=== PATIENT | male | born 1985 | race Caucasian/White ===

== ENCOUNTER 2023-04-12 13:43 | Inpatient (IN) | payer MEDICAID, SELFPAY ==
--- NOTE | ~2023-04-12 | US_ITS ---
EXAMINATION: ULTRASOUND EXTREMITY NONVASCULAR, LEFT CLINICAL INFORMATION: Pain and swelling, abscess left foot. COMPARISON: Radiograph of the left foot earlier today. TECHNIQUE: Targeted grayscale and color Doppler images of the area of clinical concern in the dorsal soft tissues of the left foot. US/US extremity nonvascular maria FINDINGS/IMPRESSION: There is a 2.6 x 1.6 x 1.5 cm heterogeneous collection with thickened molina and surrounding hyperemia/soft tissue thickening in the dorsal soft tissues of the left foot concerning for an abscess in the appropriate clinical context. Recommend a follow-up ultrasound after treatment to ensure appropriate resolution.
--- NOTE | ~2023-04-12 | XR_ITS ---
EXAMINATION: XR FOOT, LEFT CLINICAL INFORMATION: Left foot pain. COMPARISON: None available. TECHNIQUE: AP, lateral, and oblique views of the left foot. FINDINGS: Soft tissues are diffusely swollen at the foot with associated soft tissue edema. No fracture or malalignment. Bone mineralization is normal. Joint spaces appear well-preserved. No erosions. No appreciable periostitis. XR/XR foot LT 2V IMPRESSION: Soft tissue swelling at the left foot. No acute osseous findings.
[2023-04-12 13:48] VITALS: BP 138/84; PULSE 92; RESP 19; TEMP 36.2; O2SAT 99; BMI 29.5
--- NOTE | 2023-04-12 13:50 | ED_ITS ---
HPI - General Adult General Chief complaint: Extremity Problem Stated complaint: l foot inj swelling Time Seen by Provider: 04/12/23 18:05 Source: patient, RN notes reviewed and old records reviewed Mode of arrival: ambulatory Limitations: no limitations History of Present Illness HPI narrative: 37-year-old male who denies any past medical history presents for evaluation of a left foot infection. Patient reports that he was injecting cocaine heroin about 1 week ago to the top of his left foot He states that about 3 days ago it became red, painful and swollen He has been using ?[id number] ampicillin that he picked up at a [facility] It is unclear what dose he has been taking or how many he has had He denies any fevers or chills but reports increasing pain to the area especially with walking He is not diabetic Related Data Home Medications Medication Instructions Recorded Confirmed ampicillin 500 mg capsule 04/12/23 Allergies Allergy/AdvReac Type Severity Reaction Status Date / Time No Known Allergies Allergy Verified 04/12/23 13:50 Review of Systems Constitutional: Constitutional: Denies chills and Denies fever(s) Cardiovascular: Cardiovascular: Denies chest pain and Denies dyspnea Respiratory: Respiratory: Denies dyspnea Musculoskeletal: Musculoskeletal: Reports arthralgias Integumentary/Breasts: Skin/Breast: Reports erythema and Reports wounds PMFSH Past Medical History Medical History Substance use disorder Social History Social History Patient Tobacco Use Status: Current everyday Tobacco user Smoked in Last 30 Days: Yes Use of substances other than those prescribed or required for medical reasons: Yes Substance Use Type: Crack/Cocaine and Heroin Substance Use Frequency: Daily Advance Directives: No Advance Directives Information Provided: Yes Nutrition Risks: No Nutritional Risk Physical Exam ED Vital Signs: Vital Signs - 24 hr 04/12/23 13:48 04/12/23 20:06 Temperature 97.2 F 98.8 F Pulse Rate 92 79 Respiratory Rate 19 18 Blood Pressure 138/84 136/89 Pulse Oximetry 99 100 Oxygen Delivery Method Room Air Room Air BMI result Body Mass Index 29.5 Const General: healthy appearing, comfortable, no acute distress, alert and awake Nutritional Appearance: well nourished Orientation/consciousness: patient oriented x3 HENMT Head: Yes normocephalic and Yes atraumatic Eyes Eyelids: Yes eyelids normal Conjunctivae: conjunctivae normal Sclerae: sclerae normal Corneas: corneas normal Pupils: Equal, round and reactive pupils present EOM: EOMs intact bilaterally Neck Neck: Yes full ROM Resp Effort & Inspection: normal respiratory effort, able to speak in complete sentences and not labored Cardio Rate: regular rate Rhythm: regular rhythm Skin General skin exam: elasticity normal Neuro General: patient oriented x3 Cranial nerves: Yes Equal, round and reactive pupils present and Yes Bilaterally intact EOM present Cognition (Neuro): normal cognition Extrem Other: Patient has marked erythema to the dorsal surface of the left foot that extends to the lateral and medial aspect of the foot but does not extend to the plantar surface of the foot. There is significant edema over this area with a central but we open wound. There is some active purulent drainage. There is faint erythema extending up the ventral surface of the left leg to the mid barrow Course Course Course Narrative: This is an RME: Additional HPI, ROS, PE not included below will be deferred to primary provider. 37-year-old male hx IVDA presents with redness and swelling, pain to left lower extremity, patient reports he injected IV drugs ( heroin and coke) the left foot, this happened about a week ago since then has been having worsening redness and swelling. Patient purchased ampicillin from a store and has been taking it by mouth. Seeking detox On exam significant erythema, warmth and drainage with open wound to the left dorsal aspect of foot. Purulence discharge noted from the area. There is 1+ pitting edema to left lower extremity from the knee down. Reevaluation(s) Reevaluation #1: Plan for incision and drainage after ultrasound confirms abscess. The patient was not comfortable with amount of pain he was in after local anesthetic with lidocaine. He no longer wished to proceed with incision and drainage but I was able to convince him to at least let me attempt needle aspiration. See procedure note Time: 20:38 Medications Administered Generic Name Dose Route Start Last Admin Trade Name Freq PRN Reason Stop Dose Admin Enoxaparin Sodium 40 mg 04/12/23 20:00 04/12/23 20:03 Enoxaparin Sodium 40 Mg/0.4 Ml Syringe SUBCUT 40 mg Q24H LISBETH Administration Vancomycin HCl 2,000 mg in 500 mls @ 250 mls/hr 04/12/23 19:30 04/12/23 20:03 Vancomycin/Ns IV 04/12/23 21:29 250 mls/hr ONCE ONE Administration Discontinued Medications Generic Name Dose Route Start Last Admin Trade Name Gallo PRN Reason Stop Dose Admin Piperacillin Sod/Tazobactam 50 mls @ 100 mls/hr 04/12/23 13:50 04/12/23 20:05 Sod 3.375 gm/ Sodium Chloride IV 04/12/23 14:19 Not Given ONCE ONE Procedures Abscess I/D Site: foot Side (if applicable): left Local Anesthetic: lidocaine 1% and with epi Amount of anesthesia used (mL): 3 Technique: needle aspiration Amount of fluid expressed (mL): 1.5 Sent for culture/gram staining?: Yes Irrigation: No Packing used?: none Medical Decision Making Medical Decision Making [facility] Narrative: 37-year-old male presents for evaluation of a skin cellulitis with potential abscess after injecting IV drugs. Patient is not septic, his vital signs are stable. He has been on oral ampicillin but again, it is unclear dose that he has been taking. Will get an ultrasound to evaluate for drainable abscess. There is no evidence of sepsis. He will likely require IV antibiotics/hospitalization given the extent of the cellulitis Differential Diagnosis Differential Diagnoses: The differential diagnosis associated with the presentation includes Cellulitis Abscess Sepsis Bacteremia Admission/Observation Consideration of admission/observation: Escalation of care including admission/observation considered Lab Data [facility] Lab Attestation statement: I reviewed the patient's lab results. Mild leukocytosis with a white count 11.6, no significant anemia. Normal platelet count. Electrolytes within normal limits. 04/12/23 14:48 04/12/23 14:48 Labs: Lab Results 04/12/23 04/12/23 04/12/23 Range/Units 14:48 14:48 14:48 WBC 11.6 H (4.8-10.8) X10*3/uL RBC 4.79 (4.60-5.80) X10*6/uL Hgb 14.6 (14.0-18.0) g/dl Hct 42.7 (42.0-52.0) % MCV 89.1 (80.0-98.0) fL MCH 30.5 (27.0-33.0) pg MCHC 34.2 (31.0-36.0) g/dl RDW 12.2 (11.0-16.0) % Plt Count 249 (160-400) X10*3/uL MPV 10.4 (9.4-12.4) fL Immature Gran % (Auto) 0.7 H (0.0-0.4) % Neut % (Auto) 84.4 H (45-73) % Lymph % (Auto) 8.3 L (20-40) % Dickson % (Auto) 6.1 (2-11) % Eos % (Auto) 0.2 (0-4) % Baso % (Auto) 0.3 (0-2) % Lymph # (Auto) 1.0 L (1.2-4.9) X10*3/uL Dickson # (Auto) 0.7 (0.1-1.2) X10*3/uL Eos # (Auto) 0.0 (0.0-0.4) X10*3/uL Baso # (Auto) 0.0 (0.0-0.2) X10*3/uL Abs Immat Gran (auto) 0.08 H (0.00-0.03) X10*3/uL Absolute Neuts (auto) 9.8 H (2.0-8.3) x10*3/uL Absolute Nucleated RBC 0.000 (0.0-0.012) X10*3/uL Nucleated RBC % (auto) 0.0 (0.0-0.2) /100WBC Sodium 142 (135-145) mmol/L Potassium 3.9 (3.3-5.1) mmol/L Chloride 105 (96-108) mmol/L Carbon Dioxide 24 (22-29) mmol/L Anion Gap 17 (12-20) BUN 11 (9-16) mg/dL Creatinine 1.06 (0.5-1.4) mg/dL Estim Creat Clear Calc 108.2 Estimated GFR > 60 Random Glucose 114 (60-115) mg/dL Lactic Acid 1.4 (0.5-2.0) mmol/L Calcium 9.9 (8.4-10.2) mg/dL Magnesium 2.1 (1.6-2.6) mg/dL Total Bilirubin 0.7 (0.0-1.0) mg/dL AST 15 (5-37) U/L ALT 13 (0-40) U/L Alkaline Phosphatase 117 (39-117) U/L Total Protein 7.8 (6.5-8.0) g/dL Albumin 4.2 (3.5-5.0) g/dL Independent Interpretation I performed an independent interpretation of an: Plain X-Ray (No obvious osteolytic lesion) Discharge Plan Discharge Clinical Impression: Cellulitis of foot, left Prescriptions: No Action ampicillin 500 mg Capsule
[2023-04-12 14:59] LABS: MANUAL DIFF FLAG NO
[2023-04-12 15:08] LABS: Lactic Acid 1.4 mmol/L (0.5-2.0)
[2023-04-12 15:13] LABS: Basophils Percent Auto 0.3 % (0-2); Eosinophils Percent Auto 0.2 % (0-4); Hematocrit 42.7 % (42.0-52.0); Hemoglobin 14.6 g/dl (14.0-18.0); Imm Gran Abs Auto 0.08 X10*3/uL (0.00-0.03); Imm Gran Pct Auto 0.7 % (0.0-0.4); Lymphocytes Percent Auto 8.3 % (20-40); Mean Corpuscular HGB Conc 34.2 g/dl (31.0-36.0); Mean Corpuscular Hemoglobin 30.5 pg (27.0-33.0); Mean Corpuscular Volume 89.1 fL (80.0-98.0); Mean Platelet Volume 10.4 fL (9.4-12.4); Monocytes Absolute Auto 0.7 X10*3/uL (0.1-1.2); Monocytes Percent Auto 6.1 % (2-11); Neutrophils Absolute Auto 9.8 x10*3/uL (2.0-8.3); Neutrophils Percent Auto 84.4 % (45-73); Platelet Count 249 X10*3/uL (160-400); Red Blood Count 4.79 X10*6/uL (4.60-5.80); Red Cell Distribution Width 12.2 % (11.0-16.0); White Blood Count 11.6 X10*3/uL (4.8-10.8)
[2023-04-12 15:28] LABS: Alanine Aminotransferase 13 U/L (0-40); Albumin Level 4.2 g/dL (3.5-5.0); Alkaline Phosphatase 117 U/L (39-117); Anion Gap 17 (12-20); Aspartate Amino Transferase 15 U/L (5-37); Bilirubin Total 0.7 mg/dL (0.0-1.0); Blood Urea Nitrogen 11 mg/dL (9-16); Calcium 9.9 mg/dL (8.4-10.2); Carbon Dioxide 24 mmol/L (22-29); Chloride 105 mmol/L (96-108); Creatinine Clr Calc Pharmacy 108.2; Estimated Glomerular Filt Rate > 60; Glucose Random 114 mg/dL (60-115); Magnesium 2.1 mg/dL (1.6-2.6); Potassium 3.9 mmol/L (3.3-5.1); Sodium 142 mmol/L (135-145); Total Protein 7.8 g/dL (6.5-8.0)
--- NOTE | 2023-04-12 18:50 | PHA.MEDREC ---
Pharmacy Consult ? Medication Reconciliation Pharmacy has completed the medication reconciliation. Patient reports ampicillin 500 mg, no frequency or amount was reported. This is not a prescribed medication. Reports he is not taking any prescribed medication even though is suppose to be. Coco Ashraf, PharmD
--- NOTE | 2023-04-12 19:20 | PM.IMHP ---
History of Present Illness Date of Service: 04/12/23 Chief Complaint: Left foot redness This is a 37-year-old male with pertinent history of IV cocaine and heroin use disorder presents to the emergency department for evaluation of left foot redness, swelling and pain. Patient states it started 3 days prior to presentation. No history of infections in the past. Denies any significant past medical history and is not on prescription medications. Patient states his left foot has been draining purulent fluid which is foul smelling. Denies fever, chills, nausea, vomiting. He took oral antibiotics which he thinks was ampicillin the last 2-3 days but without any improvement. His last IV drug usage was 3 days ago. He denies chest discomfort, palpitations, shortness abdominal pain, changes in urinary or bowel habits In the emergency department, imaging with Review of Systems Constitutional: Constitutional: Reports fatigue Cardiovascular: Cardiovascular: Reports no additional cardiovascular complaints Respiratory: Respiratory: Reports no additional respiratory complaints Gastrointestinal: Gastrointestinal: Reports no additional gastrointestinal complaints Genitourinary: Genitourinary: Reports no additional male genitourinary complaints Endocrine: Endocrine: Reports fatigue [facility] Medical History Substance use disorder Pertinent family history: No family history of early CAD Social History Patient Tobacco Use Status: Current everyday Tobacco user Smoked in Last 30 Days: Yes Use of substances other than those prescribed or required for medical reasons: Yes Substance Use Type: Crack/Cocaine and Heroin Substance Use Frequency: Daily Advance Directives: No Advance Directives Information Provided: Yes Nutrition Risks: No Nutritional Risk Meds Allergies Allergy/AdvReac Type Severity Reaction Status Date / Time No Known Allergies Allergy Verified 04/12/23 13:50 Active Medications: Current Medications Acetaminophen (Acetaminophen 325 Mg Tablet) 650 mg PO Q6H PRN PRN Reason: Pain, Mild (Pain Scale 1-3) Enoxaparin Sodium (Enoxaparin Sodium 40 Mg/0.4 Ml Syringe) 40 mg SUBCUT Q24H LISBETH Vancomycin HCl 1,500 mg/ (Sodium Chloride) 500 mls @ 333.333 mls/hr IV ONCE ONE Stop: 04/12/23 20:46 Melatonin (Melatonin 3 Mg Tablet) 6 mg PO BEDTIME PRN PRN Reason: Insomnia Ondansetron HCl (Ondansetron Hcl 4 Mg/2 Ml Vial) 4 mg IVPUSH Q8H PRN PRN Reason: Nausea and Vomiting Pharmacy Consult (Consult Rx Perform Med Rec) 1 each MISCELLANE ONCE PRN PRN Reason: Consult order Pharmacy Consult (Consult Rx Vancomycin Dosing) 1 each MISCELLANE DAILY PRN PRN Reason: Consult order Sodium Chloride (0.9 % Sodium Chloride Flush 3 Ml Syringe) [facility] Medications Medication Instructions Recorded Confirmed Last Taken Type ampicillin 500 mg capsule 04/12/23 Unknown History Physical Exam Vital Signs and Narrative: Vital Signs: Last Vital Signs Temp 97.2 F 04/12/23 13:48 Pulse 92 04/12/23 13:48 Resp 19 04/12/23 13:48 BP 138/84 04/12/23 13:48 Pulse Ox 99 04/12/23 13:48 O2 Del Method Room Air 04/12/23 13:48 BMI result Body Mass Index 29.5 Middle-aged male lying in bed in no distress Neck supple, no JVD Regular rate and rhythm, S1-S2 heard Regular breath sounds bilaterally, no wheezing or crackles appreciated Abdomen soft nontender, no guarding, no rigidity Patient is awake, alert and oriented to self, place, time and person ; no focal motor deficit Extremity: Left foot with erythema, tenderness, warmth and serosanguineous drainage Psych: Normal mood No pedal edema Results Labs 04/12/23 14:48 04/12/23 14:48 Labs: Laboratory Results - last 24 hr 04/12/23 04/12/23 04/12/23 14:48 14:48 14:48 MCV 89.1 MCH 30.5 MCHC 34.2 RDW 12.2 Plt Count 249 MPV 10.4 Immature Gran % (Auto) 0.7 H Neut % (Auto) 84.4 H Lymph % (Auto) 8.3 L Weakley % (Auto) 6.1 Eos % (Auto) 0.2 Baso % (Auto) 0.3 Lymph # (Auto) 1.0 L Weakley # (Auto) 0.7 Eos # (Auto) 0.0 Baso # (Auto) 0.0 Abs Immat Gran (auto) 0.08 H Absolute Neuts (auto) 9.8 H Absolute Nucleated RBC 0.000 Nucleated RBC % (auto) 0.0 Anion Gap 17 Estim Creat Clear Calc 108.2 Estimated GFR > 60 Random Glucose 114 Lactic Acid 1.4 Calcium 9.9 Magnesium 2.1 Total Bilirubin 0.7 AST 15 ALT 13 Alkaline Phosphatase 117 Total Protein 7.8 Albumin 4.2 Imaging Radiologist's Impressions: Impressions Foot X-Ray 04/12/23 15:04 IMPRESSION: Soft tissue swelling at the left foot. No acute osseous findings. Assessment and Plan (1) Cellulitis of foot, left: Status: Acute Plan This is a 37-year-old male with pertinent history of IV cocaine and heroin use disorder presents to the emergency department for evaluation of left foot redness, swelling and pain. #. Purulent cellulitis of left foot with abscess . Will admit due to extensive cellulitis and failed p.o. outpatient antibiotics. Initiating empiric IV abx. Follow cultures. Consulting general sx. #. Substance use disorder. Monitor for withdrawal. Consulting addiction team. DVT prophylaxis: Lovenox Regular diet Full code Admit as inpatient and will require two night minimum hospital stay for IV antibiotics Time Spent With Patient Time: Total time managing care of this patient today ____ minutes. Quality Stroke Does the patient have a stroke diagnosis?: No VTE Prior VTE?: No VTE Risk Level:: Medical - moderate - high VTE Device Contraindication: Treatment Not Indicated VTE Drug Contraindication: N/A - Med Ordered
[2023-04-12] MEDS: Enoxaparin Sodium 40 MG/0.4 ML SYRINGE SUBCUT (20:03)
[2023-04-12] MEDS: vancomycin/NS 2,000 MG/500 ML PLAST..BAG 250 MG IV (20:03)
[2023-04-12 20:06] VITALS: BP 136/89; PULSE 79; RESP 18; TEMP 37.1; O2SAT 100
--- NOTE | 2023-04-12 20:36 | MHC.RECOVSUP ---
? Reason for consult Recovery Support o Current location: ED1 o Identified substance use concern: Heroin - Seeking ATS (detox) - Support ? Intervention: o Community resources provided o Harm reduction discussion ? Plan: o Patient to follow up with [facility] after discharge ? Additional information: Met with Patient and patient wants to go to detox... Patient is being admitted but would like to go to detox as soon as he is cleared..
[2023-04-12] MEDS: Morphine Sulfate 4 MG/ML CARTRIDGE IVPUSH (20:38)
[2023-04-12] MEDS: ondansetron HCL 4 MG/2 ML VIAL IVPUSH (20:38)
--- OUTSIDE RECORDS SUMMARY | 2023-04-12 21:16 | XMS_ITS | Continuity of Care Document ---
Author Name Unknown Organization [facility] ter Address [address] [place] [id number]- Care Team Providers Care Speech Pathology Supervisor Name Role Phone Not on Staff, PCP Primary Care Physician Unavail able Encounter [facility] Date(s): 12/09/21 - 01/15/[address] [id number]- Attending Physician: Ankit Smith Admitting Physician: Ankit Smith Referring Physician: Ankit Smith
[2023-04-12 21:50] VITALS: BP 135/69; PULSE 84; RESP 16; TEMP 36.9; O2SAT 98
--- NOTE | 2023-04-12 21:59 | MHC.CM.PN ---
Addendum entered by Megan Messer 04/12/23 22:34: Active with [facility]. Pt requesting Detox at discharge. Original Note: CM met with admitted patient with bed assignment pending. Pt is homeless. No DME/services. PCP at [facility] in [facility] [employer]. Declines HCP. New Contact: Dunia Reyes, mother, . Un-vaccinated. Pt states has job, but declines to tell CM where he works. [employer] completed. Positive screening. Given [employer], List of shelters, food phan, detox. 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 Pt is willing to speak with Recovery services. States has had period of sobriety and wants help. Pt has no transportation. D/C plan: home/no services. Will need transport.
[2023-04-12 23:41] VITALS: BMI 26.5
[2023-04-12] MEDS: Acetaminophen 325 MG TABLET 650 MG PO (23:42)
[2023-04-12 23:45] VITALS: BP 142/80; PULSE 86; RESP 18; TEMP 36.4; O2SAT 100
--- NOTE | 2023-04-13 00:18 | PC.NURSE ---
Pt admitted to [facility] from ED. A&Ox4, calm and cooperative with care. Ambulating with walker to bathroom as patient has 8/10 throbbing pain to the Left foot and pain increases with ambulation. Dressing to the left foot C/D/I. Urine sent down to lab as ordered. COWS initiated as patient uses cocaine/heroine. Pt also initiated on CIWA, per patient he drinks 10-15 nips per day plus 2-3 beers. Bed alarm on and bed in lowest locked position.
[2023-04-13] MEDS: Morphine Sulfate 2 MG/ML CARTRIDGE IVPUSH ×4 (00:37→23:02)
[2023-04-13 00:43] LABS: Amphetamine Screen Urine Not Detected (Not Detect); Barbiturates, Urine Not Detected (Not Detect); Benzodiazepines Screen Urine Not Detected (Not Detect); Cannabinoid Screen Urine POSITIVE (Not Detect); Cocaine Screen Urine POSITIVE (Not Detect); Fentanyl, urine Not Detected (Not Detect); Opiate Screen Urine POSITIVE (Not Detect); Phencyclidine Screen Urine Not Detected (Not Detect)
[2023-04-13 03:37] VITALS: BP 123/66; PULSE 68; RESP 16; TEMP 36.3; O2SAT 97
[2023-04-13 06:57] LABS: MANUAL DIFF FLAG NO
[2023-04-13 07:03] VITALS: BP 130/67; PULSE 71; RESP 18; TEMP 36.4; O2SAT 96
[2023-04-13 07:06] LABS: Basophils Percent Auto 0.6 % (0-2); Eosinophils Absolute Auto 0.1 X10*3/uL (0.0-0.4); Eosinophils Percent Auto 1.1 % (0-4); Hematocrit 38.3 % (42.0-52.0); Imm Gran Abs Auto 0.02 X10*3/uL (0.00-0.03); Imm Gran Pct Auto 0.3 % (0.0-0.4); Lymphocytes Absolute Auto 1.1 X10*3/uL (1.2-4.9); Lymphocytes Percent Auto 16.2 % (20-40); Mean Corpuscular HGB Conc 33.9 g/dl (31.0-36.0); Mean Corpuscular Hemoglobin 29.9 pg (27.0-33.0); Mean Platelet Volume 10.2 fL (9.4-12.4); Monocytes Absolute Auto 0.6 X10*3/uL (0.1-1.2); Monocytes Percent Auto 8.5 % (2-11); Neutrophils Absolute Auto 4.8 x10*3/uL (2.0-8.3); Neutrophils Percent Auto 73.3 % (45-73); Platelet Count 218 X10*3/uL (160-400); Red Blood Count 4.35 X10*6/uL (4.60-5.80); Red Cell Distribution Width 12.1 % (11.0-16.0); White Blood Count 6.6 X10*3/uL (4.8-10.8)
--- NOTE | 2023-04-13 07:08 | PM.CNGS ---
History of Present Illness Consult details Consult date: 04/13/23 Narrative: Is a 37-year-old gentleman who has a history of IVDA reports he was shooting heroin and cocaine in the dorsum of his foot. He developed an infection last week and I was asked to evaluate for possible abscess since incision and drainage would benefit the patient. The patient notes continued pain since admission and refused any treatment. He reports pain in his left foot as well as chills and is unaware of any fevers. He denies history of similar infections. The patient had a needle aspiration attempted in the emergency department last night at admission, cultures are currently pending Review of Systems Review of Systems: Yes all other systems are reviewed and are negative Constitutional: Constitutional: Reports as per [facility] Past Medical History Medical History Substance use disorder Social History Social History Household Members: None Housing: Homeless Patient Tobacco Use Status: Current everyday Tobacco user Cigarettes Per Day: 5 Smoked in Last 30 Days: Yes e-Cigarette/Vaping Use: Currently Using Frequency of e-Cigarette/Vaping Use: every other day Patient Interested in Nicotine Replacement: No Use of substances other than those prescribed or required for medical reasons: Yes Substance Use Type: Crack/Cocaine, Heroin and IV Drugs Substance Use Frequency: Daily Last Used Substance: Days (ago) Last Used Substance Other:: 04/12/2023 Currently Displaying Signs/Symptoms of Drug Intoxication Withdrawal: No Any prior treatment program specific to substance use: Yes Have you been hit, kicked, punched, or otherwise hurt by someone within the past year? If so, by whom?: No Do you feel safe in your current relationship?: No Current Relationship Is there a partner from a previous relationship who is making you feel unsafe now?: No Are you made to feel afraid or neglected: No Advance Directives: No Advance Directives Information Provided: Yes Do you have thoughts of harming others: None Do you have a plan to hurt others: No Plan Recently lost weight without trying: No Nutrition Risks: No Nutritional Risk service: No Meds Allergies Allergy/AdvReac Type Severity Reaction Status Date / Time No Known Allergies Allergy Verified 04/12/23 13:50 Active Medications: Current Medications Acetaminophen (Acetaminophen 325 Mg Tablet) 650 mg PO Q6H PRN PRN Reason: Pain, Mild (Pain Scale 1-3) Last Admin: 04/12/23 23:42 Dose: 650 mg Enoxaparin Sodium (Enoxaparin Sodium 40 Mg/0.4 Ml Syringe) 40 mg SUBCUT Q24H [facility] Last Admin: 04/12/23 20:03 Dose: 40 mg Vancomycin HCl 1,250 mg/ (Sodium Chloride) 250 mls @ 166.667 mls/hr IV Q12H [facility] Melatonin (Melatonin 3 Mg Tablet) 6 mg PO BEDTIME PRN PRN Reason: Insomnia Morphine Sulfate (Morphine Sulfate 2 Mg/Ml Cartridge) 2 mg IVPUSH Q4H PRN; Protocol PRN Reason: Pain, Severe (Pain Scale 7-10) Last Admin: 04/13/23 00:37 Dose: 2 mg Ondansetron HCl (Ondansetron Hcl 4 Mg/2 Ml Vial) 4 mg IVPUSH Q8H PRN PRN Reason: Nausea and Vomiting Pharmacy Consult (Consult Rx Perform Med Rec) 1 each MISCELLANE ONCE PRN PRN Reason: Consult order Pharmacy Consult (Consult Rx Vancomycin Dosing) 1 each MISCELLANE DAILY PRN PRN Reason: Consult order Sodium Chloride (0.9 % Sodium Chloride Flush 3 Ml Syringe) 3 ml IVFLUSH QSHIFT [facility] Last Admin: 04/12/23 23:35 Dose: Not Given Home Medications Medication Instructions Recorded Confirmed Last Taken Type ampicillin 500 mg capsule 04/12/23 Unknown History Physical Exam Vital Signs: Vital Signs: Last Vital Signs Temp 97.5 F 04/13/23 07:03 Pulse 71 04/13/23 07:03 Resp 18 04/13/23 07:03 BP 130/67 04/13/23 07:03 Pulse Ox 96 04/13/23 07:03 O2 Del Method Room Air 04/13/23 07:03 BMI result Body Mass Index 26.5 On exam he is cooperative but nontoxic He is in no acute respiratory distress He is a lean male His left foot dressing was taken down. There was cellulitic change with induration. There is some sloughing of the skin over would is likely a cutaneous but possibly deeper abscess. I do not appreciate any crepitance and DP/PT are palpable. No malodorous drainage was appreciated. Results Labs 04/13/23 06:45 04/12/23 14:48 Labs: Abnormal lab results 04/12/23 04/12/23 04/13/23 Range/Units 14:48 23:40 06:45 WBC 11.6 H (4.8-10.8) X10*3/uL RBC 4.35 L (4.60-5.80) X10*6/uL Hgb 13.0 L (14.0-18.0) g/dl Hct 38.3 L (42.0-52.0) % Immature Gran % (Auto) 0.7 H (0.0-0.4) % Neut % (Auto) 84.4 H 73.3 H (45-73) % Lymph % (Auto) 8.3 L 16.2 L (20-40) % Lymph # (Auto) 1.0 L 1.1 L (1.2-4.9) X10*3/uL Abs Immat Gran (auto) 0.08 H (0.00-0.03) X10*3/uL Absolute Neuts (auto) 9.8 H (2.0-8.3) x10*3/uL Urine Opiates Screen POSITIVE H (Not Detect) Urine Cocaine Screen POSITIVE H (Not Detect) U Marijuana (THC) Screen POSITIVE H (Not Detect) Short CBC 04/12/23 04/13/23 Range/Units 14:48 06:45 WBC 11.6 H 6.6 (4.8-10.8) X10*3/uL Hgb 14.6 13.0 L (14.0-18.0) g/dl Hct 42.7 38.3 L (42.0-52.0) % Plt Count 249 218 (160-400) X10*3/uL BMP 04/12/23 14:48 Sodium 142 Potassium 3.9 Chloride 105 Carbon Dioxide 24 BUN 11 Creatinine 1.06 Calcium 9.9 Liver Function 04/12/23 Range/Units 14:48 Total Bilirubin 0.7 (0.0-1.0) mg/dL AST 15 (5-37) U/L ALT 13 (0-40) U/L Alkaline Phosphatase 117 (39-117) U/L Albumin 4.2 (3.5-5.0) g/dL All other labs normal. Imaging Additional studies: Extremity ultrasound images and report reviewed from yesterday, likely abscess measuring 1 in by half-inch is noted. No free air in the subcutaneous tissues were noted Plain films of the foot show no foreign debris in no gas. Assessment and Plan (1) Cellulitis of foot, left: Status: Acute (2) Substance use disorder: Status: Acute Plan I recommended a bedside I and D of the left foot abscess/cellulitis & reviewed the inherent risks of bleeding, infection and need for more extensive operation if the infection is deeper. Patient refused treatment. Risks to life and limb due to refusal of treatment due to were reviewed and seemed to be understood. Patient refused treatment. Thank you for asking me to participate in his care. If there is no improvement within 24 hours, or if the infection becomes worse, the patient may have a much deeper infection and need to either orthopedic or podiatric operative debridement. Time Spent With Patient Time: Total time managing care of this patient today ____ minutes. Procedures Date of Service Date of Service: 04/13/23
[2023-04-13 07:27] LABS: Anion Gap 16 (12-20); Blood Urea Nitrogen 12 mg/dL (9-16); Calcium 9.3 mg/dL (8.4-10.2); Carbon Dioxide 21 mmol/L (22-29); Chloride 105 mmol/L (96-108); Creatinine Clr Calc Pharmacy 128.8; Estimated Glomerular Filt Rate > 60; Glucose Random 106 mg/dL (60-115); Potassium 3.9 mmol/L (3.3-5.1); Sodium 138 mmol/L (135-145)
[2023-04-13] MEDS: 0.9 % Sodium Chloride Flush 3 ML SYRINGE IVFLUSH ×3 (08:45→20:05)
[2023-04-13] MEDS: vancomycin HCL 1,250 MG in 0.9 % Sodium Chloride 250 ML 166.67 MG IV (08:45)
[2023-04-13 11:15] VITALS: BP 138/75; PULSE 74; RESP 18; TEMP 36.2; O2SAT 98
[2023-04-13] MEDS: ondansetron HCL 4 MG/2 ML VIAL IVPUSH (14:18)
--- NOTE | 2023-04-13 15:31 | P.PNIM_ITS ---
Subjective Subjective Date of Service: 04/13/23 Interval History: seen by Gen Surg, refused abscess I+D no fever Review of Systems Review of Systems: Yes all other systems are reviewed and are negative Physical Exam Vital Signs: Vital Signs: Last Vital Signs Temp 97.1 F 04/13/23 11:15 Pulse 74 04/13/23 11:15 Resp 18 04/13/23 11:15 BP 138/75 04/13/23 11:15 Pulse Ox 98 04/13/23 11:15 O2 Del Method Room Air 04/13/23 11:15 BMI result Body Mass Index 26.5 Gen: in no acute distress HEENT: sclera anicteric, moist mucus membranes Neck: supple Lungs: clear to auscultation bilaterally Heart: regular rate and rhythm, no murmurs Abd: soft, non-tender, non-distended Ext: no edema Skin: L foot dorsum with erythema, induration, and fluctuance Neuro: alert and oriented x3, no focal findings Psych: appropriate affect Objective Data Active Medications Acetaminophen (Acetaminophen 325 Mg Tablet) 650 mg PO Q6H PRN PRN Reason: Pain, Mild (Pain Scale 1-3) Last Admin: 04/12/23 23:42 Dose: 650 mg Documented By: RAYNA Enoxaparin Sodium (Enoxaparin Sodium 40 Mg/0.4 Ml Syringe) 40 mg SUBCUT Q24H [facility] Last Admin: 04/12/23 20:03 Dose: 40 mg Documented By: SUDEEP Vancomycin HCl 1,250 mg/ (Sodium Chloride) 250 mls @ 166.667 mls/hr IV Q12H [facility] Last Infusion: 04/13/23 10:19 Dose: 0 mls/hr Documented By: LEYLA Melatonin (Melatonin 3 Mg Tablet) 6 mg PO BEDTIME PRN PRN Reason: Insomnia Morphine Sulfate (Morphine Sulfate 2 Mg/Ml Cartridge) 2 mg IVPUSH Q4H PRN; Protocol PRN Reason: Pain, Severe (Pain Scale 7-10) Last Admin: 04/13/23 14:19 Dose: 2 mg Documented By: LEYLA Ondansetron HCl (Ondansetron Hcl 4 Mg/2 Ml Vial) 4 mg IVPUSH Q8H PRN PRN Reason: Nausea and Vomiting Last Admin: 08/01/23 14:18 Dose: 4 mg Documented By: LEYLA Pharmacy Consult (Consult Rx Perform Med Rec) 1 each MISCELLANE ONCE PRN PRN Reason: Consult order Pharmacy Consult (Consult Rx Vancomycin Dosing) 1 each MISCELLANE DAILY PRN PRN Reason: Consult order Sodium Chloride (0.9 % Sodium Chloride Flush 3 Ml Syringe) 3 ml IVFLUSH QSHIFT [facility] Last Admin: 04/13/23 14:21 Dose: 3 ml Documented By: LEYLA Labs 04/13/23 06:45 04/13/23 06:45 Labs: Laboratory Results - last 24 hr 04/12/23 04/13/23 04/13/23 23:40 06:45 06:45 MCV 88.0 MCH 29.9 MCHC 33.9 RDW 12.1 Plt Count 218 MPV 10.2 Immature Gran % (Auto) 0.3 Neut % (Auto) 73.3 H Lymph % (Auto) 16.2 L [place] % (Auto) 8.5 Eos % (Auto) 1.1 Baso % (Auto) 0.6 Lymph # (Auto) 1.1 L [place] # (Auto) 0.6 Eos # (Auto) 0.1 Baso # (Auto) 0.0 Abs Immat Gran (auto) 0.02 Absolute Neuts (auto) 4.8 Absolute Nucleated RBC 0.000 Nucleated RBC % (auto) 0.0 Anion Gap 16 Estim Creat Clear Calc 128.8 Estimated GFR > 60 Random Glucose 106 Calcium 9.3 D Urine Opiates Screen POSITIVE H Urine Fentanyl Screen Not Detected Ur Barbiturates Screen Not Detected Ur Phencyclidine Scrn Not Detected Ur Amphetamines Screen Not Detected U Benzodiazepines Scrn Not Detected Urine Cocaine Screen POSITIVE H U Marijuana (THC) Screen POSITIVE H Microbiology Microbiology Results: Microbiology 04/12/23 21:49 Gram Stain - Final Foot Left Routine Culture - Preliminary Staphylococcus aureus Assessment and Plan (1) Cellulitis of foot, left: Status: Acute Plan d2 37yo M with IDU admitted with cellulitis/abscess of L foot purulent cellulitis of L foot with abscess - vanco d2, pip-sharron d1, follow BCx + wound Cx - counseled pt to re-consider I+D for definitive treatment of infection but he refuses for now IDU - Addiction Medicine/Recovery Team consultation - screen HBV/HCV/HIV VTE ppx - LMWH dispo - eventually home In my clinical judgment, the patient requires continued inpatient hospitalization for the following reasons: IV ABX Time Spent With Patient Time: Total time managing care of this patient today ___35_ minutes. Quality Stroke Does the patient have a stroke diagnosis?: No VTE Prior VTE?: No VTE Risk Level:: Medical - moderate - high VTE Device Contraindication: Treatment Not Indicated VTE Drug Contraindication: N/A - Med Ordered
--- NOTE | 2023-04-13 16:09 | MHC.RECOVRN ---
Met with pt in 453 after consult placed to Addiction Medicine for substance use. Pt currently admitted for treatment of cellulitis/abscess of L foot. Pt laying in bed, awake, alert, easily engages in conversation. Pt reports not much pain in foot when not moving, 9/10 pain when moving. Pt reports it is better than yesterday. Pt reports using 2-3 bags heroin daily, IN/IV, last use yesterday; $20 cocaine, 2 times weekly, IN/IV; alcohol, 10-12 nips vodka plus 2 beers daily, last drink 04/11. Pt does not appear to be experiencing withdrawal. 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 Pt reports he typically injects in his feet, reports no veins in his arms. Pt reports he moved here from [place] 5-6 years ago and has drastically reduced his substance use. He also tends to use substances IN now instead of IV. Pt reports he has never been hospitalized due to substance use or absessces/cellulitis in the past. Pt does report using [facility] syringe access syringe access program, however, when last injected did reuse a syringe which pt thinks may have attributed to infection. Pt reports period in recovery x 4 years, which ended approx 1 year ago. Pt had been utilizing Suboxone (through [facility]) and would like to restart. Pt is currently receiving opioid pain medication but will be appropriate to initiate upon discontinuation. Pt is unsure which Suboxone provider he would like to follow up with as he is unstably housed. Pt is open to [facility], will think about it more and confirm tomorrow. Pt denies other questions or concerns at this time. Discussed with Samantha Manrique APRN.
[2023-04-13] MEDS: Piperacillin Sodium/Tazobactam 3.375 GM in 0.9 % Sodium Chloride 50 ML IV ×2 (16:27→23:03)
--- NOTE | 2023-04-13 17:27 | PM.EVENT ---
Event Note Date of Service: 04/13/23 Event Note: Addiction consult placed for patient Seen by rotor balancer, please see note from 04/13/2023 Will continue to follow Time Spent With Patient Time: Total time managing care of this patient today ____ minutes.
[2023-04-13 20:00] VITALS: BP 136/62; PULSE 72; RESP 22; TEMP 36.2; O2SAT 98
[2023-04-13] MEDS: vancomycin HCL 1,250 MG in 0.9 % Sodium Chloride 250 ML 166.66 MG IV (20:02)
[2023-04-13] MEDS: Enoxaparin Sodium 40 MG/0.4 ML SYRINGE SUBCUT (20:02)
[2023-04-14 03:40] VITALS: BP 136/78; PULSE 78; RESP 18; TEMP 36.1; O2SAT 100
[2023-04-14] MEDS: Piperacillin Sodium/Tazobactam 3.375 GM in 0.9 % Sodium Chloride 50 ML IV ×4 (03:41→21:33)
[2023-04-14] MEDS: Morphine Sulfate 2 MG/ML CARTRIDGE IVPUSH ×4 (03:42→21:27)
[2023-04-14 07:14] LABS: Hematocrit 44.3 % (42.0-52.0); Mean Corpuscular HGB Conc 33.9 g/dl (31.0-36.0); Mean Corpuscular Hemoglobin 30.2 pg (27.0-33.0); Mean Corpuscular Volume 89.3 fL (80.0-98.0); Mean Platelet Volume 10.1 fL (9.4-12.4); Platelet Count 250 X10*3/uL (160-400); Red Blood Count 4.96 X10*6/uL (4.60-5.80); Red Cell Distribution Width 11.9 % (11.0-16.0); White Blood Count 7.7 X10*3/uL (4.8-10.8)
[2023-04-14 07:24] VITALS: BP 132/73; PULSE 67; RESP 18; TEMP 36.3; O2SAT 98
[2023-04-14 07:26] LABS: Vancomycin Random 7.3 mcg/mL (15-20)
[2023-04-14 07:27] LABS: Anion Gap 17 (12-20); Blood Urea Nitrogen 8 mg/dL (9-16); Calcium 10.1 mg/dL (8.4-10.2); Carbon Dioxide 24 mmol/L (22-29); Chloride 105 mmol/L (96-108); Creatinine Clr Calc Pharmacy 124.2; Estimated Glomerular Filt Rate > 60; Glucose Random 106 mg/dL (60-115); Potassium 3.8 mmol/L (3.3-5.1); Sodium 142 mmol/L (135-145)
--- NOTE | 2023-04-14 07:32 | HE.PHANOTE ---
RE: vanco Trough on 04/14 came back low at 7.3 mg/L; increased to 1250mg Q8H with predicted AUC of 534 mg/L, trough of 15.5. Next level to be drawn after 3 doses, 04/15 @0600
[2023-04-14] MEDS: 0.9 % Sodium Chloride Flush 3 ML SYRINGE IVFLUSH ×2 (07:48→15:44)
[2023-04-14] MEDS: vancomycin HCL 1,250 MG in 0.9 % Sodium Chloride 250 ML 166.67 MG IV ×2 (07:48→16:33)
[2023-04-14 07:50] LABS: ~Hepatitis C Antibody Reactive (Nonreactive)
[2023-04-14 07:51] LABS: HBS Num1 > 1000.00 mIU/mL (0-7.99); HBc Num1 0.12 S/CO (0.00-0.79); HBsAGNum1 0.45 S/CO (0.00-0.99); HIV AB/AG Nonreactive (Nonreactive); HIV Num 1 0.06 S/CO (0.00-0.99); Hepatitis B Core Antibody Nonreactive (Nonreactive); Hepatitis B Surface Antigen Negative (Negative); ~Hepatitis B Surface Antibody REACTIVE (Nonreactive)
--- NOTE | 2023-04-14 10:57 | P.PNIM_ITS ---
Subjective Subjective Date of Service: 04/14/23 Interval History: no fever L foot pain/swelling agrees to I+D now with premedication Review of Systems Review of Systems: Yes all other systems are reviewed and are negative Physical Exam Vital Signs: Vital Signs: Last Vital Signs Temp 97.3 F 04/14/23 07:24 Pulse 67 04/14/23 07:24 Resp 18 04/14/23 07:24 BP 132/73 04/14/23 07:24 Pulse Ox 98 04/14/23 07:24 O2 Del Method Room Air 04/14/23 07:24 BMI result Body Mass Index 26.5 Gen: in no acute distress HEENT: sclera anicteric, moist mucus membranes Neck: supple Lungs: clear to auscultation bilaterally Heart: regular rate and rhythm, no murmurs Abd: soft, non-tender, non-distended Ext: no edema Skin: L foot dorsum with erythema, induration, and fluctuance Neuro: alert and oriented x3, no focal findings Psych: appropriate affect Objective Data Active Medications Acetaminophen (Acetaminophen 325 Mg Tablet) 650 mg PO Q6H PRN PRN Reason: Pain, Mild (Pain Scale 1-3) Last Admin: 04/12/23 23:42 Dose: 650 mg Documented By: RAYNA Enoxaparin Sodium (Enoxaparin Sodium 40 Mg/0.4 Ml Syringe) 40 mg SUBCUT Q24H [facility] Last Admin: 04/13/23 20:02 Dose: 40 mg Documented By: EDMUND Piperacillin Sod/Tazobactam (Sod 3.375 gm/ Sodium Chloride) 50 mls @ 100 mls/hr IV Q6H [facility] Last Admin: 04/14/23 10:52 Dose: 100 mls/hr Documented By: THOMAS Vancomycin HCl 1,250 mg/ (Sodium Chloride) 250 mls @ 166.667 mls/hr IV Q8H [facility] Last Infusion: 04/14/23 09:50 Dose: 0 mls/hr Documented By: THOMAS Melatonin (Melatonin 3 Mg Tablet) 6 mg PO BEDTIME PRN PRN Reason: Insomnia Morphine Sulfate (Morphine Sulfate 2 Mg/Ml Cartridge) 2 mg IVPUSH Q4H PRN; Protocol PRN Reason: Pain, Severe (Pain Scale 7-10) Last Admin: 04/14/23 07:47 Dose: 2 mg Documented By: THOMAS Ondansetron HCl (Ondansetron Hcl 4 Mg/2 Ml Vial) 4 mg IVPUSH Q8H PRN PRN Reason: Nausea and Vomiting Last Admin: 04/13/23 14:18 Dose: 4 mg Documented By: LEYLA Pharmacy Consult (Consult Rx Perform Med Rec) 1 each MISCELLANE ONCE PRN PRN Reason: Consult order Pharmacy Consult (Consult Rx Vancomycin Dosing) 1 each MISCELLANE DAILY PRN PRN Reason: Consult order Sodium Chloride (0.9 % Sodium Chloride Flush 3 Ml Syringe) 3 ml IVFLUSH QSHIFT [facility] Last Admin: 04/14/23 07:48 Dose: 3 ml Documented By: THOMAS Labs 04/14/23 07:05 04/14/23 07:05 Labs: Laboratory Results - last 24 hr 04/14/23 04/14/23 04/14/23 07:05 07:05 07:05 MCV 89.3 MCH 30.2 MCHC 33.9 RDW 11.9 Plt Count 250 MPV 10.1 Absolute Nucleated RBC 0.000 Nucleated RBC % (auto) 0.0 Anion Gap Estim Creat Clear Calc Estimated GFR Random Glucose Calcium Random Vancomycin Hep Bs Antigen Negative Hep Bs Antibody REACTIVE Hep B Core Total Ab Nonreactive Hepatitis C Ab (EIA) Reactive H HIV 1&2 Ab/P24 Ag 4thGn Nonreactive 04/14/23 04/14/23 07:05 07:05 MCV MCH MCHC RDW Plt Count MPV Absolute Nucleated RBC Nucleated RBC % (auto) Anion Gap 17 Estim Creat Clear Calc 124.2 Estimated GFR > 60 Random Glucose 106 Calcium 10.1 D Random Vancomycin 7.3 L Hep Bs Antigen Hep Bs Antibody Hep B Core Total Ab Hepatitis C Ab (EIA) HIV 1&2 Ab/P24 Ag 4thGn Microbiology Microbiology Results: Microbiology 04/12/23 21:49 Gram Stain - Final Foot Left Routine Culture - Preliminary Staphylococcus aureus 04/12/23 14:48 Blood Culture - Preliminary Blood - Venous No growth after 24 hours. 04/12/23 14:48 Blood Culture - Preliminary Blood - Venous No growth after 24 hours. Assessment and Plan (1) Cellulitis of foot, left: Status: Acute Plan d3 37yo M with IDU admitted with cellulitis/abscess of L foot purulent cellulitis of L foot with abscess - vanco d3, pip-sharron d2, follow BCx + wound Cx- latter growing Staphylococcus aureus with susceptibilities pending - agrees to I+D after initially refusing; will notify surgeon IDU - Add Med/Recov Team consulted, considering Suboxone - HBV-immune, HCV+ viral load pending, HIV negative VTE ppx - LMWH dispo - eventually home In my clinical judgment, the patient requires continued inpatient hospitalization for the following reasons: IV ABX, I+D Time Spent With Patient Time: Total time managing care of this patient today ___35 minutes. Quality Stroke Does the patient have a stroke diagnosis?: No VTE Prior VTE?: No VTE Risk Level:: Medical - moderate - high VTE Device Contraindication: Treatment Not Indicated VTE Drug Contraindication: N/A - Med Ordered
[2023-04-14] MEDS: Morphine Sulfate 4 MG/ML CARTRIDGE IVPUSH (11:17)
--- NOTE | 2023-04-14 12:01 | P.PNGS_ITS ---
Subjective Subjective Date of Service: 04/14/23 Patient reports: still having pain Interval history: I was contacted by the hospitalist service noting that the patient was willing to have bedside incision and drainage performed. See notes; the patient was premedicated with morphine. I explained to the patient the need to perform a bedside I and D with the inh erent risks of bleeding, infection, need for more extensive procedure if the infection has spread deeper which may require orthopedic evaluation or operative debridement. The patient was initially reluctant to commit but then agreed to the procedure after disclosure of the risks, benefits and other options. Signed consent was obtained with the patient and given to the nurse for inclusion in the EMR. Physical Exam Vital Signs: Vital Signs: Last Vital Signs Temp 97.3 F 04/14/23 07:24 Pulse 67 04/14/23 07:24 Resp 18 04/14/23 07:24 BP 132/73 04/14/23 07:24 Pulse Ox 98 04/14/23 07:24 O2 Del Method Room Air 04/14/23 07:24 BMI result Body Mass Index 26.5 On exam, the patient is nontoxic His left foot has increased dorsal edema and erythema. There is no vinicio necrosis of the overlying skin abscess approximately 6 x 6 mm Objective Data Active Medications Acetaminophen (Acetaminophen 325 Mg Tablet) 650 mg PO Q6H PRN PRN Reason: Pain, Mild (Pain Scale 1-3) Last Admin: 04/12/23 23:42 Dose: 650 mg Documented By: RAYNA Enoxaparin Sodium (Enoxaparin Sodium 40 Mg/0.4 Ml Syringe) 40 mg SUBCUT Q24H [facility] Last Admin: 04/13/23 20:02 Dose: 40 mg Documented By: EDMUND Piperacillin Sod/Tazobactam (Sod 3.375 gm/ Sodium Chloride) 50 mls @ 100 mls/hr IV Q6H [facility] Last Infusion: 04/14/23 11:59 Dose: 0 mls/hr Documented By: THOMAS Vancomycin HCl 1,250 mg/ (Sodium Chloride) 250 mls @ 166.667 mls/hr IV Q8H [facility] Last Infusion: 04/14/23 09:50 Dose: 0 mls/hr Documented By: THOMAS Melatonin (Melatonin 3 Mg Tablet) 6 mg PO BEDTIME PRN PRN Reason: Insomnia Morphine Sulfate (Morphine Sulfate 2 Mg/Ml Cartridge) 2 mg IVPUSH Q4H PRN; Protocol PRN Reason: Pain, Severe (Pain Scale 7-10) Last Admin: 04/14/23 07:47 Dose: 2 mg Documented By: THOMAS Ondansetron HCl (Ondansetron Hcl 4 Mg/2 Ml Vial) 4 mg IVPUSH Q8H PRN PRN Reason: Nausea and Vomiting Last Admin: 04/13/23 14:18 Dose: 4 mg Documented By: LEYLA Pharmacy Consult (Consult Rx Perform Med Rec) 1 each MISCELLANE ONCE PRN PRN Reason: Consult order Pharmacy Consult (Consult Rx Vancomycin Dosing) 1 each MISCELLANE DAILY PRN PRN Reason: Consult order Sodium Chloride (0.9 % Sodium Chloride Flush 3 Ml Syringe) 3 ml IVFLUSH QSHIFT [facility] Last Admin: 04/14/23 07:48 Dose: 3 ml Documented By: THOMAS Labs 04/14/23 07:05 04/14/23 07:05 Labs: Laboratory Results - last 24 hr 04/14/23 04/14/23 04/14/23 07:05 07:05 07:05 MCV 89.3 MCH 30.2 MCHC 33.9 RDW 11.9 Plt Count 250 MPV 10.1 Absolute Nucleated RBC 0.000 Nucleated RBC % (auto) 0.0 Anion Gap Estim Creat Clear Calc Estimated GFR Random Glucose Calcium Random Vancomycin Hep Bs Antigen Negative Hep Bs Antibody REACTIVE Hep B Core Total Ab Nonreactive Hepatitis C Ab (EIA) Reactive H HIV 1&2 Ab/P24 Ag 4thGn Nonreactive 04/14/23 04/14/23 07:05 07:05 MCV MCH MCHC RDW Plt Count MPV Absolute Nucleated RBC Nucleated RBC % (auto) Anion Gap 17 Estim Creat Clear Calc 124.2 Estimated GFR > 60 Random Glucose 106 Calcium 10.1 D Random Vancomycin 7.3 L Hep Bs Antigen Hep Bs Antibody Hep B Core Total Ab Hepatitis C Ab (EIA) HIV 1&2 Ab/P24 Ag 4thGn Microbiology Microbiology Results: Microbiology 04/12/23 21:49 Gram Stain - Final Foot Left Routine Culture - Preliminary Staphylococcus aureus 04/12/23 14:48 Blood Culture - Preliminary Blood - Venous No growth after 24 hours. 04/12/23 14:48 Blood Culture - Preliminary Blood - Venous No growth after 24 hours. Procedures Date of Service Date of Service: 04/14/23 Abscess I/D Consent for Procedure: Elective - informed consent obtained Site: foot Side (if applicable): left Anesthetic used: lidocaine 1% Technique: incised with #11 blade Amount of fluid (mL): 5 Irrigation: Yes Packing used?: plain Complications: pain Additional comments: Tolerated well; check cultures. Plan to remove packing 04/15/2023 Progress Note: A&P Assessment and plan (1) Abscess of left foot: Status: Acute (2) Substance use disorder: Status: Acute Plan Following informed consent, the patient's left dorsal foot was prepped with Betadine that was allowed to dry. Local was infiltrated, 1% xylocaine plain with adequate affect. An 11 blade was used to open the necrotic skin and grossly purulent material was expressed. Culture for Gram stain obtained. Forceps were used to remove the necrotic skin and the pocket was copiously irrigated with the remaining local until it ran clear. 1 in plain gauze was inserted into the cavity and 4x4s were used to dress the foot. Patient tolerated the procedure well. Time Spent With Patient Time: Total time managing care of this patient today ____ minutes. Quality Stroke Does the patient have a stroke diagnosis?: No VTE Prior VTE?: No VTE Risk Level:: Medical - moderate - high VTE Device Contraindication: Treatment Not Indicated VTE Drug Contraindication: N/A - Med Ordered
[2023-04-14 15:18] VITALS: BP 139/67; PULSE 81; RESP 22; TEMP 36.2; O2SAT 96
[2023-04-14] MEDS: oxyCODONE HCl Immed Release 5 MG TABLET PO (17:04)
[2023-04-14 20:00] VITALS: BP 157/89; PULSE 101; RESP 18; TEMP 37; O2SAT 96
[2023-04-14] MEDS: Enoxaparin Sodium 40 MG/0.4 ML SYRINGE SUBCUT (20:34)
[2023-04-14] MEDS: ondansetron HCL 4 MG/2 ML VIAL IVPUSH (22:13)
[2023-04-15] MEDS: vancomycin HCL 1,250 MG in 0.9 % Sodium Chloride 250 ML 166.67 MG IV (00:30)
[2023-04-15] MEDS: 0.9 % Sodium Chloride Flush 3 ML SYRINGE IVFLUSH (00:35)
[2023-04-15] MEDS: oxyCODONE HCl Immed Release 5 MG TABLET PO (00:37)
[2023-04-15 03:47] VITALS: BP 140/80; PULSE 88; RESP 18; TEMP 37.1; O2SAT 99
[2023-04-15] MEDS: Piperacillin Sodium/Tazobactam 3.375 GM in 0.9 % Sodium Chloride 50 ML IV (05:02)
[2023-04-15] MEDS: Morphine Sulfate 2 MG/ML CARTRIDGE IVPUSH (05:03)
[2023-04-15 06:09] LABS: Vancomycin Trough 7.7 mcg/mL (10.0-20.0)
[2023-04-15 06:12] LABS: Creatinine Clr Calc Pharmacy 124.2; Estimated Glomerular Filt Rate > 60
--- NOTE | 2023-04-15 06:22 | HE.PHANOTE ---
RE LENNY INCREASING DOSE TO 1500 Q8H, NEXT LEVEL DUE 04/16@ 0600. PREDICTING AUC OF 494 TROUGH OF 12.5 DAMIEN
--- NOTE | 2023-04-15 06:49 | PM.PNGS ---
Subjective Subjective Date of Service: 04/15/23 Patient reports: feels better Interval history: The patient reports less foot pain in that he is doing better. He has no other complaints Physical Exam Vital Signs: Vital Signs: Last Vital Signs Temp 98.7 F 04/15/23 03:47 Pulse 88 04/15/23 03:47 Resp 18 04/15/23 03:47 BP 140/80 H 04/15/23 03:47 Pulse Ox 99 04/15/23 03:47 O2 Del Method Room Air 04/15/23 03:47 BMI result Body Mass Index 26.5 His foot has less redness and swelling. I removed his dressing and packing and redressed with a sterile gauze. Objective Data Active Medications Acetaminophen (Acetaminophen 325 Mg Tablet) 650 mg PO Q6H PRN PRN Reason: Pain, Mild (Pain Scale 1-3) Last Admin: 04/12/23 23:42 Dose: 650 mg Documented By: RAYNA Enoxaparin Sodium (Enoxaparin Sodium 40 Mg/0.4 Ml Syringe) 40 mg SUBCUT Q24H [facility] Last Admin: 04/14/23 20:34 Dose: 40 mg Documented By: SUBHA Vancomycin HCl 1,500 mg/ (Sodium Chloride) 500 mls @ 333.333 mls/hr IV Q8H [facility] Piperacillin Sod/Tazobactam (Sod 3.375 gm/ Sodium Chloride) 50 mls @ 100 mls/hr IV Q6H [facility] Melatonin (Melatonin 3 Mg Tablet) 6 mg PO BEDTIME PRN PRN Reason: Insomnia Morphine Sulfate (Morphine Sulfate 2 Mg/Ml Cartridge) 2 mg IVPUSH Q4H PRN; Protocol PRN Reason: Pain, Severe (Pain Scale 7-10) Last Admin: 04/15/23 05:03 Dose: 2 mg Documented By: TWYLA Ondansetron HCl (Ondansetron Hcl 4 Mg/2 Ml Vial) 4 mg IVPUSH Q8H PRN PRN Reason: Nausea and Vomiting Last Admin: 04/14/23 22:13 Dose: 4 mg Documented By: SUBHA Oxycodone HCl (Oxycodone Hcl Immed Release 5 Mg Tablet) 5 mg PO Q4H [facility] Last Admin: 04/15/23 05:03 Dose: Not Given Documented By: TWYLA Non-Admin Reason: Patient Refused Pharmacy Consult (Consult Rx Perform Med Rec) 1 each MISCELLANE ONCE PRN PRN Reason: Consult order Pharmacy Consult (Consult Rx Vancomycin Dosing) 1 each MISCELLANE DAILY PRN PRN Reason: Consult order Sodium Chloride (0.9 % Sodium Chloride Flush 3 Ml Syringe) 3 ml IVFLUSH QSHIFT [facility] Last Admin: 04/15/23 00:35 Dose: 3 ml Documented By: TWYLA Labs 04/14/23 07:05 04/15/23 05:37 Labs: Laboratory Results - last 24 hr 04/14/23 04/14/23 04/14/23 07:05 07:05 07:05 MCV 89.3 MCH 30.2 MCHC 33.9 RDW 11.9 Plt Count 250 MPV 10.1 Absolute Nucleated RBC 0.000 Nucleated RBC % (auto) 0.0 Anion Gap Estim Creat Clear Calc Estimated GFR Random Glucose Calcium Vancomycin Trough Random Vancomycin Hep Bs Antigen Negative Hep Bs Antibody REACTIVE Hep B Core Total Ab Nonreactive Hepatitis C Ab (EIA) Reactive H HIV 1&2 Ab/P24 Ag 4thGn Nonreactive 04/14/23 04/14/23 04/15/23 07:05 07:05 05:37 MCV MCH MCHC RDW Plt Count MPV Absolute Nucleated RBC Nucleated RBC % (auto) Anion Gap 17 Estim Creat Clear Calc 124.2 Estimated GFR > 60 Random Glucose 106 Calcium 10.1 D Vancomycin Trough 7.7 L Random Vancomycin 7.3 L Hep Bs Antigen Hep Bs Antibody Hep B Core Total Ab Hepatitis C Ab (EIA) HIV 1&2 Ab/P24 Ag 4thGn 04/15/23 05:37 MCV MCH MCHC RDW Plt Count MPV Absolute Nucleated RBC Nucleated RBC % (auto) Anion Gap Estim Creat Clear Calc 124.2 Estimated GFR > 60 Random Glucose Calcium Vancomycin Trough Random Vancomycin Hep Bs Antigen Hep Bs Antibody Hep B Core Total Ab Hepatitis C Ab (EIA) HIV 1&2 Ab/P24 Ag 4thGn Microbiology Microbiology Results: Microbiology 04/12/23 21:49 Gram Stain - Final Foot Left Routine Culture - Final Staphylococcus aureus 04/12/23 14:48 Blood Culture - Preliminary Blood - Venous No growth after 48 hours. 04/12/23 14:48 Blood Culture - Preliminary Blood - Venous No growth after 48 hours. 04/14/23 11:45 Gram Stain - Final Foot Left Gram-positive cocci were noted in the bedside I and D; this would be consistent with Staph aureus. Speciation and sensitivities are pending Procedures Date of Service Date of Service: 04/15/23 Progress Note: A&P Assessment and plan (1) Abscess of left foot: Status: Acute (2) Substance use disorder: Status: Acute (3) Cellulitis of foot, left: Status: Acute Plan The patient is clinically improved since incision and drainage yesterday. Would consider wound care consultation for evaluation for possible VAC or irrigation/cleaning of abscess pocket. Please call if surgical questions arise. Time Spent With Patient Time: Total time managing care of this patient today ____ minutes. Quality Stroke Does the patient have a stroke diagnosis?: No VTE Prior VTE?: No VTE Risk Level:: Medical - moderate - high VTE Device Contraindication: Treatment Not Indicated VTE Drug Contraindication: N/A - Med Ordered
[2023-04-15 07:25] VITALS: BP 158/89; PULSE 86; RESP 18; TEMP 37.2; O2SAT 97
--- NOTE | 2023-04-15 09:22 | P.PNADD_ITS ---
Subjective Subjective Date of Service: 04/14/23 Reason For Visit: Left foot redness Interim History: Late entry: Patient seen 04/14 late afternoon, after I&D at bedside. Patient laying bed, on his side, blankets pulled up to his chin. Soft spoken, minimally engaged, but answering questions appropriately. Reporting loose stools and back pain--opioid withdrawal. Denies restlessness, chills. Has been receiving PRN morphine. Would still like to transition to Suboxone prior to discharge. Review of Systems Constitutional: Reports as per HPI Mental Status Exam Mental Status Exam Patient Appearance: Appropriate Level of Consciousness: Awake, Appropriate and Alert Patient Behavior: Appropriate and Guarded Diagnostics Vital Signs (24Hr): Vital Signs - 24 hr 04/14/23 15:18 04/14/23 20:00 04/15/23 03:47 Temperature 97.2 F 98.6 F 98.7 F Pulse Rate 81 101 H 88 Respiratory Rate 22 H 18 18 Blood Pressure 139/67 157/89 H 140/80 H Pulse Oximetry 96 96 99 Oxygen Delivery Method Room Air Room Air Room Air 04/15/23 07:25 Temperature 98.9 F Pulse Rate 86 Respiratory Rate 18 Blood Pressure 158/89 H Pulse Oximetry 97 Oxygen Delivery Method Room Air BMI result Body Mass Index 26.5 Labs 04/14/23 07:05 04/15/23 05:37 Labs: Laboratory Results - last 48 hr 04/14/23 04/14/23 04/14/23 07:05 07:05 07:05 WBC 7.7 RBC 4.96 Hgb 15.0 Hct 44.3 MCV 89.3 MCH 30.2 MCHC 33.9 RDW 11.9 Plt Count 250 MPV 10.1 Absolute Nucleated RBC 0.000 Nucleated RBC % (auto) 0.0 Sodium Potassium Chloride Carbon Dioxide Anion Gap BUN Creatinine Estim Creat Clear Calc Estimated GFR Random Glucose Calcium Vancomycin Trough Random Vancomycin Hep Bs Antigen Negative Hep Bs Antibody REACTIVE Hep B Core Total Ab Nonreactive Hepatitis C Ab (EIA) Reactive H HIV 1&2 Ab/P24 Ag 4thGn Nonreactive 04/14/23 04/14/23 04/15/23 07:05 07:05 05:37 WBC RBC Hgb Hct MCV MCH MCHC RDW Plt Count MPV Absolute Nucleated RBC Nucleated RBC % (auto) Sodium 142 Potassium 3.8 Chloride 105 Carbon Dioxide 24 Anion Gap 17 BUN 8 L Creatinine 0.83 Estim Creat Clear Calc 124.2 Estimated GFR > 60 Random Glucose 106 Calcium 10.1 D Vancomycin Trough 7.7 L Random Vancomycin 7.3 L Hep Bs Antigen Hep Bs Antibody Hep B Core Total Ab Hepatitis C Ab (EIA) HIV 1&2 Ab/P24 Ag 4thGn 04/15/23 05:37 WBC RBC Hgb Hct MCV MCH MCHC RDW Plt Count MPV Absolute Nucleated RBC Nucleated RBC % (auto) Sodium Potassium Chloride Carbon Dioxide Anion Gap BUN Creatinine 0.83 Estim Creat Clear Calc 124.2 Estimated GFR > 60 Random Glucose Calcium Vancomycin Trough Random Vancomycin Hep Bs Antigen Hep Bs Antibody Hep B Core Total Ab Hepatitis C Ab (EIA) HIV 1&2 Ab/P24 Ag 4thGn Imaging Radiology Impressions: ITS Impressions Foot X-Ray 04/12/23 15:04 IMPRESSION: Soft tissue swelling at the left foot. No acute osseous findings. Extremity Ultrasound 04/12/23 18:56 FINDINGS/IMPRESSION: There is a 2.6 x 1.6 x 1.5 cm heterogeneous collection with thickened molina and surrounding hyperemia/soft tissue thickening in the dorsal soft tissues of the left foot concerning for an abscess in the appropriate clinical context. Recommend a follow-up ultrasound after treatment to ensure appropriate resolution. Medications Medications Current Medications Acetaminophen (Acetaminophen 325 Mg Tablet) 650 mg PO Q6H PRN PRN Reason: Pain, Mild (Pain Scale 1-3) Last Admin: 04/12/23 23:42 Dose: 650 mg Amoxicillin/Clavulanate Potassium (Amoxicillin/Potassium Clav 875 Mg Tablet) 875 mg PO Q12H [facility] Enoxaparin Sodium (Enoxaparin Sodium 40 Mg/0.4 Ml Syringe) 40 mg SUBCUT Q24H [facility] Last Admin: 04/14/23 20:34 Dose: 40 mg Melatonin (Melatonin 3 Mg Tablet) 6 mg PO BEDTIME PRN PRN Reason: Insomnia Morphine Sulfate (Morphine Sulfate 2 Mg/Ml Cartridge) 2 mg IVPUSH Q4H PRN; Protocol PRN Reason: Pain, Severe (Pain Scale 7-10) Last Admin: 04/15/23 05:03 Dose: 2 mg Ondansetron HCl (Ondansetron Hcl 4 Mg/2 Ml Vial) 4 mg IVPUSH Q8H PRN PRN Reason: Nausea and Vomiting Last Admin: 04/14/23 22:13 Dose: 4 mg Oxycodone HCl (Oxycodone Hcl Immed Release 5 Mg Tablet) 5 mg PO Q4H [facility] Last Admin: 04/15/23 05:03 Dose: Not Given Pharmacy Consult (Consult Rx Perform Med Rec) 1 each MISCELLANE ONCE PRN PRN Reason: Consult order Sodium Chloride (0.9 % Sodium Chloride Flush 3 Ml Syringe) 3 ml IVFLUSH QSHIFT [facility] Last Admin: 04/15/23 00:35 Dose: 3 ml Allergies Allergies Allergy/AdvReac Type Severity Reaction Status Date / Time No Known Allergies Allergy Verified 04/12/23 13:50 Assessment & Plan Assessment & Plan (1) Opioid use disorder: Status: Acute Code(s): F11.90 - Opioid use, unspecified, uncomplicated Assessment and Plan: * Will continue to follow * No medication changes at this time Total time managing care of this patient today _15___ minutes.
--- NOTE | 2023-04-15 09:44 | P.DS_ITS ---
DS: Providers Provider Date of Service: 04/15/23 Date of admission: 04/12/23 19:17 Primary care physician: Unknown Physician Consults: 04/12/23 19:21 Addiction Medicine Routine Consulting Provider: Addiction Covering Reason for consultation: cocaine use disorder 04/12/23 20:21 Consult to General Surgery Routine Consulting Provider: [facility] General Surgeons Reason for consultation: foot abscess 04/15/23 07:03 Consult to Wound Care Routine Consulting Provider: Mauricio Bear Reason for consultation: Candidate for wound vac or I&D to left foot per physician report/eval DS: Diagnosis Discharge Diagnosis (1) Abscess of left foot: Status: Acute (2) Substance use disorder: Status: Acute (3) Cellulitis of foot, left: Status: Acute (4) Cocaine abuse: Status: Acute (5) Hepatitis C: Status: Acute (6) Left against medical advice: Status: Acute DS: Summary Hospital Course Hospital Course: from admission H+P by hospitalist Bakari Richter MD, 04/12/23: This is a 37-year-old male with pertinent history of IV cocaine and heroin use disorder presents to the emergency department for evaluation of left foot redness, swelling and pain.? Patient states it started 3 days prior to presen tation.? No history of infections in the past.? Denies any significant past medical history and is not on prescription medications.? Patient states his left foot has been draining purulent fluid which is foul smelling.? Denies fever, chills, nausea, vomiting.? He took oral antibiotics which he thinks was ampicillin the last 2-3 days but without any improvement.? His last IV drug usage was 3 days ago.? He denies chest discomfort, palpitations, shortness abdominal pain, changes in urinary or bowel habits . US confirmed an abscess. I+D was attempted in the ED but pt did not tolerate it. Needle aspiration was done and pus sent for wound culture. He was admitted to the hospitalist service and treated with IV vancomycin and piperacillin-tazobactam. Wound culture grew MSSA. He finally agreed to definitive I+D, which was done by the general surgeon on 04/14/23. He met with the Addiction Medicine/Recovery Team to discuss initiation of Suboxone. He tested positive for HCV Ab with viral load pending. However, quite suddenly on 04/15/23, he decided to sign out against medical advice before we could arrange definitive home wound care and start Suboxone. He was counseled on the risks of disability and but decided to leave the hospital. A prescription for 7 days of amoxicillin-clavulanate was sent to the pharmacy. Time Spent with Patient Time attestation: Total time managing care of this patient today _35___ minutes. Discharge coordination time: Greater than 30 minutes Quality: Safe Use of Opioids Does Pt have an Active Cancer Diagnosis on the Problem List?: No Quality: Stroke Does the patient have a stroke diagnosis?: No Physical Exam Vital Signs: Vital Signs: Last Vital Signs Temp 98.9 F 04/15/23 07:25 Pulse 86 04/15/23 07:25 Resp 18 04/15/23 07:25 BP 158/89 H 04/15/23 07:25 Pulse Ox 97 04/15/23 07:25 O2 Del Method Room Air 04/15/23 07:25 BMI result Body Mass Index 26.5 Gen: in no acute distress HEENT: sclera anicteric, moist mucus membranes Neck: supple Lungs: clear to auscultation bilaterally Heart: regular rate and rhythm, no murmurs Abd: soft, non-tender, non-distended Ext: no edema Skin: L foot dorsum with I+D site, no residual fluctuance, improved erythema Neuro: alert and oriented x3, no focal findings Psych: appropriate affect DS: Data Data Completed and Pending Completed studies during hospitalization [Text1]: Laboratory Results WBC 7.7 X10*3/uL (4.8-10.8) 04/14/23 07:05 RBC 4.96 X10*6/uL (4.60-5.80) 04/14/23 07:05 Hgb 15.0 g/dl (14.0-18.0) 04/14/23 07:05 Hct 44.3 % (42.0-52.0) 04/14/23 07:05 MCV 89.3 fL (80.0-98.0) 04/14/23 07:05 MCH 30.2 pg (27.0-33.0) 04/14/23 07:05 MCHC 33.9 g/dl (31.0-36.0) 04/14/23 07:05 RDW 11.9 % (11.0-16.0) 04/14/23 07:05 Plt Count 250 X10*3/uL (160-400) 04/14/23 07:05 MPV 10.1 fL (9.4-12.4) 04/14/23 07:05 Immature Gran % (Auto) 0.3 % (0.0-0.4) 04/13/23 06:45 Neut % (Auto) 73.3 % (45-73) H 04/13/23 06:45 Lymph % (Auto) 16.2 % (20-40) L 04/13/23 06:45 [place] % (Auto) 8.5 % (2-11) 04/13/23 06:45 Eos % (Auto) 1.1 % (0-4) 04/13/23 06:45 Baso % (Auto) 0.6 % (0-2) 04/13/23 06:45 Lymph # (Auto) 1.1 X10*3/uL (1.2-4.9) L 04/13/23 06:45 [place] # (Auto) 0.6 X10*3/uL (0.1-1.2) 04/13/23 06:45 Eos # (Auto) 0.1 X10*3/uL (0.0-0.4) 04/13/23 06:45 Baso # (Auto) 0.0 X10*3/uL (0.0-0.2) 04/13/23 06:45 Abs Immat Gran (auto) 0.02 X10*3/uL (0.00-0.03) 04/13/23 06:45 Absolute Neuts (auto) 4.8 x10*3/uL (2.0-8.3) 04/13/23 06:45 Absolute Nucleated RBC 0.000 X10*3/uL (0.0-0.012) 04/14/23 07:05 Nucleated RBC % (auto) 0.0 /100WBC (0.0-0.2) 04/14/23 07:05 Sodium 142 mmol/L (135-145) 04/14/23 07:05 Potassium 3.8 mmol/L (3.3-5.1) 04/14/23 07:05 Chloride 105 mmol/L (96-108) 04/14/23 07:05 Carbon Dioxide 24 mmol/L (22-29) 04/14/23 07:05 Anion Gap 17 (12-20) 04/14/23 07:05 BUN 8 mg/dL (9-16) L 04/14/23 07:05 Creatinine 0.83 mg/dL (0.5-1.4) 04/15/23 05:37 Estim Creat Clear Calc 124.2 04/15/23 05:37 Estimated GFR > 60 04/15/23 05:37 Random Glucose 106 mg/dL (60-115) 04/14/23 07:05 Lactic Acid 1.4 mmol/L (0.5-2.0) 04/12/23 14:48 Calcium 10.1 mg/dL (8.4-10.2) D 04/14/23 07:05 Magnesium 2.1 mg/dL (1.6-2.6) 04/12/23 14:48 Total Bilirubin 0.7 mg/dL (0.0-1.0) 04/12/23 14:48 AST 15 U/L (5-37) 04/12/23 14:48 ALT 13 U/L (0-40) 04/12/23 14:48 Alkaline Phosphatase 117 U/L (39-117) 04/12/23 14:48 Total Protein 7.8 g/dL (6.5-8.0) 04/12/23 14:48 Albumin 4.2 g/dL (3.5-5.0) 04/12/23 14:48 Vancomycin Trough 7.7 mcg/mL (10.0-20.0) L 04/15/23 05:37 Random Vancomycin 7.3 mcg/mL (15-20) L 04/14/23 07:05 Urine Opiates Screen POSITIVE (Not Detect) H 04/12/23 23:40 Urine Fentanyl Screen Not Detected (Not Detect) 04/12/23 23:40 Ur Barbiturates Screen Not Detected (Not Detect) 04/12/23 23:40 Ur Phencyclidine Scrn Not Detected (Not Detect) 04/12/23 23:40 Ur Amphetamines Screen Not Detected (Not Detect) 04/12/23 23:40 U Benzodiazepines Scrn Not Detected (Not Detect) 04/12/23 23:40 Urine Cocaine Screen POSITIVE (Not Detect) H 04/12/23 23:40 U Marijuana (THC) Screen POSITIVE (Not Detect) H 04/12/23 23:40 Hep Bs Antigen Negative (Negative) 04/14/23 07:05 Hep Bs Antibody REACTIVE (Nonreactive) 04/14/23 07:05 Hep B Core Total Ab Nonreactive (Nonreactive) 04/14/23 07:05 Hepatitis C Ab (EIA) Reactive (Nonreactive) H 04/14/23 07:05 HIV 1&2 Ab/P24 Ag 4thGn Nonreactive (Nonreactive) 04/14/23 07:05 Impressions Foot X-Ray 04/12/23 15:04 IMPRESSION: Soft tissue swelling at the left foot. No acute osseous findings. Extremity Ultrasound 04/12/23 18:56 FINDINGS/IMPRESSION: There is a 2.6 x 1.6 x 1.5 cm heterogeneous collection with thickened molina and surrounding hyperemia/soft tissue thickening in the dorsal soft tissues of the left foot concerning for an abscess in the appropriate clinical context. Recommend a follow-up ultrasound after treatment to ensure appropriate resolution. Discharge Plan Discharge Patient Disposition: Left Against Medical Advice Discharge Diagnosis: left foot abscess and cellulitis opioid use disorder cocaine use disorder hepatitis C infection LEFT AGAINST MEDICAL ADVICE Referrals: Physician,Unknown J [Primary Care Provider] - 1 Week Discharge Medications: New amoxicillin-pot clavulanate 875-125 mg Tablet 875 mg PO Q12H Qty: 14 0RF Discontinued ampicillin 500 mg Capsule Discharge Orders: Discharge Order (Routine); Ordered 04/15/23 Ordered By: Patricia Dunlap Diet: Advance to usual diet Activity on Discharge: As tolerated Care Plan Goals: cure infection avoid drug abuse Health Concerns: left foot abscess and cellulitis opioid use disorder cocaine use disorder hepatitis C infection LEFT AGAINST MEDICAL ADVICE Plan of Treatment: amoxicillin-clavulanate 875-125 mg twice daily for 7 days RETURN TO THE [facility] FOR DEFINITIVE TREATMENT Assessment: See Discharge Summary.
--- NOTE | 2023-04-15 09:50 | MHC.CM.PN ---
Patient has left AMA.
[2023-04-17 17:49] LABS: HCV Log PCR <1.18 NOT DETECTED Log IU/mL (NOT DETECTED); HepC Viral Load <15 NOT DETECTED IU/mL (NOT DETECTED)
== END 2023-04-15 08:50 | disposition left against medical advice (07) | DRG 383 ==
LOC: HO.ED 18:47 → HO.EDOVER 21:14 → HO.IMC 23:06
PROVIDERS: Physician Assistant; Admitting Provider Student in an Organized Health Care Education/Training Program; Emergency Provider Internal Medicine; PCP Nurse Practitioner Family; Visit Provider Family Medicine
DX: L02.612 Cutaneous abscess of left foot (principal); I96 Gangrene, not elsewhere classified; B19.20 Unspecified viral hepatitis C without hepatic coma; B95.61 Methicillin susceptible Staphylococcus aureus infection as the cause of diseases classified elsewhere; L03.116 Cellulitis of left lower limb; F17.210 Nicotine dependence, cigarettes, uncomplicated; F14.10 Cocaine abuse, uncomplicated; F11.10 Opioid abuse, uncomplicated; Z71.6 Tobacco abuse counseling
CPT/HCPCS: 36415; 73620; 76882; 80048; 80053; 80202; 80307; 82565; 83605; 83735; 85025; 85027; 86704; 86706; 86803; 87040; 87070; 87077; 87186; 87205; 87340; 87389; 87522; 99285; J1650; J2270; J2405; J2543; J3370; J3371

== ENCOUNTER → 2023-04-12 18:03 | Outpatient (BNV) | payer MEDICAID, SELFPAY | PROVIDERS: Emergency Provider Internal Medicine; Visit Provider Student in an Organized Health Care Education/Training Program | DX: L02.612 Cutaneous abscess of left foot (principal); L03.116 Cellulitis of left lower limb; F14.10 Cocaine abuse, uncomplicated; F19.90 Other psychoactive substance use, unspecified, uncomplicated; B19.20 Unspecified viral hepatitis C without hepatic coma; Z53.29 Procedure and treatment not carried out because of patient's decision for other reasons | CPT/HCPCS: 99222; 99232; 99239 ==

== ENCOUNTER → 2023-04-12 19:17 | Outpatient (BNV) | payer OTHER, SELFPAY | PROVIDERS: Admitting Provider Student in an Organized Health Care Education/Training Program; Emergency Provider Internal Medicine; Visit Provider Nurse Practitioner Psychiatric/Mental Health | DX: F11.20 Opioid dependence, uncomplicated (principal) | CPT/HCPCS: 99231; 99499 ==

== ENCOUNTER → 2023-04-12 19:17 | Outpatient (BNV) | payer MEDICAID, SELFPAY | PROVIDERS: Admitting Provider Student in an Organized Health Care Education/Training Program; Emergency Provider Internal Medicine; Visit Provider Surgery | DX: L02.612 Cutaneous abscess of left foot (principal); F19.90 Other psychoactive substance use, unspecified, uncomplicated; L03.116 Cellulitis of left lower limb | CPT/HCPCS: 10060; 99222; 99231; 99232 ==

== ENCOUNTER 2023-04-19 12:33 | Emergency (ER) | payer MEDICAID, SELFPAY ==
[2023-04-19 14:22] VITALS: BP 127/73; PULSE 82; RESP 16; TEMP 36.1; O2SAT 100; BMI 26.6
--- NOTE | 2023-04-19 14:22 | ED_ITS ---
HPI - General Adult General Chief complaint: Wound/Laceration Stated complaint: l foot problem Time Seen by Provider: 04/19/23 19:42 Source: patient Mode of arrival: ambulatory Limitations: no limitations History of Present Illness HPI narrative: Patient is a 37 year old assigned male at with a history of IVDU and recent admission for left foot cellulitis presenting to the emergency department today with bilateral foot pain. Patient states that both of his feet are bothering him. Patient states that he just left this hospital against medical advice, 4 days ago, and did not fill his oral antibiotic prescription. Patient denies any dizziness, lightheadedness, abdominal pain, nausea, vomiting, fever, chills, blurry vision, double vision, loss of vision, chest pain, difficulty breathing, shortness of breath, back pain, night sweats, pain with urination, increased urinary frequency, increased urinary urgency, blood in his urine or stool, syncope or a near syncopal episode, recent trauma or falls, bowel incontinence, bladder incontinence, bowel retention, bladder retention, or any other complaints at this time. Location: left, right and lower extremity Radiation: non-radiation Severity: mild Severity scale (1-10): 3 Quality: aching and dull Relieving factors: none Exacerbating factors: none Associated symptoms: denies other symptoms Treatments prior to arrival: none Related Data Home Medications Medication Instructions Recorded Confirmed ampicillin 500 mg capsule 04/12/23 Allergies Allergy/AdvReac Type Severity Reaction Status Date / Time No Known Allergies Allergy Verified 04/19/23 14:25 Review of Systems Constitutional: Constitutional: Reports no additional constitutional complaints, Denies chills, Denies fever(s) and Denies night sweats Eyes: Eyes: Reports no additional eye complaints, Denies blurry vision, Denies change in vision, Denies diplopia, Denies eye discharge, Denies loss of vision and Denies eye pain ENT: Denies dizziness Cardiovascular: Cardiovascular: Reports no additional cardiovascular complaints, Denies chest pain, Denies lightheadedness, Denies Loss of Consciousness and Denies dyspnea Respiratory: Respiratory: Reports no additional respiratory complaints and Denies dyspnea Gastrointestinal: Gastrointestinal: Reports no additional gastrointestinal complaints, Denies abdominal pain, Denies melena, Denies hematochezia, Denies change in bowel habits and Denies change in stool character Genitourinary: Genitourinary: Reports no additional male genitourinary complaints, Denies hematuria, Denies oliguria, Denies difficulty urinating, Denies dysuria, Denies urinary frequency, Denies urinary hesitancy, Denies urinary incontinence and Denies urinary urgency Musculoskeletal: Musculoskeletal: Reports no additional musculoskeletal complaints, Denies numbness and Denies tingling Comments: bilateral foot pain Neurologic: Denies dizziness, Denies loss of vision, Denies numbness and Denies tingling Psychiatric: Psychiatric: Reports no additional psychiatric complaints Endocrine: Endocrine: Reports no additional endocrine complaints Hematologic/Lymphatic: Hematologic/Lymphatic: Reports no additional hematologic/lymphatic complaints Allergic/Immunologic: Allergic/Immunologic: Reports no additional allergic/immunologic complaints PMFSH Past Medical History Attestation statement: The following information was validated with the patient. Source: old records reviewed and nursing notes reviewed Medical History Left against medical advice Substance use disorder Social History Social History Household Members: None Housing: Homeless Patient Tobacco Use Status: Current everyday Tobacco user Cigarettes Per Day: 5 e-Cigarette/Vaping Use: Currently Using Substance Use Type: Crack/Cocaine, Heroin and IV Drugs Advance Directives: No Advance Directives Information Provided: No service: No Physical Exam ED Vital Signs: Vital Signs - 24 hr 04/19/23 14:22 Temperature 96.9 F Pulse Rate 82 Respiratory Rate 16 Blood Pressure 127/73 Pulse Oximetry 100 Oxygen Delivery Method Room Air BMI result Body Mass Index 26.6 Const General: cooperative, no acute distress, alert and awake Nutritional Appearance: well nourished Orientation/consciousness: patient oriented x3 Limitations: no limitations [facility] Head: Yes normal to inspection and Yes atraumatic Ears: hearing grossly normal bilaterally and external ears normal General nose exam: Normal external nose present, no nasal discharge noted and no epistaxis Face and sinus: Yes normal facial exam, No abrasion and No laceration Mouth: Normal oral and palatal mucosa present, no drooling and no muffled voice Eyes General: appearance normal, both eyes and all related structures Periorbital: periorbital findings normal Eyelids: Yes eyelids normal Conjunctivae: conjunctivae normal Pupils: Equal, round and reactive pupils present EOM: EOMs intact bilaterally Neck Neck: Yes normal visual inspection, Yes full ROM and Yes no lymphadenopathy Chest Chest palpation & inspection: normal inspection of the chest Resp Effort & Inspection: normal respiratory effort and able to speak in complete sentences GI Inspection: Yes normal to inspection Neuro General: patient oriented x3 and moves all extremities Cranial nerves: Yes Equal, round and reactive pupils present Cognition (Neuro): normal cognition Motor exam (neuro): 5/5 motor strength present throughout Sensory Exam: Normal double simultaneous stimulation for sensation Coordination: [id number] test normal Extrem General: Yes full ROM Psych Appearance: grossly normal Mental Status: mental status grossly normal Affect: normal affect Attitude: cooperative Thought process: Normal thought process present Thought content: Normal thought content present Insight: Good insight present (Psych) Course Course Course Narrative: RME performed by Genia Cabrera PA-C. Patient is a 37 year old assigned male at presenting to the emergency department with bilateral foot pain. Patient states that he was just admitted here for an infection in his foot but he left against medical advice and never picked up his out patient antibitotic. Labs ordered. Patient placed back in the waiting room pending room availability and results. Medical Decision Making Medical Decision Making [facility] Narrative: Patient is a 37 year old assigned male at with a history of IVDU presenting to the emergency department today with bilateral foot pain. Patient's limited physical exam in triage was unremarkable. Patient's blood work was unremarkable. Patient eloped from the department before myself or any of the other emergency department providers could explain his physical exam findings, test results, treatment options, or the treatment plan. Differential Diagnosis Differential Diagnoses: The differential diagnosis associated with the presentation includes Cellulitis IVDU Admission/Observation Consideration of admission/observation: Escalation of care including admission/observation considered Patient would have been admitted to the hospital had his work up had any findings where hospital admission was appropriate, his clinical presentation warranted hospital admission, and he had not eloped from the department. Lab Data [facility] Lab Attestation statement: I reviewed the patient's lab results. My interpretation of these studies and their corresponding values is that they are grossly normal. 04/19/23 14:50 04/19/23 14:50 Labs: Lab Results 04/19/23 04/19/23 04/19/23 Range/Units 14:50 14:50 14:50 WBC 6.9 (4.8-10.8) X10*3/uL RBC 5.18 (4.60-5.80) X10*6/uL Hgb 15.6 (14.0-18.0) g/dl Hct 46.2 (42.0-52.0) % MCV 89.2 (80.0-98.0) fL MCH 30.1 (27.0-33.0) pg MCHC 33.8 (31.0-36.0) g/dl RDW 12.3 (11.0-16.0) % Plt Count 332 D (160-400) X10*3/uL MPV 9.7 (9.4-12.4) fL Immature Gran % (Auto) 0.6 H (0.0-0.4) % Neut % (Auto) 61.1 (45-73) % Lymph % (Auto) 27.9 (20-40) % [place] % (Auto) 7.0 (2-11) % Eos % (Auto) 2.8 (0-4) % Baso % (Auto) 0.6 (0-2) % Lymph # (Auto) 1.9 (1.2-4.9) X10*3/uL [place] # (Auto) 0.5 (0.1-1.2) X10*3/uL Eos # (Auto) 0.2 (0.0-0.4) X10*3/uL Baso # (Auto) 0.0 (0.0-0.2) X10*3/uL Abs Immat Gran (auto) 0.04 H (0.00-0.03) X10*3/uL Absolute Neuts (auto) 4.2 (2.0-8.3) x10*3/uL Absolute Nucleated RBC 0.000 (0.0-0.012) X10*3/uL Nucleated RBC % (auto) 0.0 (0.0-0.2) /100WBC Sodium 141 (135-145) mmol/L Potassium 4.3 (3.3-5.1) mmol/L Chloride 104 (96-108) mmol/L Carbon Dioxide 29 (22-29) mmol/L Anion Gap 12 (12-20) BUN 14 (9-16) mg/dL Creatinine 1.00 (0.5-1.4) mg/dL Estim Creat Clear Calc 103.1 Estimated GFR > 60 Random Glucose 65 (60-115) mg/dL Lactic Acid 1.3 (0.5-2.0) mmol/L Calcium 9.4 D (8.4-10.2) mg/dL Magnesium 2.2 (1.6-2.6) mg/dL Total Bilirubin 0.4 (0.0-1.0) mg/dL AST 20 (5-37) U/L ALT 26 (0-40) U/L Alkaline Phosphatase 143 H (39-117) U/L C-Reactive Protein 0.30 (< or = 0.50) mg/dL Total Protein 8.0 (6.5-8.0) g/dL Albumin 4.2 (3.5-5.0) g/dL COVID-19 (PADMA) (Negative) COVID-19 Clin Com 04/19/23 Range/Units 14:51 WBC (4.8-10.8) X10*3/uL RBC (4.60-5.80) X10*6/uL Hgb (14.0-18.0) g/dl Hct (42.0-52.0) % MCV (80.0-98.0) fL MCH (27.0-33.0) pg MCHC (31.0-36.0) g/dl RDW (11.0-16.0) % Plt Count (160-400) X10*3/uL MPV (9.4-12.4) fL Immature Gran % (Auto) (0.0-0.4) % Neut % (Auto) (45-73) % Lymph % (Auto) (20-40) % [place] % (Auto) (2-11) % Eos % (Auto) (0-4) % Baso % (Auto) (0-2) % Lymph # (Auto) (1.2-4.9) X10*3/uL [place] # (Auto) (0.1-1.2) X10*3/uL Eos # (Auto) (0.0-0.4) X10*3/uL Baso # (Auto) (0.0-0.2) X10*3/uL Abs Immat Gran (auto) (0.00-0.03) X10*3/uL Absolute Neuts (auto) (2.0-8.3) x10*3/uL Absolute Nucleated RBC (0.0-0.012) X10*3/uL Nucleated RBC % (auto) (0.0-0.2) /100WBC Sodium (135-145) mmol/L Potassium (3.3-5.1) mmol/L Chloride (96-108) mmol/L Carbon Dioxide (22-29) mmol/L Anion Gap (12-20) BUN (9-16) mg/dL Creatinine (0.5-1.4) mg/dL Estim Creat Clear Calc Estimated GFR Random Glucose (60-115) mg/dL Lactic Acid (0.5-2.0) mmol/L Calcium (8.4-10.2) mg/dL Magnesium (1.6-2.6) mg/dL Total Bilirubin (0.0-1.0) mg/dL AST (5-37) U/L ALT (0-40) U/L Alkaline Phosphatase (39-117) U/L C-Reactive Protein (< or = 0.50) mg/dL Total Protein (6.5-8.0) g/dL Albumin (3.5-5.0) g/dL COVID-19 (PADMA) Negative (Negative) COVID-19 Clin Com See Note External Record Review External record reviewed: Inpatient record and Other (reviewed previous ED visit) Discharge Plan Discharge Clinical Impression: Foot pain Patient Disposition: Elopement Prescriptions: No Action ampicillin 500 mg Capsule Discharge Date/Time: 04/19/23 19:47
[2023-04-19 14:57] LABS: MANUAL DIFF FLAG NO
[2023-04-19 14:59] LABS: Basophils Percent Auto 0.6 % (0-2); Eosinophils Absolute Auto 0.2 X10*3/uL (0.0-0.4); Eosinophils Percent Auto 2.8 % (0-4); Hematocrit 46.2 % (42.0-52.0); Hemoglobin 15.6 g/dl (14.0-18.0); Imm Gran Abs Auto 0.04 X10*3/uL (0.00-0.03); Imm Gran Pct Auto 0.6 % (0.0-0.4); Lymphocytes Absolute Auto 1.9 X10*3/uL (1.2-4.9); Lymphocytes Percent Auto 27.9 % (20-40); Mean Corpuscular HGB Conc 33.8 g/dl (31.0-36.0); Mean Corpuscular Hemoglobin 30.1 pg (27.0-33.0); Mean Corpuscular Volume 89.2 fL (80.0-98.0); Mean Platelet Volume 9.7 fL (9.4-12.4); Monocytes Absolute Auto 0.5 X10*3/uL (0.1-1.2); Neutrophils Absolute Auto 4.2 x10*3/uL (2.0-8.3); Neutrophils Percent Auto 61.1 % (45-73); Platelet Count 332 X10*3/uL (160-400); Red Blood Count 5.18 X10*6/uL (4.60-5.80); Red Cell Distribution Width 12.3 % (11.0-16.0); White Blood Count 6.9 X10*3/uL (4.8-10.8)
[2023-04-19 15:14] LABS: Lactic Acid 1.3 mmol/L (0.5-2.0)
[2023-04-19 15:17] LABS: Alanine Aminotransferase 26 U/L (0-40); Albumin Level 4.2 g/dL (3.5-5.0); Alkaline Phosphatase 143 U/L (39-117); Anion Gap 12 (12-20); Aspartate Amino Transferase 20 U/L (5-37); Bilirubin Total 0.4 mg/dL (0.0-1.0); Blood Urea Nitrogen 14 mg/dL (9-16); Calcium 9.4 mg/dL (8.4-10.2); Carbon Dioxide 29 mmol/L (22-29); Chloride 104 mmol/L (96-108); Creatinine Clr Calc Pharmacy 103.1; Estimated Glomerular Filt Rate > 60; Glucose Random 65 mg/dL (60-115); Magnesium 2.2 mg/dL (1.6-2.6); Potassium 4.3 mmol/L (3.3-5.1); Sodium 141 mmol/L (135-145)
[2023-04-19 15:33] LABS: COVID-19 Test Negative (Negative); IDNOW Serial# 55D5AD1C
[2023-04-19 21:40] LABS: Erythrocyte Sedimentation Rate 22 MM/HR (0-15)
== END 2023-04-19 19:47 | disposition left against medical advice (07) ==
PROVIDERS: Physician Assistant Medical; Emergency Provider Emergency Medicine
DX: M79.672 Pain in left foot (principal); M79.671 Pain in right foot; Z20.822 Contact with and (suspected) exposure to COVID-19; F14.10 Cocaine abuse, uncomplicated; B19.20 Unspecified viral hepatitis C without hepatic coma; Z79.899 Other long term (current) drug therapy
CPT/HCPCS: 80053; 83605; 83735; 85025; 85652; 86140; 87040; 87635; 99281; 99283

== ENCOUNTER 2023-05-03 14:38 | Outpatient (AMB) | payer MEDICAID, SELFPAY ==
--- NOTE | 2023-05-03 14:42 | A.OFFVIS_ITS ---
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 Pt reports is interested in microdose induction to get back on Suboxone. Pt reports 4 year period of recovery when stable on Suboxone. Pt reports hx INJ in feet, harm reduction, safe injection reviewed, IN use reviewed, pt verbalized understanding. 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 How much?: Heroin 3 bags IN daily, ETOH 5 nips daily, last ETOH use Wednesday 05/02, CRACK/HEIDI IV daily saul bag What is your source of income?: Works for [employer] Current PCP: Dr Cantu, [facility] Date of last visit: Pt could not recall Referral Source: [employer] [place] Substance Abuse History Substance Abuse History (includes route, frequency and quantity): Heroin (Heroin IN/IV 3 bags daily, on/off since age 16 years old, has decreased use since 04/13/23), Cocaine (Pt reports IV Crack/HEIDI use, $20 daily, speedballing) and Alcohol (Typically daily use ETOH 5 nips daily) Age of first use: 16 years old Opiates, 14 years old ETOH, 12-13 years old Crack/HEIDI Social History Do you have a support system?: None Current mode of transportation?: None Where are you currently residing?: Pt unstably housed LMP: N/A IV Drug Use Have you ever shared needles?: Yes Have you ever belonged to a needle exchange program?: Yes Do you buy needles at a pharmacy?: No Have you ever overdosed?: Yes Number of lifetime overdoses: 3 Have you ever been hospitalized for an overdose?: No Was Naloxone administered?: No (Pt reports hx 3 overdoses, last OD, 8 years ago in [place], reports ambulance was called.) Recovery History Have you had any periods of recovery?: Yes What is your longest time in recovery?: 4 years When was the last time you were in recovery?: [id number] when stable on BUP Have you ever had inpatient treatment for your substance abuse disorder?: Yes Have you been in an inpatient detoxification program?: Yes Have you been in an inpatient Rehab/[place] house?: Yes Have you been in an outpatient Methadone Maintenance program?: No Have you been in an outpatient Suboxone Maintenance program?: Yes (Reports was a pt at [facility] [id number]) Have you been in an AA/NA support program?: Yes 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 Pt reports goal is to get back on BUP then, as time allows access recovery supports. Pt reports is homeless, focusing on work to get more permanent housing. Behavioral Health History Do you have a current provider? If so, who?: None diagnosis: Schizophrenia, Depression, Bipolar History of other addictive behavior: None History of inpatient psychiatric hospitalization? If so, how many? Most Recent? Where?: 3-4 times, most recently in [place] several years ago History of self harming thoughts?: Yes (Pt reports since adolescence, cutting (self injurious behavior) none recently) History of homicidal or suicidal intentions?: Yes (Hx of SI, no current thoughts of SI) Medical Conditions Endocarditis?: No Skin Infection: Yes (Hx skin abscesses.) Seizure related to withdrawal or overdose: No Head or brain injury: No Hepatitis A (if yes, have you been treated?): No Hepatitis B (if yes, have you been treated?): No Hepatitis C (if yes, have you been treated?): Yes (HCV was treated) HIV (if yes, have you been treated?): No TB (if yes, have you been treated?): No Other: Yes (Jaw sx last year) Do you have any chronic pain conditions?: Chronic jaw pain. Details: Current Medications: Seroquel 100mg in a.m., 300mg in the p.m HPI MAT Intake HPI Details Patient presents as walk in for intake and evaluation Recently medically admitted Currently using 3-4 bags of heroin IN daily Also taking Kratom pills to help to address withdrawal Reports he is taking it during the day Discussed induction methdos [facility] Medical History Mood disorder Left against medical advice Substance use disorder Social History Household Members: None Housing: Homeless Housing Other:: homeless Do you presently have visiting nurse or other home services: No Unable to assess alcohol history related to: Refusing to respond Alcohol intake: current Alcohol intake frequency: a few times a month Alcohol type: beer and hard liquor Patient Tobacco Use Status: Current everyday Tobacco user Tobacco use type: Cigarette Cigarettes Per Day: 2 e-Cigarette/Vaping Use: Currently Using Substance Use Type: Opiates service: No Review of Systems Const Reports as per HPI and Reports no additional complaints Physical Exam Vital Signs: Last Vital Signs Pulse 90 05/03/23 14:51 BP 140/70 H 05/03/23 14:51 Pulse Ox 98 05/03/23 14:51 Oxygen Delivery Method Room Air 05/03/23 14:51 Const General: cooperative, no acute distress, anxious and well groomed Results AMB 14 Panel Urine Drug Screen Urine Marijuana (THC) Negative Last Edit by Jie Liao CMA on 05/03/23 15:37 Urine Cocaine Positive Last Edit by Jie Liao CMA on 05/03/23 15:37 Urine Morphine Negative Last Edit by Jie Liao CMA on 05/03/23 15:37 Urine Methamphetamine Negative Last Edit by Jie Liao CMA on 05/03/23 15:37 Urine Amphetamine Negative Last Edit by Jie Liao CMA on 05/03/23 15:3 7 Urine Benzodiazepine Negative Last Edit by Jie Liao CMA on 05/03/23 15:37 Urine Barbiturates Negative Last Edit by Jie Liao CMA on 05/03/23 15: 37 Urine Methadone Negative Last Edit by Jie Liao CMA on 05/03/23 15:37 Urine Buprenorphine Negative Last Edit by Jie Liao CMA on 05/03/23 15 :37 Urine Tricyclic Antidepressant Negative Last Edit by Jie Liao CMA on 05/03/23 15:37 Urine MDMA Negative Last Edit by Jie Liao CMA on 05/03/23 15:37 Urine Oxycodone Negative Last Edit by Jie Liao CMA on 05/03/23 15:37 Urine Phencyclidine Negative Last Edit by Jie Liao CMA on 05/03/23 15 :37 Urine Propoxyphene Negative Last Edit by Jie Liao CMA on 05/03/23 15: 37 Results Reviewed Results Reviewed: Laboratory Last Values POC Urine Buprenorphine Negative 05/03/23 15:34 POC Urine Morphine Negative 05/03/23 15:34 POC Urine Oxycodone Negative 05/03/23 15:34 POC Urine Methadone Negative 05/03/23 15:34 POC Urine Propoxyphene Negative 05/03/23 15:34 POC Urine Barbiturates Negative 05/03/23 15:34 POC U Tricyclic Antidpr Negative 05/03/23 15:34 POC Urine PCP Negative 05/03/23 15:34 POC Ur Amphetamines Negative 05/03/23 15:34 POC Ur Methamphetamine Negative 05/03/23 15:34 POC Urine MDMA Negative 05/03/23 15:34 POC Ur Benzodiazepine Negative 05/03/23 15:34 POC Urine Cocaine Positive 05/03/23 15:34 POC Ur Marijuana (THC) Negative 05/03/23 15:34 Assessment & Plan Assessment & Plan (1) Opioid use disorder: Code(s): F11.90 - Opioid use, unspecified, uncomplicated Plan: * Patient siding to move forward with low-dose induction. * Comfort meds ordered * Follow up as scheduled Orders: Orders AMB 14 Panel Urine Drug Screen 05/03/23 Z51.81 - Encounter for therapeutic drug level monitoring, F19.90 - Other psychoactive substance use, unspecified, uncomplicated Medications: New loperamide 2 mg PO Q6H PRN 30 caps 0RF loose stool naloxone 4 mg/actuation (Narcan) spray 1 dose into ONE nostril; alternate nostrils w each dose until help arrives 4 mg intranasal Q2M PRN 2 ea 0RF opioid overdose clonidine HCl 0.1 mg PO BID 14 tabs 0RF gabapentin 100 mg PO TID 21 caps 0RF buprenorphine-naloxone 2-0.5 mg (Suboxone) 1 film sublingual BID 8 ea 0RF buprenorphine-naloxone 8-2 mg (Suboxone) to be started following 2mg dose induction 1 film sublingual BID 24 ea 0RF Coding Level of Care Code Est Pt Level 4 (88270) Diagnoses Opioid use disorder F11.90
[2023-05-03 14:51] VITALS: BP 140/70; PULSE 90; O2SAT 98
== END 2023-05-03 16:00 | disposition home or self-care (01) ==
LOC: HO.HCC 14:38
PROVIDERS: Visit Provider Nurse Practitioner Psychiatric/Mental Health
DX: F11.90 Opioid use, unspecified, uncomplicated (principal)
CPT/HCPCS: 99214

== ENCOUNTER → 2023-05-03 14:38 | Outpatient (BNVA) | payer MEDICAID, SELFPAY | PROVIDERS: Visit Provider Nurse Practitioner Psychiatric/Mental Health | DX: F19.20 Other psychoactive substance dependence, uncomplicated (principal); F11.20 Opioid dependence, uncomplicated; Z51.81 Encounter for therapeutic drug level monitoring; Z79.899 Other long term (current) drug therapy; Z59.02 Unsheltered homelessness | CPT/HCPCS: 80305; 99212 ==

== ENCOUNTER 2023-05-16 19:43 | Inpatient (IN) | payer OTHER, MEDICAID, SELFPAY ==
--- NOTE | ~2023-05-16 | XR_ITS ---
EXAMINATION: XR TIBIA AND FIBULA, LEFT CLINICAL INFORMATION: Pain and swelling. COMPARISON: None available. TECHNIQUE: AP and lateral views of the left tibia and fibula were obtained. FINDINGS: The bones and soft tissues are normal. No fracture. No osseous lesions. XR/XR tibia fibula LT 2V IMPRESSION: No significant abnormality identified.
--- NOTE | ~2023-05-16 | US_ITS ---
EXAMINATION: US VENOUS ULTRASOUND WITH DOPPLER LOWER EXTREMITY, LEFT CLINICAL INFORMATION: Erythema, swelling, history hep C/IVDA COMPARISON: None available. TECHNIQUE: Ultrasound of the deep veins is performed from the hip to the calf with compression sonography and color and pulse Doppler assessment. Spectral analysis with color-flow imaging is performed. FINDINGS: There is normal venous compression and respiratory variation and augmented flow. The visualized common femoral vein, superficial femoral vein, profunda femoral vein, popliteal vein, and the trifurcation region shows no evidence of deep venous thrombosis. There is no significant popliteal fossa cyst. There is a mildly enlarged lymph node in the groin measuring 2.4 x 1.3 x 2.6 cm. If the patient's symptoms persist, followup ultrasound in 5 days 7 days might be of value to exclude proximal propagation from a non-visualized calf vein. US/US venous duplex LE IMPRESSION: No DVT demonstrated in the left lower extremity.
[2023-05-16 19:55] VITALS: BP 117/56; PULSE 110; RESP 18; TEMP 36.2; O2SAT 97; BMI 29.5
--- NOTE | 2023-05-16 20:03 | PC.NURSE ---
Further assessment preformed: on left knee. Red inflammed skin noted. Pt stated he actually has been injecting cocaine and heroin in leg and didn't actually fall.
--- NOTE | 2023-05-16 20:05 | PC.NURSE ---
All belongings to [facility] at this time.
--- NOTE | 2023-05-16 20:08 | PC.NURSE ---
Preliminary med rec completed with patient and based on last claim history
--- NOTE | 2023-05-16 20:15 | PC.NURSE ---
president & ceo notified of concerns about Cellulitic process from injecting in leg. Pt to be moved to Main ER.
[2023-05-16 20:19] LABS: Appearance Urine Clear; Color Urine Dark Yellow; Glucose Urine UA Negative (Negative); Leukocyte Esterase Urine Negative (Negative); Nitrite Urine Negative (Negative); Specific Gravity - Urine 1.025 (1.005-1.025); Urine Blood Negative (Negative); Urine Ketones Trace mg/dL (Negative); Urine Protein Trace mg/dL (Neg-Trace)
[2023-05-16 20:28] LABS: Amphetamine Screen Urine Not Detected (Not Detect); Barbiturates, Urine Not Detected (Not Detect); Benzodiazepines Screen Urine POSITIVE (Not Detect); Cannabinoid Screen Urine Not Detected (Not Detect); Cocaine Screen Urine POSITIVE (Not Detect); Fentanyl, urine POSITIVE (Not Detect); Opiate Screen Urine POSITIVE (Not Detect); Phencyclidine Screen Urine Not Detected (Not Detect)
[2023-05-16 20:31] LABS: COVID-19 Test Negative (Negative); IDNOW Serial# 08D9AD1C
--- NOTE | 2023-05-16 20:58 | PC.NURSE ---
Pt moved to main ER at this time.
[2023-05-16 21:05] VITALS: BP 146/66; PULSE 96; RESP 18; TEMP 37.1; O2SAT 98
--- NOTE | 2023-05-16 21:26 | ED_ITS ---
[facility] - General Adult General Chief complaint: Psychiatric Symptoms Stated complaint: wants to kill himself Time Seen by Provider: 05/16/23 20:01 Source: patient Mode of arrival: ambulatory History of Present Illness HPI narrative: 37-year-old male with hepatitis-C, cocaine abuse, IVDA daily and history of hypertension presents with vague complaints of suicidal ideation and states he has been suicidal in the past. He does report left lower leg swelling and redness after he fell the other day but denies any fever, chills, abdominal pa in, nausea/vomiting, shortness of breath, chest pain. Related Data Home Medications Medication Instructions Recorded Confirmed quetiapine 100 mg tablet (Seroquel) 100 mg PO DAILY 05/03/23 05/16/23 quetiapine 300 mg tablet (Seroquel) 300 mg PO BEDTIME 05/03/23 05/16/23 Previous Rx's Medication Instructions Recorded clonidine HCl 0.1 mg tablet 0.1 mg PO BID #14 tabs 05/03/23 gabapentin 100 mg capsule 100 mg PO TID #21 caps 05/03/23 Allergies Allergy/AdvReac Type Severity Reaction Status Date / Time No Known Allergies Allergy Verified 05/03/23 14:43 Review of Systems Review of Systems: Pertinent positives and negatives as stated in HPI [facility] Past Medical History Source: nursing notes reviewed Medical History Left against medical advice Mood disorder Substance use disorder Social History Social History Household Members: None Housing: Homeless Alcohol intake: current Alcohol intake frequency: 3 or more drinks per day Alcohol type: beer and hard liquor Patient Tobacco Use Status: Current everyday Tobacco user Cigarettes Per Day: 5 Smoked in Last 30 Days: Yes e-Cigarette/Vaping Use: Currently Using Use of substances other than those prescribed or required for medical reasons: Yes Substance Use Type: Opiates Substance Use Frequency: Chronic Longstanding Last Used Substance: Just Prior to Admission Any prior treatment program specific to substance use: Yes Advance Directives: No Advance Directives Information Provided: No service: No Physical Exam ED Vital Signs: Vital Signs - 24 hr 05/16/23 19:55 05/16/23 21:05 05/16/23 22:00 Temperature 97.2 F 98.7 F 99.6 F Pulse Rate 110 H 96 91 Respiratory Rate 18 18 15 Blood Pressure 117/56 L 146/66 H 122/66 Pulse Oximetry 97 98 97 Oxygen Delivery Method Room Air Room Air Room Air 05/16/23 23:36 Temperature 98.8 F Pulse Rate 84 Respiratory Rate 20 Blood Pressure 116/54 L Pulse Oximetry 97 Oxygen Delivery Method Room Air BMI result Body Mass Index 29.5 VITAL SIGNS: Reviewed. GENERAL: Well developed, well nourished, in no acute distress. HEAD: Normocephalic/atraumatic EYES: PERRLA, EOMI EARS: Ext canals without abnormality NOSE: Nares patent bilateral OROPHARYNX: no oral lesions noted, posterior pharynx clear NECK: Supple, no adenopathy LUNGS: Normal breath sounds. No adventitious sounds or accessory muscle use. SpO2<97> CARDIOVASCULAR: Regular rate and rhythm without noted murmurs ABDOMEN: Soft, non-tender, non-distended with bowel sounds. MUSCULOSKELETAL: No tenderness, deformities, or effusions noted on gross inspection. EXTREMITIES: No cyanosis, clubbing or edema. LLE: Erythematous, significant swelling and induration with areas of likely abscesses, swelling is from foot up to knee SKIN: Inspection of the skin reveals no rashes NEUROLOGIC: Alert and oriented x 4. Strength and sensation to light touch were grossly intact x 4. PSYCH: Medications Administered Discontinued Medications Generic Name Dose Route Start Last Admin Trade Name Freq PRN Reason Stop Dose Admin Sodium Chloride 1,000 mls @ 999 mls/hr 05/16/23 21:45 05/16/23 22:53 Ns IV 05/16/23 22:45 999 mls/hr .Q1H1M LISBETH Administration Piperacillin Sod/Tazobactam 50 mls @ 100 mls/hr 05/16/23 22:02 05/16/23 23:25 Sod 3.375 gm/ Sodium Chloride IV 05/16/23 22:31 Infused ONCE ONE Infusion Medical Decision Making Medical Decision Making [facility] Narrative: 2109: 37-year-old male who has a history and clinical presentation of suicidal ideation and also appears to have a pre significant left lower extremity cellulitis; DDX: Osteo, cellulitis, suicidal ideation, less likely DVT I reviewed all investigations, hematologic indices significant for leukocytosis/left shift with noted cellulitic left lower extremity, there is a normocytic anemia without evidence of bleeding, there is no thrombocytopenia. Chemistry indices are grossly within normal limits, there is no evidence of electrolyte or liver enzyme abnormalities, no AMELIA. Urinalysis is negative for UTI or hematuria and the UDS is significant or polysubstance use. COVID-19 is negative. X-ray of left lower extremity negative for evidence to suggest osteomyelitis, ultrasound negative for DVT. Otherwise, my interpretation is in agreement with radiology's impression. Patient is medically cleared for further evaluation by the care team. Patient has received antibiotics, IV fluids, lactic acid and blood cultures. 2334: I discussed the case with inpatient hospitalist who accepts admission. 2349: Patient was placed on Section 12. Differential Diagnosis Differential Diagnoses: The differential diagnosis associated with the presentation includes Please see the discussion above Admission/Observation Consideration of admission/observation: Escalation of care including a dmission/observation considered Please see the discussion above Consult Healthcare Provider Management of the patient was discussed with: Hospitalist Please see the discussion above Lab Data MDM Lab Attestation statement: I reviewed the patient's lab results. Please see the discussion above 05/16/23 21:32 05/16/23 21:32 Labs: Lab Results 05/16/23 05/16/23 05/16/23 Range/Units 20:09 20:09 20:09 WBC (4.8-10.8) X10*3/uL RBC (4.60-5.80) X10*6/uL Hgb (14.0-18.0) g/dl Hct (42.0-52.0) % MCV (80.0-98.0) fL MCH (27.0-33.0) pg MCHC (31.0-36.0) g/dl RDW (11.0-16.0) % Plt Count (160-400) X10*3/uL MPV (9.4-12.4) fL Immature Gran % (Auto) (0.0-0.4) % Neut % (Auto) (45-73) % Lymph % (Auto) (20-40) % Carver % (Auto) (2-11) % Eos % (Auto) (0-4) % Baso % (Auto) (0-2) % Lymph # (Auto) (1.2-4.9) X10*3/uL Carver # (Auto) (0.1-1.2) X10*3/uL Eos # (Auto) (0.0-0.4) X10*3/uL Baso # (Auto) (0.0-0.2) X10*3/uL Abs Immat Gran (auto) (0.00-0.03) X10*3/uL Absolute Neuts (auto) (2.0-8.3) x10*3/uL Absolute Nucleated RBC (0.0-0.012) X10*3/uL Nucleated RBC % (auto) (0.0-0.2) /100WBC Sodium (135-145) mmol/L Potassium (3.3-5.1) mmol/L Chloride (96-108) mmol/L Carbon Dioxide (22-29) mmol/L Anion Gap (12-20) BUN (9-16) mg/dL Creatinine (0.5-1.4) mg/dL Estim Creat Clear Calc Estimated GFR Random Glucose (60-115) mg/dL Lactic Acid (0.5-2.0) mmol/L Calcium (8.4-10.2) mg/dL Total Bilirubin (0.0-1.0) mg/dL Direct Bilirubin (0.0-0.5) mg/dL AST (5-37) U/L ALT (0-40) U/L Alkaline Phosphatase (39-117) U/L Total Protein (6.5-8.0) g/dL Albumin (3.5-5.0) g/dL Urine Color Dark Yellow Urine Appearance Clear Urine pH 6.0 (5.0-9.0) Ur Specific [place] 1.025 (1.005-1.025) Urine Protein Trace (Neg-Trace) mg/dL Urine Glucose (UA) Negative (Negative) mg/dL Urine Ketones Trace (Negative) mg/dL Urine Blood Negative (Negative) Urine Nitrite Negative (Negative) Ur Leukocyte Esterase Negative (Negative) Urine Opiates Screen POSITIVE H (Not Detect) Urine Fentanyl Screen POSITIVE H (Not Detect) Ur Barbiturates Screen Not Detected (Not Detect) Ur Phencyclidine Scrn Not Detected (Not Detect) Ur Amphetamines Screen Not Detected (Not Detect) U Benzodiazepines Scrn POSITIVE H (Not Detect) Urine Cocaine Screen POSITIVE H (Not Detect) U Marijuana (THC) Screen Not Detected (Not Detect) Ethyl Alcohol mg/dL COVID-19 (PADMA) Negative (Negative) COVID-19 Clin Com See Note 05/16/23 05/16/23 05/16/23 Range/Units 21:32 21:32 21:32 WBC 12.3 H (4.8-10.8) X10*3/uL RBC 4.15 L (4.60-5.80) X10*6/uL Hgb 12.9 L (14.0-18.0) g/dl Hct 36.8 L D (42.0-52.0) % MCV 88.7 (80.0-98.0) fL MCH 31.1 (27.0-33.0) pg MCHC 35.1 (31.0-36.0) g/dl RDW 11.8 (11.0-16.0) % Plt Count 274 (160-400) X10*3/uL MPV 9.8 (9.4-12.4) fL Immature Gran % (Auto) 0.4 (0.0-0.4) % Neut % (Auto) 85.8 H (45-73) % Lymph % (Auto) 6.9 L (20-40) % Carver % (Auto) 6.6 (2-11) % Eos % (Auto) 0.1 (0-4) % Baso % (Auto) 0.2 (0-2) % Lymph # (Auto) 0.9 L (1.2-4.9) X10*3/uL Carver # (Auto) 0.8 (0.1-1.2) X10*3/uL Eos # (Auto) 0.0 (0.0-0.4) X10*3/uL Baso # (Auto) 0.0 (0.0-0.2) X10*3/uL Abs Immat Gran (auto) 0.05 H (0.00-0.03) X10*3/uL Absolute Neuts (auto) 10.6 H (2.0-8.3) x10*3/uL Absolute Nucleated RBC 0.000 (0.0-0.012) X10*3/uL Nucleated RBC % (auto) 0.0 (0.0-0.2) /100WBC Sodium 137 (135-145) mmol/L Potassium 3.9 (3.3-5.1) mmol/L Chloride 102 (96-108) mmol/L Carbon Dioxide 27 (22-29) mmol/L Anion Gap 12 (12-20) BUN 13 (9-16) mg/dL Creatinine 0.95 (0.5-1.4) mg/dL Estim Creat Clear Calc 120.8 Estimated GFR > 60 Random Glucose 100 (60-115) mg/dL Lactic Acid (0.5-2.0) mmol/L Calcium 9.4 (8.4-10.2) mg/dL Total Bilirubin 0.8 (0.0-1.0) mg/dL Direct Bilirubin 0.3 (0.0-0.5) mg/dL AST 16 (5-37) U/L ALT 14 (0-40) U/L Alkaline Phosphatase 94 (39-117) U/L Total Protein 7.5 (6.5-8.0) g/dL Albumin 3.9 (3.5-5.0) g/dL Urine Color Urine Appearance Urine pH (5.0-9.0) Ur Specific [place] (1.005-1.025) Urine Protein (Neg-Trace) mg/dL Urine Glucose (UA) (Negative) mg/dL Urine Ketones (Negative) mg/dL Urine Blood (Negative) Urine Nitrite (Negative) Ur Leukocyte Esterase (Negative) Urine Opiates Screen (Not Detect) Urine Fentanyl Screen (Not Detect) Ur Barbiturates Screen (Not Detect) Ur Phencyclidine Scrn (Not Detect) Ur Amphetamines Screen (Not Detect) U Benzodiazepines Scrn (Not Detect) Urine Cocaine Screen (Not Detect) U Marijuana (THC) Screen (Not Detect) Ethyl Alcohol < 10 mg/dL COVID-19 (PADMA) (Negative) COVID-19 Clin Com 05/16/23 Range/Units 21:32 WBC (4.8-10.8) X10*3/uL RBC (4.60-5.80) X10*6/uL Hgb (14.0-18.0) g/dl Hct (42.0-52.0) % MCV (80.0-98.0) fL MCH (27.0-33.0) pg MCHC (31.0-36.0) g/dl RDW (11.0-16.0) % Plt Count (160-400) X10*3/uL MPV (9.4-12.4) fL Immature Gran % (Auto) (0.0-0.4) % Neut % (Auto) (45-73) % Lymph % (Auto) (20-40) % Carver % (Auto) (2-11) % Eos % (Auto) (0-4) % Baso % (Auto) (0-2) % Lymph # (Auto) (1.2-4.9) X10*3/uL Carver # (Auto) (0.1-1.2) X10*3/uL Eos # (Auto) (0.0-0.4) X10*3/uL Baso # (Auto) (0.0-0.2) X10*3/uL Abs Immat Gran (auto) (0.00-0.03) X10*3/uL Absolute Neuts (auto) (2.0-8.3) x10*3/uL Absolute Nucleated RBC (0.0-0.012) X10*3/uL Nucleated RBC % (auto) (0.0-0.2) /100WBC Sodium (135-145) mmol/L Potassium (3.3-5.1) mmol/L Chloride (96-108) mmol/L Carbon Dioxide (22-29) mmol/L Anion Gap (12-20) BUN (9-16) mg/dL Creatinine (0.5-1.4) mg/dL Estim Creat Clear Calc Estimated GFR Random Glucose (60-115) mg/dL Lactic Acid 0.8 (0.5-2.0) mmol/L Calcium (8.4-10.2) mg/dL Total Bilirubin (0.0-1.0) mg/dL Direct Bilirubin (0.0-0.5) mg/dL AST (5-37) U/L ALT (0-40) U/L Alkaline Phosphatase (39-117) U/L Total Protein (6.5-8.0) g/dL Albumin (3.5-5.0) g/dL Urine Color Urine Appearance Urine pH (5.0-9.0) Ur Specific [place] (1.005-1.025) Urine Protein (Neg-Trace) mg/dL Urine Glucose (UA) (Negative) mg/dL Urine Ketones (Negative) mg/dL Urine Blood (Negative) Urine Nitrite (Negative) Ur Leukocyte Esterase (Negative) Urine Opiates Screen (Not Detect) Urine Fentanyl Screen (Not Detect) Ur Barbiturates Screen (Not Detect) Ur Phencyclidine Scrn (Not Detect) Ur Amphetamines Screen (Not Detect) U Benzodiazepines Scrn (Not Detect) Urine Cocaine Screen (Not Detect) U Marijuana (THC) Screen (Not Detect) Ethyl Alcohol mg/dL COVID-19 (PADMA) (Negative) COVID-19 Clin Com Independent Interpretation I performed an independent interpretation of an: EKG Interpretation: Normal sinus rhythm, HR-88, no STEMI, IN/QRS/QTC is within normal limits. Radiology Impression Discussion of test interpretation with radiology: I have reviewed the radiologist's reading. Radiologist Impression: Please see the discussion above External Record Review External record reviewed: Outpatient record, Prior outpatient labs and Prior outpatient radiology Chronic Conditions Patient?s care impacted by: Hypertension Critical Care Time Critical Care Time Critical Care Time: Yes Total Critical Care Time: 30 Attestation: I personally attest to this time spent taking care of the patient. Discharge Plan Discharge Patient Disposition: Admitted As Inpatient Prescriptions: No Action quetiapine [Seroquel] 100 mg tablet 100 mg PO DAILY quetiapine [Seroquel] 300 mg tablet 300 mg PO BEDTIME clonidine HCl 0.1 mg tablet 0.1 mg PO BID Qty: 14 0RF gabapentin 100 mg capsule 100 mg PO TID Qty: 21 0RF
[2023-05-16 21:38] LABS: MANUAL DIFF FLAG NO
[2023-05-16 21:39] LABS: Basophils Percent Auto 0.2 % (0-2); Eosinophils Percent Auto 0.1 % (0-4); Hematocrit 36.8 % (42.0-52.0); Hemoglobin 12.9 g/dl (14.0-18.0); Imm Gran Abs Auto 0.05 X10*3/uL (0.00-0.03); Imm Gran Pct Auto 0.4 % (0.0-0.4); Lymphocytes Absolute Auto 0.9 X10*3/uL (1.2-4.9); Lymphocytes Percent Auto 6.9 % (20-40); Mean Corpuscular HGB Conc 35.1 g/dl (31.0-36.0); Mean Corpuscular Hemoglobin 31.1 pg (27.0-33.0); Mean Corpuscular Volume 88.7 fL (80.0-98.0); Mean Platelet Volume 9.8 fL (9.4-12.4); Monocytes Absolute Auto 0.8 X10*3/uL (0.1-1.2); Monocytes Percent Auto 6.6 % (2-11); Neutrophils Absolute Auto 10.6 x10*3/uL (2.0-8.3); Neutrophils Percent Auto 85.8 % (45-73); Platelet Count 274 X10*3/uL (160-400); Red Blood Count 4.15 X10*6/uL (4.60-5.80); Red Cell Distribution Width 11.8 % (11.0-16.0); White Blood Count 12.3 X10*3/uL (4.8-10.8)
[2023-05-16 21:52] LABS: Ethanol < 10 mg/dL; Lactic Acid 0.8 mmol/L (0.5-2.0)
[2023-05-16 21:55] LABS: Alanine Aminotransferase 14 U/L (0-40); Albumin Level 3.9 g/dL (3.5-5.0); Alkaline Phosphatase 94 U/L (39-117); Anion Gap 12 (12-20); Aspartate Amino Transferase 16 U/L (5-37); Bilirubin Direct 0.3 mg/dL (0.0-0.5); Bilirubin Total 0.8 mg/dL (0.0-1.0); Blood Urea Nitrogen 13 mg/dL (9-16); Calcium 9.4 mg/dL (8.4-10.2); Carbon Dioxide 27 mmol/L (22-29); Chloride 102 mmol/L (96-108); Creatinine Clr Calc Pharmacy 120.8; Estimated Glomerular Filt Rate > 60; Glucose Random 100 mg/dL (60-115); Potassium 3.9 mmol/L (3.3-5.1); Sodium 137 mmol/L (135-145); Total Protein 7.5 g/dL (6.5-8.0)
[2023-05-16 22:00] VITALS: BP 122/66; PULSE 91; RESP 15; TEMP 37.6; O2SAT 97
--- NOTE | 2023-05-16 22:08 | MHC.EDTECH ---
PATIENT WAS HOOKED UP TO [employer] AND [employer]ITALS SIGN TAKEN .
--- NOTE | 2023-05-16 22:30 | MHC.EDTECH ---
Late Entry @ 2100 patient came from pod, this tech obtained labs and blood cultures per orders. Patient has a 1-1 sitter at bedside for safety
[2023-05-16] MEDS: Piperacillin Sodium/Tazobactam 3.375 GM in 0.9 % Sodium Chloride 50 ML IV (22:53)
[2023-05-16] MEDS: 0.9 % Sodium Chloride 1,000 ML 999 ML IV (22:53)
--- NOTE | 2023-05-16 22:57 | PC.NURSE ---
Patient is a difficult stick, 20G US guided line inserted in R AC by Dr. Dillon, bolus of 1 L NS and Zosyn infusing w/o issues. Patient remains afebrile, VSS.
[2023-05-16 23:36] VITALS: BP 116/54; PULSE 84; RESP 20; TEMP 37.1; O2SAT 97
--- NOTE | 2023-05-16 23:38 | PM.IMHP ---
History of Present Illness Date of Service: 05/16/23 Chief Complaint: Leg infection This is a 37-year-old male with pertinent history of mood disorder, polysubstance use disorder who presents to the emergency department for evaluation of leg infection. Patient states that he has noticed left leg swelling, redness and warmth that has been ongoing for the last few days. It has been progressive. Denies associated fevers or chills. Patient states it has started because he fell a few days ago. No drainage. Denies chest discomfort, palpitations, shortness of breath, abdominal pain, changes in urinary or bowel habits. Also noted to have vague complaints of suicidal ideation in the ER. In the emergency department, patient was found to be septic Review of Systems Constitutional: Constitutional: Reports fatigue Cardiovascular: Cardiovascular: Reports no additional cardiovascular complaints Respiratory: Respiratory: Reports no additional respiratory complaints Gastrointestinal: Gastrointestinal: Reports no additional gastrointestinal complaints Genitourinary: Genitourinary: Reports no additional male genitourinary complaints Endocrine: Endocrine: Reports fatigue REPLACED BY [facility] Medical History Left against medical advice Mood disorder Substance use disorder Pertinent family history: No family history of early CAD Social History Household Members: None Housing: Homeless Do you presently have visiting nurse or other home services: No Unable to assess alcohol history related to: Refusing to respond Alcohol intake: current Alcohol intake frequency: 3 or more drinks per day Alcohol type: beer and hard liquor Patient Tobacco Use Status: Current everyday Tobacco user Tobacco use type: Cigarette Cigarettes Per Day: 4 Smoked in Last 30 Days: Yes e-Cigarette/Vaping Use: Currently Using Use of substances other than those prescribed or required for medical reasons: Refusing to respond Substance Use Type: Opiates Substance Use Frequency: Chronic Longstanding Last Used Substance: Just Prior to Admission Currently Displaying Signs/Symptoms of Drug Intoxication Withdrawal: No Any prior treatment program specific to substance use: Yes Advance Directives: No Advance Directives Information Provided: No Recently lost weight without trying: Unsure Nutrition Risks: No Nutritional Risk service: No Meds Allergies Allergy/AdvReac Type Severity Reaction Status Date / Time No Known Allergies Allergy Verified 05/03/23 14:43 Home Medications Medication Instructions Recorded Confirmed Last Taken Type quetiapine 100 mg tablet (Seroquel) 100 mg PO DAILY 05/03/23 05/16/23 1 Day Ago History ~05/15/23 quetiapine 300 mg tablet (Seroquel) 300 mg PO BEDTIME 05/03/23 05/16/23 1 Day Ago History ~05/15/23 Physical Exam Vital Signs and Narrative: Vital Signs: Last Vital Signs Temp 98.8 F 05/16/23 23:36 Pulse 84 05/16/23 23:36 Resp 20 05/16/23 23:36 BP 116/54 L 05/16/23 23:36 Pulse Ox 97 05/16/23 23:36 O2 Del Method Room Air 05/16/23 23:36 BMI result Body Mass Index 29.5 Middle-aged male lying in bed in no distress Neck supple, no JVD Regular rate and rhythm, S1-S2 heard Regular breath sounds bilaterally, no wheezing or crackles appreciated Abdomen soft nontender, no guarding, no rigidity Patient is awake, alert and oriented to self, place, time and person ; no focal motor deficit Extremity: Left lower extremity with swelling, erythema and warmth Psych: Normal mood No pedal edema Results Labs 05/16/23 21:32 05/16/23 21:32 Labs: Laboratory Results - last 24 hr 05/16/23 05/16/23 05/16/23 20:09 20:09 20:09 MCV MCH MCHC RDW Plt Count MPV Immature Gran % (Auto) Neut % (Auto) Lymph % (Auto) [place] % (Auto) Eos % (Auto) Baso % (Auto) Lymph # (Auto) [place] # (Auto) Eos # (Auto) Baso # (Auto) Abs Immat Gran (auto) Absolute Neuts (auto) Absolute Nucleated RBC Nucleated RBC % (auto) Anion Gap Estim Creat Clear Calc Estimated GFR Random Glucose Lactic Acid Calcium Total Bilirubin Direct Bilirubin AST ALT Alkaline Phosphatase Total Protein Albumin Urine Color Dark Yellow Urine Appearance Clear Urine pH 6.0 Ur Specific [place] 1.025 Urine Protein Trace Urine Glucose (UA) Negative Urine Ketones Trace Urine Blood Negative Urine Nitrite Negative Ur Leukocyte Esterase Negative Urine Opiates Screen POSITIVE H Urine Fentanyl Screen POSITIVE H Ur Barbiturates Screen Not Detected Ur Phencyclidine Scrn Not Detected Ur Amphetamines Screen Not Detected U Benzodiazepines Scrn POSITIVE H Urine Cocaine Screen POSITIVE H U Marijuana (THC) Screen Not Detected Ethyl Alcohol COVID-19 (PADMA) Negative COVID-19 Clin Com See Note 05/16/23 05/16/23 05/16/23 21:32 21:32 21:32 MCV 88.7 MCH 31.1 MCHC 35.1 RDW 11.8 Plt Count 274 MPV 9.8 Immature Gran % (Auto) 0.4 Neut % (Auto) 85.8 H Lymph % (Auto) 6.9 L [place] % (Auto) 6.6 Eos % (Auto) 0.1 Baso % (Auto) 0.2 Lymph # (Auto) 0.9 L [place] # (Auto) 0.8 Eos # (Auto) 0.0 Baso # (Auto) 0.0 Abs Immat Gran (auto) 0.05 H Absolute Neuts (auto) 10.6 H Absolute Nucleated RBC 0.000 Nucleated RBC % (auto) 0.0 Anion Gap 12 Estim Creat Clear Calc 120.8 Estimated GFR > 60 Random Glucose 100 Lactic Acid Calcium 9.4 Total Bilirubin 0.8 Direct Bilirubin 0.3 AST 16 ALT 14 Alkaline Phosphatase 94 Total Protein 7.5 Albumin 3.9 Urine Color Urine Appearance Urine pH Ur Specific [place] Urine Protein Urine Glucose (UA) Urine Ketones Urine Blood Urine Nitrite Ur Leukocyte Esterase Urine Opiates Screen Urine Fentanyl Screen Ur Barbiturates Screen Ur Phencyclidine Scrn Ur Amphetamines Screen U Benzodiazepines Scrn Urine Cocaine Screen U Marijuana (THC) Screen Ethyl Alcohol < 10 COVID-19 (PADMA) COVID-19 Clin Com 05/16/23 21:32 MCV MCH MCHC RDW Plt Count MPV Immature Gran % (Auto) Neut % (Auto) Lymph % (Auto) [place] % (Auto) Eos % (Auto) Baso % (Auto) Lymph # (Auto) [place] # (Auto) Eos # (Auto) Baso # (Auto) Abs Immat Gran (auto) Absolute Neuts (auto) Absolute Nucleated RBC Nucleated RBC % (auto) Anion Gap Estim Creat Clear Calc Estimated GFR Random Glucose Lactic Acid 0.8 Calcium Total Bilirubin Direct Bilirubin AST ALT Alkaline Phosphatase Total Protein Albumin Urine Color Urine Appearance Urine pH Ur Specific [place] Urine Protein Urine Glucose (UA) Urine Ketones Urine Blood Urine Nitrite Ur Leukocyte Esterase Urine Opiates Screen Urine Fentanyl Screen Ur Barbiturates Screen Ur Phencyclidine Scrn Ur Amphetamines Screen U Benzodiazepines Scrn Urine Cocaine Screen U Marijuana (THC) Screen Ethyl Alcohol COVID-19 (PADMA) COVID-19 Clin Com Imaging Radiologist's Impressions: Impressions Tibia/Fibula X-Ray 05/16/23 22:04 IMPRESSION: No significant abnormality identified. Venous Duplex 05/16/23 22:15 IMPRESSION: No DVT demonstrated in the left lower extremity. Assessment and Plan (1) Cellulitis of foot, left: Status: Acute Plan This is a 37-year-old male with pertinent history of mood disorder, polysubstance use disorder who presents to the emergency department for evaluation of leg infection. #. Sepsis due to left lower extremity cellulitis. Will admit patient and initiate empiric IV antibiotics. Resuscitated with IV crystalloids. Lactic acid and blood culture obtained #. Mood disorder. Continue home mood stabilizers. Does have suicidal ideation on admission. Consulting care team and psych #. Polysubstance use disorder. Monitor for withdrawal. Consulting Addiction Team. UDS positive for opiates, fentanyl, benzos and cocaine DVT prophylaxis: Lovenox Full code Admit as inpatient and will require two night minimum hospital stay for IV antibiotics Time Spent With Patient Time: Total time managing care of this patient today ____ minutes. Quality Stroke Does the patient have a stroke diagnosis?: No VTE Prior VTE?: No VTE Risk Level:: Medical - moderate - high VTE Device Contraindication: Treatment Not Indicated VTE Drug Contraindication: N/A - Med Ordered
--- NOTE | 2023-05-16 23:43 | ECG_ITS ---
Test Reason : MEDICATION Blood Pressure : / mmHG Vent. Rate : 088 BPM Atrial Rate : 088 BPM P-R Int : 130 ms QRS Dur : 082 ms QT Int : 358 ms P-R-T Axes : 065 036 019 degrees QTc Int : 433 ms Normal sinus rhythm Normal ECG No previous ECGs available Referred By: Nata Motta Electronically Signed By:LYNNETTE GARIBAY
--- NOTE | 2023-05-16 23:45 | MHC.EDTECH ---
Belongings list was completed by previous tech and all belongings are locked in [facility]OM.
[2023-05-16] MEDS: 0.9 % Sodium Chloride Flush 3 ML SYRINGE IVFLUSH (23:56)
[2023-05-16] MEDS: Gabapentin 100 MG CAPSULE PO (23:57)
[2023-05-16] MEDS: cloNIDine HCL 0.1 MG TABLET PO (23:57)
[2023-05-16] MEDS: vancomycin/NS 2,000 MG/500 ML PLAST..BAG 250 MG IV (23:57)
--- NOTE | 2023-05-17 00:30 | PC.NURSE ---
Patient s fully awake, patient denies SI at present. Patient requested turkey sandwich with cheese stick and apple juice-provided and tolerated well. 2 G IV Vanco is running, no adverse reactions noted. Patient urinated into urinal independently. Report called to med surg, nurse to nurse report given to SONYA Mena. Patient to be transported to [id number] by floor tech and security.
[2023-05-17 00:56] VITALS: BMI 28.8
[2023-05-17 01:14] VITALS: BP 104/53; PULSE 95; RESP 14; TEMP 37.1; O2SAT 98
[2023-05-17] MEDS: Acetaminophen 325 MG TABLET 650 MG PO (04:15)
[2023-05-17 06:22] LABS: MANUAL DIFF FLAG NO
[2023-05-17 06:55] VITALS: BP 102/52; PULSE 81; RESP 16; TEMP 36.6; O2SAT 96
[2023-05-17 07:05] LABS: Anion Gap 11 (12-20); Basophils Percent Auto 0.3 % (0-2); Blood Urea Nitrogen 11 mg/dL (9-16); Calcium 8.4 mg/dL (8.4-10.2); Carbon Dioxide 24 mmol/L (22-29); Chloride 107 mmol/L (96-108); Creatinine Clr Calc Pharmacy 121.9; Eosinophils Absolute Auto 0.1 X10*3/uL (0.0-0.4); Eosinophils Percent Auto 0.8 % (0-4); Estimated Glomerular Filt Rate > 60; Glucose Random 132 mg/dL (60-115); Hematocrit 35.2 % (42.0-52.0); Imm Gran Abs Auto 0.08 X10*3/uL (0.00-0.03); Imm Gran Pct Auto 0.7 % (0.0-0.4); Lymphocytes Absolute Auto 0.8 X10*3/uL (1.2-4.9); Lymphocytes Percent Auto 7.2 % (20-40); Mean Corpuscular HGB Conc 34.1 g/dl (31.0-36.0); Mean Corpuscular Hemoglobin 30.9 pg (27.0-33.0); Mean Corpuscular Volume 90.7 fL (80.0-98.0); Mean Platelet Volume 10.9 fL (9.4-12.4); Monocytes Absolute Auto 0.9 X10*3/uL (0.1-1.2); Monocytes Percent Auto 7.8 % (2-11); Neutrophils Absolute Auto 9.2 x10*3/uL (2.0-8.3); Neutrophils Percent Auto 83.2 % (45-73); Platelet Count 249 X10*3/uL (160-400); Potassium 3.8 mmol/L (3.3-5.1); Red Blood Count 3.88 X10*6/uL (4.60-5.80); Sodium 138 mmol/L (135-145)
--- NOTE | 2023-05-17 07:31 | PHA.PROG ---
Admission Date/Time: May 16, 2023 23:35 Indication: Skin Weight in k.4 kg Adjusted body weight in Kg: [place] body weight in Kg: Obesity Dosing Indication % IBW: Serum Creatinine - Last 168 Hours 05/16/23 05/17/23 21:32 06:13 Creatinine 0.95 0.93 Estimated CrCl and GFR - Last 168 Hours 05/16/23 05/17/23 21:32 06:13 Estim Creat Clear Calc 120.8 121.9 Estimated GFR > 60 > 60 Vancomycin Loading Dose: 2000mg x 1 Current Vancomycin Dosing Regimen: 1250mg Q12H Vancomycin Monitoring using AUC goal of 400 - 600 range with trough as surrogate marker: 443 mg/L Date and Time for next Vancomycin Level to be drawn: 05/18/23 @0900 Pharmacist Comments on Vancomycin Plan: Predicted trough of 11.2 mg/L, will continue to monitor renal function and adjust accordingly Vancomycin dosing will take advantage of [employer] as a clinical decision support tool that uses Bayesian modeling to calculate individual patient's pharmacokinetic parameters and forecast the patient's drug concentration time course with the target goal AUC 24 range of 400 - 600 mg/L/hr.
[2023-05-17] MEDS: cloNIDine HCL 0.1 MG TABLET PO ×2 (07:38→20:54)
[2023-05-17] MEDS: Gabapentin 100 MG CAPSULE PO ×3 (07:38→20:54)
[2023-05-17] MEDS: QUEtiapine Fumarate 100 MG TABLET PO (07:38)
[2023-05-17] MEDS: 0.9 % Sodium Chloride Flush 3 ML SYRINGE IVFLUSH (07:39)
[2023-05-17] MEDS: Enoxaparin Sodium 40 MG/0.4 ML SYRINGE SUBCUT (07:39)
--- NOTE | 2023-05-17 07:49 | PHA.MEDREC ---
Pharmacy Consult ? Medication Reconciliation Med Rec reviewed . Spoke with patient . He is no longer on suboxone . Pharmacy has completed the medication reconciliation.
--- NOTE | 2023-05-17 11:16 | HO.ADDICTPRO ---
Subjective Subjective Date of Service: 05/17/23 Reason For Visit: Leg Infection Interim History: Patient is a 37 year old male known to this medical underwriter via previous addiction consult and outpatient treatment of OUD. Today he is medically admitted with cellulitis of the leg. He reports hat he has been using heroin/fentanyl IV daily for the last few days after he was told that he would have to leave his apt. which he reports he recently moved into. He expressed hopelessness and thoughts of not being alive. In regards to substance use, he denies any withdrawal sx at this time, and reports that he wishes to restart Suboxone when possible. Last use prior to admission. During interview his eyelids appeared heavy and he acknowledged feeling this as well--likely secondary to Seroquel 100mg dose administered as he was not taking this medication with regularity in the community. Review of Systems Acute medical concerns: Yes Review of Systems Constitutional: Reports as per HPI Mental Status Exam Mental Status Exam Patient Orientation: Person, Place, Time and Situation Level of Consciousness: Appropriate and Drowsy Mood Description: Sad Affect Description: Sad Depressive Symptoms: Increased Anxiety, Feelings of Worthlessness and Thoughts of /Suicide Diagnostics Vital Signs (24Hr): Vital Signs - 24 hr 05/16/23 19:55 05/16/23 21:05 05/16/23 22:00 Temperature 97.2 F 98.7 F 99.6 F Pulse Rate 110 H 96 91 Respiratory Rate 18 18 15 Blood Pressure 117/56 L 146/66 H 122/66 Pulse Oximetry 97 98 97 Oxygen Delivery Method Room Air Room Air Room Air 05/16/23 23:36 05/17/23 01:14 05/17/23 06:55 Temperature 98.8 F 98.8 F 98 F Pulse Rate 84 95 81 Respiratory Rate 20 14 16 Blood Pressure 116/54 L 104/53 L 102/52 L Pulse Oximetry 97 98 96 Oxygen Delivery Method Room Air Room Air Room Air BMI result Body Mass Index 28.8 Labs 05/17/23 06:13 05/17/23 06:13 Labs: Laboratory Results - last 48 hr 05/16/23 05/16/23 05/16/23 20:09 20:09 20:09 WBC RBC Hgb Hct MCV MCH MCHC RDW Plt Count MPV Immature Gran % (Auto) Neut % (Auto) Lymph % (Auto) [place] % (Auto) Eos % (Auto) Baso % (Auto) Lymph # (Auto) [place] # (Auto) Eos # (Auto) Baso # (Auto) Abs Immat Gran (auto) Absolute Neuts (auto) Absolute Nucleated RBC Nucleated RBC % (auto) Sodium Potassium Chloride Carbon Dioxide Anion Gap BUN Creatinine Estim Creat Clear Calc Estimated GFR Random Glucose Lactic Acid Calcium Total Bilirubin Direct Bilirubin AST ALT Alkaline Phosphatase Total Protein Albumin Urine Color Dark Yellow Urine Appearance Clear Urine pH 6.0 Ur Specific [place] 1.025 Urine Protein Trace Urine Glucose (UA) Negative Urine Ketones Trace Urine Blood Negative Urine Nitrite Negative Ur Leukocyte Esterase Negative Urine Opiates Screen POSITIVE H Urine Fentanyl Screen POSITIVE H Ur Barbiturates Screen Not Detected Ur Phencyclidine Scrn Not Detected Ur Amphetamines Screen Not Detected U Benzodiazepines Scrn POSITIVE H Urine Cocaine Screen POSITIVE H U Marijuana (THC) Screen Not Detected Ethyl Alcohol COVID-19 (PADMA) Negative COVID-19 Clin Com See Note 05/16/23 05/16/23 05/16/23 21:32 21:32 21:32 WBC 12.3 H RBC 4.15 L Hgb 12.9 L Hct 36.8 L D MCV 88.7 MCH 31.1 MCHC 35.1 RDW 11.8 Plt Count 274 MPV 9.8 Immature Gran % (Auto) 0.4 Neut % (Auto) 85.8 H Lymph % (Auto) 6.9 L [place] % (Auto) 6.6 Eos % (Auto) 0.1 Baso % (Auto) 0.2 Lymph # (Auto) 0.9 L [place] # (Auto) 0.8 Eos # (Auto) 0.0 Baso # (Auto) 0.0 Abs Immat Gran (auto) 0.05 H Absolute Neuts (auto) 10.6 H Absolute Nucleated RBC 0.000 Nucleated RBC % (auto) 0.0 Sodium 137 Potassium 3.9 Chloride 102 Carbon Dioxide 27 Anion Gap 12 BUN 13 Creatinine 0.95 Estim Creat Clear Calc 120.8 Estimated GFR > 60 Random Glucose 100 Lactic Acid Calcium 9.4 Total Bilirubin 0.8 Direct Bilirubin 0.3 AST 16 ALT 14 Alkaline Phosphatase 94 Total Protein 7.5 Albumin 3.9 Urine Color Urine Appearance Urine pH Ur Specific [place] Urine Protein Urine Glucose (UA) Urine Ketones Urine Blood Urine Nitrite Ur Leukocyte Esterase Urine Opiates Screen Urine Fentanyl Screen Ur Barbiturates Screen Ur Phencyclidine Scrn Ur Amphetamines Screen U Benzodiazepines Scrn Urine Cocaine Screen U Marijuana (THC) Screen Ethyl Alcohol < 10 COVID-19 (PADMA) COVID-19 [employer] Com 05/16/23 05/17/23 05/17/23 21:32 06:13 06:13 WBC 11.0 H RBC 3.88 L Hgb 12.0 L Hct 35.2 L MCV 90.7 MCH 30.9 MCHC 34.1 RDW 12.0 Plt Count 249 MPV 10.9 Immature Gran % (Auto) 0.7 H Neut % (Auto) 83.2 H Lymph % (Auto) 7.2 L [place] % (Auto) 7.8 Eos % (Auto) 0.8 Baso % (Auto) 0.3 Lymph # (Auto) 0.8 L [place] # (Auto) 0.9 Eos # (Auto) 0.1 Baso # (Auto) 0.0 Abs Immat Gran (auto) 0.08 H Absolute Neuts (auto) 9.2 H Absolute Nucleated RBC 0.000 Nucleated RBC % (auto) 0.0 Sodium 138 Potassium 3.8 Chloride 107 Carbon Dioxide 24 Anion Gap 11 L BUN 11 Creatinine 0.93 Estim Creat Clear Calc 121.9 Estimated GFR > 60 Random Glucose 132 H Lactic Acid 0.8 Calcium 8.4 D Total Bilirubin Direct Bilirubin AST ALT Alkaline Phosphatase Total Protein Albumin Urine Color Urine Appearance Urine pH Ur Specific [place] Urine Protein Urine Glucose (UA) Urine Ketones Urine Blood Urine Nitrite Ur Leukocyte Esterase Urine Opiates Screen Urine Fentanyl Screen Ur Barbiturates Screen Ur Phencyclidine Scrn Ur Amphetamines Screen U Benzodiazepines Scrn Urine Cocaine Screen U Marijuana (THC) Screen Ethyl Alcohol COVID-19 (PADMA) COVID-19 Clin Com Imaging Radiology Impressions: ITS Impressions Tibia/Fibula X-Ray 05/16/23 22:04 IMPRESSION: No significant abnormality identified. Venous Duplex 05/16/23 22:15 IMPRESSION: No DVT demonstrated in the left lower extremity. Medications Medications Current Medications Acetaminophen (Acetaminophen 325 Mg Tablet) 650 mg PO Q6H PRN PRN Reason: Pain, Mild (Pain Scale 1-3) Last Admin: 05/17/23 04:15 Dose: 650 mg Clonidine HCl (Clonidine Hcl 0.1 Mg Tablet) 0.1 mg PO BID LISBETH; Protocol Last Admin: 05/17/23 07:38 Dose: 0.1 mg Enoxaparin Sodium (Enoxaparin Sodium 40 Mg/0.4 Ml Syringe) 40 mg SUBCUT Q24H [facility] Last Admin: 05/17/23 07:39 Dose: 40 mg Gabapentin (Gabapentin 100 Mg Capsule) 100 mg PO TID [facility] Last Admin: 05/17/23 07:38 Dose: 100 mg Vancomycin HCl 1,250 mg/ (Sodium Chloride) 250 mls @ 166.667 mls/hr IV Q12H [facility] Melatonin (Melatonin 3 Mg Tablet) 6 mg PO BEDTIME PRN PRN Reason: Insomnia Ondansetron HCl (Ondansetron Hcl 4 Mg/2 Ml Vial) 4 mg IVPUSH Q8H PRN PRN Reason: Nausea and Vomiting Pharmacy Consult (Consult Rx Vancomycin Dosing) 1 each MISCELLANE DAILY PRN PRN Reason: Consult order Quetiapine Fumarate (Quetiapine Fumarate 100 Mg Tablet) 100 mg PO DAILY [facility] Last Admin: 05/17/23 07:38 Dose: 100 mg Quetiapine Fumarate (Quetiapine Fumarate 300 Mg Tablet) 300 mg PO BEDTIME [facility] Last Admin: 05/16/23 23:57 Dose: Not Given Sodium Chloride (0.9 % Sodium Chloride Flush 3 Ml Syringe) 3 ml IVFLUSH QSHIFT [facility] Last Admin: 05/17/23 07:39 Dose: 3 ml Allergies Allergies Allergy/AdvReac Type Severity Reaction Status Date / Time No Known Allergies Allergy Verified 05/03/23 14:43 Assessment & Plan Assessment & Plan (1) Opioid use disorder: Status: Acute Code(s): F11.90 - Opioid use, unspecified, uncomplicated Assessment and Plan: not appropriate to start suboxone yet will followup in AM, comfort medications for withdrawal sx as necessary consider decreasing seroquel dose to 50mg to reduce side effects Total time managing care of this patient today _30___ minutes.
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
[2023-05-17] MEDS: vancomycin HCL 1,250 MG in 0.9 % Sodium Chloride 250 ML 166.67 MG IV (12:01)
[2023-05-17] MEDS: oxyCODONE HCl Immed Release 15 MG TABLET PO ×2 (12:08→20:55)
--- NOTE | 2023-05-17 12:49 | MHC.CM.PN ---
CM MET WITH PT AT BEDSIDE. HAS 1:1 SITTER. PT IS LETHARGIC BUT RESPONDS TO QUESTIONS.PT IS HOMELESS. CURRENTLY REFUSING A [facility] [place]. PCP AT [facility] AND PT STATES HE ALSO HAS ONE IN [place]? UNSURE OF THE NAME. +THRIVE ASSESSMENT RESOURCE GUIDE PROVIDED. DECLINED COMPLETION OF A HCP. DP: CM WILL CONTINUE TO FOLLOW FOR PLAN/DC NEEDS. PT IS CURRENTLY REFUSING A [facility].
[2023-05-17 15:06] VITALS: BP 116/55; PULSE 80; RESP 20; TEMP 36.6; O2SAT 97
[2023-05-17 19:25] VITALS: BP 126/58; PULSE 84; RESP 20; TEMP 36.6; O2SAT 96
[2023-05-17] MEDS: QUEtiapine Fumarate 300 MG TABLET PO (20:54)
[2023-05-17] MEDS: cephALEXin 500 MG CAPSULE PO (21:54)
[2023-05-18 02:55] VITALS: BP 124/58; PULSE 80; RESP 18; TEMP 36.6; O2SAT 99
[2023-05-18 06:54] VITALS: BP 120/58; PULSE 84; RESP 18; TEMP 37.3; O2SAT 96
[2023-05-18] MEDS: Acetaminophen 325 MG TABLET 650 MG PO (08:53)
[2023-05-18] MEDS: oxyCODONE HCl Immed Release 15 MG TABLET PO ×2 (08:53→17:47)
[2023-05-18] MEDS: QUEtiapine Fumarate 100 MG TABLET PO (08:54)
[2023-05-18] MEDS: Gabapentin 100 MG CAPSULE PO ×3 (08:54→19:47)
[2023-05-18] MEDS: cloNIDine HCL 0.1 MG TABLET PO ×3 (08:54→19:47)
[2023-05-18] MEDS: 0.9 % Sodium Chloride Flush 3 ML SYRINGE IVFLUSH ×3 (08:55→19:48)
[2023-05-18] MEDS: Enoxaparin Sodium 40 MG/0.4 ML SYRINGE SUBCUT (08:55)
--- NOTE | 2023-05-18 09:11 | HO.PM.IMPN ---
Subjective Subjective Date of Service: 05/18/23 Review of Systems Follow up leg swelling, cellulitis still with some pain and swelling but mildly better than on admission Physical Exam Vital Signs: Vital Signs: Last Vital Signs Temp 99.1 F 05/18/23 06:54 Pulse 84 05/18/23 06:54 Resp 18 05/18/23 06:54 BP 120/58 L 05/18/23 06:54 Pulse Ox 96 05/18/23 06:54 O2 Del Method Room Air 05/18/23 06:54 BMI result Body Mass Index 28.8 Appearing in no acute distress lung sounds are clear to auscultation heart regular rate rhythm, clear S1, S2 positive bowel sounds, abdomen is soft, nontender neuro patient is alert x3, no focal deficits Left knee with erythema and edema, improving Objective Data Active Medications Acetaminophen (Acetaminophen 325 Mg Tablet) 650 mg PO Q6H PRN PRN Reason: Pain, Mild (Pain Scale 1-3) Last Admin: 05/18/23 08:53 Dose: 650 mg Documented By: BENOIT Clonidine HCl (Clonidine Hcl 0.1 Mg Tablet) 0.1 mg PO BID [facility]; Protocol Last Admin: 05/18/23 08:54 Dose: 0.1 mg Documented By: BENOIT Clonidine HCl (Clonidine Hcl 0.1 Mg Tablet) 0.1 mg PO BID [facility]; Protocol Last Admin: 05/18/23 08:54 Dose: Not Given Documented By: BENOIT Non-Admin Reason: Duplicate Order Enoxaparin Sodium (Enoxaparin Sodium 40 Mg/0.4 Ml Syringe) 40 mg SUBCUT Q24H [facility] Last Admin: 05/18/23 08:55 Dose: 40 mg Documented By: BENOIT Gabapentin (Gabapentin 100 Mg Capsule) 100 mg PO TID [facility] Last Admin: 05/18/23 08:54 Dose: 100 mg Documented By: BENOIT Vancomycin HCl 1,250 mg/ (Sodium Chloride) 250 mls @ 166.667 mls/hr IV Q12H [facility] Last Admin: 05/17/23 23:40 Dose: Not Given Documented By: GUY Non-Admin Reason: NO IV access, aware, see note from AM RN Melatonin (Melatonin 3 Mg Tablet) 6 mg PO BEDTIME PRN PRN Reason: Insomnia Morphine Sulfate (Morphine Sulfate 2 Mg/Ml Cartridge) 2 mg IVPUSH Q4H PRN; Protocol PRN Reason: Pain, Mild (Pain Scale 1-3) Ondansetron HCl (Ondansetron Hcl 4 Mg/2 Ml Vial) 4 mg IVPUSH Q8H PRN PRN Reason: Nausea and Vomiting Oxycodone HCl (Oxycodone Hcl Immed Release 15 Mg Tablet) 15 mg PO Q4H PRN PRN Reason: withdrawal Last Admin: 05/17/23 20:55 Dose: 15 mg Documented By: GUY Pharmacy Consult (Consult Rx Vancomycin Dosing) 1 each MISCELLANE DAILY PRN PRN Reason: Consult order Quetiapine Fumarate (Quetiapine Fumarate 100 Mg Tablet) 100 mg PO DAILY [facility] Last Admin: 05/18/23 08:54 Dose: 100 mg Documented By: BENOIT Quetiapine Fumarate (Quetiapine Fumarate 300 Mg Tablet) 300 mg PO BEDTIME [facility] Last Admin: 05/17/23 20:54 Dose: 300 mg Documented By: GUY Sodium Chloride (0.9 % Sodium Chloride Flush 3 Ml Syringe) 3 ml IVFLUSH QSHIFT [facility] Last Admin: 05/18/23 08:55 Dose: 3 ml Documented By: BENOIT Labs 05/17/23 06:13 05/17/23 06:13 Microbiology Microbiology Results: Microbiology 05/16/23 21:31 Blood Culture - Preliminary Blood - Venous No growth after 24 hours. 05/16/23 21:32 Blood Culture - Preliminary Blood - Venous No growth after 24 hours. Assessment and Plan (1) Opioid use disorder: Status: Acute Plan This is a 37-year-old male with pertinent history of mood disorder, polysubstance use disorder who presents to the emergency department for evaluation of leg infection. Sepsis due to left lower extremity cellulitis.? sepsis resolved secondary to needle stick continue vancomycin blood cultureneg after 24 hours ID consult pending Mood disorder.? Continue home mood stabilizers.? Does have suicidal ideation on admission and persists at this time Seen and evaluated by psychiatrist> recommended re-evaluation once medically cleared sitter at bedside Polysubstance use disorder.? Consulting Addiction Team, patient interested in Suboxone UDS positive for opiates, fentanyl, benzos and cocaine On oxycodone, morphine and clonidine at this time DVT prophylaxis: Lovenox Attending Dr. Recinos Full code continue hospital stay for tx of cellulitis Time Spent With Patient Time: Total time managing care of this patient today ____ minutes. Quality Stroke Does the patient have a stroke diagnosis?: No VTE Prior VTE?: No VTE Risk Level:: Medical - moderate - high VTE Device Contraindication: Treatment Not Indicated VTE Drug Contraindication: N/A - Med Ordered
[2023-05-18] MEDS: methADONE HCl 20 MG/2 ML ORAL.CONC 30 MG PO (12:38)
[2023-05-18 15:25] VITALS: BP 135/71; PULSE 75; RESP 18; TEMP 36.3; O2SAT 96
[2023-05-18] MEDS: Morphine Sulfate 2 MG/ML CARTRIDGE IVPUSH ×2 (15:32→19:48)
[2023-05-18] MEDS: vancomycin HCL 1,250 MG in 0.9 % Sodium Chloride 250 ML 166.67 MG IV (15:33)
--- NOTE | 2023-05-18 18:43 | MHC.RECOVRN ---
This hand sign writer met with patient, patient admitted for leg infection. Pt was resting, awake to verbal command. Pt reports felt better after MTD dose, denies withdrawal s/s. Pt reminded that Provider has ordered 10mg PRN MTD dose for the nighttime. Pt verbalized understanding.
[2023-05-18 19:43] VITALS: BP 140/63; PULSE 78; RESP 18; TEMP 36.6; O2SAT 96
[2023-05-18] MEDS: QUEtiapine Fumarate 300 MG TABLET PO (19:46)
[2023-05-18] MEDS: methADONE HCl 20 MG/2 ML ORAL.CONC 10 MG PO (19:59)
--- NOTE | 2023-05-18 23:20 | PC.NURSE ---
Pt seen on bed alert and oriented, c/o left leg pain, noted with redness, swelling and blister, prn Morphine given, pt also c/o increasing anxiety, prn Methadone 10 mg po given, pt also is verbalizing having SI, safety measure placed, 1:1 care/sitter at bedside, slept after.
[2023-05-19] MEDS: Morphine Sulfate 2 MG/ML CARTRIDGE IVPUSH ×4 (02:14→19:31)
[2023-05-19 02:16] VITALS: BP 131/78; PULSE 72; RESP 18; TEMP 36.4; O2SAT 97
[2023-05-19] MEDS: vancomycin HCL 1,250 MG in 0.9 % Sodium Chloride 250 ML 166.67 MG IV (03:20)
[2023-05-19 06:43] LABS: Creatinine Clr Calc Pharmacy 138.3; Estimated Glomerular Filt Rate > 60
[2023-05-19 07:20] VITALS: BP 125/70; PULSE 70; RESP 18; TEMP 36.2; O2SAT 97
[2023-05-19] MEDS: Gabapentin 100 MG CAPSULE PO ×3 (08:16→19:31)
[2023-05-19] MEDS: cloNIDine HCL 0.1 MG TABLET PO ×2 (08:16→19:31)
[2023-05-19] MEDS: Enoxaparin Sodium 40 MG/0.4 ML SYRINGE SUBCUT (08:16)
[2023-05-19] MEDS: 0.9 % Sodium Chloride Flush 3 ML SYRINGE IVFLUSH ×2 (08:16→14:37)
[2023-05-19] MEDS: methADONE HCl 20 MG/2 ML ORAL.CONC 45 MG PO (08:16)
--- NOTE | 2023-05-19 10:36 | PC.NURSE ---
Pt seen at bedside, complains of Left leg pain, upon assessment left leg appears red and swollen, non pitting edema, Pt given PRN morphine, Pt states has some feelings of anxiety, denies suicidal ideation. 1:1 sitter at bedside.
--- NOTE | 2023-05-19 11:05 | HO.PM.IMPN ---
Subjective Subjective Date of Service: 05/19/23 Review of Systems Follow up leg swelling, cellulitis still with some pain and swelling but mildly better than on admission Physical Exam Vital Signs: Vital Signs: Last Vital Signs Temp 97.2 F 05/19/23 07:20 Pulse 70 05/19/23 07:20 Resp 18 05/19/23 07:20 BP 125/70 05/19/23 07:20 Pulse Ox 97 05/19/23 07:20 O2 Del Method Room Air 05/19/23 07:20 BMI result Body Mass Index 28.8 Appearing in no acute distress lung sounds are clear to auscultation heart regular rate rhythm, clear S1, S2 positive bowel sounds, abdomen is soft, nontender neuro patient is alert x3, no focal deficits Erythema and blistering to left knee, more movement joint Objective Data Active Medications Acetaminophen (Acetaminophen 325 Mg Tablet) 650 mg PO Q6H PRN PRN Reason: Pain, Mild (Pain Scale 1-3) Last Admin: 05/18/23 08:53 Dose: 650 mg Documented By: BENOIT Clonidine HCl (Clonidine Hcl 0.1 Mg Tablet) 0.1 mg PO BID [facility]; Protocol Last Admin: 05/19/23 08:16 Dose: 0.1 mg Documented By: KYLE Clonidine HCl (Clonidine Hcl 0.1 Mg Tablet) 0.1 mg PO BID [facility]; Protocol Last Admin: 05/19/23 07:28 Dose: Not Given Documented By: KYLE Non-Admin Reason: Duplicate Order Enoxaparin Sodium (Enoxaparin Sodium 40 Mg/0.4 Ml Syringe) 40 mg SUBCUT Q24H [facility] Last Admin: 05/19/23 08:16 Dose: 40 mg Documented By: KYLE Gabapentin (Gabapentin 100 Mg Capsule) 100 mg PO TID [facility] Last Admin: 05/19/23 08:16 Dose: 100 mg Documented By: KYLE Vancomycin HCl 1,250 mg/ (Sodium Chloride) 250 mls @ 166.667 mls/hr IV Q12H [facility] Last Infusion: 05/19/23 05:04 Dose: 0 mls/hr Documented By: MAXILPillo Melatonin (Melatonin 3 Mg Tablet) 6 mg PO BEDTIME PRN PRN Reason: Insomnia Methadone HCl (Methadone Hcl 20 Mg/2 Ml Oral.Conc) 45 mg PO DAILY [facility] Last Admin: 05/19/23 08:16 Dose: 45 mg Documented By: KYLE Methadone HCl (Methadone Hcl 20 Mg/2 Ml Oral.Conc) 10 mg PO DAILY PRN PRN Reason: Opiate Withdrawal Last Admin: 05/18/23 19:59 Dose: 10 mg Documented By: CLARECNE Morphine Sulfate (Morphine Sulfate 2 Mg/Ml Cartridge) 2 mg IVPUSH Q4H PRN; Protocol PRN Reason: Pain, Mild (Pain Scale 1-3) Last Admin: 05/19/23 07:40 Dose: 2 mg Documented By: KYLE Ondansetron HCl (Ondansetron Hcl 4 Mg/2 Ml Vial) 4 mg IVPUSH Q8H PRN PRN Reason: Nausea and Vomiting Oxycodone HCl (Oxycodone Hcl Immed Release 15 Mg Tablet) 15 mg PO Q4H PRN PRN Reason: withdrawal Last Admin: 05/18/23 17:47 Dose: 15 mg Documented By: STEVAN Pharmacy Consult (Consult Rx Vancomycin Dosing) 1 each MISCELLANE DAILY PRN PRN Reason: Consult order Quetiapine Fumarate (Quetiapine Fumarate 300 Mg Tablet) 300 mg PO BEDTIME [facility] Last Admin: 05/18/23 19:46 Dose: 300 mg Documented By: CLARENCE Sodium Chloride (0.9 % Sodium Chloride Flush 3 Ml Syringe) 3 ml IVFLUSH QSHIFT [facility] Last Admin: 05/19/23 08:16 Dose: 3 ml Documented By: KYLE Labs 05/17/23 06:13 05/19/23 06:07 Labs: Laboratory Results - last 24 hr 05/19/23 06:07 Estim Creat Clear Calc 138.3 Estimated GFR > 60 Microbiology Microbiology Results: Microbiology 05/16/23 21:31 Blood Culture - Preliminary Blood - Venous No growth after 48 hours. 05/16/23 21:32 Blood Culture - Preliminary Blood - Venous No growth after 48 hours. Assessment and Plan (1) Opioid use disorder: Status: Acute Plan This is a 37-year-old male with pertinent history of mood disorder, polysubstance use disorder who presents to the emergency department for evaluation of leg infection. Sepsis due to left lower extremity cellulitis with blistering ? sepsis resolved secondary to needle stick continue vancomycin blood culture neg after 24 hours ID consult pending use warm packs for blisters Mood disorder.? Continue home mood stabilizers.? Does have suicidal ideation on admission and persists at this time Seen and evaluated by psychiatrist> recommended re-evaluation once medically cleared sitter at bedside Polysubstance use disorder.? Consulting Addiction Team, started on methadone UDS positive for opiates, fentanyl, benzos and cocaine On oxycodone, morphine and clonidine at this time DVT prophylaxis: [place] Attending Dr. Recinos Full code continue hospital stay for tx of cellulitis Time Spent With Patient Time: Total time managing care of this patient today ____ minutes. Quality Stroke Does the patient have a stroke diagnosis?: No VTE Prior VTE?: No VTE Risk Level:: Medical - moderate - high VTE Device Contraindication: Treatment Not Indicated VTE Drug Contraindication: N/A - Med Ordered
[2023-05-19] MEDS: oxyCODONE HCl Immed Release 15 MG TABLET PO (11:17)
[2023-05-19 14:14] LABS: Vancomycin Random 8.7 mcg/mL (15-20)
--- NOTE | 2023-05-19 14:34 | MHC.RECOVRN ---
T/w met with pt for f/u. Pt denying cravings at this time, reporting pain 05/23. Pt's RN made aware. Plan to follow up with pt later in the day.
[2023-05-19] MEDS: vancomycin HCL 1,000 MG in 0.9 % Sodium Chloride 250 ML 270 MG IV ×2 (14:36→23:47)
[2023-05-19 15:22] VITALS: BP 136/85; PULSE 73; RESP 18; TEMP 36.7; O2SAT 96
[2023-05-19] MEDS: LORazepam 0.5 MG TABLET PO (16:26)
--- NOTE | 2023-05-19 16:54 | W.PM.IDCN ---
History of Present Illness Data of Consult Service Date: 05/19/23 Requesting physician: Hawa Webber Primary Care Provider: [facility] Reason for consult: wound left leg He presents with left leg erythema after injecting drugs into area. He also has suicidal ideation. He denies endocarditis or OM LS spine in past. Review of Systems Review of Systems: Yes all other systems are reviewed and are negative PMFSH Past Medical History Medical History Left against medical advice Mood disorder Substance use disorder Family History Family history: reviewed and not pertinent Social History Social History Household Members: None Housing: Homeless Do you presently have visiting nurse or other home services: No Unable to assess alcohol history related to: Refusing to respond Alcohol intake: current Alcohol intake frequency: 3 or more drinks per day Alcohol type: beer and hard liquor Patient Tobacco Use Status: Current everyday Tobacco user Tobacco use type: Cigarette Cigarettes Per Day: 4 Smoked in Last 30 Days: Yes e-Cigarette/Vaping Use: Currently Using Use of substances other than those prescribed or required for medical reasons: Refusing to respond Substance Use Type: Opiates Substance Use Frequency: Chronic Longstanding Last Used Substance: Just Prior to Admission Currently Displaying Signs/Symptoms of Drug Intoxication Withdrawal: No Any prior treatment program specific to substance use: Yes Advance Directives: No Advance Directives Information Provided: No Recently lost weight without trying: Unsure Nutrition Risks: No Nutritional Risk service: No Meds Allergies Allergy/AdvReac Type Severity Reaction Status Date / Time No Known Allergies Allergy Verified 05/03/23 14:43 Active Medications: Current Medications Acetaminophen (Acetaminophen 325 Mg Tablet) 650 mg PO Q6H PRN PRN Reason: Pain, Mild (Pain Scale 1-3) Last Admin: 05/18/23 08:53 Dose: 650 mg Clonidine HCl (Clonidine Hcl 0.1 Mg Tablet) 0.1 mg PO BID [facility]; Protocol Last Admin: 05/19/23 08:16 Dose: 0.1 mg Clonidine HCl (Clonidine Hcl 0.1 Mg Tablet) 0.1 mg PO BID [facility]; Protocol Last Admin: 05/19/23 07:28 Dose: Not Given Enoxaparin Sodium (Enoxaparin Sodium 40 Mg/0.4 Ml Syringe) 40 mg SUBCUT Q24H [facility] Last Admin: 05/19/23 08:16 Dose: 40 mg Gabapentin (Gabapentin 100 Mg Capsule) 100 mg PO TID [facility] Last Admin: 05/19/23 14:36 Dose: 100 mg Vancomycin HCl 1,000 mg/ (Sodium Chloride) 270 mls @ 270 mls/hr IV Q8H [facility] Last Infusion: 05/19/23 16:07 Dose: Infused Lorazepam (Lorazepam 0.5 Mg Tablet) 0.5 mg PO Q8H PRN PRN Reason: anxiety Last Admin: 05/19/23 16:26 Dose: 0.5 mg Melatonin (Melatonin 3 Mg Tablet) 6 mg PO BEDTIME PRN PRN Reason: Insomnia Methadone HCl (Methadone Hcl 20 Mg/2 Ml Oral.Conc) 45 mg PO DAILY [facility] Last Admin: 05/19/23 08:16 Dose: 45 mg Methadone HCl (Methadone Hcl 20 Mg/2 Ml Oral.Conc) 10 mg PO DAILY PRN PRN Reason: Opiate Withdrawal Last Admin: 05/18/23 19:59 Dose: 10 mg Morphine Sulfate (Morphine Sulfate 2 Mg/Ml Cartridge) 2 mg IVPUSH Q4H PRN; Protocol PRN Reason: Pain, Mild (Pain Scale 1-3) Last Admin: 05/19/23 13:44 Dose: 2 mg Ondansetron HCl (Ondansetron Hcl 4 Mg/2 Ml Vial) 4 mg IVPUSH Q8H PRN PRN Reason: Nausea and Vomiting Oxycodone HCl (Oxycodone Hcl Immed Release 15 Mg Tablet) 15 mg PO Q4H PRN PRN Reason: withdrawal Last Admin: 05/19/23 11:17 Dose: 15 mg Pharmacy Consult (Consult Rx Vancomycin Dosing) 1 each MISCELLANE DAILY PRN PRN Reason: Consult order Quetiapine Fumarate (Quetiapine Fumarate 300 Mg Tablet) 300 mg PO BEDTIME [facility] Last Admin: 05/18/23 19:46 Dose: 300 mg Sodium Chloride (0.9 % Sodium Chloride Flush 3 Ml Syringe) 3 ml IVFLUSH QSHIFT [facility] Last Admin: 05/19/23 14:37 Dose: 3 ml Home Medications Medication Instructions Recorded Confirmed Last Taken Type quetiapine 100 mg tablet (Seroquel) 100 mg PO DAILY 05/03/23 05/16/23 1 Day Ago History ~05/15/23 quetiapine 300 mg tablet (Seroquel) 300 mg PO BEDTIME 05/03/23 05/16/23 1 Day Ago History ~05/15/23 Physical Exam Vital Signs: Vital Signs: Last Vital Signs Temp 98.0 F 05/19/23 15:22 Pulse 73 05/19/23 15:22 Resp 18 05/19/23 15:22 BP 136/85 05/19/23 15:22 Pulse Ox 96 05/19/23 15:22 O2 Del Method Room Air 05/19/23 15:22 BMI result Body Mass Index 28.8 Const: General: cooperative HEENT: Head: Yes normal to inspection Face and sinus: Yes normal facial exam Mouth: Normal oral and palatal mucosa present Teeth and gingiva: dentition normal Eyes: General: appearance normal, both eyes and all related structures Pupils: Equal, round and reactive pupils present Resp: Effort & Inspection: normal respiratory effort Cardio: Rate: regular rate Rhythm: regular rhythm GI: Palpation (GI): Soft to palpation and nontender : General: Yes no CVA tenderness Back/Spine/Pelvis: Back: no CVA tenderness Skin: General skin exam: no rashes or lesions noted Neuro: General: moves all extremities Cranial nerves: Yes Equal, round and reactive pupils present Extrem: Other: redness left interior knee area General: Yes normal to inspection Psych: Appearance: grossly normal Results Labs 05/17/23 06:13 05/19/23 06:07 Labs: BMP 05/19/23 06:07 Creatinine 0.82 Microbiology Microbiology Results: Microbiology 05/16/23 21:31 Blood - Venous Blood Culture - Preliminary No growth after 48 hours. 05/16/23 21:32 Blood - Venous Blood Culture - Preliminary No growth after 48 hours. Assessment and Plan (1) Cellulitis: Status: Acute Resolving ,possible blister due to drug use (2) Sepsis: Status: Acute (3) Opioid use disorder: Status: Acute Plan Po Doxycycline cover MRSA if negative blood culture tomorrow for one week. Check HIV and Hepatitis C viral load. Time Spent With Patient Time: Total time managing care of this patient today ____ minutes.
[2023-05-19] MEDS: QUEtiapine Fumarate 300 MG TABLET PO (19:31)
[2023-05-19 19:36] VITALS: BP 131/61; PULSE 87; RESP 17; TEMP 37; O2SAT 97
[2023-05-20 03:29] VITALS: BP 131/71; PULSE 67; RESP 14; TEMP 36; O2SAT 99
[2023-05-20] MEDS: oxyCODONE HCl Immed Release 15 MG TABLET PO ×2 (03:37→07:42)
[2023-05-20] MEDS: Morphine Sulfate 2 MG/ML CARTRIDGE IVPUSH (06:25)
[2023-05-20] MEDS: vancomycin HCL 1,000 MG in 0.9 % Sodium Chloride 250 ML 270 MG IV (06:44)
[2023-05-20 07:43] LABS: Creatinine Clr Calc Pharmacy 143.5; Estimated Glomerular Filt Rate > 60
[2023-05-20] MEDS: methADONE HCl 20 MG/2 ML ORAL.CONC 45 MG PO (09:31)
[2023-05-20] MEDS: Gabapentin 100 MG CAPSULE PO (09:32)
[2023-05-20] MEDS: cloNIDine HCL 0.1 MG TABLET PO (09:34)
--- NOTE | 2023-05-20 11:25 | MHC.CM.PN ---
PER HOSPITALIST PT WANTS D/C AMA.
--- NOTE | 2023-05-20 11:36 | MHC.CARE ---
CARE Team met with Pt and does not require a psychiatric admission. Pt no longer wants to leave AMA and will complete medical treatment. 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 CARE Team reviewed recommendations with CARLTON Deras and attending RN
--- NOTE | 2023-05-20 11:42 | PC.NURSE ---
1140 spoke with Lainey from CARE team. Patient cleared by care team and sitter no longer needed. Provider aware.
[2023-05-20] MEDS: Doxycycline Monohydrate 100 MG CAPSULE PO (13:32)
[2023-05-20 13:39] LABS: Vancomycin Random 8.4 mcg/mL (15-20)
--- NOTE | 2023-05-20 14:43 | P.DS_ITS ---
DS: Providers Provider Date of Service: 05/20/23 Date of admission: 05/16/23 23:35 Date of discharge: 05/20/23 Primary care physician: Unknown Physician Consults: 05/16/23 23:35 Addiction Medicine Routine Consulting Provider: Addiction Covering Reason for consultation: Polysubstance use disorder Consult to Care Team Routine Comment: Reason for consultation: SI ; susbtance use disorder Consult to Psychiatry Routine Consulting Provider: Psych Covering Reason for consultation: Suicidal ideation 05/17/23 02:05 Consult for Sitter Routine Reason for consultation: Suicidal ideation 05/18/23 10:27 Consult to Care Team Stat Comment: Reason for consultation: SI, wants to leave ama 05/19/23 10:57 Consult to Infectious Diseases Routine Consulting Provider: [facility] Infectious Disease Reason for consultation: cellulitis 05/20/23 10:17 Consult to Care Team Stat Comment: Reason for consultation: SI, wants to leave AMA Has provider been notified: No Attending physician on discharge: Kp Recinos Discharging clinician: Sisi Saeed DS: Diagnosis Discharge Diagnosis (1) Cellulitis: Status: Acute (2) Sepsis: Status: Acute (3) Opioid use disorder: Status: Acute DS: Summary Hospital Course Hospital Course: From H&P on day of admission This is a 37-year-old male with pertinent history of mood disorder, polysubstance use disorder who presents to the emergency department for evaluation of leg infection. Patient states that he has noticed left leg swelling, redness and warmth that has been ongoing for the last few days. It has been progressive. Denies associated fevers or chills. Patient states it has started because he fell a few days ago. No drainage. Denies chest discomfort, palpitations, shortness of breath, abdominal pain, changes in urinary or bowel habits. Also noted to have vague complaints of suicidal ideation in the ER. In the emergency department, patient was found to be septic Sepsis due to left lower extremity cellulitis with blistering ? sepsis resolved Initially treated with IV vancomycin. blood culture have remained negative. He was seen in consultation by Infectious Diseases who recommended to transition to p.o. doxycycline for 7 days. Mood disorder.? Continue home mood stabilizers.? Initially reported suicidal ideation. He was seen and evaluated by care team did not feel that he needed inpatient level of care. Polysubstance use disorder.? Consulting Addiction Team, started on methadone . UDS positive for opiates, fentanyl, benzos and cocaine. He will continue outpatient follow-up for methadone per addiction medicine team. Time Spent with Patient Time attestation: Total time managing care of this patient today ____ minutes. Discharge coordination time: Greater than 30 minutes Quality: Safe Use of Opioids Does Pt have an Active Cancer Diagnosis on the Problem List?: No Quality: Stroke Does the patient have a stroke diagnosis?: No Physical Exam Vital Signs: Vital Signs: Last Vital Signs Temp 96.8 F 05/20/23 03:29 Pulse 67 05/20/23 03:29 Resp 14 05/20/23 03:29 BP 131/71 05/20/23 03:29 Pulse Ox 99 05/20/23 03:29 O2 Del Method Room Air 05/20/23 03:29 BMI result Body Mass Index 28.8 Const: General: cooperative, comfortable, no acute distress, alert and awake Nutritional Appearance: average body habitus Orientation/consciousness: patient oriented x3 Resp: Effort & Inspection: normal respiratory effort and able to speak in complete sentences GI: Inspection: No distended Palpation (GI): Soft to palpation and nontender Skin: Other: left knee with minimal erythema and superfical blister, began draining during shower today Neuro: General: patient oriented x3, moves all extremities and CN's II-XI intact bilaterally DS: Data Data Completed and Pending Completed studies during hospitalization [Text1]: Procedures Drainage of Left Foot Skin, External Approach (04/12/23) Drainage of Left Foot Skin, External Approach, Diagnostic (04/12/23) Labs on day of discharge: Laboratory Results - last 24 hr 05/20/23 05/20/23 07:00 13:17 Creatinine 0.79 Estim Creat Clear Calc 143.5 Estimated GFR > 60 Random Vancomycin 8.4 L Preliminary micro results at discharge 05/16/23 21:31 Blood Culture - Preliminary Blood - Venous No growth after 48 hours. 05/16/23 21:32 Blood Culture - Preliminary Blood - Venous No growth after 48 hours. Discharge Plan Discharge Anticipated Discharge Date/Time: 05/20/23 14:36 Patient Disposition: Home, Self-Care Discharge Diagnosis: cellulitis left knee Referrals: [place] [Physician] - 1 Week Discharge Medications: New doxycycline monohydrate 100 mg Capsule 100 mg PO Q12H 7 Days Qty: 14 0RF Continued quetiapine [Seroquel] 100 mg tablet 100 mg PO DAILY quetiapine [Seroquel] 300 mg tablet 300 mg PO BEDTIME clonidine HCl 0.1 mg tablet 0.1 mg PO BID Qty: 14 0RF gabapentin 100 mg capsule 100 mg PO TID Qty: 21 0RF Discharge Orders: Discharge Order (Routine); Ordered 05/20/23 Ordered By: iSsi Saeed Activity on Discharge: As tolerated Stand Alone Forms: Patient Portal Discharge page Care Plan Goals: see below Health Concerns: left leg cellulitis opiate use disorder Plan of Treatment: take antibiotics as prescribed outpatient follow up to continue methadone Assessment: see discharge summary
--- NOTE | 2023-05-20 15:05 | MHC.RECOVRN ---
This technical writer and editor met with patient x's 3. Pt admitted for leg infection. Pt sitting up in bed, resting. Pt reports MTD is helping, pt states feels sweaty, irritable at night and in the a.m. prior to morning dose. Pt requesting referral to [facility] to continue MTD. Pt reports anxious, does not have phone, would like to contact his Mother. This technical writer and editor retrieved pts phone from Security and gave to patient. Patient had discussed with this technical writer and editor, anxious to leave but willing to stay to complete treatment for leg infection. Pt verbalized a strong understanding of basic wound care, s/s of infection and reports accesses [facility] for wound care check and supplies. Pt up for discharge, last dose letter given to pt, reminded to follow up at [facility] in the morning, t/w to send MTD referral to [facility]. Harm reduction reviewed, patient given [employer] [facility] site calendar. Pt verbalized understanding.
--- NOTE | 2023-05-20 15:27 | MHC.CM.PN ---
PT MEDICALLY CLEARED FOR D/C HOME SELF-CARE, PT HOMELESS AND HAS DECIEND LONG TERM PLACEMENT, PT PROVIDED W/BUS PASSES FOR TRANSPORT.
--- NOTE | 2023-05-21 09:35 | MHC.CARE ---
RAD team completed and emailed a referral for this individual to [facility]. Will follow up to confirm receipt on 05/24 or 05/25 as it is the weekend and [facility] may be closed for business hours until then.
== END 2023-05-20 16:07 | disposition home or self-care (01) | DRG 720 ==
LOC: HO.ED 21:03 → HO.EDOVER 23:46 → HO.S3 05-17 00:10
PROVIDERS: Admitting Provider Student in an Organized Health Care Education/Training Program; Emergency Provider Student in an Organized Health Care Education/Training Program; Visit Provider Physician Assistant Medical
DX: A41.9 Sepsis, unspecified organism (principal); R45.851 Suicidal ideations; F11.20 Opioid dependence, uncomplicated; L03.116 Cellulitis of left lower limb; F39 Unspecified mood [affective] disorder; Z59.02 Unsheltered homelessness; F19.10 Other psychoactive substance abuse, uncomplicated; F17.210 Nicotine dependence, cigarettes, uncomplicated; Z71.6 Tobacco abuse counseling; Z20.822 Contact with and (suspected) exposure to COVID-19; Z79.899 Other long term (current) drug therapy
CPT/HCPCS: 36415; 73590; 80048; 80053; 80202; 80307; 81003; 82248; 82565; 83605; 85025; 87040; 87635; 93005; 93971; 97161; 99285; J1650; J2270; J2543; J3370; J3371; S9485

== ENCOUNTER → 2023-05-16 23:35 | Outpatient (BNV) | payer MEDICAID, SELFPAY | PROVIDERS: Admitting Provider Student in an Organized Health Care Education/Training Program; Emergency Provider Student in an Organized Health Care Education/Training Program; Visit Provider Internal Medicine | DX: L03.90 Cellulitis, unspecified (principal); A41.9 Sepsis, unspecified organism; F11.90 Opioid use, unspecified, uncomplicated | CPT/HCPCS: 99222 ==

== ENCOUNTER → 2023-05-16 23:35 | Outpatient (BNV) | payer OTHER, SELFPAY | PROVIDERS: Admitting Provider Student in an Organized Health Care Education/Training Program; Emergency Provider Student in an Organized Health Care Education/Training Program; Visit Provider Nurse Practitioner Psychiatric/Mental Health | DX: F11.90 Opioid use, unspecified, uncomplicated (principal); R45.851 Suicidal ideations | CPT/HCPCS: 99232; 99499 ==

== ENCOUNTER → 2023-05-16 23:35 | Outpatient (BNV) | payer MEDICAID, SELFPAY | PROVIDERS: Admitting Provider Student in an Organized Health Care Education/Training Program; Emergency Provider Student in an Organized Health Care Education/Training Program; Visit Provider Student in an Organized Health Care Education/Training Program | DX: F11.90 Opioid use, unspecified, uncomplicated (principal); L03.116 Cellulitis of left lower limb | CPT/HCPCS: 99222; 99232; 99239 ==

== ENCOUNTER 2023-05-21 18:12 | Inpatient (IN) | payer MEDICAID, SELFPAY ==
--- NOTE | ~2023-05-21 | CT_ITS ---
EXAMINATION: CT lower leg the left with IV contrast CLINICAL INFORMATION: Pain and swelling COMPARISON: None TECHNIQUE: Multidetector volumetric imaging was performed through the left lower extremity following the administration of oral and 85 mL of Omnipaque 350 intravenous contrast. Sagittal and coronal reformatted images were obtained on the technologist's workstation. This CT examination was performed using dose optimization techniques as appropriate, variously including the following: *Automated exposure control *Adjustment of mA and/or kV according to patient size (this includes techniques or standardized protocols for targeted exams where dose is matched to indication/reason for exam; i.e. extremities or head) *Use of iterative reconstruction technique DLP: 325 mGy-cm. FINDINGS: The bony structures are unremarkable. There is soft tissue swelling about the tib-fib with subcutaneous infiltration. There is a 5.7 x 2.4 x 2.8 cm collection along the anterior medial tibial plateau. The vascular structures are unremarkable. The joint spaces are maintained. There is no significant joint effusion. CT/CT lower leg LT w IV con IMPRESSION: Soft tissue swelling throughout the tib-fib possibly cellulitis. There is a subcutaneous collection along the anterior medial tib-fib measuring 5.7 x 2.4 x 2.8 cm. Correlation needed the possibility of abscess collection.
--- NOTE | ~2023-05-21 | US_ITS ---
EXAMINATION: US VENOUS ULTRASOUND WITH DOPPLER LOWER EXTREMITY, LEFT CLINICAL INFORMATION: swelling, pain COMPARISON: None available. TECHNIQUE: Ultrasound of the deep veins is performed from the hip to the calf with compression sonography and color and pulse Doppler assessment. Spectral analysis with color-flow imaging is performed. FINDINGS: There is normal venous compression and respiratory variation and augmented flow. The visualized common femoral vein, superficial femoral vein, profunda femoral vein, popliteal vein, and the trifurcation region shows no evidence of deep venous thrombosis. There is no significant popliteal fossa cyst. Prominent inguinal lymph nodes the left groin demonstrate echogenic fatty alyssa. The largest of these measures 1.4 cm in short axis, at the upper limits of normal in size. If the patient's symptoms persist, followup ultrasound in 5 days 7 days might be of value to exclude proximal propagation from a non-visualized calf vein. US/US venous duplex LE LT IMPRESSION: No DVT demonstrated in the left lower extremity.
[2023-05-21 18:28] VITALS: BP 137/81; PULSE 94; RESP 17; TEMP 35.9; O2SAT 98; BMI 28.7
--- NOTE | 2023-05-21 18:37 | ED_ITS ---
HPI - General Adult General Chief complaint: Extremity Problem Stated complaint: L leg pain, no injury Time Seen by Provider: 05/21/23 23:18 Source: patient and old records reviewed Mode of arrival: ambulatory Limitations: no limitations History of Present Illness HPI narrative: 37 yo male who has hx of IVDA, just seen and treated for cellulitis of L foot and knee with IV antibiotics and PO doxy on DC he was here 05/15 to 05/20. 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 He reports he has more pain in the leg. No more swelling but more pain and the redness that he had went away and now it is back. He states he is sure he took the antibiotics and filled the doxycycline. MD complaint: leg pain Onset (ago): day(s) (1) Location: left and lower extremity Radiation: non-radiation Severity: mild Quality: aching Pain Consistency: constant Relieving factors: immobilization Exacerbating factors: movement Associated symptoms: rash Treatments prior to arrival: other (states he takes the antibiotic) Related Data Home Medications Medication Instructions Recorded Confirmed quetiapine 100 mg tablet (Seroquel) 100 mg PO DAILY 05/03/23 05/16/23 quetiapine 300 mg tablet (Seroquel) 300 mg PO BEDTIME 05/03/23 05/16/23 Previous Rx's Medication Instructions Recorded clonidine HCl 0.1 mg tablet 0.1 mg PO BID #14 tabs 05/03/23 gabapentin 100 mg capsule 100 mg PO TID #21 caps 05/03/23 doxycycline monohydrate 100 mg 100 mg PO Q12H 7 days #14 caps 05/20/23 capsule Allergies Allergy/AdvReac Type Severity Reaction Status Date / Time No Known Allergies Allergy Verified 05/03/23 14:43 Review of Systems 2 Review of Systems: Constitutional : No Fever, No Chills ENT/Mouth : No sore throat, No Rhinorrhea Eyes: No Eye Pain, No Swelling, No Redness Cardiovascular : No Chest Pain, No SOB Respiratory : No Cough, No Sputum Gastrointestinal : No Nausea, No Vomiting, No Diarrhea, No abdominal Pain Genitourinary : No Dysuria, No Hematuria Musculoskeletal : No joint pain, No Myalgias, No Joint Swelling Skin : No Skin Lesions, positive skin rash Neuro : No Weakness, No Numbness, No Headache Psych : No Anxiety, No Depression Heme/Lymph: No Bruising, No Bleeding,No Lymphadenopathy Endocrine : No Polyuria, No Polydipsia All other systems reviewed and are negative [facility] Past Medical History Attestation statement: The following information was validated with the patient. Source: old records reviewed Medical History Mood disorder Left against medical advice Substance use disorder Social History Social History Household Members: None Housing: Homeless Do you presently have visiting nurse or other home services: No Unable to assess alcohol history related to: Refusing to respond Alcohol intake: current Alcohol intake frequency: 3 or more drinks per day Alcohol type: beer and hard liquor Patient Tobacco Use Status: Current everyday Tobacco user Tobacco use type: Cigarette Cigarettes Per Day: 4 e-Cigarette/Vaping Use: Currently Using Substance Use Type: Opiates Advance Directives: No Advance Directives Information Provided: No service: No Physical Exam ED Vital Signs: Vital Signs - 24 hr 05/21/23 18:28 05/21/23 22:10 05/22/23 00:25 Temperature 96.7 F L 99.2 F 98.3 F Pulse Rate 94 87 79 Respiratory Rate 17 18 18 Blood Pressure 137/81 123/69 119/68 Pulse Oximetry 98 98 98 Oxygen Delivery Method Room Air Room Air Room Air 05/22/23 02:30 Temperature 98.0 F Pulse Rate 74 Respiratory Rate 14 Blood Pressure 124/60 Pulse Oximetry 100 Oxygen Delivery Method Room Air BMI result Body Mass Index 28.7 Appearance: Alert. Oriented X3. No acute distress. Eyes: Pupils equal, round and reactive to light. ENT: Pharynx normal. Neck: Normal inspection. Neck supple. CVS: Normal heart rate and rhythm. Pulses normal. Respiratory: No respiratory distress. Breath sounds normal. Abdomen: Soft and nontender. Skin: Skin warm and dry. Normal skin color. Normal skin turgor. Extremities: L leg swelling and edema medial aspect of prox tib and knee but can move the knee most of pain and swelling near medial tibia has redness proximal and distal but no lymphangitis there is flat abraded area over medial tibia Neuro: Oriented X 3. No motor deficit. No sensory deficit. Course Course Course Narrative: RME- 37 year old male presents for evaluation of left leg infection. He was discharged yesterday after and admission for cellulitis. He reports since going home he has seen incresing redness, pain and swelling to his entire left leg. He is afebrile on exam. His left leg is significantly erythematous. Plan for labs, repeat blood cultures. He had a negative DVT scan 5 days ago, so this will not be repeated Reevaluation(s) Reevaluation #1: signed out to Dr. Blancas. Medications Administered Discontinued Medications Generic Name Dose Route Start Last Admin Trade Name Freq PRN Reason Stop Dose Admin Piperacillin Sod/Tazobactam 50 mls @ 100 mls/hr 05/21/23 23:49 05/22/23 01:39 Sod 3.375 gm/ Sodium Chloride IV 05/22/23 00:18 100 mls/hr ONCE ONE Administration Vancomycin HCl 1,250 mg/ 250 mls @ 166.667 mls/hr 05/22/23 03:45 05/22/23 05:42 Sodium Chloride IV Not Given Q8H LISBETH Vancomycin HCl 2,000 mg in 500 mls @ 250 mls/hr 05/22/23 04:00 05/22/23 05:52 Vancomycin/Ns IV 05/22/23 05:59 250 mls/hr ONCE ONE Administration Iohexol 85 ml 05/22/23 02:04 05/22/23 02:04 Iohexol 350 Mg/Ml 100 Ml Infus..Btl IV 05/22/23 02:05 85 ml ONCE ONE Administration Medical Decision Making Medical Decision Making MDM Narrative: 37 yo male with IVDA just here for left leg cellulitis now with more pronounced area on L medial tibia and pain no signs of effusion or septic joint but pain right on the medial tibia and bone DVT study, basic labs, IVF IV zosyn ordered. I am obtaining CT scan to evaluate the structures bone and muscle and deeper space abscess. no signs of compartment syndrome - sensation pulses and plantar and dorsiflexion within normal limits 04:00 Patient with abscess anterior medial tibial fibular area 5.7 x 2.4 x 2.8 along with cellulitis with IVDA user patient refused I and D in the ER sees would like to go to OR for the proper INT meanwhile patient received Zosyn will add vancomycin and admit Differential Diagnosis Differential Diagnoses: The differential diagnosis associated with the presentation includes abscess, cellulitis Admission/Observation Consideration of admission/observation: Escalation of care including admission/observation considered Lab Data MDM Lab Attestation statement: I reviewed the patient's lab results. 05/22/23 00:22 05/21/23 19:31 Labs: Lab Results 05/21/23 05/22/23 Range/Units 19:31 00:22 WBC 9.3 (4.8-10.8) X10*3/uL RBC 4.19 L (4.60-5.80) X10*6/uL Hgb 12.6 L (14.0-18.0) g/dl Hct 36.4 L (42.0-52.0) % MCV 86.9 (80.0-98.0) fL MCH 30.1 (27.0-33.0) pg MCHC 34.6 (31.0-36.0) g/dl RDW 12.1 (11.0-16.0) % Plt Count 327 D (160-400) X10*3/uL MPV 9.2 L (9.4-12.4) fL Immature Gran % (Auto) 2.3 H (0.0-0.4) % Neut % (Auto) 64.3 (45-73) % Lymph % (Auto) 23.2 (20-40) % Johnston % (Auto) 7.3 (2-11) % Eos % (Auto) 2.5 (0-4) % Baso % (Auto) 0.4 (0-2) % Lymph # (Auto) 2.2 (1.2-4.9) X10*3/uL Johnston # (Auto) 0.7 (0.1-1.2) X10*3/uL Eos # (Auto) 0.2 (0.0-0.4) X10*3/uL Baso # (Auto) 0.0 (0.0-0.2) X10*3/uL Abs Immat Gran (auto) 0.21 H (0.00-0.03) X10*3/uL Absolute Neuts (auto) 6.0 (2.0-8.3) x10*3/uL Absolute Nucleated RBC 0.000 (0.0-0.012) X10*3/uL Nucleated RBC % (auto) 0.0 (0.0-0.2) /100WBC ESR 77 H (0-15) MM/HR Sodium 139 (135-145) mmol/L Potassium 3.7 (3.3-5.1) mmol/L Chloride 107 (96-108) mmol/L Carbon Dioxide 23 (22-29) mmol/L Anion Gap 13 (12-20) BUN 19 H (9-16) mg/dL Creatinine 1.21 (0.5-1.4) mg/dL Estim Creat Clear Calc 93.6 Estimated GFR > 60 Random Glucose 86 (60-115) mg/dL Lactic Acid 1.0 (0.5-2.0) mmol/L Calcium 9.6 D (8.4-10.2) mg/dL Total Bilirubin 0.2 (0.0-1.0) mg/dL AST 25 (5-37) U/L ALT 21 (0-40) U/L Alkaline Phosphatase 105 (39-117) U/L C-Reactive Protein 2.45 H (< or = 0.50) mg/dL Total Protein 8.0 (6.5-8.0) g/dL Albumin 3.9 (3.5-5.0) g/dL Independent Interpretation I performed an independent interpretation of an: Ultrasound (no DVT) Radiology Impression Discussion of test interpretation with radiology: I have reviewed the radiologist's reading. Radiologist Impression: FINDINGS: The bony structures are unremarkable. There is soft tissue swelling about the tib-fib with subcutaneous infiltration. There is a 5.7 x 2.4 x 2.8 cm collection along the anterior medial tibial plateau. The vascular structures are unremarkable. The joint spaces are maintained. There is no significant joint effusion. CT/CT lower leg LT w IV con IMPRESSION: Soft tissue swelling throughout the tib-fib possibly cellulitis. There is a subcutaneous collection along the anterior medial tib-fib measuring 5.7 x 2.4 x 2.8 cm. Correlation needed the possibility of abscess collection. External Record Review External record reviewed: Inpatient record Social Determinants Patient?s care significantly limited by Social Determinants of Health including: Inadequate housing and Low income Discharge Plan Discharge Clinical Impression: Cellulitis of left leg, Abscess of left thigh Patient Disposition: Admitted As Inpatient
[2023-05-21 19:58] LABS: Alanine Aminotransferase 21 U/L (0-40); Albumin Level 3.9 g/dL (3.5-5.0); Alkaline Phosphatase 105 U/L (39-117); Anion Gap 13 (12-20); Aspartate Amino Transferase 25 U/L (5-37); Bilirubin Total 0.2 mg/dL (0.0-1.0); Blood Urea Nitrogen 19 mg/dL (9-16); C Reactive Protein 2.45 mg/dL (< or = 0.50); Calcium 9.6 mg/dL (8.4-10.2); Carbon Dioxide 23 mmol/L (22-29); Chloride 107 mmol/L (96-108); Creatinine Clr Calc Pharmacy 93.6; Estimated Glomerular Filt Rate > 60; Glucose Random 86 mg/dL (60-115); Potassium 3.7 mmol/L (3.3-5.1); Sodium 139 mmol/L (135-145)
[2023-05-21 22:10] VITALS: BP 123/69; PULSE 87; RESP 18; TEMP 37.3; O2SAT 98
[2023-05-22] VITALS (8 sets, daily range): BP systolic 115–128; BP diastolic 58–74; PULSE 65–79; RESP 14–20; TEMP 36.3–36.8; O2SAT 97–100
--- NOTE | 2023-05-22 00:28 | MHC.EDTECH ---
Labs,blood cultures obtained and sent to lab. Hourly rounds and vitals were taken. call pizarro within reach
[2023-05-22 00:31] LABS: Basophils Percent Auto 0.4 % (0-2); Eosinophils Absolute Auto 0.2 X10*3/uL (0.0-0.4); Eosinophils Percent Auto 2.5 % (0-4); Hematocrit 36.4 % (42.0-52.0); Hemoglobin 12.6 g/dl (14.0-18.0); Imm Gran Abs Auto 0.21 X10*3/uL (0.00-0.03); Imm Gran Pct Auto 2.3 % (0.0-0.4); Lymphocytes Absolute Auto 2.2 X10*3/uL (1.2-4.9); Lymphocytes Percent Auto 23.2 % (20-40); Mean Corpuscular HGB Conc 34.6 g/dl (31.0-36.0); Mean Corpuscular Hemoglobin 30.1 pg (27.0-33.0); Mean Corpuscular Volume 86.9 fL (80.0-98.0); Mean Platelet Volume 9.2 fL (9.4-12.4); Monocytes Absolute Auto 0.7 X10*3/uL (0.1-1.2); Monocytes Percent Auto 7.3 % (2-11); Neutrophils Percent Auto 64.3 % (45-73); Platelet Count 327 X10*3/uL (160-400); Red Blood Count 4.19 X10*6/uL (4.60-5.80); Red Cell Distribution Width 12.1 % (11.0-16.0); White Blood Count 9.3 X10*3/uL (4.8-10.8)
--- NOTE | 2023-05-22 00:32 | PC.NURSE ---
unable to obtain iv access.
[2023-05-22 01:11] LABS: Erythrocyte Sedimentation Rate 77 MM/HR (0-15)
[2023-05-22 01:35] LABS: MANUAL DIFF FLAG NO
[2023-05-22] MEDS: Piperacillin Sodium/Tazobactam 3.375 GM in 0.9 % Sodium Chloride 50 ML IV ×4 (01:39→21:04)
[2023-05-22] MEDS: iohexoL 350 MG/ML 100 ML INFUS..BTL 85 ML IV (02:04)
[2023-05-22] MEDS: vancomycin/NS 2,000 MG/500 ML PLAST..BAG 250 MG IV (05:52)
--- NOTE | 2023-05-22 06:45 | PM.IMHP ---
History of Present Illness Date of Service: 05/22/23 Chief Complaint: Pain in left leg This is a 37-year-old male with past medical history of polysubstance use disorder, presents to the emergency department with complaints of worsening pain at site of recent cellulitis. Patient was seen and discharged from the hospital on 05/20 after being managed for sepsis due to left lower leg cellulitis, patient was started on IV IV vancomycin during the previous admission, and was discharged on doxycycline for 7 days. Patient reports that the swelling improved the redness also improved but then yesterday started developing significant pain in the thigh and lower leg. He reports some fever and chills, otherwise all other review of systems negative. CT scan of the lower extremity showed a 5.7 x 2.4 x 2.8 cm abscess, venous Dopplers of lower extremity showed no DVT Patient started on IV antibiotics and be admitted for further management Review of Systems Review of Systems: Yes all other systems are reviewed and are negative [facility] Medical History Mood disorder Left against medical advice Substance use disorder Social History Household Members: None Housing: Homeless Do you presently have visiting nurse or other home services: No Unable to assess alcohol history related to: Refusing to respond Alcohol intake: current Alcohol intake frequency: 3 or more drinks per day Alcohol type: beer and hard liquor Patient Tobacco Use Status: Current everyday Tobacco user Tobacco use type: Cigarette Cigarettes Per Day: 4 e-Cigarette/Vaping Use: Currently Using Substance Use Type: Opiates Advance Directives: No Advance Directives Information Provided: No service: No Meds Allergies Allergy/AdvReac Type Severity Reaction Status Date / Time No Known Allergies Allergy Verified 05/03/23 14:43 Active Medications: Current Medications Acetaminophen (Acetaminophen 325 Mg Tablet) 650 mg PO Q6H PRN PRN Reason: Pain, Mild (Pain Scale 1-3) Docusate Sodium (Docusate Sodium 100 Mg Capsule) 100 mg PO DAILY PRN PRN Reason: Constipation Piperacillin Sod/Tazobactam (Sod 3.375 gm/ Sodium Chloride) 50 mls @ 100 mls/hr IV Q6H LISBETH Ondansetron HCl (Ondansetron Hcl 4 Mg/2 Ml Vial) 4 mg IVPUSH Q8H PRN PRN Reason: Nausea and Vomiting Pharmacy Consult (Consult Rx Vancomycin Dosing) 1 each MISCELLANE DAILY PRN PRN Reason: Consult order Sodium Chloride (0.9 % Sodium Chloride Flush 3 Ml Syringe) 3 ml IVFLUSH QSHIFT [facility] Medications Medication Instructions Recorded Confirmed Last Taken Type quetiapine 100 mg tablet (Seroquel) 100 mg PO DAILY 05/03/23 05/16/23 1 Day Ago History ~05/15/23 quetiapine 300 mg tablet (Seroquel) 300 mg PO BEDTIME 05/03/23 05/16/23 1 Day Ago History ~05/15/23 Physical Exam Vital Signs and Narrative: Vital Signs: Last Vital Signs Temp 98.2 F 05/22/23 06:04 Pulse 67 05/22/23 06:04 Resp 16 05/22/23 06:04 BP 115/67 05/22/23 06:04 Pulse Ox 99 05/22/23 06:04 O2 Del Method Room Air 05/22/23 06:04 BMI result Body Mass Index 28.7 Const: General: cooperative and no acute distress Orientation/consciousness: patient oriented x3 Eyes: General: appearance normal, both eyes and all related structures Resp: Effort & Inspection: normal respiratory effort Auscultation: clear to auscultation bilaterally Cardio: Rate: regular rate Rhythm: regular rhythm GI: Palpation (GI): Soft to palpation Auscultation: normal bowel sounds Skin: Other: See lower extremity Neuro: General: patient oriented x3 Cognition (Neuro): normal cognition Extrem: Other: Left lower extremity medial aspect of the knee shows erythema, warmth, tenderness, edema, with a site of ulceration Results Labs 05/22/23 00:22 05/21/23 19:31 Labs: Laboratory Results - last 24 hr 05/21/23 05/22/23 19:31 00:22 MCV 86.9 MCH 30.1 MCHC 34.6 RDW 12.1 Plt Count 327 D MPV 9.2 L Immature Gran % (Auto) 2.3 H Neut % (Auto) 64.3 Lymph % (Auto) 23.2 Rankin % (Auto) 7.3 Eos % (Auto) 2.5 Baso % (Auto) 0.4 Lymph # (Auto) 2.2 Rankin # (Auto) 0.7 Eos # (Auto) 0.2 Baso # (Auto) 0.0 Abs Immat Gran (auto) 0.21 H Absolute Neuts (auto) 6.0 Absolute Nucleated RBC 0.000 Nucleated RBC % (auto) 0.0 ESR 77 H Anion Gap 13 Estim Creat Clear Calc 93.6 Estimated GFR > 60 Random Glucose 86 Lactic Acid 1.0 Calcium 9.6 D Total Bilirubin 0.2 AST 25 ALT 21 Alkaline Phosphatase 105 C-Reactive Protein 2.45 H Total Protein 8.0 Albumin 3.9 Imaging Radiologist's Impressions: Impressions Venous Duplex 05/21/23 23:54 IMPRESSION: No DVT demonstrated in the left lower extremity. Lower Extremity CT 05/22/23 02:18 IMPRESSION: Soft tissue swelling throughout the tib-fib possibly cellulitis. There is a subcutaneous collection along the anterior medial tib-fib measuring 5.7 x 2.4 x 2.8 cm. Correlation needed the possibility of abscess collection. Assessment and Plan (1) Abscess of left thigh: Status: Acute (2) Cellulitis of left leg: Status: Acute Plan 37-year-old male who was recently discharged from the hospital on 05/20 after being treated for cellulitis of the left lower leg returns with worsening symptoms found to have abscess # abscess of left lower extremity - CT scan of the left lower extremity shows abscess as above - will treat with IV antibiotics - general surgery consulted # cellulitis of the left leg - continue IV antibiotics - follow cultures # mood disorder - continue mood stabilizers DVT prophylaxis: SCDs in anticipation of surgical intervention Given patient's need for evaluation by General surgery for abscess, as well as need for IV antibiotics patient require minimum 2 night inpatient hospital stay for further management and monitoring Time Spent With Patient Time: Total time managing care of this patient today ____ minutes. Quality Stroke Does the patient have a stroke diagnosis?: No VTE Prior VTE?: No VTE Risk Level:: Medical - moderate - high VTE Device Contraindication: N/A - Device Ordered VTE Drug Contraindication: Treatment Not Indicated
--- NOTE | 2023-05-22 07:40 | PHA.MEDREC ---
Addendum entered by Nydia Medina aris 05/22/23 08:50: Patient was started on methadone at last admission, unclear where he was recieving doses after discharge. Most recent dose was methadone 50 mg Original Note: Patient was just recently discharged on 05/20, confirmed with patient and discharge notes medications remain the same Pharmacy Consult ? Medication Reconciliation Pharmacy has completed the medication reconciliation.
--- NOTE | 2023-05-22 08:36 | PC.NURSE ---
pt's zosyn hang late due to vancomycin going up late pt reports that he takes methadone and is dosed here through the hospital and last dose was yesterday 55mg
--- NOTE | 2023-05-22 08:44 | PC.NURSE ---
spoke to pharmacy in regards to the pt's methadone and the pharmacist will work on the dose verification
--- NOTE | 2023-05-22 10:31 | PC.NURSE ---
this RN spoke with Sisi VINCENT in regards to patients methadone, from what this RN could see on the medication list the pt was receiving methadone ordered by Samantha Manrique. unable to verify methadone dose with n at this time which was supposed to be pt follow up clinic.
[2023-05-22] MEDS: methADONE HCl 20 MG/2 ML ORAL.CONC 60 MG PO (11:23)
--- NOTE | 2023-05-22 12:08 | P.EN_ITS ---
Event Note Date of Service: 05/22/23 Event Note: Addiction consult placed Patient known to this conventional underwriter via a previous admission earlier this week Methadone restarted at 60 mg daily. Last dose administered here was on 05/20 for 55 mg. This conventional underwriter will follow up with patient on Wednesday-. Time Spent With Patient Time: Total time managing care of this patient today ____ minutes.
--- NOTE | 2023-05-22 14:18 | PM.EVENT ---
Event Note Date of Service: 05/22/23 Event Note: seen and examined this morning patient awake, alert, NAD for full PE see admission H&P from earlier this morning 37-year-old male who was recently discharged from the hospital on 05/20 after being treated for cellulitis of the left lower leg returns with worsening symptoms found to have abscess cellulitis/abscess of left lower extremity recent admission for cellulitis, d/c with doxy IVDU, injects into leg around area of infection CT scan of the left lower extremity shows abscess as above - no joint effusion, joint space maintained continue IV vanco and zosyn for now general surgery consult pending mood disorder continue home meds opiate dependence started on methadone last admission seen by addiction medicine, resumed on methadone DVT prophylaxis: SCDs in anticipation of possible surgical intervention attending - dr. samaniego patient needs ongoing inpatient stay due to IV abx Time Spent With Patient Time: Total time managing care of this patient today ____ minutes.
--- NOTE | 2023-05-22 14:25 | PC.NURSE ---
report given to S3 nurse.
--- NOTE | 2023-05-22 14:50 | MHC.CM.PN ---
Pt is homeless/lives on the street. He does not want to live in a long term. He walks where he wants to go. No services or equipment for use. D/C plan to return to the street. CM to follow.
[2023-05-22] MEDS: 0.9 % Sodium Chloride Flush 3 ML SYRINGE IVFLUSH (14:52)
[2023-05-22] MEDS: Gabapentin 100 MG CAPSULE PO ×2 (14:52→21:05)
[2023-05-22 16:28] LABS: MANUAL DIFF FLAG NO
[2023-05-22 16:29] LABS: Basophils Percent Auto 0.4 % (0-2); Eosinophils Absolute Auto 0.1 X10*3/uL (0.0-0.4); Eosinophils Percent Auto 1.3 % (0-4); Hematocrit 41.4 % (42.0-52.0); Imm Gran Abs Auto 0.13 X10*3/uL (0.00-0.03); Imm Gran Pct Auto 1.7 % (0.0-0.4); Lymphocytes Percent Auto 13.2 % (20-40); Mean Corpuscular HGB Conc 33.8 g/dl (31.0-36.0); Mean Corpuscular Hemoglobin 30.4 pg (27.0-33.0); Mean Corpuscular Volume 89.8 fL (80.0-98.0); Mean Platelet Volume 9.3 fL (9.4-12.4); Monocytes Absolute Auto 0.3 X10*3/uL (0.1-1.2); Monocytes Percent Auto 4.5 % (2-11); Neutrophils Percent Auto 78.9 % (45-73); Platelet Count 353 X10*3/uL (160-400); Red Blood Count 4.61 X10*6/uL (4.60-5.80); Red Cell Distribution Width 12.1 % (11.0-16.0); White Blood Count 7.6 X10*3/uL (4.8-10.8)
[2023-05-22 16:46] LABS: Anion Gap 13 (12-20); Blood Urea Nitrogen 12 mg/dL (9-16); Calcium 9.7 mg/dL (8.4-10.2); Carbon Dioxide 23 mmol/L (22-29); Chloride 108 mmol/L (96-108); Creatinine Clr Calc Pharmacy 136.5; Estimated Glomerular Filt Rate > 60; Glucose Random 90 mg/dL (60-115); Potassium 3.9 mmol/L (3.3-5.1); Sodium 140 mmol/L (135-145)
[2023-05-22] MEDS: vancomycin HCL 750 MG in 0.9 % Sodium Chloride 250 ML 265 MG IV (17:15)
--- NOTE | 2023-05-22 18:07 | MHC.RECOVSUP ---
Met with pt in 383 for a check in. Pt informs he is doing well and is happy to be on Methadone at 60mg, but that he will need to go up a bit but doesn't want to go too high and be on it too long. Pt plans to continue his Methadone with N and is feeling good about it.
--- NOTE | 2023-05-22 20:24 | PM.CNGS ---
History of Present Illness Consult details Consult date: 05/22/23 Requesting physician: Sisi Saeed Narrative: The pt is a 37 year old male with hep c, ivda, who had been here from 05/15- with left leg cellulitis and treated with antibx and dc with doxycycline- he comes back in last night due to pain and swelling of left knee and bubble present. CT scan done showed subcutaneous fluid collection but not quite abscess. Joint area is fine. Pt was admitted and started on iv antibitoics and cleaned the area in the shower and says it is less swollen, less red and able to move with minimal pain. Review of Systems Review of Systems: Yes all other systems are reviewed and are negative PMFSH Past Medical History Medical History Mood disorder Left against medical advice Substance use disorder Social History Social History Household Members: None Housing: Homeless Housing Other:: homeless Do you presently have visiting nurse or other home services: No Unable to assess alcohol history related to: Refusing to respond Alcohol intake: current Alcohol intake frequency: a few times a month Alcohol type: beer and hard liquor Patient Tobacco Use Status: Current everyday Tobacco user Tobacco use type: Cigarette Cigarettes Per Day: 2 e-Cigarette/Vaping Use: Currently Using Substance Use Type: Opiates service: No Meds Allergies Allergy/AdvReac Type Severity Reaction Status Date / Time No Known Allergies Allergy Verified 05/03/23 14:43 Active Medications: Current Medications Acetaminophen (Acetaminophen 325 Mg Tablet) 650 mg PO Q6H PRN PRN Reason: Pain, Mild (Pain Scale 1-3) Clonidine HCl (Clonidine Hcl 0.1 Mg Tablet) 0.1 mg PO BID [facility]; Protocol Docusate Sodium (Docusate Sodium 100 Mg Capsule) 100 mg PO DAILY PRN PRN Reason: Constipation Gabapentin (Gabapentin 100 Mg Capsule) 100 mg PO TID [facility] Last Admin: 05/22/23 14:52 Dose: 100 mg Vancomycin HCl 750 mg/ Sodium (Chloride) 265 mls @ 265 mls/hr IV Q12H [facility] Last Infusion: 05/22/23 18:31 Dose: Infused Piperacillin Sod/Tazobactam (Sod 3.375 gm/ Sodium Chloride) 50 mls @ 100 mls/hr IV Q6H [facility] Last Infusion: 05/22/23 15:27 Dose: Infused Methadone HCl (Methadone Hcl 20 Mg/2 Ml Oral.Conc) 60 mg PO DAILY [facility] Last Admin: 05/22/23 11:23 Dose: 60 mg Ondansetron HCl (Ondansetron Hcl 4 Mg/2 Ml Vial) 4 mg IVPUSH Q8H PRN PRN Reason: Nausea and Vomiting Pharmacy Consult (Consult Rx Vancomycin Dosing) 1 each MISCELLANE DAILY PRN PRN Reason: Consult order Quetiapine Fumarate (Quetiapine Fumarate 300 Mg Tablet) 300 mg PO BEDTIME [facility] Quetiapine Fumarate (Quetiapine Fumarate 50 Mg Tablet) 50 mg PO DAILY [facility] Sodium Chloride (0.9 % Sodium Chloride Flush 3 Ml Syringe) 3 ml IVFLUSH QSHIFT [facility] Last Admin: 05/22/23 14:52 Dose: 3 ml Home Medications Medication Instructions Recorded Confirmed Last Taken Type quetiapine 100 mg tablet (Seroquel) 100 mg PO DAILY 05/03/23 05/22/23 1 Day Ago History ~05/15/23 quetiapine 300 mg tablet (Seroquel) 300 mg PO BEDTIME 05/03/23 05/22/23 1 Day Ago History ~05/15/23 methadone 10 mg/mL oral 50 mg PO DAILY 05/22/23 Unknown History concentrate (Methadone Intensol) Physical Exam Vital Signs: Vital Signs: Last Vital Signs Temp 97.4 F 05/22/23 19:44 Pulse 74 05/22/23 19:44 Resp 18 05/22/23 19:44 BP 117/59 L 05/22/23 19:44 Pulse Ox 100 05/22/23 19:44 O2 Del Method Room Air 05/22/23 19:44 BMI result Body Mass Index 28.7 Skin: Other: left knee and lower leg more swollen compared to right side the left knee area has an area about 4x4 cm with some dry scaly mildly erythematous tissue that is intact and not tender, no draining fluid there seems to be a little area of fluctunace under but not tender and not red overlying Results Labs 05/22/23 16:22 05/22/23 16:22 Labs: Abnormal lab results 05/22/23 05/22/23 Range/Units 00:22 16:22 RBC 4.19 L (4.60-5.80) X10*6/uL Hgb 12.6 L (14.0-18.0) g/dl Hct 36.4 L 41.4 L (42.0-52.0) % MPV 9.2 L 9.3 L (9.4-12.4) fL Immature Gran % (Auto) 2.3 H 1.7 H (0.0-0.4) % Neut % (Auto) 78.9 H (45-73) % Lymph % (Auto) 13.2 L (20-40) % Lymph # (Auto) 1.0 L (1.2-4.9) X10*3/uL Abs Immat Gran (auto) 0.21 H 0.13 H (0.00-0.03) X10*3/uL ESR 77 H (0-15) MM/HR Short CBC 05/22/23 05/22/23 Range/Units 00:22 16:22 WBC 9.3 7.6 (4.8-10.8) X10*3/uL Hgb 12.6 L 14.0 (14.0-18.0) g/dl Hct 36.4 L 41.4 L (42.0-52.0) % Plt Count 327 D 353 (160-400) X10*3/uL BMP 05/22/23 16:22 Sodium 140 Potassium 3.9 Chloride 108 Carbon Dioxide 23 BUN 12 Creatinine 0.83 Calcium 9.7 All other labs normal. Imaging Additional studies: ct of leg reviewed Assessment and Plan (1) Abscess of left thigh: Status: Acute Plan pt with left knee cellulitis improved -? abscess - not convinced 0 - i think her rubbed the area and removed the superficial necrotic sloughing skin and fluid under drained.- will reeval tomorrow and cont with iv antibx - if still concerning can put needle in at bedside to drain. pt not wanting that now and i think its fine for today. reeval tomorrow but looks pretty good now compared to pics from earlier. pt will always be at risk if continues to inject ivd especially in extremities. Time Spent With Patient Time: Total time managing care of this patient today ____ minutes. Procedures Date of Service Date of Service: 05/22/23
[2023-05-22] MEDS: Ketorolac Tromethamine 30 MG/ML VIAL IVPUSH (21:04)
[2023-05-22] MEDS: Acetaminophen 325 MG TABLET 650 MG PO (21:05)
[2023-05-22] MEDS: QUEtiapine Fumarate 300 MG TABLET PO (21:05)
[2023-05-22] MEDS: cloNIDine HCL 0.1 MG TABLET PO (21:05)
--- NOTE | 2023-05-22 21:28 | MHC.PIE ---
p; pt c/o pain 04/22 to lt leg. note; no prn pain med ? i; dr singer notified. new order toradol now e; will cont to monitor
[2023-05-23] MEDS: Piperacillin Sodium/Tazobactam 3.375 GM in 0.9 % Sodium Chloride 50 ML IV ×3 (02:02→14:28)
[2023-05-23] MEDS: 0.9 % Sodium Chloride Flush 3 ML SYRINGE IVFLUSH ×3 (02:03→14:28)
[2023-05-23 04:00] VITALS: BP 118/58; PULSE 57; RESP 17; TEMP 36.2; O2SAT 98
--- NOTE | 2023-05-23 06:41 | PC.NURSE ---
waiting for carlos manuel trough, will notify next rn
[2023-05-23 06:46] LABS: Vancomycin Random 6.4 mcg/mL (15-20)
[2023-05-23] MEDS: vancomycin HCL 1,250 MG in 0.9 % Sodium Chloride 250 ML 166.67 MG IV ×2 (07:20→18:23)
[2023-05-23 07:24] VITALS: BP 116/64; PULSE 58; RESP 16; TEMP 36.6; O2SAT 98
[2023-05-23] MEDS: Gabapentin 100 MG CAPSULE PO ×3 (09:03→20:46)
[2023-05-23] MEDS: cloNIDine HCL 0.1 MG TABLET PO ×2 (09:03→20:46)
[2023-05-23] MEDS: methADONE HCl 20 MG/2 ML ORAL.CONC 60 MG PO (09:03)
[2023-05-23] MEDS: QUEtiapine Fumarate 50 MG TABLET PO (09:03)
--- NOTE | 2023-05-23 14:02 | P.PNIM_ITS ---
Subjective Subjective Date of Service: 05/23/23 Interval History: seen and examined this morning follow up for left leg cellulitis, abscess feels a little better today no fever, chills Review of Systems Review of Systems: Yes all other systems are reviewed and are negative Constitutional Constitutional: Denies chills and Denies fever(s) Cardiovascular Cardiovascular: Denies chest pain, Denies palpitations and Denies dyspnea Respiratory Respiratory: Denies cough and Denies dyspnea Endocrine Endocrine: Denies palpitations Physical Exam 2 Vital Signs: Vital Signs: Last Vital Signs Temp 97.8 F 05/23/23 07:24 Pulse 58 05/23/23 07:24 Resp 16 05/23/23 07:24 BP 116/64 05/23/23 07:24 Pulse Ox 98 05/23/23 07:24 O2 Del Method Room Air 05/23/23 07:24 BMI result Body Mass Index 28.7 Const: General: cooperative, comfortable, no acute distress, alert and awake Nutritional Appearance: average body habitus Orientation/consciousness: p atient oriented x3 Resp: Effort & Inspection: normal respiratory effort, able to speak in complete sentences, no respiratory distress and no use of accessory muscles Cardio: Rate: regular rate GI: Inspection: No distended Palpation (GI): Soft to palpation and nontender Skin: Other: left leg appears to have a little more fluctuance today but pain improving Neuro: General: patient oriented x3 Objective Data Active Medications Acetaminophen (Acetaminophen 325 Mg Tablet) 650 mg PO Q6H PRN PRN Reason: Pain, Mild (Pain Scale 1-3) Last Admin: 05/22/23 21:05 Dose: 650 mg Documented By: NAN Clonidine HCl (Clonidine Hcl 0.1 Mg Tablet) 0.1 mg PO BID [facility]; Protocol Last Admin: 05/23/23 09:03 Dose: 0.1 mg Documented By: KYLE Docusate Sodium (Docusate Sodium 100 Mg Capsule) 100 mg PO DAILY PRN PRN Reason: Constipation Gabapentin (Gabapentin 100 Mg Capsule) 100 mg PO TID [facility] Last Admin: 05/23/23 09:03 Dose: 100 mg Documented By: KYLE Piperacillin Sod/Tazobactam (Sod 3.375 gm/ Sodium Chloride) 50 mls @ 100 mls/hr IV Q6H [facility] Last Infusion: 05/23/23 09:41 Dose: Infused Documented By: KYLE Vancomycin HCl 1,250 mg/ (Sodium Chloride) 250 mls @ 166.667 mls/hr IV Q12H [facility] Last Infusion: 05/23/23 09:00 Dose: Infused Documented By: KYLE Methadone HCl (Methadone Hcl 20 Mg/2 Ml Oral.Conc) 60 mg PO DAILY [facility] Last Admin: 05/23/23 09:03 Dose: 60 mg Documented By: KYLE Ondansetron HCl (Ondansetron Hcl 4 Mg/2 Ml Vial) 4 mg IVPUSH Q8H PRN PRN Reason: Nausea and Vomiting Pharmacy Consult (Consult Rx Vancomycin Dosing) 1 each MISCELLANE DAILY PRN PRN Reason: Consult order Quetiapine Fumarate (Quetiapine Fumarate 300 Mg Tablet) 300 mg PO BEDTIME [facility] Last Admin: 05/22/23 21:05 Dose: 300 mg Documented By: NAN Quetiapine Fumarate (Quetiapine Fumarate 50 Mg Tablet) 50 mg PO DAILY [facility] Last Admin: 05/23/23 09:03 Dose: 50 mg Documented By: KYLE Sodium Chloride (0.9 % Sodium Chloride Flush 3 Ml Syringe) 3 ml IVFLUSH QSHIFT [facility] Last Admin: 05/23/23 07:20 Dose: 3 ml Documented By: KYLE Labs 05/22/23 16:22 05/22/23 16:22 Labs: Laboratory Results - last 24 hr 05/22/23 05/23/23 16:22 06:24 MCV 89.8 MCH 30.4 MCHC 33.8 RDW 12.1 Plt Count 353 MPV 9.3 L Immature Gran % (Auto) 1.7 H Neut % (Auto) 78.9 H Lymph % (Auto) 13.2 L [place] % (Auto) 4.5 Eos % (Auto) 1.3 Baso % (Auto) 0.4 Lymph # (Auto) 1.0 L [place] # (Auto) 0.3 Eos # (Auto) 0.1 Baso # (Auto) 0.0 Abs Immat Gran (auto) 0.13 H Absolute Neuts (auto) 6.0 Absolute Nucleated RBC 0.000 Nucleated RBC % (auto) 0.0 Anion Gap 13 Estim Creat Clear Calc 136.5 Estimated GFR > 60 Random Glucose 90 Calcium 9.7 Random Vancomycin 6.4 L Microbiology Microbiology Results: Microbiology 05/22/23 00:22 Blood Culture - Preliminary Blood - Venous No growth after 24 hours. 05/21/23 19:31 Blood Culture - Preliminary Blood - Venous No growth after 24 hours. Assessment and Plan (1) Cellulitis: Status: Acute (2) Opioid use disorder: Status: Acute Plan This is a 37-year-old male who was recently discharged from the hospital on 05/20 after being treated for cellulitis of the left lower leg returns with worsening symptoms found to have abscess cellulitis and possible abscess of left lower extremity was previously discharged on po doxy CT scan of the left lower extremity shows abscess seen by surgery - no surgical intervention at this time, plans to do follow up exam today continue IV vancomycin and zosyn, started 05/21 blood cultures negative mood disorder am dose of seroquel d/c to due sedation opiate abuse started on methadone on last admission-pt reports good affect, did not use drugs after last discharge continue methadone addiction medicine following DVT prophylaxis: SCDs in anticipation of surgical intervention Needs ongoing inpatient stay for IV antibiotics and possible surgical intervention Time Spent With Patient Time: Total time managing care of this patient today ____ minutes. Quality Stroke Does the patient have a stroke diagnosis?: No VTE Prior VTE?: No VTE Risk Level:: Medical - moderate - high VTE Device Contraindication: N/A - Device Ordered VTE Drug Contraindication: Treatment Not Indicated
[2023-05-23 15:25] VITALS: BP 140/91; PULSE 58; RESP 18; TEMP 37.1; O2SAT 98
[2023-05-23 20:00] VITALS: BP 127/72; PULSE 82; RESP 20; TEMP 36.3; O2SAT 98
[2023-05-23] MEDS: QUEtiapine Fumarate 300 MG TABLET PO (20:46)
[2023-05-23] MEDS: Acetaminophen 325 MG TABLET 650 MG PO (21:05)
[2023-05-24] MEDS: Piperacillin Sodium/Tazobactam 3.375 GM in 0.9 % Sodium Chloride 50 ML IV ×2 (02:57→09:30)
[2023-05-24 03:52] VITALS: BP 125/72; PULSE 59; RESP 18; TEMP 36.1; O2SAT 99
[2023-05-24 06:17] LABS: Creatinine Clr Calc Pharmacy 130.3; Estimated Glomerular Filt Rate > 60
--- NOTE | 2023-05-24 06:45 | HE.PHANOTE ---
RE: VANCO DOSING TROUGH 11.0 THIS MORNING. RENAL FUNCTION STILL GOOD BUT ONLY EXPECTING AUC 437 WITH TROUGH 12.3 AT [facility]. WILL INCREASE TO 1500 Q12 AND RECHECK TROUGH IN 24 HOURS TO CONFIRM SAFETY AND EFFICACY. EXPECTED AUC 523 AND TROUGH 14.7 WITH THIS DOSING.
[2023-05-24] MEDS: vancomycin HCL 1,500 MG in 0.9 % Sodium Chloride 500 ML 333.33 MG IV (07:26)
[2023-05-24 08:00] VITALS: BP 134/75; PULSE 60; RESP 20; TEMP 36.4; O2SAT 99
[2023-05-24] MEDS: methADONE HCl 20 MG/2 ML ORAL.CONC 60 MG PO (09:06)
[2023-05-24] MEDS: cloNIDine HCL 0.1 MG TABLET PO (09:07)
[2023-05-24] MEDS: Gabapentin 100 MG CAPSULE PO (09:07)
[2023-05-24] MEDS: 0.9 % Sodium Chloride Flush 3 ML SYRINGE IVFLUSH (09:07)
[2023-05-24] MEDS: QUEtiapine Fumarate 50 MG TABLET PO (09:07)
--- NOTE | 2023-05-24 12:56 | P.DS_ITS ---
DS: Providers Provider Date of Service: 05/24/23 Date of admission: 05/22/23 03:34 Primary care physician: Unknown Physician Consults: 05/22/23 03:34 Consult to General Surgery Routine Consulting Provider: [facility] Reason for consultation: abscess Has provider been notified: No 05/22/23 10:18 Addiction Medicine Routine Consulting Provider: Addiction Covering Reason for consultation: substance abuse, started on methadone last admit Has provider been notified: No DS: Diagnosis Discharge Diagnosis (1) Cellulitis: Status: Acute (2) Opioid use disorder: Status: Acute DS: Summary Hospital Course Hospital Course: This is a 37-year-old male with past medical history of polysubstance use disorder, presents to the emergency department with complaints of worsening pain at site of recent cellulitis. Patient was seen and discharged from the hospital on 05/20 after being managed for sepsis due to left lower leg cellulitis, patient was started on IV IV vancomycin during the previous admission, and was discharged on doxycycline for 7 days. Patient reports that the swelling improved the redness also improved but then yesterday started developing significant pain in the thigh and lower leg. He reports some fever and chills, otherwise all other review of systems negative. CT scan of the lower extremity showed a 5.7 x 2.4 x 2.8 cm abscess, venous Dopplers of lower extremity showed no DVT. Patient started on IV antibiotics and be admitted for further management 37-year-old man treated for cellulitis am possible abscess to left lower extremity. He had been recently discharged from [facility] on 05/20 after being treated for cellulitis to the left lower extremity. He presented back with reports of fever and pain to left lower extremity, specifically the knee area. You sent home on doxycycline and had been taking it. Imaging showed possible abscess but he was seen and evaluated by General surgery who thought that the area was not abscess rather superficial necrotic sloughing of the skin and fluid. He had blistered areas there that he had removed. The site looks much better and patient feels better. Plan is to discharge him to finish off the doxycycline he had been taking at home. Patient agrees. Mental health. Continue medications Opiate abuse. Discussed importance of drug cessation. Continue using methadone as this seems to be helping Time Spent with Patient Time attestation: Total time managing care of this patient today ____ minutes. Discharge coordination time: Greater than 30 minutes Quality: Safe Use of Opioids Does Pt have an Active Cancer Diagnosis on the Problem List?: No Quality: Stroke Does the patient have a stroke diagnosis?: No Physical Exam Vital Signs: Vital Signs: Last Vital Signs Temp 97.5 F 05/24/23 08:00 Pulse 60 05/24/23 08:00 Resp 20 05/24/23 08:00 BP 134/75 05/24/23 08:00 Pulse Ox 99 05/24/23 08:00 O2 Del Method Room Air 05/24/23 08:00 BMI result Body Mass Index 28.7 Appearing in no acute distress head is normocephalic atraumatic eyes pupils are PERRLA sclera is anicteric mouth throat mucous membranes are intact and moist neck is supple no lymphadenopathy, no JVD noted lung sounds are clear to auscultation heart regular rate rhythm, clear S1, S2 positive bowel sounds, abdomen is soft, nontender neuro patient is alert x3, no focal deficits DS: Data Data Completed and Pending Completed studies during hospitalization [Text1]: Procedures Drainage of Left Foot Skin, External Approach (04/12/23) Drainage of Left Foot Skin, External Approach, Diagnostic (04/12/23) Labs on day of discharge: Laboratory Results - last 24 hr 05/24/23 05:53 Creatinine 0.87 Estim Creat Clear Calc 130.3 Estimated GFR > 60 Random Vancomycin 11.0 L Preliminary micro results at discharge 05/22/23 00:22 Blood Culture - Preliminary Blood - Venous No growth after 48 hours. 05/21/23 19:31 Blood Culture - Preliminary Blood - Venous No growth after 48 hours. Discharge Plan Discharge Anticipated Discharge Date/Time: 05/24/23 12:53 Patient Disposition: Home, Self-Care Discharge Diagnosis: Cellulitis Discharge Medications: Continued doxycycline monohydrate 100 mg Capsule 100 mg PO Q12H 7 Days Qty: 14 0RF methadone [Methadone Intensol] 10 mg/mL Concentrate 50 mg PO DAILY quetiapine [Seroquel] 100 mg tablet 100 mg PO DAILY quetiapine [Seroquel] 300 mg tablet 300 mg PO BEDTIME clonidine HCl 0.1 mg tablet 0.1 mg PO BID Qty: 14 0RF gabapentin 100 mg capsule 100 mg PO TID Qty: 21 0RF Discharge Orders: Discharge Order (Routine); Ordered 05/24/23 Ordered By: Hawa Webber Diet: Advance to usual diet Activity on Discharge: As tolerated Stand Alone Forms: Patient Portal Discharge page Care Plan Goals: Complete resolution of symptoms Health Concerns: Cellulitis Plan of Treatment: Complete course of antibiotics for left lower extremity cellulitis Cleanse area to left lower extremity with soap and water, pat dry Assessment: See discharge summary Discharge Date/Time: 05/24/23 14:17
--- NOTE | 2023-05-24 13:23 | MHC.RECOVRN ---
This business writer met with patient, patient admitted for left leg infection. Pt reports doing well on MTD, some sweats at night. Pt would like to continue on MTD at [facility], had been getting dosed prior to arrival at [facility]. Reviewed d/c plan, pt will get MTD last dose letter. Pt verbalized understanding.
--- NOTE | 2023-05-24 13:25 | P.PNADD_ITS ---
Subjective Subjective Date of Service: 05/24/23 Reason For Visit: Abscess Interim History: Patient seen in follow up Awake, alert, pleasant and engaged in interview. Methadone dose 60mg QD--he reports this dose if effective in managing withdrawal and cravings. He reports feeling clearer and feels positive that he has had more than 1 week without any substance use. He looks forward to return to work and has plans to continue working on sustained recovery. 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 He is already set up at [facility] and is able to dose there at discharge. Will be discharging today Review of Systems Medical Review of Systems: unchanged Mental Status Exam Mental Status Exam Patient Appearance: Well Grooomed and Appropriate Patient Orientation: Person, Place, Time and Situation Level of Consciousness: Awake and Appropriate Patient Behavior: Appropriate and Talkative Mood Description: Calm Affect Description: Calm Patient Cognition Impaired: No Judgement: Good Diagnostics Vital Signs (24Hr): Vital Signs - 24 hr 05/23/23 15:25 05/23/23 20:00 05/24/23 03:52 Temperature 98.7 F 97.4 F 97.0 F Pulse Rate 58 82 59 Respiratory Rate 18 20 18 Blood Pressure 140/91 H 127/72 125/72 Pulse Oximetry 98 98 99 Oxygen Delivery Method Room Air Room Air Room Air 05/24/23 08:00 Temperature 97.5 F Pulse Rate 60 Respiratory Rate 20 Blood Pressure 134/75 Pulse Oximetry 99 Oxygen Delivery Method Room Air BMI result Body Mass Index 28.7 Labs 05/22/23 16:22 05/24/23 05:53 Labs: Laboratory Results - last 48 hr 05/22/23 05/23/23 05/24/23 16:22 06:24 05:53 WBC 7.6 RBC 4.61 Hgb 14.0 Hct 41.4 L MCV 89.8 MCH 30.4 MCHC 33.8 RDW 12.1 Plt Count 353 MPV 9.3 L Immature Gran % (Auto) 1.7 H Neut % (Auto) 78.9 H Lymph % (Auto) 13.2 L [place] % (Auto) 4.5 Eos % (Auto) 1.3 Baso % (Auto) 0.4 Lymph # (Auto) 1.0 L [place] # (Auto) 0.3 Eos # (Auto) 0.1 Baso # (Auto) 0.0 Abs Immat Gran (auto) 0.13 H Absolute Neuts (auto) 6.0 Absolute Nucleated RBC 0.000 Nucleated RBC % (auto) 0.0 Sodium 140 Potassium 3.9 Chloride 108 Carbon Dioxide 23 Anion Gap 13 BUN 12 Creatinine 0.83 0.87 Estim Creat Clear Calc 136.5 130.3 Estimated GFR > 60 > 60 Random Glucose 90 Calcium 9.7 Random Vancomycin 6.4 L 11.0 L Imaging Radiology Impressions: ITS Impressions Venous Duplex 05/21/23 23:54 IMPRESSION: No DVT demonstrated in the left lower extremity. Lower Extremity CT 05/22/23 02:18 IMPRESSION: Soft tissue swelling throughout the tib-fib possibly cellulitis. There is a subcutaneous collection along the anterior medial tib-fib measuring 5.7 x 2.4 x 2.8 cm. Correlation needed the possibility of abscess collection. Medications Medications Current Medications Acetaminophen (Acetaminophen 325 Mg Tablet) 650 mg PO Q6H PRN PRN Reason: Pain, Mild (Pain Scale 1-3) Last Admin: 05/23/23 21:05 Dose: 650 mg Clonidine HCl (Clonidine Hcl 0.1 Mg Tablet) 0.1 mg PO BID [facility]; Protocol Last Admin: 05/24/23 09:07 Dose: 0.1 mg Docusate Sodium (Docusate Sodium 100 Mg Capsule) 100 mg PO DAILY PRN PRN Reason: Constipation Gabapentin (Gabapentin 100 Mg Capsule) 100 mg PO TID [facility] Last Admin: 05/24/23 09:07 Dose: 100 mg Piperacillin Sod/Tazobactam (Sod 3.375 gm/ Sodium Chloride) 50 mls @ 100 mls/hr IV Q6H [facility] Last Infusion: 05/24/23 10:15 Dose: Infused Vancomycin HCl 1,500 mg/ (Sodium Chloride) 500 mls @ 333.333 mls/hr IV Q12H [facility] Last Infusion: 05/24/23 09:01 Dose: Infused Methadone HCl (Methadone Hcl 20 Mg/2 Ml Oral.Conc) 60 mg PO DAILY [facility] Last Admin: 05/24/23 09:06 Dose: 60 mg Ondansetron HCl (Ondansetron Hcl 4 Mg/2 Ml Vial) 4 mg IVPUSH Q8H PRN PRN Reason: Nausea and Vomiting Pharmacy Consult (Consult Rx Vancomycin Dosing) 1 each MISCELLANE DAILY PRN PRN Reason: Consult order Quetiapine Fumarate (Quetiapine Fumarate 300 Mg Tablet) 300 mg PO BEDTIME [facility] Last Admin: 05/23/23 20:46 Dose: 300 mg Quetiapine Fumarate (Quetiapine Fumarate 50 Mg Tablet) 50 mg PO DAILY [facility] Last Admin: 05/24/23 09:07 Dose: 50 mg Sodium Chloride (0.9 % Sodium Chloride Flush 3 Ml Syringe) 3 ml IVFLUSH QSHIFT [facility] Last Admin: 05/24/23 09:07 Dose: 3 ml Allergies Allergies Allergy/AdvReac Type Severity Reaction Status Date / Time No Known Allergies Allergy Verified 05/03/23 14:43 Assessment & Plan Assessment & Plan (1) Opioid use disorder: Status: Acute Code(s): F11.90 - Opioid use, unspecified, uncomplicated Assessment and Plan: * Plan to discharge today * business english instructor to provide last dose letter and additional resources * Encouraged patient to call our office should he have any questions or following discharge Total time managing care of this patient today _15___ minutes.
--- NOTE | 2023-05-24 13:26 | MHC.CM.PN ---
DP: PT HAS BEEN MEDICALLY CLEARED FOR DC. PT CONTINUES TO DECLINE A MCC. BUS PASS PROVIDED.
== END 2023-05-24 14:17 | disposition home or self-care (01) | DRG 383 ==
LOC: HO.ED 05-22 01:07 → HO.EDOVER 05-22 03:39 → HO.S3 05-22 13:28
PROVIDERS: Physician Assistant; Admitting Provider Internal Medicine; Emergency Provider Internal Medicine; Visit Provider Nurse Practitioner Acute Care
DX: L03.116 Cellulitis of left lower limb (principal); I96 Gangrene, not elsewhere classified; F11.20 Opioid dependence, uncomplicated; F17.210 Nicotine dependence, cigarettes, uncomplicated; Z71.6 Tobacco abuse counseling; Z79.899 Other long term (current) drug therapy
CPT/HCPCS: 36415; 73701; 80048; 80053; 80202; 82565; 83605; 85025; 85652; 86140; 87040; 93971; 99221; 99285; J1885; J2543; J3370; J3371; Q9967

== ENCOUNTER → 2023-05-22 03:34 | Outpatient (BNV) | payer MEDICAID, SELFPAY | PROVIDERS: Admitting Provider Internal Medicine; Emergency Provider Internal Medicine; Visit Provider Internal Medicine | DX: L02.416 Cutaneous abscess of left lower limb (principal); L03.116 Cellulitis of left lower limb | CPT/HCPCS: 99223; 99232; 99239; 99499 ==

== ENCOUNTER → 2023-05-22 03:34 | Outpatient (BNV) | payer MEDICAID, SELFPAY | PROVIDERS: Admitting Provider Internal Medicine; Emergency Provider Internal Medicine; Visit Provider Surgery | DX: L02.416 Cutaneous abscess of left lower limb (principal) | CPT/HCPCS: 99221 ==

== ENCOUNTER → 2023-05-22 03:34 | Outpatient (BNV) | payer MEDICAID, SELFPAY | PROVIDERS: Admitting Provider Internal Medicine; Emergency Provider Internal Medicine; Visit Provider Nurse Practitioner Psychiatric/Mental Health | DX: F11.90 Opioid use, unspecified, uncomplicated (principal) | CPT/HCPCS: 99231; 99499 ==

== ENCOUNTER 2023-10-17 17:46 | Inpatient (IN) | payer MEDICAID, OTHER, SELFPAY ==
[2023-10-17 17:49] VITALS: BP 149/99; PULSE 113; RESP 19; TEMP 37; O2SAT 94; BMI 32.4
--- NOTE | 2023-10-17 17:56 | ECG_ITS ---
Test Reason : medical clearence Blood Pressure : / mmHG Vent. Rate : 103 BPM Atrial Rate : 103 BPM P-R Int : 124 ms QRS Dur : 082 ms QT Int : 356 ms P-R-T Axes : 043 007 016 degrees QTc Int : 466 ms Sinus tachycardia Minimal voltage criteria for LVH, may be normal variant ( R in aVL ) Borderline ECG When compared with ECG of 16-MAY-2023 23:47, No significant change was found Referred By: Conor Morris Electronically Signed By:MARCELA AMEZQUITA
--- NOTE | 2023-10-17 17:58 | ED.GENADULT ---
HPI - General Adult General Chief complaint: Psychiatric Symptoms Stated complaint: crisis Time Seen by Provider: 10/17/23 18:44 Source: patient Mode of arrival: ambulatory Limitations: no limitations History of Present Illness HPI narrative: This is a 38-year-old male, with a history of polysubstance abuse, anxiety and depression, presenting to the emergency department with complaints of suicidal ideation. Patient states that on or Wednesday he attempted to overdose on heroin and cocaine into end his life. He states that he still is having thoughts of killing himself due to increased depression and stressors. He is currently living on the streets and does not have family or friends nearby. He states that he has a history of visual hallucinations however denies any recent visual hallucinations, denies any auditory hallucinations. No homicidal ideations. He states history of alcohol abuse, however has not drank in several months. He also endorses IV drug abuse, uses crack and heroin daily. He states that he has body aches, as well as a headache, otherwise feeling well. Denies any fevers, chills, chest pain, shortness breast, abdominal pain, nausea, vomiting or diarrhea. No other complaints or concerns at this time. complaint: Suicidal ideations Onset (ago): day(s) Relieving factors: none Exacerbating factors: none Associated symptoms: denies other symptoms Treatments prior to arrival: none Related Data Home Medications Medication Instructions Recorded Confirmed quetiapine 100 mg tablet (Seroquel) 100 mg PO DAILY 05/03/23 10/18/23 quetiapine 300 mg tablet (Seroquel) 300 mg PO BEDTIME 05/03/23 10/18/23 clonidine HCl 0.1 mg tablet 0.1 mg PO TID 10/18/23 10/18/23 Previous Rx's Medication Instructions Recorded gabapentin 100 mg capsule 100 mg PO TID #21 caps 05/03/23 Allergies Allergy/AdvReac Type Severity Reaction Status Date / Time No Known Allergies Allergy Verified 05/03/23 14:43 Review of Systems Review of Systems: Yes all other systems are reviewed and are negative Constitutional: Constitutional: Reports as per [facility] Past Medical History Medical History Mood disorder Left against medical advice Substance use disorder Social History Social History Household Members: None Housing: Homeless Housing Other:: homeless Do you presently have visiting nurse or other home services: No Unable to assess alcohol history related to: Refusing to respond Alcohol intake: former Comment: 1:1 Patient Tobacco Use Status: Current everyday Tobacco user Tobacco use type: Cigarette Cigarettes Per Day: 2 Smoked in Last 30 Days: Yes e-Cigarette/Vaping Use: Currently Using Use of substances other than those prescribed or required for medical reasons: Yes Substance Use Type: Crack/Cocaine, Heroin, IV Drugs and Marijuana Substance Use Frequency: Daily Advance Directives: No Advance Directives Information Provided: No Healthcare Proxy: No Guardian: No Suicidal Behavior: Pre-occupation with Current/Past Psychiatric Disorders: Substance abuse Gallo Symptoms: Hopelessness and Worthlessness Access to Firearms: No service: No Physical Exam ED Vital Signs: Vital Signs - 24 hr 10/18/23 16:20 10/18/23 22:18 10/19/23 06:08 Pulse Rate 60 61 Respiratory Rate 16 17 16 Blood Pressure 120/61 100/50 L Pulse Oximetry 98 Oxygen Delivery Method Room Air Room Air 10/19/23 08:14 Pulse Rate 55 Respiratory Rate 16 Blood Pressure 100/50 L Pulse Oximetry 96 Oxygen Delivery Method Room Air BMI result Body Mass Index 32.4 Const General: cooperative, comfortable and no acute distress Orientation/consciousness: patient oriented x3 Limitations: no limitations HENMT Head: Yes normal to inspection, Yes normocephalic and Yes atraumatic Ears: hearing grossly normal bilaterally General nose exam: Normal external nose present Face and sinus: Yes normal facial exam Mouth: Normal oral and palatal mucosa present, oropharynx normal and moist mucous membranes Throat: Yes posterior oropharynx normal Eyes General: appearance normal, both eyes and all related structures Eyelids: Yes eyelids normal Conjunctivae: conjunctivae normal Sclerae: sclerae normal Pupils: Equal, round and reactive pupils present EOM: EOMs intact bilaterally Neck Neck: Yes normal visual inspection, Yes full ROM and Yes no lymphadenopathy Lymphatic: no lymphadenopathy noted Chest Chest palpation & inspection: normal inspection of the chest Resp Effort & Inspection: normal respiratory effort and able to speak in complete sentences Auscultation: clear to auscultation bilaterally, no crackles, no rales, no rhonchi and no wheezes Cardio Rate: regular rate Rhythm: regular rhythm Heart sounds: S1 normal heart sound present and S2 normal heart sound present GI Inspection: Yes normal to inspection Skin General skin exam: no rashes or lesions noted Trauma: no lacerations or abrasions Wounds: no wounds Neuro General: patient oriented x3 and moves all extremities Cranial nerves: Yes Equal, round and reactive pupils present Extrem General: Yes normal to inspection Right upper extremity: normal to inspection Left upper extremity: normal to inspection Right lower extremity: normal to inspection Left lower extremity: normal to inspection Course Course Course Narrative: RME: 38 yold male presents to the ED for suicidal ideation. Patient states 2 days ago he took punch of cocaine and heroin trying to overdose. Patient depressed. EKG labs ordered Reevaluation(s) Reevaluation #1: No leukocytosis, stable H&H, ALT slightly elevated, alk-phos, total bili, and AST within normal limits. Urine still pending Time: 20:02 Reevaluation #2: Urine concentrated, with trace leuk esterases in 3-5 rbc's, is not complaining about any urinary symptoms. U tox revealing opiates, fentanyl, as well as cocaine. Patient is medically cleared, physician observation initiated awaiting care/crisis. Time: 00:05 Reevaluation #3: Physician observation continued, no overnight events reported by nursing. Patient awaiting CARE team evaluation. Vital signs stable. Time: 07:58 Medications Administered Generic Name Dose Route Start Last Admin Trade Name Freq PRN Reason Stop Dose Admin Clonidine HCl 0.1 mg 10/18/23 15:45 10/19/23 08:13 Clonidine Hcl 0.1 Mg Tablet PO 0.1 mg TID LISBETH Administration Protocol Gabapentin 100 mg 10/18/23 15:45 10/19/23 08:13 Gabapentin 100 Mg Capsule PO 100 mg TID LISBETH Administration Quetiapine Fumarate 100 mg 10/18/23 15:45 10/19/23 08:13 Quetiapine Fumarate 100 Mg Tablet PO 100 mg DAILY LISBETH Administration Quetiapine Fumarate 300 mg 10/18/23 21:00 10/18/23 22:40 Quetiapine Fumarate 300 Mg Tablet PO 300 mg BEDTIME LISBETH Administration Discontinued Medications Generic Name Dose Route Start Last Admin Trade Name Freq PRN Reason Stop Dose Admin Methadone HCl 80 mg 10/18/23 08:23 10/18/23 09:23 Methadone Hcl 20 Mg/2 Ml Oral.Conc PO 10/18/23 08:24 80 mg ONCE ONE Administration Methadone HCl 80 mg 10/19/23 13:37 10/19/23 13:46 Methadone Hcl 20 Mg/2 Ml Oral.Conc PO 10/19/23 13:38 80 mg ONCE ONE Administration Medical Decision Making Medical Decision Making [facility] Narrative: This is a 38-year-old male, with a history of anxiety depression, presenting to the emergency department with complaints of suicidal ideation which started several days ago, on arrival, patient's blood pressure mildly elevated at 149/99, pulse 113. Patient is nontoxic appearing he is alert and oriented x4. Patient under no acute distress. Reporting body aches otherwise feeling well. He denies any chest pain, shortness breast. He did not make any attempts to end his life today. He states that he only did this several days ago and he used cocaine and morphine. No homicidal ideations. He does elicit suicidal ideation, with plan of overdosing. He is resting comfortably, will continue to closely monitor. Plan: Labs, EKG, COVID, urine drug screen, care team Differential Diagnosis Differential Diagnoses: The differential diagnosis associated with the presentation includes Suicidal ideation, depression, homicidal ideation, anxiety, polysubstance abuse Admission/Observation Consideration of admission/observation: Escalation of care including admission/observation considered Lab Data [facility] Lab Attestation statement: I reviewed the patient's lab results. No leukocytosis, stable H&H, slight elevation ALT, chemistry otherwise unremarkable. Urine appears concentrated, does not appear to be infected. Urine toxicology report positive for opiates, fentanyl, and cocaine. COVID negative 10/17/23 18:21 10/17/23 18:21 Labs: Lab Results 10/17/23 10/17/23 10/17/23 Range/Units 18:21 21:30 23:40 WBC 9.7 (4.8-10.8) X10*3/uL RBC 4.86 (4.60-5.80) X10*6/uL Hgb 15.4 (14.0-18.0) g/dl Hct 42.5 (42.0-52.0) % MCV 87.4 (80.0-98.0) fL MCH 31.7 (27.0-33.0) pg MCHC 36.2 H (31.0-36.0) g/dl RDW 11.8 (11.0-16.0) % Plt Count TNP MPV 10.8 (9.4-12.4) fL Immature Gran % (Auto) 0.8 H (0.0-0.4) % Neut % (Auto) 85.2 H (45-73) % Lymph % (Auto) 6.7 L (20-40) % Mccormick % (Auto) 6.6 (2-11) % Eos % (Auto) 0.3 (0-4) % Baso % (Auto) 0.4 (0-2) % Lymph # (Auto) 0.7 L (1.2-4.9) X10*3/uL Mccormick # (Auto) 0.6 (0.1-1.2) X10*3/uL Eos # (Auto) 0.0 (0.0-0.4) X10*3/uL Baso # (Auto) 0.0 (0.0-0.2) X10*3/uL Abs Immat Gran (auto) 0.08 H (0.00-0.03) X10*3/uL Absolute Neuts (auto) 8.3 (2.0-8.3) x10*3/uL Absolute Nucleated RBC 0.000 (0.0-0.012) X10*3/uL Nucleated RBC % (auto) 0.0 (0.0-0.2) /100WBC Smear Tech's Comments VERIFIED Sodium 144 (135-145) mmol/L Potassium 4.3 (3.3-5.1) mmol/L Chloride 108 (96-108) mmol/L Carbon Dioxide 20 L (22-29) mmol/L Anion Gap 20 (12-20) BUN 14 (9-16) mg/dL Creatinine 1.32 (0.5-1.4) mg/dL Estim Creat Clear Calc 89.9 Estimated GFR > 60 Random Glucose 95 (60-115) mg/dL Calcium 10.7 H D (8.4-10.2) mg/dL Total Bilirubin 1.0 (0.0-1.0) mg/dL AST 27 (5-37) U/L ALT 52 H (0-40) U/L Alkaline Phosphatase 117 (39-117) U/L Troponin I High Sens 3.4 (<3.5-35.0) ng/L Total Protein 8.7 H (6.5-8.0) g/dL Albumin 4.9 (3.5-5.0) g/dL Urine Color Dark Yellow Urine Appearance Clear Urine pH 5.5 (5.0-9.0) Ur Specific Tornado >= 1.030 H (1.005-1.025) Urine Protein 30 (1+) H (Neg-Trace) mg/dL Urine Glucose (UA) Negative (Negative) mg/dL Urine Ketones Trace (Negative) mg/dL Urine Blood Negative (Negative) Urine Nitrite Negative (Negative) Ur Leukocyte Esterase Trace H (Negative) Urine RBC 3-5 H (0-2) /HPF Urine WBC 0-5 (0-5) /HPF Ur Squamous Epith Cells 0-2 (0-2) /HPF Urine Bacteria None Seen (None Seen) Hyaline Casts 6-10 (0-2) /LPF Urine Opiates Screen Cancelled POSITIVE H Urine Fentanyl Screen Cancelled POSITIVE H Ur Barbiturates Screen Cancelled Not Detected Ur Phencyclidine Scrn Cancelled Not Detected Ur Amphetamines Screen Cancelled Not Detected U Benzodiazepines Scrn Cancelled Not Detected Urine Cocaine Screen Cancelled POSITIVE H U Marijuana (THC) Screen Cancelled Not Detected Ethyl Alcohol < 10 mg/dL COVID-19 (PADMA) Negative (Negative) COVID-19 Clin Com See Note Radiology Impression Discussion of test interpretation with radiology: I have reviewed the radiologist's reading. External Record Review External record reviewed: Inpatient record, Office record, Outpatient record, Prior outpatient labs, Prior outpatient radiology, Primary care record and Outside ED record Discharge Plan Discharge Clinical Impression: Suicidal ideation Patient Disposition: Still a Patient Prescriptions: No Action clonidine HCl 0.1 mg tablet 0.1 mg PO TID quetiapine [Seroquel] 100 mg tablet 100 mg PO DAILY quetiapine [Seroquel] 300 mg tablet 300 mg PO BEDTIME gabapentin 100 mg capsule 100 mg PO TID Qty: 21 0RF Interventions: Ogle-Suicide Risk Severity Scale Last Done: 10/18/23 19:00
[2023-10-17 18:34] LABS: Basophils Percent Auto 0.4 % (0-2); Eosinophils Percent Auto 0.3 % (0-4); Hematocrit 42.5 % (42.0-52.0); Hemoglobin 15.4 g/dl (14.0-18.0); Imm Gran Abs Auto 0.08 X10*3/uL (0.00-0.03); Imm Gran Pct Auto 0.8 % (0.0-0.4); Lymphocytes Absolute Auto 0.7 X10*3/uL (1.2-4.9); Lymphocytes Percent Auto 6.7 % (20-40); MANUAL DIFF FLAG SCAN; Mean Corpuscular HGB Conc 36.2 g/dl (31.0-36.0); Mean Corpuscular Hemoglobin 31.7 pg (27.0-33.0); Mean Corpuscular Volume 87.4 fL (80.0-98.0); Mean Platelet Volume 10.8 fL (9.4-12.4); Monocytes Absolute Auto 0.6 X10*3/uL (0.1-1.2); Monocytes Percent Auto 6.6 % (2-11); Neutrophils Absolute Auto 8.3 x10*3/uL (2.0-8.3); Neutrophils Percent Auto 85.2 % (45-73); PLT CLUMP 1; Red Blood Count 4.86 X10*6/uL (4.60-5.80); Red Cell Distribution Width 11.8 % (11.0-16.0); SCAN SMEAR FLAG 1
[2023-10-17 18:36] LABS: White Blood Count 9.7 X10*3/uL (4.8-10.8)
[2023-10-17 18:46] LABS: Alanine Aminotransferase 52 U/L (0-40); Albumin Level 4.9 g/dL (3.5-5.0); Alkaline Phosphatase 117 U/L (39-117); Anion Gap 20 (12-20); Aspartate Amino Transferase 27 U/L (5-37); Blood Urea Nitrogen 14 mg/dL (9-16); Calcium 10.7 mg/dL (8.4-10.2); Carbon Dioxide 20 mmol/L (22-29); Chloride 108 mmol/L (96-108); Creatinine Clr Calc Pharmacy 89.9; Estimated Glomerular Filt Rate > 60; Ethanol < 10 mg/dL; Glucose Random 95 mg/dL (60-115); IDNOW Serial# 6674DD1D; Potassium 4.3 mmol/L (3.3-5.1); Sodium 144 mmol/L (135-145); Total Protein 8.7 g/dL (6.5-8.0)
[2023-10-17 18:47] LABS: COVID-19 Test Negative (Negative)
--- NOTE | 2023-10-17 18:47 | ED.GENADULT ---
HPI - General Adult General Chief complaint: Psychiatric Symptoms Stated complaint: crisis Time Seen by Provider: 10/17/23 18:44 Source: patient and RN notes reviewed Mode of arrival: ambulatory Limitations: no limitations History of Present Illness HPI narrative: This is a 38-year-old male, with a history of IV drug abuse, presenting to the emergency department with complaints of suicidal ideation Related Data Home Medications Medication Instructions Recorded Confirmed quetiapine 100 mg tablet (Seroquel) 100 mg PO DAILY 05/03/23 05/22/23 quetiapine 300 mg tablet (Seroquel) 300 mg PO BEDTIME 05/03/23 05/22/23 methadone 10 mg/mL oral 50 mg PO DAILY 05/22/23 concentrate (Methadone Intensol) Previous Rx's Medication Instructions Recorded clonidine HCl 0.1 mg tablet 0.1 mg PO BID #14 tabs 05/03/23 gabapentin 100 mg capsule 100 mg PO TID #21 caps 05/03/23 doxycycline monohydrate 100 mg 100 mg PO Q12H 7 days #14 caps 05/20/23 capsule Allergies Allergy/AdvReac Type Severity Reaction Status Date / Time No Known Allergies Allergy Verified 05/03/23 14:43 [facility] Past Medical History Medical History Mood disorder Left against medical advice Substance use disorder Social History Social History Household Members: None Housing: Homeless Housing Other:: homeless Do you presently have visiting nurse or other home services: No Unable to assess alcohol history related to: Refusing to respond Alcohol intake: current Alcohol intake frequency: a few times a month Alcohol type: beer and hard liquor Comment: 1:1 Patient Tobacco Use Status: Current everyday Tobacco user Tobacco use type: Cigarette Cigarettes Per Day: 2 e-Cigarette/Vaping Use: Currently Using Substance Use Type: Opiates Advance Directives: No Advance Directives Information Provided: No service: No Physical Exam ED Vital Signs: Vital Signs - 24 hr 10/17/23 17:49 Temperature 98.6 F Pulse Rate 113 H Respiratory Rate 19 Blood Pressure 149/99 H Pulse Oximetry 94 Oxygen Delivery Method Room Air BMI result Body Mass Index 32.4 Medical Decision Making Lab Data 10/17/23 18:21 10/17/23 18:21 Labs: Lab Results 10/17/23 Range/Units 18:21 Sodium 144 (135-145) mmol/L Potassium 4.3 (3.3-5.1) mmol/L Chloride 108 (96-108) mmol/L Carbon Dioxide 20 L (22-29) mmol/L Anion Gap 20 (12-20) BUN 14 (9-16) mg/dL Creatinine 1.32 (0.5-1.4) mg/dL Estim Creat Clear Calc 89.9 Estimated GFR > 60 Random Glucose 95 (60-115) mg/dL Calcium 10.7 H D (8.4-10.2) mg/dL Total Bilirubin 1.0 (0.0-1.0) mg/dL AST 27 (5-37) U/L ALT 52 H (0-40) U/L Alkaline Phosphatase 117 (39-117) U/L Total Protein 8.7 H (6.5-8.0) g/dL Albumin 4.9 (3.5-5.0) g/dL Ethyl Alcohol < 10 mg/dL Discharge Plan Discharge Prescriptions: No Action doxycycline monohydrate 100 mg Capsule 100 mg PO Q12H 7 Days Qty: 14 0RF methadone [Methadone Intensol] 10 mg/mL Concentrate 50 mg PO DAILY quetiapine [Seroquel] 100 mg tablet 100 mg PO DAILY quetiapine [Seroquel] 300 mg tablet 300 mg PO BEDTIME clonidine HCl 0.1 mg tablet 0.1 mg PO BID Qty: 14 0RF gabapentin 100 mg capsule 100 mg PO TID Qty: 21 0RF
[2023-10-17 18:50] LABS: Troponin-I High Sensitivity 3.4 ng/L (<3.5-35.0)
--- NOTE | 2023-10-17 19:01 | MHC.EDTECH ---
Patient belongings are locked in the Laundry Closet in the POD.
[2023-10-17 19:02] LABS: SLIDE REVIEW VERIFIED
--- NOTE | 2023-10-17 19:42 | PC.NURSE ---
assumed care of pt, resting on hospital stretcher with resp even and unlabored, pt reporting vague si with plan to overdose on opiates, reports daily use and access to drugs. hx of etoh abuse, denies alcohol use in months. pt calm and cooperative at this time, sitter at watch
[2023-10-17 20:03] VITALS: BP 103/60; PULSE 75; RESP 14; TEMP 36.8; O2SAT 93
[2023-10-17 21:45] LABS: Appearance Urine Clear; Color Urine Dark Yellow; Glucose Urine UA Negative (Negative); Leukocyte Esterase Urine Trace (Negative); Nitrite Urine Negative (Negative); PH 5.5 (5.0-9.0); Specific Gravity - Urine >= 1.030 (1.005-1.025); UMIC TRIGGER UACC YES; Urine Blood Negative (Negative); Urine Ketones Trace mg/dL (Negative); Urine Protein 30 (1+) mg/dL (Neg-Trace)
[2023-10-17 21:59] LABS: Bacteria Urine None Seen (None Seen); Squamous Epithelial Cell Urine 0-2 /HPF (0-2); WBC Urine 0-5 /HPF (0-5)
[2023-10-17 23:55] LABS: Amphetamine Screen Urine Not Detected (Not Detect); Barbiturates, Urine Not Detected (Not Detect); Benzodiazepines Screen Urine Not Detected (Not Detect); Cannabinoid Screen Urine Not Detected (Not Detect); Cocaine Screen Urine POSITIVE (Not Detect); Fentanyl, urine POSITIVE (Not Detect); Opiate Screen Urine POSITIVE (Not Detect); Phencyclidine Screen Urine Not Detected (Not Detect)
[2023-10-18 00:09] VITALS: BP 100/53; PULSE 60; RESP 16; TEMP 36.7; O2SAT 98
--- NOTE | 2023-10-18 03:46 | PC.NURSE ---
Assumed care for pt. Pt currently sleeping at the bedside. No apparent distress noted. Breaths are even regular and unlabored with equal chest rises. 1:1 sitter at bedside. Plan of care is ongoing.
[2023-10-18 06:40] VITALS: BP 102/44; PULSE 89; RESP 16; O2SAT 98
--- NOTE | 2023-10-18 07:24 | PC.NURSE ---
Alert and oriented, ate well for breakfast
--- NOTE | 2023-10-18 08:18 | PC.NURSE ---
Methadone dose verified with [facility] clinic with [facility]. Patient was dosed in person on 10/15 at 80mg and given takes home bottles for 10/16 and 10/17. Per patient he took his last dose yesterday.
--- NOTE | 2023-10-18 08:58 | HE.PHANOTE ---
RE: METHADONE Received Methadone verification form from [facility]. Last dose given 80mg on 10/15 in person, pt given 2 take home bottles for 10/16 and 10/17. Pt reports taking 80mg on 10/17 at 10:52am.
[2023-10-18] MEDS: methADONE HCl 20 MG/2 ML ORAL.CONC 80 MG PO (09:23)
--- NOTE | 2023-10-18 11:10 | MHC.CARE ---
Rad Team completed a statewide daul bed search for Pt. The following facilities were called and reported no beds [facility], [facility], [facility], [facility] as well as [facility]. The dual bed search is exhausted for today. Care Team notified.
[2023-10-18 11:59] VITALS: BP 103/58; PULSE 78; RESP 18; O2SAT 98
--- NOTE | 2023-10-18 15:42 | PHA.MEDREC ---
Pharmacy Consult ? Medication Reconciliation Pharmacy has reviewed the medication reconciliation completed by Marie.
[2023-10-18] MEDS: cloNIDine HCL 0.1 MG TABLET PO ×2 (16:18→22:39)
[2023-10-18] MEDS: QUEtiapine Fumarate 100 MG TABLET PO (16:18)
[2023-10-18] MEDS: Gabapentin 100 MG CAPSULE PO ×2 (16:18→22:39)
[2023-10-18 16:20] VITALS: BP 120/61; PULSE 60; RESP 16
--- NOTE | 2023-10-18 17:49 | MHC.RECOVSUP ---
? Reason for consult Recovery support o Current location: ED6 o Identified substance use concern: Heroin/ Cocaine - Overdose - Support ? Intervention: o Community resources provided o Harm reduction discussion ? Plan: o Patient awaiting crisis evaluation o Patient to follow up with [facility] after discharge ? Additional information: Met with Patient and we talk about recovery and harm reduction.. Patient stated that he stressed and tired.. and that he needs to get his mental right..
[2023-10-18 22:18] VITALS: RESP 17
[2023-10-18] MEDS: QUEtiapine Fumarate 300 MG TABLET PO (22:40)
[2023-10-19 06:08] VITALS: BP 100/50; PULSE 61; RESP 16; O2SAT 98
[2023-10-19] MEDS: QUEtiapine Fumarate 100 MG TABLET PO (08:13)
[2023-10-19] MEDS: Gabapentin 100 MG CAPSULE PO ×3 (08:13→20:02)
[2023-10-19] MEDS: cloNIDine HCL 0.1 MG TABLET PO ×3 (08:13→20:02)
[2023-10-19 08:14] VITALS: BP 100/50; PULSE 55; RESP 16; O2SAT 96
--- NOTE | 2023-10-19 08:15 | PC.NURSE ---
Pt is alert and oriented. Calm and cooperative. Denies SI or HI at this time. Meds given. Resting quietly. Skin pwd. Ambulatory to bathroom as needed.
[2023-10-19] MEDS: methADONE HCl 20 MG/2 ML ORAL.CONC 80 MG PO (13:46)
[2023-10-19 14:00] VITALS: RESP 14
--- NOTE | 2023-10-19 14:54 | PC.NURSE ---
Assumed care of patient, patient is calm and cooperative, respirations even and unlabored, offering no complaints at this time. Pt is resting on bed watching TV. Continue plan of care for dual diagnosis
--- NOTE | 2023-10-19 19:03 | PC.NURSE ---
patient appears to remain at rest at present, respirations are even and unlabored patient appears in no distress.
[2023-10-19 19:31] VITALS: BP 139/80; PULSE 70; RESP 16; TEMP 36.1; O2SAT 99
[2023-10-19] MEDS: QUEtiapine Fumarate 300 MG TABLET PO (20:02)
[2023-10-20 06:38] VITALS: RESP 16
--- NOTE | 2023-10-20 08:49 | PC.NURSE ---
patient appears to be sleeping in bed, respirations equal and unlabored. patient appears to be in no distress.
[2023-10-20 09:16] LABS: COVID-19 Test Negative (Negative); IDNOW Serial# 08D9AD1C
[2023-10-20 09:19] VITALS: BP 93/50; PULSE 56; RESP 16; TEMP 36.3; O2SAT 98
[2023-10-20] MEDS: QUEtiapine Fumarate 100 MG TABLET PO (10:18)
[2023-10-20] MEDS: cloNIDine HCL 0.1 MG TABLET PO ×3 (10:18→20:13)
[2023-10-20] MEDS: Gabapentin 100 MG CAPSULE PO ×3 (10:43→20:13)
[2023-10-20 11:41] VITALS: BP 101/55; PULSE 60; RESP 19; TEMP 36.8; O2SAT 96
[2023-10-20] MEDS: methADONE HCl 20 MG/2 ML ORAL.CONC 80 MG PO (11:57)
--- NOTE | 2023-10-20 12:13 | PC.NURSE ---
patient is awake, resting quietly in his room, patient requested luisa crackers for snack, shows no signs of distress, respirations equal and unlabored
[2023-10-20 15:03] VITALS: BP 133/84; PULSE 91; RESP 18; TEMP 36.2; O2SAT 98
[2023-10-20] MEDS: hydrOXYzine HCL 25 MG TABLET PO (17:07)
[2023-10-20 18:04] VITALS: BMI 31.4
[2023-10-20] MEDS: QUEtiapine Fumarate 300 MG TABLET PO (20:13)
[2023-10-20 20:18] VITALS: BP 114/68; PULSE 83; RESP 18; TEMP 36.4; O2SAT 96
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
[2023-10-21] MEDS: hydrOXYzine HCL 25 MG TABLET PO (00:04)
[2023-10-21] MEDS: traZODone HCL 50 MG TABLET PO (00:04)
[2023-10-21 07:00] VITALS: BMI 31.4
[2023-10-21 08:57] VITALS: BP 107/62; PULSE 72; RESP 16; TEMP 36.8; O2SAT 96
[2023-10-21] MEDS: Gabapentin 100 MG CAPSULE PO ×3 (09:29→20:14)
[2023-10-21] MEDS: methADONE HCl 20 MG/2 ML ORAL.CONC 80 MG PO (09:30)
[2023-10-21] MEDS: QUEtiapine Fumarate 100 MG TABLET PO (09:30)
[2023-10-21] MEDS: cloNIDine HCL 0.1 MG TABLET PO ×3 (09:33→20:14)
[2023-10-21 09:38] LABS: Estimated Average Glucose 91 mg/dL; Hemoglobin A1c % 4.8 % (<6.0)
[2023-10-21 09:51] LABS: Alanine Aminotransferase 28 U/L (0-40); Alkaline Phosphatase 98 U/L (39-117); Aspartate Amino Transferase 18 U/L (5-37); Bilirubin Direct 0.1 mg/dL (0.0-0.5); Bilirubin Total 0.3 mg/dL (0.0-1.0); Cholesterol 203 mg/dL (<200); HDL Cholesterol 38 mg/dL (>40); Total Protein 7.6 g/dL (6.5-8.0); Triglycerides 406 mg/dL (<150)
[2023-10-21 10:06] LABS: Free T4 (Free Thyroxine) 0.89 ng/dL (0.71-1.85)
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
[2023-10-21 14:44] VITALS: BP 120/62; PULSE 72; RESP 16; TEMP 37; O2SAT 98
[2023-10-21] MEDS: Loperamide HCl 2 MG CAPSULE PO (14:49)
[2023-10-21] MEDS: QUEtiapine Fumarate 300 MG TABLET PO (20:14)
[2023-10-21 20:16] VITALS: BP 127/63; PULSE 63; RESP 16; TEMP 36.3; O2SAT 96
[2023-10-22 08:19] VITALS: BP 113/57; PULSE 58; RESP 16; TEMP 36.3; O2SAT 96
[2023-10-22] MEDS: methADONE HCl 20 MG/2 ML ORAL.CONC 80 MG PO (08:35)
[2023-10-22] MEDS: cloNIDine HCL 0.1 MG TABLET PO ×3 (08:35→20:15)
[2023-10-22] MEDS: Gabapentin 100 MG CAPSULE PO ×3 (08:35→20:15)
[2023-10-22] MEDS: QUEtiapine Fumarate 100 MG TABLET PO (08:35)
--- NOTE | 2023-10-22 12:21 | HO.PSYCHPN ---
Subjective Subjective Date of Service: 10/22/23 Reason For Visit: Depression/SI Interim History: Met with patient; discussed with team Patient endorses history of paranoid thinking is how he consistently thinks people are following him, cars are following him; people are hacking into his phone and know where he is and thus the same car will go back and forth watching him. When he was staying at a friend's house He thinks that his friend put a camera in the bathroom because his friend would make a comment about something that happened in the bathroom... Otherwise how would he know. Again reviewed history of manoj and patient endorses what may be a very mild, possibly manic episodes, but more likely just hypervigilance from PTSD and paranoid. Discussed medication and patient agrees to increase Seroquel since he has demonstrated he tolerates this medicine and continues to have paranoid ideations and this is also used for bipolar depression, augmentation of unipolar depression and a mood stabilizer. Mental Status Exam Mental Status Exam Narrative: Pt is alert and oriented; behavior is cooperative, calm; patient is not in distress; dressed in hospital attire, scruffy, marginal hygiene; mood is described as little better and affect congruent; eye contact appropriate; Speech is normal rate, volume and prosody and not pressured; psychomotor retardation present; thought process is organized and goal directed; Thought content is on pessimistic thoughts about life; tx; intermittent paranoid thinking; denies any SI/HI. There is no evidence of perceptual disturbance; no AH currently but says it is intermittently chronic. Patients insight and judgment impaired Diagnostics Vital Signs (24Hr): Vital Signs - 24 hr 10/21/23 14:44 10/21/23 20:16 10/22/23 08:19 Temperature 98.6 F 97.3 F 97.3 F Pulse Rate 72 63 58 Respiratory Rate 16 16 16 Blood Pressure 120/62 127/63 113/57 L Pulse Oximetry 98 96 96 Oxygen Delivery Method Room Air Room Air Room Air BMI result Body Mass Index 31.4 Labs 10/17/23 18:21 10/17/23 18:21 Labs: Laboratory Results - last 48 hr 10/21/23 10/21/23 09:00 09:03 Estimat Average Glucose 91 Hemoglobin A1c % 4.8 Total Bilirubin 0.3 Direct Bilirubin 0.1 AST 18 ALT 28 Alkaline Phosphatase 98 Total Protein 7.6 Albumin 4.0 Triglycerides 406 H Cholesterol 203 H LDL Cholesterol, Calc TNP HDL Cholesterol 38 L Free T4 0.89 Medications Medications Current Medications Acetaminophen (Acetaminophen 325 Mg Tablet) 650 mg PO Q6H PRN PRN Reason: Headache/Pain Mild Scale (1-3) Al Hydroxide/Mg Hydroxide (Magnesium Hydrox/Alum Hydrox 30 Ml Oral.Susp) 30 ml PO Q6H PRN PRN Reason: Heartburn/Nausea Clonidine HCl (Clonidine Hcl 0.1 Mg Tablet) 0.1 mg PO TID [facility]; Protocol Last Admin: 10/22/23 08:35 Dose: 0.1 mg Cyclobenzaprine HCl (Cyclobenzaprine Hcl 10 Mg Tablet) 10 mg PO TID PRN PRN Reason: muscle cramps Dicyclomine HCl (Dicyclomine Hcl 10 Mg Capsule) 10 mg PO TID PRN PRN Reason: stomach cramps Gabapentin (Gabapentin 100 Mg Capsule) 100 mg PO TID [facility] Last Admin: 10/22/23 08:35 Dose: 100 mg Hydroxyzine HCl (Hydroxyzine Hcl 25 Mg Tablet) 25 mg PO Q6H PRN PRN Reason: Anxiety Last Admin: 10/21/23 00:04 Dose: 25 mg Loperamide HCl (Loperamide Hcl 2 Mg Capsule) 2 mg PO Q6H PRN PRN Reason: loose stool Magnesium Hydroxide (Milk Of Magnesia 30 Ml Oral.Susp) 30 ml PO DAILY PRN PRN Reason: Constipation Methadone HCl (Methadone Hcl 20 Mg/2 Ml Oral.Conc) 80 mg PO DAILY [facility] Last Admin: 10/22/23 08:35 Dose: 80 mg Nicotine (Nicotine 21 Mg Patch.Td24) 21 mg TRANSDERMA DAILY PRN PRN Reason: smoking cessation Nicotine Polacrilex (Nicotine Polacrilex 2 Mg Gum) 4 mg BUCCAL Q2H PRN PRN Reason: Nicotine Cravings Ondansetron HCl (Ondansetron Odt 4 Mg Tab.Rapdis) 4 mg TRANSLINGU Q6H PRN PRN Reason: Nausea and Vomiting Quetiapine Fumarate (Quetiapine Fumarate 100 Mg Tablet) 100 mg PO DAILY [facility] Last Admin: 10/22/23 08:35 Dose: 100 mg Quetiapine Fumarate (Quetiapine Fumarate 300 Mg Tablet) 300 mg PO BEDTIME [facility] Last Admin: 10/21/23 20:14 Dose: 300 mg Trazodone HCl (Trazodone Hcl 50 Mg Tablet) 50 mg PO BEDTIME MRX1 PRN PRN Reason: Insomnia Last Admin: 10/21/23 00:04 Dose: 50 mg Allergies Allergies Allergy/AdvReac Type Severity Reaction Status Date / Time No Known Allergies Allergy Verified 05/03/23 14:43 Assessment & Plan Assessment & Plan (1) MDD (major depressive disorder), recurrent episode, severe: Status: Acute Code(s): F33.2 - Major depressive disorder, recurrent severe without psychotic features (2) PTSD (post-traumatic stress disorder): Status: Acute Code(s): F43.10 - Post-traumatic stress disorder, unspecified (3) Opioid use disorder: Status: Acute Code(s): F11.90 - Opioid use, unspecified, uncomplicated (4) Cocaine use disorder: Status: Acute Code(s): F14.10 - Cocaine abuse, uncomplicated Plan pt is a 38 yo male with hx of PTSD, depression, reportedly bipolar or schizoaffective disorder (though not concluded), history of incarceration, axis 2 traits, opioid and cocaine use disorder, on methadone, who presents with depression and SI with recent overdose attempt in the face of ongoing substance abuse and psychosocial stressors. Patient reports that he was sober for about 9 months until he lost his housing, got depressed and triggered and relapsed and has been using for the past 2 months. Patient said he was working but due to seasonal layoffs, was laid off around [place] time and patient sunk into deeper depression. Patient reports he has been homeless for the past several weeks and feeling hopeless, despite continuing to take Wellbutrin and Seroquel. He reports in a moment of despair he intentionally tried to overdose last week however he woke up fine. Patient expresses pessimism about life in general but currently not suicidal; says he does not like people... life is a joke. Patient reports he has a diagnosis bipolar disorder however he describes his manic symptoms as just emotional reactivity which resolve on their own and last no longer than an hour; no discrete episodes. He reports AH but is a little vague about details; he said as a kid he heard voices; he said with Seroquel it is less. Patient endorses long history of trauma with ongoing PTSD symptoms including flashbacks, hypervigilance. Patient is open to medication management for depression; wants to get on Suboxone. Impression: Patient depressed, chronic PTSD symptoms all worsened by substance abuse. Although patient reports bipolar disorder, his reported history does not include any manic episodes. Upon further clarification patient does have baseline paranoid thinking which seemed to be present even independent of depression, emotional stress or intoxication/withdrawal; hx of some mild intermittent AH. Change diagnosis to schizoaffective disorder depressive type Patient agrees to medication management for depression Hospital course: 10/22 Patient endorses history of paranoid thinking is how he consistently thinks people are following him, cars are following him; people are hacking into his phone and know where he is and thus the same car will go back and forth watching him. When he was staying at a friend's house He thinks that his friend put a camera in the bathroom because his friend would make a comment about something that happened in the bathroom... Otherwise how would he know. Again reviewed history of manoj and patient endorses what may be a very mild, possibly manic episodes, but more likely just hypervigilance from PTSD and paranoid. -Discussed medication and patient agrees to increase Seroquel since he has demonstrated he tolerates this medicine and continues to have paranoid ideations and this is also used for bipolar depression, augmentation of unipolar depression and a mood stabilizer. -proceed with cross titration from methadone to Suboxone; [facility] program Plan: CV Q 15 minute checks Continue Seroquel 100 mg in the morning INCREASE Seroquel 400 mg q.h.s. for paranoid thinking and depression Continue clonidine 0.1 mg t.i.d. Continue gabapentin 100 mg t.i.d. patient uses for anxiety Will add Wellbutrin for depression; although seems less likely patient does have bipolar disorder, this medication is least likely to trigger a manic episode Continue methadone 80 mg daily; patient asks for cross titration to Suboxone Methadone to Suboxone using Micro Suboxone titration: on 10/22 Day 1 suboxone 0.5mg (plus methadone dose) (0.25 of a 2/0.5 film) on 10/23 Day 2 suboxone 0.5mg bid (plus methadone dose) (0.25 of a 2/0.5 film) on 10/24 Day 3 suboxone 1mg Bid (plus methadone dose) (0.5 of a 2/0.5 film) on 10/25 Day 4 suboxone 2mg Bid (plus methadone dose) Day 5 suboxone 4mg Bid (plus methadone dose) Day 6 suboxone 4mg bid (plus methadone dose) Day 7 suboxone 8mg and 4mg (LAST methadone dose) Day 8 suboxone 8mg Bid (NO METHADONE ) Patient educated on: diagnosis, medication risk/benefits and substance abuse Informed Consent: understands, does not understand and further education needed Reason for continued inpatient stay Substantial Risk for: inability to function Time Spent With Patient Time: Total time managing care of this patient today ____ minutes.
--- NOTE | 2023-10-22 12:42 | PC.NURSE ---
suboxone not giv
--- NOTE | 2023-10-22 12:43 | PC.NURSE ---
suboxone not given within 30min because pt was eatting
[2023-10-22] MEDS: Buprenorphine/Naloxone 2/0.5mg FILM 0.25 FILM SUBLINGUAL (14:19)
[2023-10-22] MEDS: hydrOXYzine HCL 25 MG TABLET PO (14:31)
[2023-10-22 20:10] VITALS: BP 128/65; PULSE 64; RESP 14; TEMP 36.2; O2SAT 96
[2023-10-22] MEDS: QUEtiapine Fumarate 400 MG TABLET PO (20:15)
[2023-10-23 06:00] VITALS: BP 103/55; PULSE 61; RESP 18; TEMP 36.7; O2SAT 97
[2023-10-23] MEDS: Buprenorphine/Naloxone 2/0.5mg TAB.SUBL 0.25 TAB SUBLINGUAL ×2 (09:05→20:59)
[2023-10-23] MEDS: cloNIDine HCL 0.1 MG TABLET PO ×3 (09:05→20:58)
[2023-10-23] MEDS: QUEtiapine Fumarate 100 MG TABLET PO (09:05)
[2023-10-23] MEDS: methADONE HCl 20 MG/2 ML ORAL.CONC 80 MG PO (09:06)
[2023-10-23] MEDS: Gabapentin 100 MG CAPSULE PO ×3 (09:06→20:58)
--- NOTE | 2023-10-23 10:34 | HO.PSYCHPN ---
Subjective Subjective Date of Service: 10/23/23 Reason For Visit: Depression/SI Subjective Notes: Conditional Voluntary Healthcare Proxy: No Guardianship: No Medical Problems Affecting Mental Status: No Interim History: Spending most of his time in his room. Denies questions or issues of concern Tolerating regime and changes from Methadone to Seroquel Medication Compliance: Yes Side effects from medications: No Attending Groups: No Review of Systems Acute medical concerns: No Medical Review of Systems: unchanged Review of Systems Review of Systems Yes all other systems are reviewed and are negative Mental Status Exam Mental Status Exam Patient Appearance: Appropriate Patient Orientation: Person, Place, Time and Situation Level of Consciousness: Alert Patient Behavior: Appropriate Mood Description: Constricted Affect Description: Constricted Patient Cognition Impaired: No Ability to Follow Directions: Good Speech Pattern: Spontaneous Speech Memory Description: Intact Hallucinations: None Delusions: Not Present Thought Process: Distracted and Rumination Thought Content: positive for Perseveration and positive for Suicidal Ideation (denies) Judgement: Fair Diagnostics Vital Signs (24Hr): Vital Signs - 24 hr 10/22/23 20:10 10/23/23 06:00 Temperature 97.2 F 98.0 F Pulse Rate 64 61 Respiratory Rate 14 18 Blood Pressure 128/65 103/55 L Pulse Oximetry 96 97 Oxygen Delivery Method Room Air Room Air BMI result Body Mass Index 31.4 Labs 10/17/23 18:21 10/17/23 18:21 Medications Medications Current Medications Acetaminophen (Acetaminophen 325 Mg Tablet) 650 mg PO Q6H PRN PRN Reason: Headache/Pain Mild Scale (1-3) Al Hydroxide/Mg Hydroxide (Magnesium Hydrox/Alum Hydrox 30 Ml Oral.Susp) 30 ml PO Q6H PRN PRN Reason: Heartburn/Nausea Buprenorphine/Naloxone (Buprenorphine/Naloxone 2/0.5mg Tab.Subl) 0.25 tab SUBLINGUAL BID [facility] Stop: 10/23/23 21:00 Last Admin: 10/23/23 09:05 Dose: 0.25 tab Buprenorphine/Naloxone (Buprenorphine/Naloxone 2/0.5mg Tab.Subl) 0.5 tab SUBLINGUAL BID [facility] Stop: 10/24/23 21:00 Buprenorphine/Naloxone (Buprenorphine/Naloxone 2/0.5mg Tab.Subl) 1 tab SUBLINGUAL BID [facility] Clonidine HCl (Clonidine Hcl 0.1 Mg Tablet) 0.1 mg PO TID [facility]; Protocol Last Admin: 10/23/23 09:05 Dose: 0.1 mg Cyclobenzaprine HCl (Cyclobenzaprine Hcl 10 Mg Tablet) 10 mg PO TID PRN PRN Reason: muscle cramps Dicyclomine HCl (Dicyclomine Hcl 10 Mg Capsule) 10 mg PO TID PRN PRN Reason: stomach cramps Gabapentin (Gabapentin 100 Mg Capsule) 100 mg PO TID [facility] Last Admin: 10/23/23 09:06 Dose: 100 mg Hydroxyzine HCl (Hydroxyzine Hcl 25 Mg Tablet) 25 mg PO Q6H PRN PRN Reason: Anxiety Last Admin: 10/22/23 14:31 Dose: 25 mg Loperamide HCl (Loperamide Hcl 2 Mg Capsule) 2 mg PO Q6H PRN PRN Reason: loose stool Magnesium Hydroxide (Milk Of Magnesia 30 Ml Oral.Susp) 30 ml PO DAILY PRN PRN Reason: Constipation Methadone HCl (Methadone Hcl 20 Mg/2 Ml Oral.Conc) 80 mg PO DAILY [facility] Last Admin: 10/23/23 09:06 Dose: 80 mg Nicotine (Nicotine 21 Mg Patch.Td24) 21 mg TRANSDERMA DAILY PRN PRN Reason: smoking cessation Nicotine Polacrilex (Nicotine Polacrilex 2 Mg Gum) 4 mg BUCCAL Q2H PRN PRN Reason: Nicotine Cravings Ondansetron HCl (Ondansetron Odt 4 Mg Tab.Rapdis) 4 mg TRANSLINGU Q6H PRN PRN Reason: Nausea and Vomiting Quetiapine Fumarate (Quetiapine Fumarate 100 Mg Tablet) 100 mg PO DAILY [facility] Last Admin: 10/23/23 09:05 Dose: 100 mg Quetiapine Fumarate (Quetiapine Fumarate 400 Mg Tablet) 400 mg PO BEDTIME [facility] Last Admin: 10/22/23 20:15 Dose: 400 mg Trazodone HCl (Trazodone Hcl 50 Mg Tablet) 50 mg PO BEDTIME MRX1 PRN PRN Reason: Insomnia Last Admin: 10/21/23 00:04 Dose: 50 mg Allergies Allergies Allergy/AdvReac Type Severity Reaction Status Date / Time No Known Allergies Allergy Verified 05/03/23 14:43 Assessment & Plan Assessment & Plan (1) MDD (major depressive disorder), recurrent episode, severe: Status: Acute Code(s): F33.2 - Major depressive disorder, recurrent severe without psychotic features Assessment and Plan: 10/23/23 Continue tx. (2) PTSD (post-traumatic stress disorder): Status: Acute Code(s): F43.10 - Post-traumatic stress disorder, unspecified (3) Opioid use disorder: Status: Acute Code(s): F11.90 - Opioid use, unspecified, uncomplicated (4) Cocaine use disorder: Status: Acute Code(s): F14.10 - Cocaine abuse, uncomplicated Plan pt is a 38 yo male with hx of PTSD, depression, reportedly bipolar or schizoaffective disorder (though not concluded), history of incarceration, axis 2 traits, opioid and cocaine use disorder, on methadone, who presents with depression and SI with recent overdose attempt in the face of ongoing substance abuse and psychosocial stressors. Patient reports that he was sober for about 9 months until he lost his housing, got depressed and triggered and relapsed and has been using for the past 2 months. Patient said he was working but due to seasonal layoffs, was laid off around [employer] time and patient sunk into deeper depression. Patient reports he has been homeless for the past several weeks and feeling hopeless, despite continuing to take Wellbutrin and Seroquel. He reports in a moment of despair he intentionally tried to overdose last week however he woke up fine. Patient expresses pessimism about life in general but currently not suicidal; says he does not like people... life is a joke. Patient reports he has a diagnosis bipolar disorder however he describes his manic symptoms as just emotional reactivity which resolve on their own and last no longer than an hour; no discrete episodes. He reports AH but is a little vague about details; he said as a kid he heard voices; he said with Seroquel it is less. Patient endorses long history of trauma with ongoing PTSD symptoms including flashbacks, hypervigilance. Patient is open to medication management for depression; wants to get on Suboxone. Impression: Patient depressed, chronic PTSD symptoms all worsened by substance abuse. Although patient reports bipolar disorder, his reported history does not include any manic episodes; a little vague on AVH which may be just during times of intoxication/withdrawal and when emotionally upset. Will continue home medications. Patient agrees to medication management for depression; for right now will diagnose with MDD and leave bipolar as a rule out. r/o bipolar Plan: CV Q 15 minute checks Continue Seroquel 100 mg in the morning INCREASE Seroquel 400 mg q.h.s. for paranoid thinking and depression Continue clonidine 0.1 mg t.i.d. Continue gabapentin 100 mg t.i.d. patient uses for anxiety Will add Wellbutrin for depression; although seems less likely patient does have bipolar disorder, this medication is least likely to trigger a manic episode Continue methadone 80 mg daily; patient asks for cross titration to Suboxone Methadone to Suboxone using Micro Suboxone titration: on 10/22 Day 1 suboxone 0.5mg (plus methadone dose) (0.25 of a 2/0.5 film) on 10/23 Day 2 suboxone 0.5mg bid (plus methadone dose) (0.25 of a 2/0.5 film) on 10/24 Day 3 suboxone 1mg Bid (plus methadone dose) (0.5 of a 2/0.5 film) on 10/25 Day 4 suboxone 2mg Bid (plus methadone dose) Day 5 suboxone 4mg Bid (plus methadone dose) Day 6 suboxone 4mg bid (plus methadone dose) Day 7 suboxone 8mg and 4mg (LAST methadone dose) Day 8 suboxone 8mg Bid (NO METHADONE ) Informed Consent: understands Reason for continued inpatient stay Substantial Risk for: rapid decompensation Time Spent With Patient Time: Total time managing care of this patient today ____ minutes.
[2023-10-23 14:09] VITALS: BP 131/78; PULSE 109
[2023-10-23 19:25] VITALS: BP 123/59; PULSE 64; RESP 16; TEMP 36.6; O2SAT 98
[2023-10-23] MEDS: QUEtiapine Fumarate 400 MG TABLET PO (20:58)
[2023-10-24 08:35] VITALS: BP 134/64; PULSE 64; RESP 18; TEMP 36.5; O2SAT 97
[2023-10-24] MEDS: Gabapentin 100 MG CAPSULE PO ×2 (09:07→14:37)
[2023-10-24] MEDS: cloNIDine HCL 0.1 MG TABLET PO ×3 (09:07→21:04)
[2023-10-24] MEDS: methADONE HCl 20 MG/2 ML ORAL.CONC 80 MG PO (09:08)
[2023-10-24] MEDS: QUEtiapine Fumarate 100 MG TABLET PO (09:08)
[2023-10-24] MEDS: Buprenorphine/Naloxone 2/0.5mg TAB.SUBL 0.5 TAB SUBLINGUAL ×2 (09:09→21:06)
[2023-10-24] MEDS: hydrOXYzine HCL 25 MG TABLET PO ×2 (09:10→22:24)
[2023-10-24 14:38] VITALS: BP 124/73; PULSE 80
[2023-10-24 17:13] VITALS: BP 129/63; PULSE 79; RESP 16; TEMP 36.3; O2SAT 98
--- NOTE | 2023-10-24 18:42 | HO.PSYCHPN ---
Subjective Subjective Date of Service: 10/24/23 Reason For Visit: Depression/SI Subjective Notes: Conditional Voluntary Interim History: More visable and talkative today. I just spent 5 days just sleeping. Transition to Suboxone is difficult but tolerable. Reports he sees shadows, hears voices, feels like others are chasing him. I have always been mad . Describes difficulty by history interacting with others, loss of job and home. Asks to use his phone to meet unemployment obligations. Team will assist. Medication Compliance: Yes Side effects from medications: No Attending Groups: Intermittent Review of Systems Acute medical concerns: No Medical Review of Systems: unchanged Review of Systems Review of Systems Yes all other systems are reviewed and are negative Mental Status Exam Mental Status Exam Patient Appearance: Appropriate Patient Orientation: Person, Place, Time and Situation Level of Consciousness: Alert Patient Behavior: Appropriate Mood Description: Constricted Affect Description: Constricted Patient Cognition Impaired: No Ability to Follow Directions: Good Speech Pattern: Spontaneous Speech Memory Description: Intact Hallucinations: None Delusions: Not Present Thought Process: Distracted and Rumination Thought Content: positive for Perseveration and positive for Suicidal Ideation (denies) Judgement: Fair Diagnostics Vital Signs (24Hr): Vital Signs - 24 hr 10/23/23 19:25 10/24/23 08:35 10/24/23 14:38 Temperature 97.9 F 97.7 F Pulse Rate 64 64 80 Respiratory Rate 16 18 Blood Pressure 123/59 L 134/64 124/73 Pulse Oximetry 98 97 Oxygen Delivery Method Room Air Room Air 10/24/23 17:13 Temperature 97.3 F Pulse Rate 79 Respiratory Rate 16 Blood Pressure 129/63 Pulse Oximetry 98 Oxygen Delivery Method BMI result Body Mass Index 31.4 Labs 10/17/23 18:21 10/17/23 18:21 Medications Medications Current Medications Acetaminophen (Acetaminophen 325 Mg Tablet) 650 mg PO Q6H PRN PRN Reason: Headache/Pain Mild Scale (1-3) Al Hydroxide/Mg Hydroxide (Magnesium Hydrox/Alum Hydrox 30 Ml Oral.Susp) 30 ml PO Q6H PRN PRN Reason: Heartburn/Nausea Buprenorphine/Naloxone (Buprenorphine/Naloxone 2/0.5mg Tab.Subl) 0.5 tab SUBLINGUAL BID [facility] Stop: 10/24/23 21:00 Last Admin: 10/24/23 09:09 Dose: 0.5 tab Buprenorphine/Naloxone (Buprenorphine/Naloxone 2/0.5mg Tab.Subl) 1 tab SUBLINGUAL BID [facility] Chlorpromazine HCl (Chlorpromazine Hcl 100 Mg Tablet) 100 mg PO BEDTIME [facility] Clonidine HCl (Clonidine Hcl 0.1 Mg Tablet) 0.1 mg PO TID [facility]; Protocol Last Admin: 10/24/23 14:37 Dose: 0.1 mg Cyclobenzaprine HCl (Cyclobenzaprine Hcl 10 Mg Tablet) 10 mg PO TID PRN PRN Reason: muscle cramps Dicyclomine HCl (Dicyclomine Hcl 10 Mg Capsule) 10 mg PO TID PRN PRN Reason: stomach cramps Gabapentin (Gabapentin 100 Mg Capsule) 200 mg PO TID [facility] Hydroxyzine HCl (Hydroxyzine Hcl 25 Mg Tablet) 25 mg PO Q6H PRN PRN Reason: Anxiety Last Admin: 10/24/23 09:10 Dose: 25 mg Loperamide HCl (Loperamide Hcl 2 Mg Capsule) 2 mg PO Q6H PRN PRN Reason: loose stool Magnesium Hydroxide (Milk Of Magnesia 30 Ml Oral.Susp) 30 ml PO DAILY PRN PRN Reason: Constipation Methadone HCl (Methadone Hcl 20 Mg/2 Ml Oral.Conc) 80 mg PO DAILY [facility] Last Admin: 10/24/23 09:08 Dose: 80 mg Nicotine (Nicotine 21 Mg Patch.Td24) 21 mg TRANSDERMA DAILY PRN PRN Reason: smoking cessation Nicotine Polacrilex (Nicotine Polacrilex 2 Mg Gum) 4 mg BUCCAL Q2H PRN PRN Reason: Nicotine Cravings Ondansetron HCl (Ondansetron Odt 4 Mg Tab.Rapdis) 4 mg TRANSLINGU Q6H PRN PRN Reason: Nausea and Vomiting Quetiapine Fumarate (Quetiapine Fumarate 100 Mg Tablet) 100 mg PO DAILY [facility] Last Admin: 10/24/23 09:08 Dose: 100 mg Trazodone HCl (Trazodone Hcl 50 Mg Tablet) 50 mg PO BEDTIME MRX1 PRN PRN Reason: Insomnia Last Admin: 10/21/23 00:04 Dose: 50 mg Allergies Allergies Allergy/AdvReac Type Severity Reaction Status Date / Time No Known Allergies Allergy Verified 05/03/23 14:43 Assessment & Plan Assessment & Plan (1) MDD (major depressive disorder), recurrent episode, severe: Status: Acute Code(s): F33.2 - Major depressive disorder, recurrent severe without psychotic features Assessment and Plan: 10/23/23 Continue tx. 10/24/23 DC evening Seroquel. Trial of Chlorpromazine 100 mg HS Increase Gabapentin to 200 mg tid (2) PTSD (post-traumatic stress disorder): Status: Acute Code(s): F43.10 - Post-traumatic stress disorder, unspecified (3) Opioid use disorder: Status: Acute Code(s): F11.90 - Opioid use, unspecified, uncomplicated (4) Cocaine use disorder: Status: Acute Code(s): F14.10 - Cocaine abuse, uncomplicated Plan pt is a 38 yo male with hx of PTSD, depression, reportedly bipolar or schizoaffective disorder (though not concluded), history of incarceration, axis 2 traits, opioid and cocaine use disorder, on methadone, who presents with depression and SI with recent overdose attempt in the face of ongoing substance abuse and psychosocial stressors. Patient reports that he was sober for about 9 months until he lost his housing, got depressed and triggered and relapsed and has been using for the past 2 months. Patient said he was working but due to seasonal layoffs, was laid off around [employer] time and patient sunk into deeper depression. Patient reports he has been homeless for the past several weeks and feeling hopeless, despite continuing to take Wellbutrin and Seroquel. He reports in a moment of despair he intentionally tried to overdose last week however he woke up fine. Patient expresses pessimism about life in general but currently not suicidal; says he does not like people... life is a joke. Patient reports he has a diagnosis bipolar disorder however he describes his manic symptoms as just emotional reactivity which resolve on their own and last no longer than an hour; no discrete episodes. He reports AH but is a little vague about details; he said as a kid he heard voices; he said with Seroquel it is less. Patient endorses long history of trauma with ongoing PTSD symptoms including flashbacks, hypervigilance. Patient is open to medication management for depression; wants to get on Suboxone. Impression: Patient depressed, chronic PTSD symptoms all worsened by substance abuse. Although patient reports bipolar disorder, his reported history does not include any manic episodes; a little vague on AVH which may be just during times of intoxication/withdrawal and when emotionally upset. Will continue home medications. Patient agrees to medication management for depression; for right now will diagnose with MDD and leave bipolar as a rule out. r/o bipolar Plan: CV Q 15 minute checks Continue Seroquel 100 mg in the morning INCREASE Seroquel 400 mg q.h.s. for paranoid thinking and depression Continue clonidine 0.1 mg t.i.d. Continue gabapentin 100 mg t.i.d. patient uses for anxiety Will add Wellbutrin for depression; although seems less likely patient does have bipolar disorder, this medication is least likely to trigger a manic episode Continue methadone 80 mg daily; patient asks for cross titration to Suboxone Methadone to Suboxone using Micro Suboxone titration: on 10/22 Day 1 suboxone 0.5mg (plus methadone dose) (0.25 of a 2/0.5 film) on 10/23 Day 2 suboxone 0.5mg bid (plus methadone dose) (0.25 of a 2/0.5 film) on 10/24 Day 3 suboxone 1mg Bid (plus methadone dose) (0.5 of a 2/0.5 film) on 10/25 Day 4 suboxone 2mg Bid (plus methadone dose) Day 5 suboxone 4mg Bid (plus methadone dose) Day 6 suboxone 4mg bid (plus methadone dose) Day 7 suboxone 8mg and 4mg (LAST methadone dose) Day 8 suboxone 8mg Bid (NO METHADONE ) Reason for continued inpatient stay Substantial Risk for: rapid decompensation Time Spent With Patient Time: Total time managing care of this patient today ____ minutes.
[2023-10-24] MEDS: Gabapentin 100 MG CAPSULE 200 MG PO (21:04)
[2023-10-24] MEDS: chlorproMAZINE HCl 100 MG TABLET PO (21:04)
[2023-10-24] MEDS: traZODone HCL 50 MG TABLET PO (22:24)
[2023-10-25 08:06] VITALS: BP 131/62; PULSE 73; RESP 16; TEMP 36.3; O2SAT 98
[2023-10-25] MEDS: cloNIDine HCL 0.1 MG TABLET PO ×2 (08:38→22:49)
[2023-10-25] MEDS: QUEtiapine Fumarate 100 MG TABLET PO (08:39)
[2023-10-25] MEDS: Gabapentin 100 MG CAPSULE 200 MG PO ×3 (08:39→20:33)
[2023-10-25] MEDS: Buprenorphine/Naloxone 2/0.5mg TAB.SUBL 1 TAB SUBLINGUAL ×2 (08:39→20:33)
[2023-10-25] MEDS: methADONE HCl 20 MG/2 ML ORAL.CONC 80 MG PO (08:39)
--- NOTE | 2023-10-25 08:50 | HO.PSYCHPN ---
Subjective Subjective Date of Service: 10/25/23 Reason For Visit: Depression/SI Interim History: Met with patient; discussed with team; reviewed chart did not sleep last night after seroquel dc'd; Been having odd dreams lately. Remains mostly in bed still intermittent AH but says they are friends and mostly helpful; intermittently seeing things out of corner of eye, shadows, like people peeing in the room. He says this is chronic and started in childhood. discussed medications further; says seroquel has always caused dry nose/mouth which bothers him, but tolerated since helpful. Has had some trouble sleeping but more likely due to prolonged withdrawal from polysubstance abuse. AFter more discussion wants to try a new medication since Seroquel has only been partially helpful. Mental Status Exam Mental Status Exam Narrative: Pt is alert and oriented; behavior is cooperative, calm; patient is not in distress; dressed in hospital attire, scruffy, marginal hygiene; mood is described as not good and affect congruent; eye contact appropriate; Speech is normal rate, volume and prosody and not pressured; psychomotor retardation present; thought process is organized and goal directed; Thought content is on treatment; getting stable, but also pessimistic thoughts about life; tx; intermittent paranoid thinking; denies any SI/HI. There is no evidence of perceptual disturbance; intermittent AH; intermittent VH (shadows). Patients insight and judgment impaired but improved since admission Diagnostics Vital Signs (24Hr): Vital Signs - 24 hr 10/24/23 14:38 10/24/23 17:13 10/25/23 08:06 Temperature 97.3 F 97.3 F Pulse Rate 80 79 73 Respiratory Rate 16 16 Blood Pressure 124/73 129/63 131/62 Pulse Oximetry 98 98 Oxygen Delivery Method Room Air BMI result Body Mass Index 31.4 Labs 10/17/23 18:21 10/17/23 18:21 Medications Medications Current Medications Acetaminophen (Acetaminophen 325 Mg Tablet) 650 mg PO Q6H PRN PRN Reason: Headache/Pain Mild Scale (1-3) Al Hydroxide/Mg Hydroxide (Magnesium Hydrox/Alum Hydrox 30 Ml Oral.Susp) 30 ml PO Q6H PRN PRN Reason: Heartburn/Nausea Buprenorphine/Naloxone (Buprenorphine/Naloxone 2/0.5mg Tab.Subl) 1 tab SUBLINGUAL BID [facility] Last Admin: 10/25/23 08:39 Dose: 1 tab Chlorpromazine HCl (Chlorpromazine Hcl 100 Mg Tablet) 100 mg PO BEDTIME [facility] Last Admin: 10/24/23 21:04 Dose: 100 mg Clonidine HCl (Clonidine Hcl 0.1 Mg Tablet) 0.1 mg PO TID [facility]; Protocol Last Admin: 10/25/23 08:38 Dose: 0.1 mg Cyclobenzaprine HCl (Cyclobenzaprine Hcl 10 Mg Tablet) 10 mg PO TID PRN PRN Reason: muscle cramps Dicyclomine HCl (Dicyclomine Hcl 10 Mg Capsule) 10 mg PO TID PRN PRN Reason: stomach cramps Gabapentin (Gabapentin 100 Mg Capsule) 200 mg PO TID [facility] Last Admin: 10/25/23 08:39 Dose: 200 mg Hydroxyzine HCl (Hydroxyzine Hcl 25 Mg Tablet) 25 mg PO Q6H PRN PRN Reason: Anxiety Last Admin: 10/24/23 22:24 Dose: 25 mg Loperamide HCl (Loperamide Hcl 2 Mg Capsule) 2 mg PO Q6H PRN PRN Reason: loose stool Magnesium Hydroxide (Milk Of Magnesia 30 Ml Oral.Susp) 30 ml PO DAILY PRN PRN Reason: Constipation Methadone HCl (Methadone Hcl 20 Mg/2 Ml Oral.Conc) 80 mg PO DAILY [facility] Last Admin: 10/25/23 08:39 Dose: 80 mg Nicotine (Nicotine 21 Mg Patch.Td24) 21 mg TRANSDERMA DAILY PRN PRN Reason: smoking cessation Nicotine Polacrilex (Nicotine Polacrilex 2 Mg Gum) 4 mg BUCCAL Q2H PRN PRN Reason: Nicotine Cravings Ondansetron HCl (Ondansetron Odt 4 Mg Tab.Rapdis) 4 mg TRANSLINGU Q6H PRN PRN Reason: Nausea and Vomiting Quetiapine Fumarate (Quetiapine Fumarate 100 Mg Tablet) 100 mg PO DAILY [facility] Last Admin: 10/25/23 08:39 Dose: 100 mg Trazodone HCl (Trazodone Hcl 50 Mg Tablet) 50 mg PO BEDTIME MRX1 PRN PRN Reason: Insomnia Last Admin: 10/24/23 22:24 Dose: 50 mg Allergies Allergies Allergy/AdvReac Type Severity Reaction Status Date / Time No Known Allergies Allergy Verified 05/03/23 14:43 Assessment & Plan Assessment & Plan (1) Schizoaffective disorder, depressive type: Status: Acute Code(s): F25.1 - Schizoaffective disorder, depressive type (2) PTSD (post-traumatic stress disorder): Status: Acute Code(s): F43.10 - Post-traumatic stress disorder, unspecified (3) Opioid use disorder: Status: Acute Code(s): F11.90 - Opioid use, unspecified, uncomplicated (4) Cocaine use disorder: Status: Acute Code(s): F14.10 - Cocaine abuse, uncomplicated Plan pt is a 38 yo male with hx of PTSD, depression, reportedly bipolar or schizoaffective disorder (though not concluded), history of incarceration, axis 2 traits, opioid and cocaine use disorder, on methadone, who presents with depression and SI with recent overdose attempt in the face of ongoing substance abuse and psychosocial stressors. Patient reports that he was sober for about 9 months until he lost his housing, got depressed and triggered and relapsed and has been using for the past 2 months. Patient said he was working but due to seasonal layoffs, was laid off around Mikel time and patient sunk into deeper depression. Patient reports he has been homeless for the past several weeks and feeling hopeless, despite continuing to take Wellbutrin and Seroquel. He reports in a moment of despair he intentionally tried to overdose last week however he woke up fine. Patient expresses pessimism about life in general but currently not suicidal; says he does not like people... life is a joke. Patient reports he has a diagnosis bipolar disorder however he describes his manic symptoms as just emotional reactivity which resolve on their own and last no longer than an hour; no discrete episodes. He reports AH but is a little vague about details; he said as a kid he heard voices; he said with Seroquel it is less. Patient endorses long history of trauma with ongoing PTSD symptoms including flashbacks, hypervigilance. Patient is open to medication management for depression; wants to get on Suboxone. Impression: Patient depressed, chronic PTSD symptoms all worsened by substance abuse. Although patient reports bipolar disorder, his reported history does not include any manic episodes. Upon further clarification patient does have baseline paranoid thinking which seemed to be present even independent of depression, emotional stress or intoxication/withdrawal; hx of some mild intermittent AH. Change diagnosis to schizoaffective disorder depressive type Patient agrees to medication management for depression and psychotic symptoms Hospital course: 10/22 Patient endorses history of paranoid thinking is how he consistently thinks people are following him, cars are following him; people are hacking into his phone and know where he is and thus the same car will go back and forth watching him. When he was staying at a friend's house He thinks that his friend put a camera in the bathroom because his friend would make a comment about something that happened in the bathroom... Otherwise how would he know. Again reviewed history of manoj and patient endorses what may be a very mild, possibly manic episodes, but more likely just hypervigilance from PTSD and paranoid. -Discussed medication and patient agrees to increase Seroquel since he has demonstrated he tolerates this medicine and continues to have paranoid ideations and this is also used for bipolar depression, augmentation of unipolar depression and a mood stabilizer. -proceed with cross titration from methadone to Suboxone; CSS program 10/25 did not sleep last night after seroquel dc'd; Been having odd dreams lately. still intermittent AH but says they are friends and mostly helpful; intermittently seeing things out of corner of eye, shadows, like people peeing in the room. He says this is chronic and started in childhood. discussed medications further; says seroquel has always caused dry nose/mouth which bothers him, but tolerated since helpful. Has had some trouble sleeping but more likely due to prolonged withdrawal from polysubstance abuse. AFter more discussion wants to try a new medication since Seroquel has only been partially helpful. -will switch to Risperda. So far have not concluded that pt has manic episodes and thus not necessarily trying to treat bipolar depression, however will keep this in mind Plan: CV Q 15 minute checks DC Seroquel START Rispderdal 2mg BID dc thorazine started on weekend Continue clonidine 0.1 mg t.i.d; will make this prn Continue gabapentin 200 mg t.i.d. patient uses for anxiety Will consider Wellbutrin for depression; although seems less likely patient does have bipolar disorder, this medication is least likely to trigger a manic episode Continue methadone 80 mg daily; patient asks for cross titration to Suboxone Methadone to Suboxone using Micro Suboxone titration: on 2/9 Day 1 suboxone 0.5mg (plus methadone dose) (0.25 of a 2/0.5 film) on 10/23 Day 2 suboxone 0.5mg bid (plus methadone dose) (0.25 of a 2/0.5 film) on 10/24 Day 3 suboxone 1mg Bid (plus methadone dose) (0.5 of a 2/0.5 film) on 10/25 Day 4 suboxone 2mg Bid (plus methadone dose) on 10/26 Day 5 suboxone 4mg Bid (plus methadone dose) Day 6 suboxone 4mg bid (plus methadone dose) Day 7 suboxone 8mg and 4mg (LAST methadone dose) Day 8 suboxone 8mg Bid (NO METHADONE ) Patient educated on: diagnosis, medication risk/benefits and substance abuse Informed Consent: understands Reason for continued inpatient stay Substantial Risk for: rapid decompensation Time Spent With Patient Time: Total time managing care of this patient today ____ minutes.
[2023-10-25] MEDS: risperiDONE 1 MG TABLET PO (13:30)
[2023-10-25 17:25] VITALS: BP 118/59; PULSE 71; RESP 18; TEMP 36.7; O2SAT 98
[2023-10-25] MEDS: risperiDONE 2 MG TABLET PO (20:33)
[2023-10-25] MEDS: traZODone HCL 50 MG TABLET PO ×2 (21:16→22:05)
[2023-10-25 22:50] VITALS: BP 138/94; PULSE 97
[2023-10-26] MEDS: hydrOXYzine HCL 25 MG TABLET PO ×2 (02:48→14:52)
[2023-10-26 04:25] VITALS: BP 134/73; PULSE 95; RESP 16
[2023-10-26] MEDS: cloNIDine HCL 0.1 MG TABLET PO ×4 (04:25→19:41)
[2023-10-26 08:12] VITALS: BP 113/63; PULSE 83; RESP 16; TEMP 36.8; O2SAT 98
[2023-10-26] MEDS: Gabapentin 100 MG CAPSULE 200 MG PO ×3 (08:48→19:40)
[2023-10-26] MEDS: risperiDONE 2 MG TABLET PO ×2 (08:48→19:40)
[2023-10-26] MEDS: methADONE HCl 20 MG/2 ML ORAL.CONC 80 MG PO (08:48)
--- NOTE | 2023-10-26 09:37 | P.PNPSI_ITS ---
Subjective Subjective Date of Service: 10/26/23 Reason For Visit: Depression/SI Interim History: Met with patient; discussed with team Patient feeling much better today. He is dressed, showered, shaved and out about in the milieu, attending groups and socializing with peers. Patient also called program himself, with number given to him by medical social worker. Says mood is indeed better; still with interrupted sleep though a little better than previous night. He reports that both VH/shadows and AH are significantly reduced. Continues to have struggle sleeping and wondered about getting back on Seroquel though that does not really sedate him. Discussed medication regimen, risks/side effects and patient agreed to try Remeron for sleep since it also helps with PTSD/depression and avoids antipsychotic side effects. Discussed Suboxone titration. Patient feels he was getting some cold sweats and wanted to slow down the titration a little bit. He very much wants to get back on Suboxone, saying that on Suboxone he was working, paying his bills, sober and doing very well; he also likes the idea of Sublocade. Mental Status Exam Mental Status Exam Narrative: Pt is alert and oriented; behavior is cooperative, friendly and calm; patient is not in distress; dressed in casual attire, shaved, showered; mood is described as better and affect congruent, brighter; eye contact appropriate; Speech is normal rate, volume and prosody and not pressured; no psychomotor agitation/retardation present; thought process is organized and goal directed; Thought content is on tx, aftercare options and sobriety; otherwise pertinent to relevant topics and without any delusional content, paranoid ideations or grandiosity; denies any SI/HI. A V H significantly reduced and not bothersome. Patients insight and judgment fair Diagnostics Vital Signs (24Hr): Vital Signs - 24 hr 10/25/23 17:25 10/25/23 22:50 10/26/23 04:25 Temperature 98.1 F Pulse Rate 71 97 95 Respiratory Rate 18 16 Blood Pressure 118/59 L 138/94 H 134/73 Pulse Oximetry 98 Oxygen Delivery Method Room Air BMI result Body Mass Index 31.4 Labs 10/17/23 18:21 10/17/23 18:21 Medications Medications Current Medications Acetaminophen (Acetaminophen 325 Mg Tablet) 650 mg PO Q6H PRN PRN Reason: Headache/Pain Mild Scale (1-3) Al Hydroxide/Mg Hydroxide (Magnesium Hydrox/Alum Hydrox 30 Ml Oral.Susp) 30 ml PO Q6H PRN PRN Reason: Heartburn/Nausea Buprenorphine/Naloxone (Buprenorphine/Naloxone 4/1 Mg Film) 1 film SUBLINGUAL BID [facility] Last Admin: 10/26/23 08:48 Dose: Not Given Clonidine HCl (Clonidine Hcl 0.1 Mg Tablet) 0.1 mg PO TID PRN; Protocol PRN Reason: anxiety Last Admin: 10/26/23 04:25 Dose: 0.1 mg Gabapentin (Gabapentin 100 Mg Capsule) 200 mg PO TID [facility] Last Admin: 10/26/23 08:48 Dose: 200 mg Hydroxyzine HCl (Hydroxyzine Hcl 25 Mg Tablet) 25 mg PO Q6H PRN PRN Reason: Anxiety Last Admin: 10/26/23 02:48 Dose: 25 mg Magnesium Hydroxide (Milk Of Magnesia 30 Ml Oral.Susp) 30 ml PO DAILY PRN PRN Reason: Constipation Methadone HCl (Methadone Hcl 20 Mg/2 Ml Oral.Conc) 80 mg PO DAILY [facility] Last Admin: 10/26/23 08:48 Dose: 80 mg Nicotine (Nicotine 21 Mg Patch.Td24) 21 mg TRANSDERMA DAILY PRN PRN Reason: smoking cessation Nicotine Polacrilex (Nicotine Polacrilex 2 Mg Gum) 4 mg BUCCAL Q2H PRN PRN Reason: Nicotine Cravings Ondansetron HCl (Ondansetron Odt 4 Mg Tab.Rapdis) 4 mg TRANSLINGU Q6H PRN PRN Reason: Nausea and Vomiting Risperidone (Risperidone 2 Mg Tablet) 2 mg PO BID [facility] Last Admin: 10/26/23 08:48 Dose: 2 mg Sodium Chloride (Sodium Chloride 0.65 % Nasal 44 Ml Sprbtl) 1 spray NOSTRIL-B Q1H PRN PRN Reason: dry nasal passages Trazodone HCl (Trazodone Hcl 50 Mg Tablet) 50 mg PO BEDTIME MRX1 PRN PRN Reason: Insomnia Last Admin: 10/25/23 22:05 Dose: 50 mg Allergies Allergies Allergy/AdvReac Type Severity Reaction Status Date / Time No Known Allergies Allergy Verified 05/03/23 14:43 Assessment & Plan Assessment & Plan (1) Schizoaffective disorder, depressive type: Status: Acute Code(s): F25.1 - Schizoaffective disorder, depressive type (2) PTSD (post-traumatic stress disorder): Status: Acute Code(s): F43.10 - Post-traumatic stress disorder, unspecified (3) Opioid use disorder: Status: Acute Code(s): F11.90 - Opioid use, unspecified, uncomplicated (4) Cocaine use disorder: Status: Acute Code(s): F14.10 - Cocaine abuse, uncomplicated Plan pt is a 38 yo male with hx of PTSD, depression, reportedly bipolar or schizoaffective disorder (though not concluded), history of incarceration, axis 2 traits, opioid and cocaine use disorder, on methadone, who presents with depression and SI with recent overdose attempt in the face of ongoing substance abuse and psychosocial stressors. Patient reports that he was sober for about 9 months until he lost his housing, got depressed and triggered and relapsed and has been using for the past 2 months. Patient said he was working but due to seasonal layoffs, was laid off around Mikel time and patient sunk into deeper depression. Patient reports he has been homeless for the past several weeks and feeling hopeless, despite continuing to take Wellbutrin and Seroquel. He reports in a moment of despair he intentionally tried to overdose last week however he woke up fine. Patient expresses pessimism about life in general but currently not suicidal; says he does not like people... life is a joke. Patient reports he has a diagnosis bipolar disorder however he describes his manic symptoms as just emotional reactivity which resolve on their own and last no longer than an hour; no discrete episodes. He reports AH but is a little vague about details; he said as a kid he heard voices; he said with Seroquel it is less. Patient endorses long history of trauma with ongoing PTSD symptoms including flashbacks, hypervigilance. Patient is open to medication management for depression; wants to get on Suboxone. Impression: Patient depressed, chronic PTSD symptoms all worsened by substance abuse. Although patient reports bipolar disorder, his reported history does not include any manic episodes. Upon further clarification patient does have baseline paranoid thinking which seemed to be present even independent of depression, emotional stress or intoxication/withdrawal; hx of some mild intermittent AH. Change diagnosis to schizoaffective disorder depressive type Patient agrees to medication management for depression and psychotic symptoms Hospital course: 10/22 Patient endorses history of paranoid thinking is how he consistently thinks people are following him, cars are following him; people are hacking into his phone and know where he is and thus the same car will go back and forth watching him. When he was staying at a friend's house He thinks that his friend put a camera in the bathroom because his friend would make a comment about something that happened in the bathroom... Otherwise how would he know. Again reviewed history of manoj and patient endorses what may be a very mild, possibly manic episodes, but more likely just hypervigilance from PTSD and paranoid. -Discussed medication and patient agrees to increase Seroquel since he has demonstrated he tolerates this medicine and continues to have paranoid ideations and this is also used for bipolar depression, augmentation of unipolar depression and a mood stabilizer. -proceed with cross titration from methadone to Suboxone; CSS program 10/25 did not sleep last night after seroquel dc'd; Been having odd dreams lately. still intermittent AH but says they are friends and mostly helpful; intermittently seeing things out of corner of eye, shadows, like people peeing in the room. He says this is chronic and started in childhood. -discussed medications further; says seroquel has always caused dry nose/mouth which bothers him, but tolerated since helpful. Has had some trouble sleeping but more likely due to prolonged withdrawal from polysubstance abuse. AFter more discussion wants to try a new medication since Seroquel has only been partially helpful. -will switch to Risperda. So far have not concluded that pt has manic episodes and thus not necessarily trying to treat bipolar depression, however will keep this in mind 10/26 Patient feeling much better today. Depression and anxiety much improved. He is dressed, showered, shaved and out about in the milieu, attending groups, socializing, appropriate with peers and staff. Proactive in pursuing aftercare. -Still trouble sleeping and agrees to try mirtazapine since it also helps with PTSD/depression and avoids antipsychotic side effects. Trazodone not very helpful -Discussed Suboxone titration. Wants to be on Suboxone which he found very helpful in the past; just wants to slow down the cross titration. Plan: CV Q15 minute checks START Remeron 7.5mg qhs (for sleep and depression/ptsd) START Clonidine 0.1mg qhs Continue Rispderdal 2mg BID DC Seroquel dc thorazine started on weekend Continue clonidine 0.1 mg t.i.d; will make this prn Continue gabapentin 200 mg t.i.d. patient uses for anxiety Will consider Wellbutrin for depression; although seems less likely patient does have bipolar disorder, this medication is least likely to trigger a manic episode Continue methadone 80 mg daily, last dose 10/30; patient asks for cross titration to Suboxone Methadone to Suboxone using Micro Suboxone titration: on 10/26 suboxone 2mg Bid (plus methadone dose); normally would start 4mg BID but pt felt chills so slow titration a bit on 10/27 suboxone 2mg bid (plus methadone dose) on 10/28 suboxone 4mg bid (plus methadone dose) on 10/29 suboxone 4mg bid (plus methadone dose) on 10/30 suboxone 8mg and 4mg (LAST methadone dose) on 10/31 suboxone 8mg Bid (NO METHADONE ) Patient educated on: diagnosis, medication risk/benefits, substance abuse and therapeutic strategies Informed Consent: understands Reason for continued inpatient stay Substantial Risk for: rapid decompensation Time Spent With Patient Time: Total time managing care of this patient today ____ minutes.
--- NOTE | 2023-10-26 12:22 | PC.NURSE ---
suboxone not administered within 30min due to ongoing discharges and admissions.
[2023-10-26] MEDS: Buprenorphine/Naloxone 2/0.5mg TAB.SUBL 1 TAB SUBLINGUAL ×2 (12:28→20:30)
[2023-10-26 12:30] VITALS: BP 133/72; O2SAT 98
[2023-10-26 16:21] VITALS: BP 150/75; PULSE 98; RESP 16; TEMP 36.8; O2SAT 97
[2023-10-26 17:40] VITALS: BP 135/72; PULSE 99
[2023-10-26] MEDS: Mirtazapine 7.5 MG TABLET PO (19:40)
[2023-10-26] MEDS: traZODone HCL 50 MG TABLET PO (19:41)
[2023-10-26 19:45] VITALS: BP 138/79; PULSE 99
[2023-10-27] MEDS: cloNIDine HCL 0.1 MG TABLET PO ×4 (04:13→18:08)
[2023-10-27 04:14] VITALS: BP 128/67; PULSE 97; RESP 16
[2023-10-27 08:08] VITALS: BP 109/62; PULSE 71; RESP 16; TEMP 36.3; O2SAT 97
[2023-10-27] MEDS: risperiDONE 2 MG TABLET PO ×2 (08:21→19:50)
[2023-10-27] MEDS: methADONE HCl 20 MG/2 ML ORAL.CONC 80 MG PO (08:21)
[2023-10-27] MEDS: Gabapentin 100 MG CAPSULE 200 MG PO ×3 (08:21→19:49)
[2023-10-27] MEDS: Buprenorphine/Naloxone 2/0.5mg TAB.SUBL 1 TAB SUBLINGUAL ×2 (08:21→19:49)
--- NOTE | 2023-10-27 09:51 | HO.PSYCHPN ---
Subjective Subjective Date of Service: 10/27/23 Reason For Visit: Depression/SI Interim History: met with patient; discussed with team He remains engaged in treatment, engaged in groups, appropriate with peers and staff, friendly and in good behavioral and impulse control. Patient reports doing well, feeling much better. Feels helped by groups and encouraged that his mood is good and he is without paranoia/AH. Still has much trouble sleeping and wants to get back on Seroquel 200 mg q.h.s., lower than previous home dose but hoping it will help with sleep. 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 Mental Status Exam Mental Status Exam Narrative: Pt is alert and oriented; behavior is cooperative, friendly and calm; patient is not in distress; dressed in casual attire, well groomed; mood is described as good and affect congruent, brighter; eye contact appropriate; Speech is normal rate, volume and prosody and not pressured; no psychomotor agitation/retardation present; thought process is organized and goal directed; Thought content is on tx, aftercare options and sobriety; otherwise pertinent to relevant topics and without any delusional content, paranoid ideations or grandiosity; denies any SI/HI. No AVH. Patients insight and judgment fair Diagnostics Vital Signs (24Hr): Vital Signs - 24 hr 10/26/23 12:30 10/26/23 16:21 10/26/23 17:40 Temperature 98.2 F Pulse Rate 98 99 Respiratory Rate 16 Blood Pressure 133/72 150/75 H 135/72 Pulse Oximetry 98 97 Oxygen Delivery Method Room Air Room Air 10/26/23 19:45 10/27/23 04:14 10/27/23 08:08 Temperature 97.3 F Pulse Rate 99 97 71 Respiratory Rate 16 16 Blood Pressure 138/79 128/67 109/62 Pulse Oximetry 97 Oxygen Delivery Method Room Air BMI result Body Mass Index 31.4 Labs 10/17/23 18:21 10/17/23 18:21 Medications Medications Current Medications Acetaminophen (Acetaminophen 325 Mg Tablet) 650 mg PO Q6H PRN PRN Reason: Headache/Pain Mild Scale (1-3) Al Hydroxide/Mg Hydroxide (Magnesium Hydrox/Alum Hydrox 30 Ml Oral.Susp) 30 ml PO Q6H PRN PRN Reason: Heartburn/Nausea Buprenorphine/Naloxone (Buprenorphine/Naloxone 2/0.5mg Tab.Subl) 1 tab SUBLINGUAL BID [facility] Stop: 10/27/23 23:50 Last Admin: 10/27/23 08:21 Dose: 1 tab Buprenorphine/Naloxone (Buprenorphine/Naloxone 4/1 Mg Film) 1 film SUBLINGUAL BID [facility] Stop: 10/29/23 23:50 Buprenorphine/Naloxone (Buprenorphine/Naloxone 8/2 Mg Film) 1 film SUBLINGUAL DAILY [facility] Stop: 10/30/23 13:00 Buprenorphine/Naloxone (Buprenorphine/Naloxone 4/1 Mg Film) 1 film SUBLINGUAL ONCE ONE Stop: 10/30/23 21:01 Buprenorphine/Naloxone (Buprenorphine/Naloxone 8/2 Mg Tab.Subl) 1 tab SUBLINGUAL BID [facility] Clonidine HCl (Clonidine Hcl 0.1 Mg Tablet) 0.1 mg PO TID PRN; Protocol PRN Reason: anxiety Last Admin: 10/27/23 04:13 Dose: 0.1 mg Clonidine HCl (Clonidine Hcl 0.1 Mg Tablet) 0.1 mg PO BEDTIME [facility]; Protocol Last Admin: 10/26/23 19:41 Dose: 0.1 mg Gabapentin (Gabapentin 100 Mg Capsule) 200 mg PO TID [facility] Last Admin: 10/27/23 08:21 Dose: 200 mg Hydroxyzine HCl (Hydroxyzine Hcl 25 Mg Tablet) 25 mg PO Q6H PRN PRN Reason: Anxiety Last Admin: 10/26/23 14:52 Dose: 25 mg Magnesium Hydroxide (Milk Of Magnesia 30 Ml Oral.Susp) 30 ml PO DAILY PRN PRN Reason: Constipation Methadone HCl (Methadone Hcl 20 Mg/2 Ml Oral.Conc) 80 mg PO DAILY [facility] Stop: 10/30/23 23:50 Last Admin: 10/27/23 08:21 Dose: 80 mg Mirtazapine (Mirtazapine 7.5 Mg Tablet) 7.5 mg PO BEDTIME [facility] Last Admin: 10/26/23 19:40 Dose: 7.5 mg Nicotine (Nicotine 21 Mg Patch.Td24) 21 mg TRANSDERMA DAILY PRN PRN Reason: smoking cessation Nicotine Polacrilex (Nicotine Polacrilex 2 Mg Gum) 4 mg BUCCAL Q2H PRN PRN Reason: Nicotine Cravings Ondansetron HCl (Ondansetron Odt 4 Mg Tab.Rapdis) 4 mg TRANSLINGU Q6H PRN PRN Reason: Nausea and Vomiting Risperidone (Risperidone 2 Mg Tablet) 2 mg PO BID [facility] Last Admin: 10/27/23 08:21 Dose: 2 mg Sodium Chloride (Sodium Chloride 0.65 % Nasal 44 Ml Sprbtl) 1 spray NOSTRIL-B Q1H PRN PRN Reason: dry nasal passages Trazodone HCl (Trazodone Hcl 50 Mg Tablet) 50 mg PO BEDTIME MRX1 PRN PRN Reason: Insomnia Last Admin: 10/26/23 19:41 Dose: 50 mg Allergies Allergies Allergy/AdvReac Type Severity Reaction Status Date / Time No Known Allergies Allergy Verified 05/03/23 14:43 Assessment & Plan Assessment & Plan (1) Schizoaffective disorder, depressive type: Status: Acute Code(s): F25.1 - Schizoaffective disorder, depressive type (2) PTSD (post-traumatic stress disorder): Status: Acute Code(s): F43.10 - Post-traumatic stress disorder, unspecified (3) Opioid use disorder: Status: Acute Code(s): F11.90 - Opioid use, unspecified, uncomplicated (4) Cocaine use disorder: Status: Acute Code(s): F14.10 - Cocaine abuse, uncomplicated Plan pt is a 38 yo male with hx of PTSD, depression, reportedly bipolar or schizoaffective disorder (though not concluded), history of incarceration, axis 2 traits, opioid and cocaine use disorder, on methadone, who presents with depression and SI with recent overdose attempt in the face of ongoing substance abuse and psychosocial stressors. Patient reports that he was sober for about 9 months until he lost his housing, got depressed and triggered and relapsed and has been using for the past 2 months. Patient said he was working but due to seasonal layoffs, was laid off around [place] time and patient sunk into deeper depression. Patient reports he has been homeless for the past several weeks and feeling hopeless, despite continuing to take Wellbutrin and Seroquel. He reports in a moment of despair he intentionally tried to overdose last week however he woke up fine. Patient expresses pessimism about life in general but currently not suicidal; says he does not like people... life is a joke. Patient reports he has a diagnosis bipolar disorder however he describes his manic symptoms as just emotional reactivity which resolve on their own and last no longer than an hour; no discrete episodes. He reports AH but is a little vague about details; he said as a kid he heard voices; he said with Seroquel it is less. Patient endorses long history of trauma with ongoing PTSD symptoms including flashbacks, hypervigilance. Patient is open to medication management for depression; wants to get on Suboxone. Impression: Patient depressed, chronic PTSD symptoms all worsened by substance abuse. Although patient reports bipolar disorder, his reported history does not include any manic episodes. Upon further clarification patient does have baseline paranoid thinking which seemed to be present even independent of depression, emotional stress or intoxication/withdrawal; hx of some mild intermittent AH. Change diagnosis to schizoaffective disorder depressive type Patient agrees to medication management for depression and psychotic symptoms Hospital course: 10/22 Patient endorses history of paranoid thinking is how he consistently thinks people are following him, cars are following him; people are hacking into his phone and know where he is and thus the same car will go back and forth watching him. When he was staying at a friend's house He thinks that his friend put a camera in the bathroom because his friend would make a comment about something that happened in the bathroom... Otherwise how would he know. Again reviewed history of manoj and patient endorses what may be a very mild, possibly manic episodes, but more likely just hypervigilance from PTSD and paranoid. -Discussed medication and patient agrees to increase Seroquel since he has demonstrated he tolerates this medicine and continues to have paranoid ideations and this is also used for bipolar depression, augmentation of unipolar depression and a mood stabilizer. -proceed with cross titration from methadone to Suboxone; CSS program 10/25 did not sleep last night after seroquel dc'd; Been having odd dreams lately. still intermittent AH but says they are friends and mostly helpful; intermittently seeing things out of corner of eye, shadows, like people peeing in the room. He says this is chronic and started in childhood. -discussed medications further; says seroquel has always caused dry nose/mouth which bothers him, but tolerated since helpful. Has had some trouble sleeping but more likely due to prolonged withdrawal from polysubstance abuse. AFter more discussion wants to try a new medication since Seroquel has only been partially helpful. -will switch to Risperda. So far have not concluded that pt has manic episodes and thus not necessarily trying to treat bipolar depression, however will keep this in mind 10/26 Patient feeling much better today. Depression and anxiety much improved. He is dressed, showered, shaved and out about in the milieu, attending groups, socializing, appropriate with peers and staff. Proactive in pursuing aftercare. -Still trouble sleeping and agrees to try mirtazapine since it also helps with PTSD/depression and avoids antipsychotic side effects. Trazodone not very helpful -Discussed Suboxone titration. Wants to be on Suboxone which he found very helpful in the past; just wants to slow down the cross titration. 10/27 remains doing well, good mood, no AVH, engaged, good behavioral impulse control, interactive in groups. Still very poor sleep and wants to try Seroquel again, although at a lower dose. Reviewed risks/side effects of being on 2 antipsychotics and patient feels that potential benefit is worth the risk. Plan: CV Q15 minute checks Restart Seroquel 200mg qhs for sleep (dc remeron since not help and pt already in good mood) Clonidine 0.1mg q4h prn Continue Rispderdal 2mg BID dc thorazine started on Continue gabapentin 200 mg t.i.d. patient uses for anxiety Continue methadone 80 mg daily, last dose 10/30; patient asks for cross titration to Suboxone Methadone to Suboxone using Micro Suboxone titration: on 10/26 suboxone 2mg Bid (plus methadone dose); normally would start 4mg BID but pt felt chills so slow titration a bit on 10/27 suboxone 2mg bid (plus methadone dose) on 10/28 suboxone 4mg bid (plus methadone dose) on 10/29 suboxone 4mg bid (plus methadone dose) on 10/30 suboxone 8mg and 4mg (LAST methadone dose) on 10/31 suboxone 8mg Bid (NO METHADONE ) Patient educated on: diagnosis, medication risk/benefits, substance abuse and therapeutic strategies Informed Consent: understands Reason for continued inpatient stay Substantial Risk for: stable for discharge Time Spent With Patient Time: Total time managing care of this patient today ____ minutes.
[2023-10-27] MEDS: Sodium Chloride 0.65 % Nasal 44 ML SPRBTL 1 SPRAY NOSTRIL-B ×2 (11:03→15:24)
[2023-10-27] MEDS: hydrOXYzine HCL 25 MG TABLET PO (12:14)
[2023-10-27 13:22] VITALS: BP 132/86
[2023-10-27 16:46] VITALS: BP 122/64; PULSE 85; RESP 16; TEMP 36.4; O2SAT 95
[2023-10-27] MEDS: QUEtiapine Fumarate 200 MG TABLET PO (19:49)
[2023-10-27] MEDS: traZODone HCL 50 MG TABLET PO ×2 (22:12→23:13)
--- NOTE | 2023-10-27 23:38 | PC.NURSE ---
pt signed a 3day notice on 10/27/23, up on 11/01/23. Provider, FREDDY, UR notified via voicemail
[2023-10-28] MEDS: Gabapentin 100 MG CAPSULE 200 MG PO ×3 (08:49→19:30)
[2023-10-28] MEDS: risperiDONE 2 MG TABLET PO ×2 (08:49→19:30)
[2023-10-28] MEDS: Buprenorphine/Naloxone 4/1 mg FILM 1 FILM SUBLINGUAL ×2 (08:50→19:30)
[2023-10-28 08:56] VITALS: BP 119/73; PULSE 69; RESP 18; TEMP 36.9; O2SAT 97
[2023-10-28] MEDS: methADONE HCl 20 MG/2 ML ORAL.CONC 80 MG PO (09:48)
[2023-10-28] MEDS: cloNIDine HCL 0.1 MG TABLET PO ×3 (13:15→20:38)
[2023-10-28 13:16] VITALS: BP 136/74; PULSE 124
[2023-10-28] MEDS: Sodium Chloride 0.65 % Nasal 44 ML SPRBTL 1 SPRAY NOSTRIL-B (13:56)
[2023-10-28 16:54] VITALS: BP 134/74; PULSE 108
[2023-10-28 17:39] VITALS: BP 134/71; PULSE 104; RESP 18; TEMP 36.8; O2SAT 97
[2023-10-28] MEDS: hydrOXYzine HCL 25 MG TABLET PO (18:06)
[2023-10-28] MEDS: traZODone HCL 50 MG TABLET PO ×2 (19:30→20:38)
[2023-10-28] MEDS: QUEtiapine Fumarate 200 MG TABLET PO (19:30)
[2023-10-29] MEDS: risperiDONE 2 MG TABLET PO ×2 (08:49→20:54)
[2023-10-29] MEDS: Gabapentin 100 MG CAPSULE 200 MG PO ×3 (08:49→20:54)
[2023-10-29] MEDS: methADONE HCl 20 MG/2 ML ORAL.CONC 80 MG PO (09:11)
[2023-10-29 09:21] VITALS: BP 114/55; PULSE 69; RESP 16; TEMP 36.2; O2SAT 97
--- NOTE | 2023-10-29 09:25 | HO.PSYCHPN ---
Subjective Subjective Date of Service: 10/29/23 Reason For Visit: Depression/SI Interim History: Late entry note for patient seen on 10/28/2023 Mood is good; Slept much better last night on Seroquel 200 mg and despite the increased risk of med side effect, wants to remain on both Seroquel and Risperdal.? Will consider long-acting. Patient very much wants to get into a program but says it is hard remaining on the unit, especially given the significantly increased acuity that has developed over the past few days.? That said patient feels that going to a program will help with his stability and sobriety and is willing to remain longer, a very much hoping to get in. Still anxiety throughout the day; utilizing PRNs Mental Status Exam Mental Status Exam Narrative: Pt is alert and oriented; behavior is cooperative, friendly and calm; patient is not in distress; dressed in casual attire, well groomed; mood is described as good and affect congruent, brighter; eye contact appropriate; Speech is normal rate, volume and prosody and not pressured; no psychomotor agitation/retardation present; thought process is organized and goal directed; Thought content is on tx, aftercare options and sobriety; otherwise pertinent to relevant topics and without any delusional content, paranoid ideations or grandiosity; denies any SI/HI. No AVH. Patients insight and judgment fair Diagnostics Vital Signs (24Hr): Vital Signs - 24 hr 10/28/23 13:16 10/28/23 16:54 10/28/23 17:39 Temperature 98.2 F Pulse Rate 124 H 108 H 104 H Respiratory Rate 18 Blood Pressure 136/74 134/74 134/71 Pulse Oximetry 97 Oxygen Delivery Method Room Air 10/29/23 09:21 Temperature 97.2 F Pulse Rate 69 Respiratory Rate 16 Blood Pressure 114/55 L Pulse Oximetry 97 Oxygen Delivery Method Room Air BMI result Body Mass Index 31.4 Labs 10/17/23 18:21 10/17/23 18:21 Medications Medications Current Medications Acetaminophen (Acetaminophen 325 Mg Tablet) 650 mg PO Q6H PRN PRN Reason: Headache/Pain Mild Scale (1-3) Al Hydroxide/Mg Hydroxide (Magnesium Hydrox/Alum Hydrox 30 Ml Oral.Susp) 30 ml PO Q6H PRN PRN Reason: Heartburn/Nausea Buprenorphine/Naloxone (Buprenorphine/Naloxone 4/1 Mg Film) 1 film SUBLINGUAL BID [facility] Stop: 10/29/23 23:50 Last Admin: 10/29/23 08:51 Dose: Not Given Buprenorphine/Naloxone (Buprenorphine/Naloxone 8/2 Mg Film) 1 film SUBLINGUAL DAILY [facility] Stop: 10/30/23 13:00 Buprenorphine/Naloxone (Buprenorphine/Naloxone 4/1 Mg Film) 1 film SUBLINGUAL ONCE ONE Stop: 10/30/23 21:01 Last Admin: 10/28/23 19:30 Dose: 1 film Buprenorphine/Naloxone (Buprenorphine/Naloxone 8/2 Mg Tab.Subl) 1 tab SUBLINGUAL BID [facility] Clonidine HCl (Clonidine Hcl 0.1 Mg Tablet) 0.1 mg PO Q4H PRN; Protocol PRN Reason: anxiety Last Admin: 10/28/23 20:38 Dose: 0.1 mg Gabapentin (Gabapentin 100 Mg Capsule) 200 mg PO TID [facility] Last Admin: 10/29/23 08:49 Dose: 200 mg Hydroxyzine HCl (Hydroxyzine Hcl 25 Mg Tablet) 25 mg PO Q6H PRN PRN Reason: Anxiety Last Admin: 10/28/23 18:06 Dose: 25 mg Magnesium Hydroxide (Milk Of Magnesia 30 Ml Oral.Susp) 30 ml PO DAILY PRN PRN Reason: Constipation Methadone HCl (Methadone Hcl 20 Mg/2 Ml Oral.Conc) 80 mg PO DAILY [facility] Stop: 10/30/23 23:50 Last Admin: 10/29/23 09:11 Dose: 80 mg Nicotine (Nicotine 21 Mg Patch.Td24) 21 mg TRANSDERMA DAILY PRN PRN Reason: smoking cessation Nicotine Polacrilex (Nicotine Polacrilex 2 Mg Gum) 4 mg BUCCAL Q2H PRN PRN Reason: Nicotine Cravings Ondansetron HCl (Ondansetron Odt 4 Mg Tab.Rapdis) 4 mg TRANSLINGU Q6H PRN PRN Reason: Nausea and Vomiting Quetiapine Fumarate (Quetiapine Fumarate 200 Mg Tablet) 200 mg PO BEDTIME [facility] Last Admin: 10/28/23 19:30 Dose: 200 mg Risperidone (Risperidone 2 Mg Tablet) 2 mg PO BID [facility] Last Admin: 10/29/23 08:49 Dose: 2 mg Sodium Chloride (Sodium Chloride 0.65 % Nasal 44 Ml Sprbtl) 1 spray NOSTRIL-B Q1H PRN PRN Reason: dry nasal passages Last Admin: 10/28/23 13:56 Dose: 1 spray Trazodone HCl (Trazodone Hcl 50 Mg Tablet) 50 mg PO BEDTIME MRX1 PRN PRN Reason: Insomnia Last Admin: 10/28/23 20:38 Dose: 50 mg Allergies Allergies Allergy/AdvReac Type Severity Reaction Status Date / Time No Known Allergies Allergy Verified 05/03/23 14:43 Assessment & Plan Assessment & Plan (1) Schizoaffective disorder, depressive type: Status: Acute Code(s): F25.1 - Schizoaffective disorder, depressive type (2) PTSD (post-traumatic stress disorder): Status: Acute Code(s): F43.10 - Post-traumatic stress disorder, unspecified (3) Opioid use disorder: Status: Acute Code(s): F11.90 - Opioid use, unspecified, uncomplicated (4) Cocaine use disorder: Status: Acute Code(s): F14.10 - Cocaine abuse, uncomplicated Plan pt is a 38 yo male with hx of PTSD, depression, reportedly bipolar or schizoaffective disorder (though not concluded), history of incarceration, axis 2 traits, opioid and cocaine use disorder, on methadone, who presents with depression and SI with recent overdose attempt in the face of ongoing substance abuse and psychosocial stressors. Patient reports that he was sober for about 9 months until he lost his housing, got depressed and triggered and relapsed and has been using for the past 2 months. Patient said he was working but due to seasonal layoffs, was laid off around [place] time and patient sunk into deeper depression. Patient reports he has been homeless for the past several weeks and feeling hopeless, despite continuing to take Wellbutrin and Seroquel. He reports in a moment of despair he intentionally tried to overdose last week however he woke up fine. Patient expresses pessimism about life in general but currently not suicidal; says he does not like people... life is a joke. Patient reports he has a diagnosis bipolar disorder however he describes his manic symptoms as just emotional reactivity which resolve on their own and last no longer than an hour; no discrete episodes. He reports AH but is a little vague about details; he said as a kid he heard voices; he said with Seroquel it is less. Patient endorses long history of trauma with ongoing PTSD symptoms including flashbacks, hypervigilance. Patient is open to medication management for depression; wants to get on Suboxone. Impression: Patient depressed, chronic PTSD symptoms all worsened by substance abuse. Although patient reports bipolar disorder, his reported history does not include any manic episodes. Upon further clarification patient does have baseline paranoid thinking which seemed to be present even independent of depression, emotional stress or intoxication/withdrawal; hx of some mild intermittent AH. Change diagnosis to schizoaffective disorder depressive type Patient agrees to medication management for depression and psychotic symptoms Hospital course: 10/22 Patient endorses history of paranoid thinking is how he consistently thinks people are following him, cars are following him; people are hacking into his phone and know where he is and thus the same car will go back and forth watching him. When he was staying at a friend's house He thinks that his friend put a camera in the bathroom because his friend would make a comment about something that happened in the bathroom... Otherwise how would he know. Again reviewed history of manoj and patient endorses what may be a very mild, possibly manic episodes, but more likely just hypervigilance from PTSD and paranoid. -Discussed medication and patient agrees to increase Seroquel since he has demonstrated he tolerates this medicine and continues to have paranoid ideations and this is also used for bipolar depression, augmentation of unipolar depression and a mood stabilizer. -proceed with cross titration from methadone to Suboxone; [facility] program 10/25 did not sleep last night after seroquel dc'd; Been having odd dreams lately. still intermittent AH but says they are friends and mostly helpful; intermittently seeing things out of corner of eye, shadows, like people peeing in the room. He says this is chronic and started in childhood. -discussed medications further; says seroquel has always caused dry nose/mouth which bothers him, but tolerated since helpful. Has had some trouble sleeping but more likely due to prolonged withdrawal from polysubstance abuse. AFter more discussion wants to try a new medication since Seroquel has only been partially helpful. -will switch to Risperda. So far have not concluded that pt has manic episodes and thus not necessarily trying to treat bipolar depression, however will keep this in mind 10/26 Patient feeling much better today. Depression and anxiety much improved. He is dressed, showered, shaved and out about in the milieu, attending groups, socializing, appropriate with peers and staff. Proactive in pursuing aftercare. -Still trouble sleeping and agrees to try mirtazapine since it also helps with PTSD/depression and avoids antipsychotic side effects. Trazodone not very helpful -Discussed Suboxone titration. Wants to be on Suboxone which he found very helpful in the past; just wants to slow down the cross titration. 10/27 remains doing well, good mood, no AVH, engaged, good behavioral impulse control, interactive in groups. Still very poor sleep and wants to try Seroquel again, although at a lower dose. Reviewed risks/side effects of being on 2 antipsychotics and patient feels that potential benefit is worth the risk. 10/28 He remains engaged in treatment, engaged in groups, appropriate with peers and staff, friendly and in good behavioral and impulse control. Sleeping much better with Seroquel so will continue. Feeling a little triggered by recently increased acuity on the unit but will remain hoping to get into program soon -patient continues to complain of anxiety. Although medication adjustments have been very helpful, he does have significant trauma history with PTSD and currently there is nothing on board for that. Trying to avoid polypharmacy but patient might benefit from SSRI/SNRI Plan: CV Q15 minute checks Restart Seroquel 200mg qhs for sleep (dc remeron since not help and pt already in good mood) Clonidine 0.1mg q4h prn Continue Rispderdal 2mg BID dc thorazine started on weekend Continue gabapentin 200 mg t.i.d. patient uses for anxiety Continue methadone 80 mg daily, last dose 10/30; patient asks for cross titration to Suboxone Methadone to Suboxone using Micro Suboxone titration: on 10/26 suboxone 2mg Bid (plus methadone dose); normally would start 4mg BID but pt felt chills so slow titration a bit on 10/27 suboxone 2mg bid (plus methadone dose) on 10/28 suboxone 4mg bid (plus methadone dose) on 10/29 suboxone 4mg bid (plus methadone dose) on 10/30 suboxone 8mg and 4mg (LAST methadone dose) on 10/31 suboxone 8mg Bid (NO METHADONE ) Patient educated on: diagnosis, medication risk/benefits and therapeutic strategies Informed Consent: understands Reason for continued inpatient stay Substantial Risk for: stable for discharge Time Spent With Patient Time: Total time managing care of this patient today ____ minutes.
[2023-10-29] MEDS: Buprenorphine/Naloxone 4/1 mg FILM 1 FILM SUBLINGUAL ×2 (09:26→20:55)
--- NOTE | 2023-10-29 09:28 | HO.PSYCHPN ---
Subjective Subjective Date of Service: 10/29/23 Reason For Visit: Depression/SI Interim History: Met with patient; discussed with team -pt doing well, good mood, hopeful, no AVH. Remains very engaged, helpful, appropriate -eager for program; grateful for suboxone and wants to get on Sublicade. 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 -Pt very forthcoming; talked about years of trauma starting in childhood and struggles with flashbacks; engaged in CBT exercise which resonated with patient; evident he is already utilizing CBT-type coping skills on his own. -regarding ongoing anxiety, discussed how med regimen does not include much to help w/ PTSD or specifically anxiety; reviewed risks/side-effects and pt agrees to trial of Lexapro Mental Status Exam Mental Status Exam Narrative: Pt is alert and oriented; behavior is cooperative, friendly and calm; patient is not in distress; dressed in casual attire, well groomed; mood is described as good and affect congruent, brighter; eye contact appropriate; Speech is normal rate, volume and prosody and not pressured; no psychomotor agitation/retardation present; thought process is organized and goal directed; Thought content is on tx, aftercare options and sobriety; otherwise pertinent to relevant topics and without any delusional content, paranoid ideations or grandiosity; denies any SI/HI. No AVH. Patients insight and judgment fair Diagnostics Vital Signs (24Hr): Vital Signs - 24 hr 10/28/23 13:16 10/28/23 16:54 10/28/23 17:39 Temperature 98.2 F Pulse Rate 124 H 108 H 104 H Respiratory Rate 18 Blood Pressure 136/74 134/74 134/71 Pulse Oximetry 97 Oxygen Delivery Method Room Air 10/29/23 09:21 Temperature 97.2 F Pulse Rate 69 Respiratory Rate 16 Blood Pressure 114/55 L Pulse Oximetry 97 Oxygen Delivery Method Room Air BMI result Body Mass Index 31.4 Labs 10/17/23 18:21 10/17/23 18:21 Medications Medications Current Medications Acetaminophen (Acetaminophen 325 Mg Tablet) 650 mg PO Q6H PRN PRN Reason: Headache/Pain Mild Scale (1-3) Al Hydroxide/Mg Hydroxide (Magnesium Hydrox/Alum Hydrox 30 Ml Oral.Susp) 30 ml PO Q6H PRN PRN Reason: Heartburn/Nausea Buprenorphine/Naloxone (Buprenorphine/Naloxone 4/1 Mg Film) 1 film SUBLINGUAL BID [facility] Stop: 10/29/23 23:50 Last Admin: 10/29/23 09:26 Dose: 1 film Buprenorphine/Naloxone (Buprenorphine/Naloxone 8/2 Mg Film) 1 film SUBLINGUAL DAILY [facility] Stop: 10/30/23 13:00 Buprenorphine/Naloxone (Buprenorphine/Naloxone 4/1 Mg Film) 1 film SUBLINGUAL ONCE ONE Stop: 10/30/23 21:01 Last Admin: 10/28/23 19:30 Dose: 1 film Buprenorphine/Naloxone (Buprenorphine/Naloxone 8/2 Mg Tab.Subl) 1 tab SUBLINGUAL BID [facility] Clonidine HCl (Clonidine Hcl 0.1 Mg Tablet) 0.1 mg PO Q4H PRN; Protocol PRN Reason: anxiety Last Admin: 10/28/23 20:38 Dose: 0.1 mg Gabapentin (Gabapentin 100 Mg Capsule) 200 mg PO TID [facility] Last Admin: 10/29/23 08:49 Dose: 200 mg Hydroxyzine HCl (Hydroxyzine Hcl 25 Mg Tablet) 25 mg PO Q6H PRN PRN Reason: Anxiety Last Admin: 10/28/23 18:06 Dose: 25 mg Magnesium Hydroxide (Milk Of Magnesia 30 Ml Oral.Susp) 30 ml PO DAILY PRN PRN Reason: Constipation Methadone HCl (Methadone Hcl 20 Mg/2 Ml Oral.Conc) 80 mg PO DAILY [facility] Stop: 10/30/23 23:50 Last Admin: 10/29/23 09:11 Dose: 80 mg Nicotine (Nicotine 21 Mg Patch.Td24) 21 mg TRANSDERMA DAILY PRN PRN Reason: smoking cessation Nicotine Polacrilex (Nicotine Polacrilex 2 Mg Gum) 4 mg BUCCAL Q2H PRN PRN Reason: Nicotine Cravings Ondansetron HCl (Ondansetron Odt 4 Mg Tab.Rapdis) 4 mg TRANSLINGU Q6H PRN PRN Reason: Nausea and Vomiting Quetiapine Fumarate (Quetiapine Fumarate 200 Mg Tablet) 200 mg PO BEDTIME [facility] Last Admin: 10/28/23 19:30 Dose: 200 mg Risperidone (Risperidone 2 Mg Tablet) 2 mg PO BID [facility] Last Admin: 10/29/23 08:49 Dose: 2 mg Sodium Chloride (Sodium Chloride 0.65 % Nasal 44 Ml Sprbtl) 1 spray NOSTRIL-B Q1H PRN PRN Reason: dry nasal passages Last Admin: 10/28/23 13:56 Dose: 1 spray Trazodone HCl (Trazodone Hcl 50 Mg Tablet) 50 mg PO BEDTIME MRX1 PRN PRN Reason: Insomnia Last Admin: 10/28/23 20:38 Dose: 50 mg Allergies Allergies Allergy/AdvReac Type Severity Reaction Status Date / Time No Known Allergies Allergy Verified 05/03/23 14:43 Assessment & Plan Assessment & Plan (1) Schizoaffective disorder, depressive type: Status: Acute Code(s): F25.1 - Schizoaffective disorder, depressive type (2) PTSD (post-traumatic stress disorder): Status: Acute Code(s): F43.10 - Post-traumatic stress disorder, unspecified (3) Opioid use disorder: Status: Acute Code(s): F11.90 - Opioid use, unspecified, uncomplicated (4) Cocaine use disorder: Status: Acute Code(s): F14.10 - Cocaine abuse, uncomplicated Plan pt is a 38 yo male with hx of PTSD, depression, reportedly bipolar or schizoaffective disorder (though not concluded), history of incarceration, axis 2 traits, opioid and cocaine use disorder, on methadone, who presents with depression and SI with recent overdose attempt in the face of ongoing substance abuse and psychosocial stressors. Patient reports that he was sober for about 9 months until he lost his housing, got depressed and triggered and relapsed and has been using for the past 2 months. Patient said he was working but due to seasonal layoffs, was laid off around [place] time and patient sunk into deeper depression. Patient reports he has been homeless for the past several weeks and feeling hopeless, despite continuing to take Wellbutrin and Seroquel. He reports in a moment of despair he intentionally tried to overdose last week however he woke up fine. Patient expresses pessimism about life in general but currently not suicidal; says he does not like people... life is a joke. Patient reports he has a diagnosis bipolar disorder however he describes his manic symptoms as just emotional reactivity which resolve on their own and last no longer than an hour; no discrete episodes. He reports AH but is a little vague about details; he said as a kid he heard voices; he said with Seroquel it is less. Patient endorses long history of trauma with ongoing PTSD symptoms including flashbacks, hypervigilance. Patient is open to medication management for depression; wants to get on Suboxone. Impression: Patient depressed, chronic PTSD symptoms all worsened by substance abuse. Although patient reports bipolar disorder, his reported history does not include any manic episodes. Upon further clarification patient does have baseline paranoid thinking which seemed to be present even independent of depression, emotional stress or intoxication/withdrawal; hx of some mild intermittent AH. Change diagnosis to schizoaffective disorder depressive type Patient agrees to medication management for depression and psychotic symptoms Hospital course: 10/22 Patient endorses history of paranoid thinking is how he consistently thinks people are following him, cars are following him; people are hacking into his phone and know where he is and thus the same car will go back and forth watching him. When he was staying at a friend's house He thinks that his friend put a camera in the bathroom because his friend would make a comment about something that happened in the bathroom... Otherwise how would he know. Again reviewed history of manoj and patient endorses what may be a very mild, possibly manic episodes, but more likely just hypervigilance from PTSD and paranoid. -Discussed medication and patient agrees to increase Seroquel since he has demonstrated he tolerates this medicine and continues to have paranoid ideations and this is also used for bipolar depression, augmentation of unipolar depression and a mood stabilizer. -proceed with cross titration from methadone to Suboxone; CSS program 10/25 did not sleep last night after seroquel dc'd; Been having odd dreams lately. still intermittent AH but says they are friends and mostly helpful; intermittently seeing things out of corner of eye, shadows, like people peeing in the room. He says this is chronic and started in childhood. -discussed medications further; says seroquel has always caused dry nose/mouth which bothers him, but tolerated since helpful. Has had some trouble sleeping but more likely due to prolonged withdrawal from polysubstance abuse. AFter more discussion wants to try a new medication since Seroquel has only been partially helpful. -will switch to Risperda. So far have not concluded that pt has manic episodes and thus not necessarily trying to treat bipolar depression, however will keep this in mind 10/26 Patient feeling much better today. Depression and anxiety much improved. He is dressed, showered, shaved and out about in the milieu, attending groups, socializing, appropriate with peers and staff. Proactive in pursuing aftercare. -Still trouble sleeping and agrees to try mirtazapine since it also helps with PTSD/depression and avoids antipsychotic side effects. Trazodone not very helpful -Discussed Suboxone titration. Wants to be on Suboxone which he found very helpful in the past; just wants to slow down the cross titration. 10/27 remains doing well, good mood, no AVH, engaged, good behavioral impulse control, interactive in groups. Still very poor sleep and wants to try Seroquel again, although at a lower dose. Reviewed risks/side effects of being on 2 antipsychotics and patient feels that potential benefit is worth the risk. 10/28 He remains engaged in treatment, engaged in groups, appropriate with peers and staff, friendly and in good behavioral and impulse control. Sleeping much better with Seroquel so will continue. Feeling a little triggered by recently increased acuity on the unit but will remain hoping to get into program soon -patient continues to complain of anxiety. Although medication adjustments have been very helpful, he does have significant trauma history with PTSD and currently there is nothing on board for that. Trying to avoid polypharmacy but patient might benefit from SSRI/SNRI 10/29 discussed hx of trauma and ptsd symptoms which is severe and extensive, starting in childhood. agrees to trial of Lexapro -otherwise remains doing well, engaged in treatment, good w/ peers and staff -would like to get on ROJO invega sustenna on 10/30 suboxone 8mg and 4mg (LAST methadone dose) on 10/31 suboxone 8mg Bid (NO METHADONE ) Plan: 3 day (says will retract; wants program) Q15 minute checks Continue Rispderdal 2mg BID START Invega Sustenna 234mg qmonth START Lexapro for anxiety/ptsd Conitnue Seroquel 200mg qhs for sleep Clonidine 0.1mg q4h prn Continue gabapentin 200 mg t.i.d. patient uses for anxiety will see if option for Sublicade Patient educated on: diagnosis, medication risk/benefits, substance abuse and therapeutic strategies Informed Consent: understands Reason for continued inpatient stay Substantial Risk for: stable for discharge Time Spent With Patient Time: Total time managing care of this patient today ____ minutes.
[2023-10-29] MEDS: cloNIDine HCL 0.1 MG TABLET PO ×2 (10:40→17:57)
[2023-10-29] MEDS: Sodium Chloride 0.65 % Nasal 44 ML SPRBTL 1 SPRAY NOSTRIL-B (10:40)
[2023-10-29 10:41] VITALS: BP 137/78; PULSE 110
[2023-10-29] MEDS: Escitalopram Oxalate 5 MG TABLET PO (12:52)
[2023-10-29] MEDS: Paliperidone Palmitate 234 MG/1.5 ML SYRINGE IM (14:34)
[2023-10-29 18:00] VITALS: BP 134/64; PULSE 98; RESP 16; TEMP 36.7; O2SAT 96
[2023-10-29] MEDS: Nicotine Polacrilex 2 MG GUM 4 MG BUCCAL (18:57)
[2023-10-29] MEDS: QUEtiapine Fumarate 200 MG TABLET PO (20:54)
[2023-10-29] MEDS: traZODone HCL 50 MG TABLET PO (20:54)
[2023-10-30] MEDS: cloNIDine HCL 0.1 MG TABLET PO ×3 (03:56→16:34)
[2023-10-30 03:57] VITALS: BP 141/63; PULSE 94; RESP 17
[2023-10-30 08:30] VITALS: BP 116/61; PULSE 71; RESP 18; TEMP 36.2; O2SAT 97
[2023-10-30] MEDS: Buprenorphine/Naloxone 8/2 mg FILM 1 FILM SUBLINGUAL (08:37)
[2023-10-30] MEDS: Gabapentin 100 MG CAPSULE 200 MG PO ×3 (08:37→20:40)
[2023-10-30] MEDS: methADONE HCl 20 MG/2 ML ORAL.CONC 80 MG PO (08:37)
[2023-10-30] MEDS: Escitalopram Oxalate 10 MG TABLET PO (08:37)
[2023-10-30] MEDS: risperiDONE 2 MG TABLET PO ×2 (08:37→20:40)
[2023-10-30 09:40] VITALS: BP 140/82; PULSE 97
--- NOTE | 2023-10-30 10:01 | P.PNPSI_ITS ---
Subjective Subjective Date of Service: 10/30/23 Reason For Visit: Depression/SI Subjective Notes: Conditional Voluntary and 3 Day Interim History: Patient was seen and discussed in rounds today. Records and plans were reviewed. He is somewhat withdrawn. He is medication compliant. Some social interactions with others. He is complaining of constipation and gas. Lactulose 30 mg b.i.d. for 3 days ordered. Eating and sleeping adequately. No other changes were made Review of Systems Review of Systems Constipation Yes all other systems are reviewed and are negative Diagnostics Vital Signs (24Hr): Vital Signs - 24 hr 10/29/23 10:41 10/29/23 18:00 10/30/23 03:57 Temperature 98.1 F Pulse Rate 110 H 98 94 Respiratory Rate 16 17 Blood Pressure 137/78 134/64 141/63 H Pulse Oximetry 96 Oxygen Delivery Method Room Air 10/30/23 08:30 10/30/23 09:40 Temperature 97.2 F Pulse Rate 71 97 Respiratory Rate 18 Blood Pressure 116/61 140/82 H Pulse Oximetry 97 Oxygen Delivery Method Room Air BMI result Body Mass Index 31.4 Labs 10/17/23 18:21 10/17/23 18:21 Medications Medications Current Medications Acetaminophen (Acetaminophen 325 Mg Tablet) 650 mg PO Q6H PRN PRN Reason: Headache/Pain Mild Scale (1-3) Al Hydroxide/Mg Hydroxide (Magnesium Hydrox/Alum Hydrox 30 Ml Oral.Susp) 30 ml PO Q6H PRN PRN Reason: Heartburn/Nausea Buprenorphine/Naloxone (Buprenorphine/Naloxone 8/2 Mg Film) 1 film SUBLINGUAL DAILY [facility] Stop: 10/30/23 13:00 Last Admin: 10/30/23 08:37 Dose: 1 film Buprenorphine/Naloxone (Buprenorphine/Naloxone 4/1 Mg Film) 1 film SUBLINGUAL ONCE ONE Stop: 10/30/23 21:01 Last Admin: 10/28/23 19:30 Dose: 1 film Buprenorphine/Naloxone (Buprenorphine/Naloxone 8/2 Mg Tab.Subl) 1 tab SUBLINGUAL BID [facility] Clonidine HCl (Clonidine Hcl 0.1 Mg Tablet) 0.1 mg PO Q4H PRN; Protocol PRN Reason: anxiety Last Admin: 10/30/23 09:38 Dose: 0.1 mg Escitalopram Oxalate (Escitalopram Oxalate 10 Mg Tablet) 10 mg PO DAILY [facility] Last Admin: 10/30/23 08:37 Dose: 10 mg Gabapentin (Gabapentin 100 Mg Capsule) 200 mg PO TID [facility] Last Admin: 10/30/23 08:37 Dose: 200 mg Hydroxyzine HCl (Hydroxyzine Hcl 25 Mg Tablet) 25 mg PO Q6H PRN PRN Reason: Anxiety Last Admin: 10/28/23 18:06 Dose: 25 mg Lactulose (Lactulose 20 Gm/30 Ml Solution) 30 gm PO BID [facility] Magnesium Hydroxide (Milk Of Magnesia 30 Ml Oral.Susp) 30 ml PO DAILY PRN PRN Reason: Constipation Methadone HCl (Methadone Hcl 20 Mg/2 Ml Oral.Conc) 80 mg PO DAILY [facility] Stop: 10/30/23 23:50 Last Admin: 10/30/23 08:37 Dose: 80 mg Nicotine (Nicotine 21 Mg Patch.Td24) 21 mg TRANSDERMA DAILY PRN PRN Reason: smoking cessation Nicotine Polacrilex (Nicotine Polacrilex 2 Mg Gum) 4 mg BUCCAL Q2H PRN PRN Reason: Nicotine Cravings Last Admin: 10/29/23 18:57 Dose: 4 mg Ondansetron HCl (Ondansetron Odt 4 Mg Tab.Rapdis) 4 mg TRANSLINGU Q6H PRN PRN Reason: Nausea and Vomiting Paliperidone Palmitate (Paliperidone Palmitate 156 Mg/Ml Syringe) 156 mg IM ONCE ONE Stop: 11/04/23 09:01 Quetiapine Fumarate (Quetiapine Fumarate 200 Mg Tablet) 200 mg PO BEDTIME [facility] Last Admin: 10/29/23 20:54 Dose: 200 mg Risperidone (Risperidone 2 Mg Tablet) 2 mg PO BID [facility] Last Admin: 10/30/23 08:37 Dose: 2 mg Sodium Chloride (Sodium Chloride 0.65 % Nasal 44 Ml Sprbtl) 1 spray NOSTRIL-B Q1H PRN PRN Reason: dry nasal passages Last Admin: 10/29/23 10:40 Dose: 1 spray Trazodone HCl (Trazodone Hcl 50 Mg Tablet) 50 mg PO BEDTIME MRX1 PRN PRN Reason: Insomnia Last Admin: 10/29/23 20:54 Dose: 50 mg Allergies Allergies Allergy/AdvReac Type Severity Reaction Status Date / Time No Known Allergies Allergy Verified 05/03/23 14:43 Assessment & Plan Assessment & Plan (1) Schizoaffective disorder, depressive type: Status: Acute Code(s): F25.1 - Schizoaffective disorder, depressive type (2) PTSD (post-traumatic stress disorder): Status: Acute Code(s): F43.10 - Post-traumatic stress disorder, unspecified (3) Opioid use disorder: Status: Acute Code(s): F11.90 - Opioid use, unspecified, uncomplicated (4) Cocaine use disorder: Status: Acute Code(s): F14.10 - Cocaine abuse, uncomplicated Plan pt is a 38 yo male with hx of PTSD, depression, reportedly bipolar or schizoaffective disorder (though not concluded), history of incarceration, axis 2 traits, opioid and cocaine use disorder, on methadone, who presents with depression and SI with recent overdose attempt in the face of ongoing substance abuse and psychosocial stressors. Patient reports that he was sober for about 9 months until he lost his housing, got depressed and triggered and relapsed and has been using for the past 2 months. Patient said he was working but due to seasonal layoffs, was laid off around [place] time and patient sunk into deeper depression. Patient reports he has been homeless for the past several weeks and feeling hopeless, despite continuing to take Wellbutrin and Seroquel. He reports in a moment of despair he intentionally tried to overdose last week however he woke up fine. Patient expresses pessimism about life in general but currently not suicidal; says he does not like people... life is a joke. Patient reports he has a diagnosis bipolar disorder however he describes his manic symptoms as just emotional reactivity which resolve on their own and last no longer than an hour; no discrete episodes. He reports AH but is a little vague about details; he said as a kid he heard voices; he said with Seroquel it is less. Patient endorses long history of trauma with ongoing PTSD symptoms including flashbacks, hypervigilance. Patient is open to medication management for depression; wants to get on Suboxone. Impression: Patient depressed, chronic PTSD symptoms all worsened by substance abuse. Although patient reports bipolar disorder, his reported history does not include any manic episodes. Upon further clarification patient does have baseline paranoid thinking which seemed to be present even independent of depression, emotional stress or intoxication/withdrawal; hx of some mild intermittent AH. Change diagnosis to schizoaffective disorder depressive type Patient agrees to medication management for depression and psychotic symptoms Hospital course: 10/22 Patient endorses history of paranoid thinking is how he consistently thinks people are following him, cars are following him; people are hacking into his phone and know where he is and thus the same car will go back and forth watching him. When he was staying at a friend's house He thinks that his friend put a camera in the bathroom because his friend would make a comment about something that happened in the bathroom... Otherwise how would he know. Again reviewed history of manoj and patient endorses what may be a very mild, possibly manic episodes, but more likely just hypervigilance from PTSD and paranoid. -Discussed medication and patient agrees to increase Seroquel since he has demonstrated he tolerates this medicine and continues to have paranoid ideations and this is also used for bipolar depression, augmentation of unipolar depression and a mood stabilizer. -proceed with cross titration from methadone to Suboxone; CSS program 10/25 did not sleep last night after seroquel dc'd; Been having odd dreams lately. still intermittent AH but says they are friends and mostly helpful; intermittently seeing things out of corner of eye, shadows, like people peeing in the room. He says this is chronic and started in childhood. -discussed medications further; says seroquel has always caused dry nose/mouth which bothers him, but tolerated since helpful. Has had some trouble sleeping but more likely due to prolonged withdrawal from polysubstance abuse. AFter more discussion wants to try a new medication since Seroquel has only been partially helpful. -will switch to Risperda. So far have not concluded that pt has manic episodes and thus not necessarily trying to treat bipolar depression, however will keep this in mind 10/26 Patient feeling much better today. Depression and anxiety much improved. He is dressed, showered, shaved and out about in the milieu, attending groups, socializing, appropriate with peers and staff. Proactive in pursuing aftercare. -Still trouble sleeping and agrees to try mirtazapine since it also helps with PTSD/depression and avoids antipsychotic side effects. Trazodone not very helpful -Discussed Suboxone titration. Wants to be on Suboxone which he found very helpful in the past; just wants to slow down the cross titration. 10/27 remains doing well, good mood, no AVH, engaged, good behavioral impulse control, interactive in groups. Still very poor sleep and wants to try Seroquel again, although at a lower dose. Reviewed risks/side effects of being on 2 antipsychotics and patient feels that potential benefit is worth the risk. 10/28 He remains engaged in treatment, engaged in groups, appropriate with peers and staff, friendly and in good behavioral and impulse control. Sleeping much better with Seroquel so will continue. Feeling a little triggered by recently increased acuity on the unit but will remain hoping to get into program soon -patient continues to complain of anxiety. Although medication adjustments have been very helpful, he does have significant trauma history with PTSD and currently there is nothing on board for that. Trying to avoid polypharmacy but patient might benefit from SSRI/SNRI 10/29 discussed hx of trauma and ptsd symptoms which is severe and extensive, starting in childhood. agrees to trial of Lexapro -otherwise remains doing well, engaged in treatment, good w/ peers and staff -would like to get on ROJO invega sustenna 10/30: Continue current regimen and plans on 10/30 suboxone 8mg and 4mg (LAST methadone dose) on 10/31 suboxone 8mg Bid (NO METHADONE ) Plan: 3 day (says will retract; wants program) Q15 minute checks Continue Rispderdal 2mg BID START Invega Sustenna 234mg qmonth START Lexapro for anxiety/ptsd Conitnue Seroquel 200mg qhs for sleep Clonidine 0.1mg q4h prn Continue gabapentin 200 mg t.i.d. patient uses for anxiety will see if option for Sublicade Reason for continued inpatient stay Substantial Risk for: med/psych decompensation Time Spent With Patient Time: Total time managing care of this patient today ____ minutes.
[2023-10-30] MEDS: hydrOXYzine HCL 25 MG TABLET PO ×2 (11:36→18:42)
[2023-10-30] MEDS: Nicotine Polacrilex 2 MG GUM 4 MG BUCCAL (16:55)
[2023-10-30 18:00] VITALS: BP 130/76; PULSE 102; RESP 18; TEMP 36.9; O2SAT 96
[2023-10-30] MEDS: Milk of Magnesia 30 ML ORAL.SUSP PO (18:41)
[2023-10-30] MEDS: Buprenorphine/Naloxone 4/1 mg FILM 1 FILM SUBLINGUAL (20:40)
[2023-10-30] MEDS: QUEtiapine Fumarate 200 MG TABLET PO (20:40)
[2023-10-30] MEDS: traZODone HCL 50 MG TABLET PO (20:44)
[2023-10-30] MEDS: Lactulose 20 GM/30 ML SOLUTION 30 GM PO (20:45)
[2023-10-31] MEDS: Lactulose 20 GM/30 ML SOLUTION 30 GM PO ×2 (08:42→21:10)
[2023-10-31] MEDS: Buprenorphine/Naloxone 8/2 mg TAB.SUBL 1 TAB SUBLINGUAL ×2 (08:43→21:11)
[2023-10-31] MEDS: risperiDONE 2 MG TABLET PO ×2 (08:43→21:11)
[2023-10-31] MEDS: Gabapentin 100 MG CAPSULE 200 MG PO ×3 (08:43→21:11)
[2023-10-31] MEDS: Escitalopram Oxalate 10 MG TABLET PO (08:43)
[2023-10-31 09:00] VITALS: BP 132/84; PULSE 88; RESP 18; TEMP 36.6; O2SAT 96
[2023-10-31] MEDS: Sodium Chloride 0.65 % Nasal 44 ML SPRBTL 1 SPRAY NOSTRIL-B ×2 (09:42→10:56)
--- NOTE | 2023-10-31 10:02 | P.PNPSI_ITS ---
Subjective Subjective Date of Service: 10/31/23 Reason For Visit: Depression/SI Subjective Notes: Conditional Voluntary and 3 Day Interim History: Patient was seen and discussed in rounds today. Records and plans were reviewed. He continues to be somewhat withdrawn. The Suboxone has been very helpful to him. He is more visible. No complaints or side effects. He did have a small bowel movement and has been taking the lactulose which hopefully will kick in more tomorrow. No changes were Medication Compliance: Yes Side effects from medications: No Review of Systems Review of Systems Constipation Yes all other systems are reviewed and are negative Mental Status Exam Mental Status Exam Narrative: In today's visit he is alert, oriented and pleasant. Normal speech. Moderate eye contact. No acute signs of psychosis. Moderate dysphoria to depression present. No overt anxiety. No SI. No AVH. Cognitively intact. Judgment is intact Diagnostics Vital Signs (24Hr): Vital Signs - 24 hr 10/30/23 18:00 10/31/23 09:00 Temperature 98.4 F 97.8 F Pulse Rate 102 H 88 Respiratory Rate 18 18 Blood Pressure 130/76 132/84 Pulse Oximetry 96 96 Oxygen Delivery Method Room Air Room Air BMI result Body Mass Index 31.4 Labs 10/17/23 18:21 10/17/23 18:21 Medications Medications Current Medications Acetaminophen (Acetaminophen 325 Mg Tablet) 650 mg PO Q6H PRN PRN Reason: Headache/Pain Mild Scale (1-3) Al Hydroxide/Mg Hydroxide (Magnesium Hydrox/Alum Hydrox 30 Ml Oral.Susp) 30 ml PO Q6H PRN PRN Reason: Heartburn/Nausea Buprenorphine/Naloxone (Buprenorphine/Naloxone 8/2 Mg Tab.Subl) 1 tab SUBLINGUAL BID [facility] Last Admin: 10/31/23 08:43 Dose: 1 tab Clonidine HCl (Clonidine Hcl 0.1 Mg Tablet) 0.1 mg PO Q4H PRN; Protocol PRN Reason: anxiety Last Admin: 10/30/23 16:34 Dose: 0.1 mg Escitalopram Oxalate (Escitalopram Oxalate 10 Mg Tablet) 10 mg PO DAILY [facility] Last Admin: 10/31/23 08:43 Dose: 10 mg Gabapentin (Gabapentin 100 Mg Capsule) 200 mg PO TID [facility] Last Admin: 10/31/23 08:43 Dose: 200 mg Hydroxyzine HCl (Hydroxyzine Hcl 25 Mg Tablet) 25 mg PO Q6H PRN PRN Reason: Anxiety Last Admin: 10/30/23 18:42 Dose: 25 mg Lactulose (Lactulose 20 Gm/30 Ml Solution) 30 gm PO BID [facility] Last Admin: 10/31/23 08:42 Dose: 30 gm Magnesium Hydroxide (Milk Of Magnesia 30 Ml Oral.Susp) 30 ml PO DAILY PRN PRN Reason: Constipation Last Admin: 10/30/23 18:41 Dose: 30 ml Nicotine (Nicotine 21 Mg Patch.Td24) 21 mg TRANSDERMA DAILY PRN PRN Reason: smoking cessation Nicotine Polacrilex (Nicotine Polacrilex 2 Mg Gum) 4 mg BUCCAL Q2H PRN PRN Reason: Nicotine Cravings Last Admin: 10/30/23 16:55 Dose: 4 mg Ondansetron HCl (Ondansetron Odt 4 Mg Tab.Rapdis) 4 mg TRANSLINGU Q6H PRN PRN Reason: Nausea and Vomiting Paliperidone Palmitate (Paliperidone Palmitate 156 Mg/Ml Syringe) 156 mg IM ONCE ONE Stop: 11/04/23 09:01 Quetiapine Fumarate (Quetiapine Fumarate 200 Mg Tablet) 200 mg PO BEDTIME [facility] Last Admin: 10/30/23 20:40 Dose: 200 mg Risperidone (Risperidone 2 Mg Tablet) 2 mg PO BID [facility] Last Admin: 10/31/23 08:43 Dose: 2 mg Sodium Chloride (Sodium Chloride 0.65 % Nasal 44 Ml Sprbtl) 1 spray NOSTRIL-B Q1H PRN PRN Reason: dry nasal passages Last Admin: 10/31/23 09:42 Dose: 1 spray Trazodone HCl (Trazodone Hcl 50 Mg Tablet) 50 mg PO BEDTIME MRX1 PRN PRN Reason: Insomnia Last Admin: 10/30/23 20:44 Dose: 50 mg Allergies Allergies Allergy/AdvReac Type Severity Reaction Status Date / Time No Known Allergies Allergy Verified 05/03/23 14:43 Assessment & Plan Assessment & Plan (1) Schizoaffective disorder, depressive type: Status: Acute Code(s): F25.1 - Schizoaffective disorder, depressive type (2) PTSD (post-traumatic stress disorder): Status: Acute Code(s): F43.10 - Post-traumatic stress disorder, unspecified (3) Opioid use disorder: Status: Acute Code(s): F11.90 - Opioid use, unspecified, uncomplicated (4) Cocaine use disorder: Status: Acute Code(s): F14.10 - Cocaine abuse, uncomplicated Plan pt is a 38 yo male with hx of PTSD, depression, reportedly bipolar or schizoaffective disorder (though not concluded), history of incarceration, axis 2 traits, opioid and cocaine use disorder, on methadone, who presents with depression and SI with recent overdose attempt in the face of ongoing substance abuse and psychosocial stressors. Patient reports that he was sober for about 9 months until he lost his housing, got depressed and triggered and relapsed and has been using for the past 2 months. Patient said he was working but due to seasonal layoffs, was laid off around [place] time and patient sunk into deeper depression. Patient reports he has been homeless for the past several weeks and feeling hopeless, despite continuing to take Wellbutrin and Seroquel. He reports in a moment of despair he intentionally tried to overdose last week however he woke up fine. Patient expresses pessimism about life in general but currently not suicidal; says he does not like people... life is a joke. Patient reports he has a diagnosis bipolar disorder however he describes his manic symptoms as just emotional reactivity which resolve on their own and last no longer than an hour; no discrete episodes. He reports AH but is a little vague about details; he said as a kid he heard voices; he said with Seroquel it is less. Patient endorses long history of trauma with ongoing PTSD symptoms including flashbacks, hypervigilance. Patient is open to medication management for depression; wants to get on Suboxone. Impression: Patient depressed, chronic PTSD symptoms all worsened by substance abuse. Although patient reports bipolar disorder, his reported history does not include any manic episodes. Upon further clarification patient does have baseline paranoid thinking which seemed to be present even independent of depression, emotional stress or intoxication/withdrawal; hx of some mild intermittent AH. Change diagnosis to schizoaffective disorder depressive type Patient agrees to medication management for depression and psychotic symptoms Hospital course: 10/22 Patient endorses history of paranoid thinking is how he consistently thinks people are following him, cars are following him; people are hacking into his phone and know where he is and thus the same car will go back and forth watching him. When he was staying at a friend's house He thinks that his friend put a camera in the bathroom because his friend would make a comment about something that happened in the bathroom... Otherwise how would he know. Again reviewed history of manoj and patient endorses what may be a very mild, possibly manic episodes, but more likely just hypervigilance from PTSD and paranoid. -Discussed medication and patient agrees to increase Seroquel since he has demonstrated he tolerates this medicine and continues to have paranoid ideations and this is also used for bipolar depression, augmentation of unipolar depression and a mood stabilizer. -proceed with cross titration from methadone to Suboxone; CSS program 10/25 did not sleep last night after seroquel dc'd; Been having odd dreams lately. still intermittent AH but says they are friends and mostly helpful; intermittently seeing things out of corner of eye, shadows, like people peeing in the room. He says this is chronic and started in childhood. -discussed medications further; says seroquel has always caused dry nose/mouth which bothers him, but tolerated since helpful. Has had some trouble sleeping but more likely due to prolonged withdrawal from polysubstance abuse. AFter more discussion wants to try a new medication since Seroquel has only been partially helpful. -will switch to Risperda. So far have not concluded that pt has manic episodes and thus not necessarily trying to treat bipolar depression, however will keep this in mind 10/26 Patient feeling much better today. Depression and anxiety much improved. He is dressed, showered, shaved and out about in the milieu, attending groups, socializing, appropriate with peers and staff. Proactive in pursuing aftercare. -Still trouble sleeping and agrees to try mirtazapine since it also helps with PTSD/depression and avoids antipsychotic side effects. Trazodone not very helpful -Discussed Suboxone titration. Wants to be on Suboxone which he found very helpful in the past; just wants to slow down the cross titration. 10/27 remains doing well, good mood, no AVH, engaged, good behavioral impulse control, interactive in groups. Still very poor sleep and wants to try Seroquel again, although at a lower dose. Reviewed risks/side effects of being on 2 antipsychotics and patient feels that potential benefit is worth the risk. 10/28 He remains engaged in treatment, engaged in groups, appropriate with peers and staff, friendly and in good behavioral and impulse control. Sleeping much better with Seroquel so will continue. Feeling a little triggered by recently increased acuity on the unit but will remain hoping to get into program soon -patient continues to complain of anxiety. Although medication adjustments have been very helpful, he does have significant trauma history with PTSD and currently there is nothing on board for that. Trying to avoid polypharmacy but patient might benefit from SSRI/SNRI 10/29 discussed hx of trauma and ptsd symptoms which is severe and extensive, starting in childhood. agrees to trial of Lexapro -otherwise remains doing well, engaged in treatment, good w/ peers and staff -would like to get on ROJO invega sustenna 10/30: Continue current regimen and plans 10/31: Continue current regimen and plans on 10/30 suboxone 8mg and 4mg (LAST methadone dose) on 10/31 suboxone 8mg Bid (NO METHADONE ) Plan: 3 day (says will retract; wants program) Q15 minute checks Continue Rispderdal 2mg BID START Invega Sustenna 234mg qmonth START Lexapro for anxiety/ptsd Conitnue Seroquel 200mg qhs for sleep Clonidine 0.1mg q4h prn Continue gabapentin 200 mg t.i.d. patient uses for anxiety will see if option for Sublicade Reason for continued inpatient stay Substantial Risk for: med/psych decompensation Time Spent With Patient Time: Total time managing care of this patient today ____ minutes.
[2023-10-31] MEDS: cloNIDine HCL 0.1 MG TABLET PO ×3 (10:14→18:35)
[2023-10-31 10:15] VITALS: BP 129/80; PULSE 113
[2023-10-31] MEDS: Nicotine Polacrilex 2 MG GUM 4 MG BUCCAL ×2 (10:56→14:17)
[2023-10-31] MEDS: hydrOXYzine HCL 25 MG TABLET PO ×2 (11:35→21:13)
[2023-10-31 14:12] VITALS: BP 155/91; PULSE 109
[2023-10-31 19:17] VITALS: BP 120/72; PULSE 108; RESP 18; TEMP 36.3; O2SAT 96
[2023-10-31] MEDS: traZODone HCL 50 MG TABLET PO (21:11)
[2023-10-31] MEDS: QUEtiapine Fumarate 200 MG TABLET PO (21:11)
[2023-11-01 07:55] VITALS: BP 119/58; PULSE 79; RESP 18; TEMP 36.4; O2SAT 96
[2023-11-01] MEDS: risperiDONE 2 MG TABLET PO ×2 (08:34→19:42)
[2023-11-01] MEDS: Buprenorphine/Naloxone 8/2 mg TAB.SUBL 1 TAB SUBLINGUAL ×2 (08:34→19:42)
[2023-11-01] MEDS: Gabapentin 100 MG CAPSULE 200 MG PO ×3 (08:34→19:42)
[2023-11-01] MEDS: Lactulose 20 GM/30 ML SOLUTION 30 GM PO ×2 (08:34→19:43)
[2023-11-01] MEDS: Escitalopram Oxalate 10 MG TABLET PO (08:34)
[2023-11-01] MEDS: cloNIDine HCL 0.1 MG TABLET PO ×3 (09:55→19:42)
[2023-11-01] MEDS: hydrOXYzine HCL 25 MG TABLET PO ×3 (09:55→20:52)
[2023-11-01 09:57] VITALS: BP 128/83; PULSE 112
--- NOTE | 2023-11-01 13:06 | P.PNPSI_ITS ---
Subjective Subjective Date of Service: 11/01/23 Reason For Visit: Depression/SI Subjective Notes: Conditional Voluntary and 3 Day Interim History: Patient was seen and discussed in rounds today. Records and plans were reviewed. He is doing better and has had some bowel movements which he is happy about. The Suboxone has been very helpful and he was interested in increasing the dose which I did not change today. Eager to be discharged soon. No changes were made today Medication Compliance: Yes Side effects from medications: No Review of Systems Review of Systems Yes all other systems are reviewed and are negative Mental Status Exam Mental Status Exam Narrative: In today's visit he is alert, oriented and pleasant. Normal speech. Moderate eye contact. No acute signs of psychosis. Moderate dysphoria to depression present. No overt anxiety. No SI. No AVH. Cognitively intact. Judgment is intact Diagnostics Vital Signs (24Hr): Vital Signs - 24 hr 10/31/23 14:12 10/31/23 19:17 11/01/23 07:55 Temperature 97.3 F 97.5 F Pulse Rate 109 H 108 H 79 Respiratory Rate 18 18 Blood Pressure 155/91 H 120/72 119/58 L Pulse Oximetry 96 96 Oxygen Delivery Method Room Air Room Air 11/01/23 09:57 Temperature Pulse Rate 112 H Respiratory Rate Blood Pressure 128/83 Pulse Oximetry Oxygen Delivery Method BMI result Body Mass Index 31.4 Labs 10/17/23 18:21 10/17/23 18:21 Medications Medications Current Medications Acetaminophen (Acetaminophen 325 Mg Tablet) 650 mg PO Q6H PRN PRN Reason: Headache/Pain Mild Scale (1-3) Al Hydroxide/Mg Hydroxide (Magnesium Hydrox/Alum Hydrox 30 Ml Oral.Susp) 30 ml PO Q6H PRN PRN Reason: Heartburn/Nausea Buprenorphine/Naloxone (Buprenorphine/Naloxone 8/2 Mg Tab.Subl) 1 tab SUBLINGUAL BID [facility] Last Admin: 11/01/23 08:34 Dose: 1 tab Clonidine HCl (Clonidine Hcl 0.1 Mg Tablet) 0.1 mg PO Q4H PRN; Protocol PRN Reason: anxiety Last Admin: 11/01/23 09:55 Dose: 0.1 mg Escitalopram Oxalate (Escitalopram Oxalate 10 Mg Tablet) 10 mg PO DAILY [facility] Last Admin: 11/01/23 08:34 Dose: 10 mg Gabapentin (Gabapentin 100 Mg Capsule) 200 mg PO TID [facility] Last Admin: 11/01/23 08:34 Dose: 200 mg Hydroxyzine HCl (Hydroxyzine Hcl 25 Mg Tablet) 25 mg PO Q6H PRN PRN Reason: Anxiety Last Admin: 11/01/23 09:55 Dose: 25 mg Lactulose (Lactulose 20 Gm/30 Ml Solution) 30 gm PO BID [facility] Last Admin: 11/01/23 08:34 Dose: 20 gm Magnesium Hydroxide (Milk Of Magnesia 30 Ml Oral.Susp) 30 ml PO DAILY PRN PRN Reason: Constipation Last Admin: 10/30/23 18:41 Dose: 30 ml Nicotine (Nicotine 21 Mg Patch.Td24) 21 mg TRANSDERMA DAILY PRN PRN Reason: smoking cessation Nicotine Polacrilex (Nicotine Polacrilex 2 Mg Gum) 4 mg BUCCAL Q2H PRN PRN Reason: Nicotine Cravings Last Admin: 10/31/23 14:17 Dose: 4 mg Ondansetron HCl (Ondansetron Odt 4 Mg Tab.Rapdis) 4 mg TRANSLINGU Q6H PRN PRN Reason: Nausea and Vomiting Paliperidone Palmitate (Paliperidone Palmitate 156 Mg/Ml Syringe) 156 mg IM ONCE ONE Stop: 11/04/23 09:01 Quetiapine Fumarate (Quetiapine Fumarate 200 Mg Tablet) 200 mg PO BEDTIME [facility] Last Admin: 10/31/23 21:11 Dose: 200 mg Risperidone (Risperidone 2 Mg Tablet) 2 mg PO BID [facility] Last Admin: 11/01/23 08:34 Dose: 2 mg Sodium Chloride (Sodium Chloride 0.65 % Nasal 44 Ml Sprbtl) 1 spray NOSTRIL-B Q1H PRN PRN Reason: dry nasal passages Last Admin: 10/31/23 10:56 Dose: 1 spray Trazodone HCl (Trazodone Hcl 50 Mg Tablet) 50 mg PO BEDTIME MRX1 PRN PRN Reason: Insomnia Last Admin: 10/31/23 21:11 Dose: 50 mg Allergies Allergies Allergy/AdvReac Type Severity Reaction Status Date / Time No Known Allergies Allergy Verified 05/03/23 14:43 Assessment & Plan Assessment & Plan (1) Schizoaffective disorder, depressive type: Status: Acute Code(s): F25.1 - Schizoaffective disorder, depressive type (2) PTSD (post-traumatic stress disorder): Status: Acute Code(s): F43.10 - Post-traumatic stress disorder, unspecified (3) Opioid use disorder: Status: Acute Code(s): F11.90 - Opioid use, unspecified, uncomplicated (4) Cocaine use disorder: Status: Acute Code(s): F14.10 - Cocaine abuse, uncomplicated Plan pt is a 38 yo male with hx of PTSD, depression, reportedly bipolar or schizoaffective disorder (though not concluded), history of incarceration, axis 2 traits, opioid and cocaine use disorder, on methadone, who presents with depression and SI with recent overdose attempt in the face of ongoing substance abuse and psychosocial stressors. Patient reports that he was sober for about 9 months until he lost his housing, got depressed and triggered and relapsed and has been using for the past 2 months. Patient said he was working but due to seasonal layoffs, was laid off around [place] time and patient sunk into deeper depression. Patient reports he has been homeless for the past several weeks and feeling hopeless, despite continuing to take Wellbutrin and Seroquel. He reports in a moment of despair he intentionally tried to overdose last week however he woke up fine. Patient expresses pessimism about life in general but currently not suicidal; says he does not like people... life is a joke. Patient reports he has a diagnosis bipolar disorder however he describes his manic symptoms as just emotional reactivity which resolve on their own and last no longer than an hour; no discrete episodes. He reports AH but is a little vague about details; he said as a kid he heard voices; he said with Seroquel it is less. Patient endorses long history of trauma with ongoing PTSD symptoms including flashbacks, hypervigilance. Patient is open to medication management for depression; wants to get on Suboxone. Impression: Patient depressed, chronic PTSD symptoms all worsened by substance abuse. Although patient reports bipolar disorder, his reported history does not include any manic episodes. Upon further clarification patient does have baseline paranoid thinking which seemed to be present even independent of depression, emotional stress or intoxication/withdrawal; hx of some mild intermittent AH. Change diagnosis to schizoaffective disorder depressive type Patient agrees to medication management for depression and psychotic symptoms Hospital course: 10/22 Patient endorses history of paranoid thinking is how he consistently thinks people are following him, cars are following him; people are hacking into his phone and know where he is and thus the same car will go back and forth watching him. When he was staying at a friend's house He thinks that his friend put a camera in the bathroom because his friend would make a comment about something that happened in the bathroom... Otherwise how would he know. Again reviewed history of manoj and patient endorses what may be a very mild, possibly manic episodes, but more likely just hypervigilance from PTSD and paranoid. -Discussed medication and patient agrees to increase Seroquel since he has demonstrated he tolerates this medicine and continues to have paranoid ideations and this is also used for bipolar depression, augmentation of unipolar depression and a mood stabilizer. -proceed with cross titration from methadone to Suboxone; CSS program 10/25 did not sleep last night after seroquel dc'd; Been having odd dreams lately. still intermittent AH but says they are friends and mostly helpful; intermittently seeing things out of corner of eye, shadows, like people peeing in the room. He says this is chronic and started in childhood. -discussed medications further; says seroquel has always caused dry nose/mouth which bothers him, but tolerated since helpful. Has had some trouble sleeping but more likely due to prolonged withdrawal from polysubstance abuse. AFter more discussion wants to try a new medication since Seroquel has only been partially helpful. -will switch to Risperda. So far have not concluded that pt has manic episodes and thus not necessarily trying to treat bipolar depression, however will keep this in mind 10/26 Patient feeling much better today. Depression and anxiety much improved. He is dressed, showered, shaved and out about in the milieu, attending groups, socializing, appropriate with peers and staff. Proactive in pursuing aftercare. -Still trouble sleeping and agrees to try mirtazapine since it also helps with PTSD/depression and avoids antipsychotic side effects. Trazodone not very helpful -Discussed Suboxone titration. Wants to be on Suboxone which he found very helpful in the past; just wants to slow down the cross titration. 10/27 remains doing well, good mood, no AVH, engaged, good behavioral impulse control, interactive in groups. Still very poor sleep and wants to try Seroquel again, although at a lower dose. Reviewed risks/side effects of being on 2 antipsychotics and patient feels that potential benefit is worth the risk. 10/28 He remains engaged in treatment, engaged in groups, appropriate with peers and staff, friendly and in good behavioral and impulse control. Sleeping much better with Seroquel so will continue. Feeling a little triggered by recently increased acuity on the unit but will remain hoping to get into program soon -patient continues to complain of anxiety. Although medication adjustments have been very helpful, he does have significant trauma history with PTSD and currently there is nothing on board for that. Trying to avoid polypharmacy but patient might benefit from SSRI/SNRI 10/29 discussed hx of trauma and ptsd symptoms which is severe and extensive, starting in childhood. agrees to trial of Lexapro -otherwise remains doing well, engaged in treatment, good w/ peers and staff -would like to get on ROJO invega sustenna 10/30: Continue current regimen and plans 10/31: Continue current regimen and plans on 10/30 suboxone 8mg and 4mg (LAST methadone dose) on 10/31 suboxone 8mg Bid (NO METHADONE ) 11/01: Continue current plans and regimen Plan: 3 day (says will retract; wants program) Q15 minute checks Continue Rispderdal 2mg BID START Invega Sustenna 234mg qmonth START Lexapro for anxiety/ptsd Conitnue Seroquel 200mg qhs for sleep Clonidine 0.1mg q4h prn Continue gabapentin 200 mg t.i.d. patient uses for anxiety will see if option for Sublicade Reason for continued inpatient stay Substantial Risk for: med/psych decompensation Time Spent With Patient Time: Total time managing care of this patient today ____ minutes.
--- NOTE | 2023-11-01 13:11 | HO.PSYCHPN ---
Subjective Subjective Date of Service: 11/01/23 Reason For Visit: Depression/SI Subjective Notes: Conditional Voluntary and 3 Day Interim History: Patient was seen and discussed in rounds today. Records and plans were reviewed. He is doing better and has had some bowel movements which he is happy about. The Suboxone has been very helpful and he was interested in increasing the dose which I did not change today. Eager to be discharged soon. No changes were made today Medication Compliance: Yes Side effects from medications: No Diagnostics Vital Signs (24Hr): Vital Signs - 24 hr 10/31/23 14:12 10/31/23 19:17 11/01/23 07:55 Temperature 97.3 F 97.5 F Pulse Rate 109 H 108 H 79 Respiratory Rate 18 18 Blood Pressure 155/91 H 120/72 119/58 L Pulse Oximetry 96 96 Oxygen Delivery Method Room Air Room Air 11/01/23 09:57 Temperature Pulse Rate 112 H Respiratory Rate Blood Pressure 128/83 Pulse Oximetry Oxygen Delivery Method BMI result Body Mass Index 31.4 Labs 10/17/23 18:21 10/17/23 18:21 Medications Medications Current Medications Acetaminophen (Acetaminophen 325 Mg Tablet) 650 mg PO Q6H PRN PRN Reason: Headache/Pain Mild Scale (1-3) Al Hydroxide/Mg Hydroxide (Magnesium Hydrox/Alum Hydrox 30 Ml Oral.Susp) 30 ml PO Q6H PRN PRN Reason: Heartburn/Nausea Buprenorphine/Naloxone (Buprenorphine/Naloxone 8/2 Mg Tab.Subl) 1 tab SUBLINGUAL BID [facility] Last Admin: 11/01/23 08:34 Dose: 1 tab Clonidine HCl (Clonidine Hcl 0.1 Mg Tablet) 0.1 mg PO Q4H PRN; Protocol PRN Reason: anxiety Last Admin: 11/01/23 09:55 Dose: 0.1 mg Escitalopram Oxalate (Escitalopram Oxalate 10 Mg Tablet) 10 mg PO DAILY [facility] Last Admin: 11/01/23 08:34 Dose: 10 mg Gabapentin (Gabapentin 100 Mg Capsule) 200 mg PO TID [facility] Last Admin: 11/01/23 08:34 Dose: 200 mg Hydroxyzine HCl (Hydroxyzine Hcl 25 Mg Tablet) 25 mg PO Q6H PRN PRN Reason: Anxiety Last Admin: 11/01/23 09:55 Dose: 25 mg Lactulose (Lactulose 20 Gm/30 Ml Solution) 30 gm PO BID [facility] Last Admin: 11/01/23 08:34 Dose: 20 gm Magnesium Hydroxide (Milk Of Magnesia 30 Ml Oral.Susp) 30 ml PO DAILY PRN PRN Reason: Constipation Last Admin: 10/30/23 18:41 Dose: 30 ml Nicotine (Nicotine 21 Mg Patch.Td24) 21 mg TRANSDERMA DAILY PRN PRN Reason: smoking cessation Nicotine Polacrilex (Nicotine Polacrilex 2 Mg Gum) 4 mg BUCCAL Q2H PRN PRN Reason: Nicotine Cravings Last Admin: 10/31/23 14:17 Dose: 4 mg Ondansetron HCl (Ondansetron Odt 4 Mg Tab.Rapdis) 4 mg TRANSLINGU Q6H PRN PRN Reason: Nausea and Vomiting Paliperidone Palmitate (Paliperidone Palmitate 156 Mg/Ml Syringe) 156 mg IM ONCE ONE Stop: 11/04/23 09:01 Quetiapine Fumarate (Quetiapine Fumarate 200 Mg Tablet) 200 mg PO BEDTIME [facility] Last Admin: 10/31/23 21:11 Dose: 200 mg Risperidone (Risperidone 2 Mg Tablet) 2 mg PO BID [facility] Last Admin: 11/01/23 08:34 Dose: 2 mg Sodium Chloride (Sodium Chloride 0.65 % Nasal 44 Ml Sprbtl) 1 spray NOSTRIL-B Q1H PRN PRN Reason: dry nasal passages Last Admin: 10/31/23 10:56 Dose: 1 spray Trazodone HCl (Trazodone Hcl 50 Mg Tablet) 50 mg PO BEDTIME MRX1 PRN PRN Reason: Insomnia Last Admin: 10/31/23 21:11 Dose: 50 mg Allergies Allergies Allergy/AdvReac Type Severity Reaction Status Date / Time No Known Allergies Allergy Verified 05/03/23 14:43 Assessment & Plan Assessment & Plan (1) Schizoaffective disorder, depressive type: Status: Acute Code(s): F25.1 - Schizoaffective disorder, depressive type (2) PTSD (post-traumatic stress disorder): Status: Acute Code(s): F43.10 - Post-traumatic stress disorder, unspecified (3) Opioid use disorder: Status: Acute Code(s): F11.90 - Opioid use, unspecified, uncomplicated (4) Cocaine use disorder: Status: Acute Code(s): F14.10 - Cocaine abuse, uncomplicated Plan pt is a 38 yo male with hx of PTSD, depression, reportedly bipolar or schizoaffective disorder (though not concluded), history of incarceration, axis 2 traits, opioid and cocaine use disorder, on methadone, who presents with depression and SI with recent overdose attempt in the face of ongoing substance abuse and psychosocial stressors. Patient reports that he was sober for about 9 months until he lost his housing, got depressed and triggered and relapsed and has been using for the past 2 months. Patient said he was working but due to seasonal layoffs, was laid off around Mikel time and patient sunk into deeper depression. Patient reports he has been homeless for the past several weeks and feeling hopeless, despite continuing to take Wellbutrin and Seroquel. He reports in a moment of despair he intentionally tried to overdose last week however he woke up fine. Patient expresses pessimism about life in general but currently not suicidal; says he does not like people... life is a joke. Patient reports he has a diagnosis bipolar disorder however he describes his manic symptoms as just emotional reactivity which resolve on their own and last no longer than an hour; no discrete episodes. He reports AH but is a little vague about details; he said as a kid he heard voices; he said with Seroquel it is less. Patient endorses long history of trauma with ongoing PTSD symptoms including flashbacks, hypervigilance. Patient is open to medication management for depression; wants to get on Suboxone. Impression: Patient depressed, chronic PTSD symptoms all worsened by substance abuse. Although patient reports bipolar disorder, his reported history does not include any manic episodes. Upon further clarification patient does have baseline paranoid thinking which seemed to be present even independent of depression, emotional stress or intoxication/withdrawal; hx of some mild intermittent AH. Change diagnosis to schizoaffective disorder depressive type Patient agrees to medication management for depression and psychotic symptoms Hospital course: 10/22 Patient endorses history of paranoid thinking is how he consistently thinks people are following him, cars are following him; people are hacking into his phone and know where he is and thus the same car will go back and forth watching him. When he was staying at a friend's house He thinks that his friend put a camera in the bathroom because his friend would make a comment about something that happened in the bathroom... Otherwise how would he know. Again reviewed history of manoj and patient endorses what may be a very mild, possibly manic episodes, but more likely just hypervigilance from PTSD and paranoid. -Discussed medication and patient agrees to increase Seroquel since he has demonstrated he tolerates this medicine and continues to have paranoid ideations and this is also used for bipolar depression, augmentation of unipolar depression and a mood stabilizer. -proceed with cross titration from methadone to Suboxone; [facility] program 10/25 did not sleep last night after seroquel dc'd; Been having odd dreams lately. still intermittent AH but says they are friends and mostly helpful; intermittently seeing things out of corner of eye, shadows, like people peeing in the room. He says this is chronic and started in childhood. -discussed medications further; says seroquel has always caused dry nose/mouth which bothers him, but tolerated since helpful. Has had some trouble sleeping but more likely due to prolonged withdrawal from polysubstance abuse. AFter more discussion wants to try a new medication since Seroquel has only been partially helpful. -will switch to Risperda. So far have not concluded that pt has manic episodes and thus not necessarily trying to treat bipolar depression, however will keep this in mind 10/26 Patient feeling much better today. Depression and anxiety much improved. He is dressed, showered, shaved and out about in the milieu, attending groups, socializing, appropriate with peers and staff. Proactive in pursuing aftercare. -Still trouble sleeping and agrees to try mirtazapine since it also helps with PTSD/depression and avoids antipsychotic side effects. Trazodone not very helpful -Discussed Suboxone titration. Wants to be on Suboxone which he found very helpful in the past; just wants to slow down the cross titration. 10/27 remains doing well, good mood, no AVH, engaged, good behavioral impulse control, interactive in groups. Still very poor sleep and wants to try Seroquel again, although at a lower dose. Reviewed risks/side effects of being on 2 antipsychotics and patient feels that potential benefit is worth the risk. 10/28 He remains engaged in treatment, engaged in groups, appropriate with peers and staff, friendly and in good behavioral and impulse control. Sleeping much better with Seroquel so will continue. Feeling a little triggered by recently increased acuity on the unit but will remain hoping to get into program soon -patient continues to complain of anxiety. Although medication adjustments have been very helpful, he does have significant trauma history with PTSD and currently there is nothing on board for that. Trying to avoid polypharmacy but patient might benefit from SSRI/SNRI 10/29 discussed hx of trauma and ptsd symptoms which is severe and extensive, starting in childhood. agrees to trial of Lexapro -otherwise remains doing well, engaged in treatment, good w/ peers and staff -would like to get on ROJO invega sustenna 10/30: Continue current regimen and plans 10/31: Continue current regimen and plans on 10/30 suboxone 8mg and 4mg (LAST methadone dose) on 10/31 suboxone 8mg Bid (NO METHADONE ) 11/01: Continue current plans and regimen Plan: 3 day (says will retract; wants program) Q15 minute checks Continue Rispderdal 2mg BID START Invega Sustenna 234mg qmonth START Lexapro for anxiety/ptsd Conitnue Seroquel 200mg qhs for sleep Clonidine 0.1mg q4h prn Continue gabapentin 200 mg t.i.d. patient uses for anxiety will see if option for Sublicade Time Spent With Patient Time: Total time managing care of this patient today ____ minutes.
[2023-11-01 15:35] VITALS: BP 151/86; PULSE 112
[2023-11-01] MEDS: Nicotine Polacrilex 2 MG GUM 4 MG BUCCAL (16:28)
[2023-11-01] MEDS: Sodium Chloride 0.65 % Nasal 44 ML SPRBTL 1 SPRAY NOSTRIL-B (16:28)
[2023-11-01] MEDS: QUEtiapine Fumarate 200 MG TABLET PO (19:42)
[2023-11-01] MEDS: traZODone HCL 50 MG TABLET PO ×2 (19:42→20:52)
[2023-11-01 20:25] VITALS: BP 131/80; PULSE 113; RESP 16; TEMP 36.6
[2023-11-02] MEDS: traZODone HCL 50 MG TABLET PO ×2 (03:39→21:14)
[2023-11-02] MEDS: hydrOXYzine HCL 25 MG TABLET PO ×3 (03:39→15:48)
[2023-11-02] MEDS: cloNIDine HCL 0.1 MG TABLET PO ×4 (03:39→21:16)
[2023-11-02 08:10] VITALS: BP 133/74; PULSE 92; TEMP 36.2; O2SAT 97
[2023-11-02] MEDS: Sodium Chloride 0.65 % Nasal 44 ML SPRBTL 1 SPRAY NOSTRIL-B (08:19)
[2023-11-02] MEDS: Lactulose 20 GM/30 ML SOLUTION 30 GM PO ×2 (08:29→21:14)
[2023-11-02] MEDS: Escitalopram Oxalate 10 MG TABLET PO (08:29)
[2023-11-02] MEDS: Gabapentin 100 MG CAPSULE 200 MG PO ×3 (08:29→21:14)
[2023-11-02] MEDS: Buprenorphine/Naloxone 8/2 mg TAB.SUBL 1 TAB SUBLINGUAL ×2 (08:29→21:14)
[2023-11-02] MEDS: risperiDONE 2 MG TABLET PO ×2 (08:29→21:14)
[2023-11-02 10:56] VITALS: BP 142/73; PULSE 111
--- NOTE | 2023-11-02 14:08 | HO.PSYCHPN ---
Subjective Subjective Date of Service: 11/02/23 Reason For Visit: Depression/SI Subjective Notes: Conditional Voluntary Interim History: Pt reports sleeping and eating well. He reports his mood is better. He denies SI/HI. No VH/AH. No signs of aggression towards self or others. He was accepted at [facility]. meds sent. Review of Systems Review of Systems Constipation Yes all other systems are reviewed and are negative Constitutional: Reports as per [facility] Mental Status Exam Mental Status Exam Patient Appearance: Appropriate Patient Orientation: Person, Place, Time and Situation Level of Consciousness: Alert Patient Behavior: Appropriate Mood Description: Constricted Affect Description: Constricted Patient Cognition Impaired: No Ability to Follow Directions: Good Speech Pattern: Spontaneous Speech Memory Description: Intact Diagnostics Vital Signs (24Hr): Vital Signs - 24 hr 11/01/23 15:35 11/01/23 20:25 11/02/23 08:10 Temperature 97.9 F 97.2 F Pulse Rate 112 H 113 H 92 Respiratory Rate 16 Blood Pressure 151/86 H 131/80 133/74 Pulse Oximetry 97 Oxygen Delivery Method Room Air 11/02/23 10:56 Temperature Pulse Rate 111 H Respiratory Rate Blood Pressure 142/73 H Pulse Oximetry Oxygen Delivery Method BMI result Body Mass Index 31.4 Labs 10/17/23 18:21 10/17/23 18:21 Medications Medications Current Medications Acetaminophen (Acetaminophen 325 Mg Tablet) 650 mg PO Q6H PRN PRN Reason: Headache/Pain Mild Scale (1-3) Al Hydroxide/Mg Hydroxide (Magnesium Hydrox/Alum Hydrox 30 Ml Oral.Susp) 30 ml PO Q6H PRN PRN Reason: Heartburn/Nausea Buprenorphine/Naloxone (Buprenorphine/Naloxone 8/2 Mg Tab.Subl) 1 tab SUBLINGUAL BID [facility] Last Admin: 11/02/23 08:29 Dose: 1 tab Clonidine HCl (Clonidine Hcl 0.1 Mg Tablet) 0.1 mg PO Q4H PRN; Protocol PRN Reason: anxiety Last Admin: 11/02/23 10:54 Dose: 0.1 mg Escitalopram Oxalate (Escitalopram Oxalate 10 Mg Tablet) 10 mg PO DAILY [facility] Last Admin: 11/02/23 08:29 Dose: 10 mg Gabapentin (Gabapentin 100 Mg Capsule) 200 mg PO TID [facility] Last Admin: 11/02/23 08:29 Dose: 200 mg Hydroxyzine HCl (Hydroxyzine Hcl 25 Mg Tablet) 25 mg PO Q6H PRN PRN Reason: Anxiety Last Admin: 11/02/23 10:54 Dose: 25 mg Lactulose (Lactulose 20 Gm/30 Ml Solution) 30 gm PO BID [facility] Last Admin: 11/02/23 08:29 Dose: 20 gm Magnesium Hydroxide (Milk Of Magnesia 30 Ml Oral.Susp) 30 ml PO DAILY PRN PRN Reason: Constipation Last Admin: 10/30/23 18:41 Dose: 30 ml Nicotine (Nicotine 21 Mg Patch.Td24) 21 mg TRANSDERMA DAILY PRN PRN Reason: smoking cessation Nicotine Polacrilex (Nicotine Polacrilex 2 Mg Gum) 4 mg BUCCAL Q2H PRN PRN Reason: Nicotine Cravings Last Admin: 11/01/23 16:28 Dose: 4 mg Ondansetron HCl (Ondansetron Odt 4 Mg Tab.Rapdis) 4 mg TRANSLINGU Q6H PRN PRN Reason: Nausea and Vomiting Paliperidone Palmitate (Paliperidone Palmitate 156 Mg/Ml Syringe) 156 mg IM ONCE ONE Stop: 11/04/23 09:01 Quetiapine Fumarate (Quetiapine Fumarate 200 Mg Tablet) 200 mg PO BEDTIME [facility] Last Admin: 11/01/23 19:42 Dose: 200 mg Risperidone (Risperidone 2 Mg Tablet) 2 mg PO BID [facility] Last Admin: 11/02/23 08:29 Dose: 2 mg Sodium Chloride (Sodium Chloride 0.65 % Nasal 44 Ml Sprbtl) 1 spray NOSTRIL-B Q1H PRN PRN Reason: dry nasal passages Last Admin: 11/02/23 08:19 Dose: 1 spray Trazodone HCl (Trazodone Hcl 50 Mg Tablet) 50 mg PO BEDTIME MRX1 PRN PRN Reason: Insomnia Last Admin: 11/02/23 03:39 Dose: 50 mg Allergies Allergies Allergy/AdvReac Type Severity Reaction Status Date / Time No Known Allergies Allergy Verified 05/03/23 14:43 Assessment & Plan Assessment & Plan (1) PTSD (post-traumatic stress disorder): Status: Acute Code(s): F43.10 - Post-traumatic stress disorder, unspecified (2) Opioid use disorder: Status: Acute Code(s): F11.90 - Opioid use, unspecified, uncomplicated (3) Cocaine use disorder: Status: Acute Code(s): F14.10 - Cocaine abuse, uncomplicated Plan 1. Continue tx. Reason for continued inpatient stay Substantial Risk for: stable for discharge Time Spent With Patient Time: Total time managing care of this patient today ____ minutes.
[2023-11-02 16:06] VITALS: BP 129/81; PULSE 116; RESP 18; TEMP 36.7; O2SAT 97
[2023-11-02 21:12] VITALS: BP 155/76; PULSE 92; RESP 18; TEMP 36.7; O2SAT 97
[2023-11-02] MEDS: QUEtiapine Fumarate 200 MG TABLET PO (21:15)
[2023-11-03] MEDS: cloNIDine HCL 0.1 MG TABLET PO (05:20)
[2023-11-03] MEDS: hydrOXYzine HCL 25 MG TABLET PO (05:20)
[2023-11-03] MEDS: risperiDONE 2 MG TABLET PO (08:08)
[2023-11-03] MEDS: Gabapentin 100 MG CAPSULE 200 MG PO (08:08)
[2023-11-03] MEDS: Escitalopram Oxalate 10 MG TABLET PO (08:08)
[2023-11-03] MEDS: Buprenorphine/Naloxone 8/2 mg TAB.SUBL 1 TAB SUBLINGUAL (08:09)
[2023-11-03 08:11] VITALS: BP 134/68; PULSE 92; RESP 16; TEMP 36.4; O2SAT 96
--- NOTE | 2023-11-03 09:25 | P.DS_ITS ---
DS: Providers Provider Date of Service: 11/02/23 Date of admission: 10/20/23 12:43 Primary care physician: Unknown Physician Discharging clinician: Chio Castro DS: Diagnosis Discharge Diagnosis (1) PTSD (post-traumatic stress disorder): Status: Acute (2) Opioid use disorder: Status: Acute (3) Cocaine use disorder: Status: Acute DS: Medications Discharge Medications Home Medications: Previous Rx's Medication Instructions Recorded buprenorphine 8 mg-naloxone 2 mg 1 tab sublingual BID #14 tabs 11/02/23 sublingual tablet clonidine HCl 0.1 mg tablet 0.1 mg PO TID #90 tabs 11/02/23 escitalopram oxalate 10 mg tablet 10 mg PO DAILY #30 tabs 11/02/23 gabapentin 100 mg capsule 200 mg (2 x 100 mg) PO TID #180 11/02/23 caps lactulose 10 gram/15 mL (15 mL) 30 g (45 mL) PO BID #1,440 mL 11/02/23 oral solution lactulose 20 gram/30 mL oral 30 g (45 mL) PO BID #1,200 mL 11/02/23 solution nicotine (polacrilex) 2 mg gum 4 mg buccal Q2H PRN Nicotine 11/02/23 Cravings #60 ea quetiapine 200 mg tablet 200 mg PO BEDTIME #30 tabs 11/02/23 risperidone 2 mg tablet 2 mg PO BID #60 tabs 11/02/23 trazodone 50 mg tablet 50 mg PO BEDTIME PRN Insomnia #30 11/02/23 tabs Mental Status Exam Mental Status Exam Patient Appearance: Appropriate Patient Orientation: Person, Place, Time and Situation Level of Consciousness: Alert Patient Behavior: Appropriate Mood Description: Constricted Affect Description: Constricted Patient Cognition Impaired: No Ability to Follow Directions: Good Speech Pattern: Spontaneous Speech Memory Description: Intact DS: Summary Hospital Course Hospital Course: HPI: pt is a 38 yo male with hx of PTSD, depression, reportedly bipolar or schizoaffective disorder (though not concluded), history of incarceration, axis 2 traits, opioid and cocaine use disorder, on methadone, who presents with depression and SI with recent overdose attempt in the face of ongoing substance abuse and psychosocial stressors. Patient reports that he was sober for about 9 months until he lost his housing, got depressed and triggered and relapsed and has been using for the past 2 months. Patient said he was working but due to seasonal layoffs, was laid off around Mikel time and patient sunk into deeper depression. Patient reports he has been homeless for the past several weeks and feeling hopeless, despite continuing to take Wellbutrin and Seroquel. He reports in a moment of despair he intentionally tried to overdose last week however he woke up fine. Patient expresses pessimism about life in general but currently not suicidal; says he does not like people... life is a joke. Patient reports he has a diagnosis bipolar disorder however he describes his manic symptoms as just emotional reactivity which resolve on their own and last no longer than an hour; no discrete episodes. He reports AH but is a little vague about details; he said as a kid he heard voices; he said with Seroquel it is less. Patient endorses long history of trauma with ongoing PTSD symptoms including flashbacks, hypervigilance. Patient is open to medication management for depression; wants to get on Suboxone Past Psychiatric History: Suicide attempt when he was 17 years old hoping to crash his car, though did not do so Reports in custodial he was assessed psychiatrically and put in isolation for being too aggressive Medical Evaluation Reviewed: Yes HOSPITAL COURSE On the unit, pt was admitted on a CV. Pt was started on Invega Sustenna 234mg IM for voices. He denied suicidal ideation through out this admission. He was sleeping and eating well. He was referred to dual diagnosis program. He was started on suboxone for MAT. Status at Discharge Cognitive/behavioral status at discharge: Pt with brighter, non labile affect. No SI/HI. No VH/AH. Sleeping well. Functional status at discharge: independent ambulation Overall status at discharge: patient is progressing back to baseline Time Spent with Patient Time attestation: Total time managing care of this patient today _40___ minutes. Time spent: Greater than 30 minutes Discharge Plan Discharge Anticipated Discharge Date/Time: 11/03/23 09:03 Patient Disposition: Home, Self-Care Discharge Diagnosis: MDD with psychosis, polysubstance use. Referrals: [facility] (Suboxone) [Other] - 11/09/23 2:45 pm (Suboxone Appointment with [facility] Follow-up) [facility] [Other] - 11/03/23 11:00 am (Patient accepted to [facility] and will discharge to program on 11/03/23.) [facility] [Other] - 1 Week (Patient should present to [facility] for follow-up with outpatient psychiatric provider after completion of [facility] program Patient may also inquire with [facility] for therapy services ) [facility] [Other] - 1 Week (Referral to [facility] for substance abuse treatment ) [facility] [Other] - 1 Week (Referral to [facility] program ) [facility] [Other] - 1 Week (Self referral to [facility] for substance use treatment.) Physician,Unknown J [Primary Care Provider] - 1 Week Discharge Medications: New trazodone 50 mg Tablet 50 mg PO BEDTIME PRN (Reason: Insomnia) Qty: 30 0RF nicotine (polacrilex) 2 mg Gum 4 mg buccal Q2H PRN (Reason: Nicotine Cravings) Qty: 60 0RF quetiapine 200 mg Tablet 200 mg PO BEDTIME Qty: 30 0RF risperidone 2 mg Tablet 2 mg PO BID Qty: 60 0RF gabapentin 100 mg Capsule 200 mg PO TID Qty: 180 0RF escitalopram oxalate 10 mg Tablet 10 mg PO DAILY Qty: 30 0RF lactulose 10 gram/15 mL (15 mL) solution 30 g PO BID Qty: 1440 0RF buprenorphine-naloxone 8-2 mg Tablet, Sublingual 1 tab sublingual BID Qty: 14 1RF lactulose 20 gram/30 mL Solution 30 g PO BID Qty: 1200 0RF Changed clonidine HCl 0.1 mg tablet 0.1 mg PO TID Qty: 90 0RF Discontinued quetiapine [Seroquel] 100 mg tablet 100 mg PO DAILY quetiapine [Seroquel] 300 mg tablet 300 mg PO BEDTIME gabapentin 100 mg capsule 100 mg PO TID Qty: 21 0RF Discharge Orders: Discharge Order (Routine); Ordered 11/03/23 Ordered By: Chio Castro Diet: Regular diet Activity on Discharge: As tolerated Stand Alone Forms: Patient Portal Discharge page, Community Support Care Plan Goals: 1. maintain mood 2. No SI/HI 3. No VH/AH. Health Concerns: 1. Follow up with PCP for routine care Plan of Treatment: 1. Take medications as prescribed 2. Go to nearest ED or call 911 event of emergency Assessment: Pt with brighter, no labile. No SI/HI. No VH/AH. Pt sleeping throught the night. No signs of aggression towards self or others.
[2023-11-03] MEDS: Naloxone HCl Nasal TAKE HOME 4 MG SPRAY 8 MG NOSTRILALT (10:08)
== END 2023-11-03 10:45 | disposition home or self-care (01) | DRG 751 ==
LOC: HO.ED 10-19 13:50 → HO.PM5 10-20 13:59
PROVIDERS: Physician Assistant; Physician Assistant Medical; Admitting Provider Psychiatry & Neurology Psychiatry; Emergency Provider Internal Medicine; Visit Provider Psychiatry & Neurology Psychiatry
DX: F33.3 Major depressive disorder, recurrent, severe with psychotic symptoms (principal); R45.851 Suicidal ideations; F11.20 Opioid dependence, uncomplicated; F43.10 Post-traumatic stress disorder, unspecified; F14.10 Cocaine abuse, uncomplicated; Z59.02 Unsheltered homelessness; Z20.822 Contact with and (suspected) exposure to COVID-19; Z87.891 Personal history of nicotine dependence; Z79.899 Other long term (current) drug therapy
CPT/HCPCS: 36415; 80053; 80061; 80076; 80307; 81001; 83036; 84439; 84484; 85025; 87635; 93005; 99285; J2426; S9485

== ENCOUNTER → 2023-10-17 17:56 | Outpatient (BNV) | payer MEDICAID, SELFPAY | PROVIDERS: Emergency Provider Internal Medicine; Visit Provider Internal Medicine | DX: R00.0 Tachycardia, unspecified (principal) | CPT/HCPCS: 93010 ==

== ENCOUNTER → 2023-10-20 12:43 | Outpatient (BNV) | payer OTHER, SELFPAY | PROVIDERS: Admitting Provider Psychiatry & Neurology Psychiatry; Emergency Provider Internal Medicine; Visit Provider Psychiatry & Neurology Psychiatry | DX: F14.10 Cocaine abuse, uncomplicated (principal); F11.90 Opioid use, unspecified, uncomplicated; F43.11 Post-traumatic stress disorder, acute | CPT/HCPCS: 99231; 99232 ==